=== PATIENT | female | born 1980 | race Caucasian/White ===

== ENCOUNTER 2021-04-05 00:50 | Outpatient (CLI) | payer BC, SELFPAY ==
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
== END 2021-04-05 01:10 ==
PROVIDERS: PCP Nurse Practitioner; Visit Provider Nurse Practitioner Family
DX: M54.2 Cervicalgia (principal); G89.29 Other chronic pain
CPT/HCPCS: 72052

== ENCOUNTER 2022-05-15 01:04 | Outpatient (CLI) | payer BC, SELFPAY ==
--- NOTE | 2022-05-15 | DI.MRI_ITS ---
Exam(s) MR CERVICAL SPINE WO EXAM: MR CERVICAL SPINE WO CLINICAL HISTORY: CERVICAL RADICULOPATHY,RT,M54.12,NECK PAIN,M54.2 TECHNIQUE: Multiplanar multisequence MRI of the cervical spine was performed without intravenous con trast. COMPARISON: CR XR CERVICAL SP COMP W FLEX/EXT from 04/05/2021 FINDINGS: BONES: Vertebral body heights are maintained. Alignment is normal. Bone marrow signal intensity is wi thin normal limits. CERVICAL CORD: Craniovertebral junction is unremarkable. The cervical cord is normal size and signal intensity. There is focal mild dilatation of 1.5 Millimeters in diameter of the central canal seen at the C6 C7 levels. The brainstem and cerebellum appear normal. There is no evidence Chiari 1 malf ormation. SOFT TISSUES: Unremarkable. C2-3: No disc herniation or bulge is identified. No evidence of neural foraminal narrowing. No signi ficant central canal stenosis C3-4: No disc herniation or bulge is identified. No evidence of neural foraminal narrowing. No signif icant central canal stenosis C4-5: No disc herniation or bulge is identified. No evidence of neural foraminal narrowing. No signif icant central canal stenosis C5-6: No disc herniation or bulge is identified. No evidence of neural foraminal narrowing. No signif icant central canal stenosis C6-7: No disc herniation or bulge is identified. No evidence of neural foraminal narrowing. No signif icant central canal stenosis C7-T1: No disc herniation or bulge is identified. No evidence of neural foraminal narrowing. No signi ficant central canal stenosis IMPRESSION: Minimal focal dilatation of the central canal 1.5 Millimeters at the C6-C7 level. No additional abn ormalities. Further evaluation of the thoracic cord could be considered. DATA REPOSITORY:
== END 2022-05-15 01:24 ==
LOC: DI 01:05
PROVIDERS: PCP Nurse Practitioner; Visit Provider Nurse Practitioner Family
DX: M54.12 Radiculopathy, cervical region (principal)
CPT/HCPCS: 72141

== ENCOUNTER 2022-07-17 00:33 | Outpatient (CLI) | payer BC, SELFPAY ==
--- NOTE | 2022-07-17 | DI.MRI_ITS ---
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 CONTRAST MATERIAL: IV Contrast: 17 ML of Dotarem contrast administered. COMPARISON: MR MR CERVICAL SPINE WO from 05/15/2022 FINDINGS: BONES: Vertebral body heights are maintained. Intervertebral disc spaces are normal. Alignment is nor mal. Bone marrow signal intensity is within normal limits. CERVICAL CORD: Craniovertebral junction is unremarkable. The cerebellar tonsils have a normal locati on. The cervical cord is normal in size. The syrinx seen posterior to the C6 and C7 vertebral zeus s is present. It appears unchanged compared to the prior examination. SOFT TISSUES: Unremarkable. ENHANCEMENT: No suspicious enhancement identified. IMPRESSION: 1. Stable appearance of the syrinx. The syrinx is best appreciated on the examination from 05/15/2022 on the T2 weighted images. 2. No abnormal enhancement is seen in the spinal cord. 3. The brainstem and cerebellum have an unremarkable appearance and location. DATA REPOSITORY:
[2022-07-17] MEDS: Gadoterate meglumine 20 ML VIAL 17 ML IVP (09:52)
[2022-07-17] MEDS: Normal Saline Flush 10 ML SYR IVP (09:52)
== END 2022-07-17 00:53 ==
LOC: DI 00:34
PROVIDERS: PCP Nurse Practitioner Family; Visit Provider Nurse Practitioner Family
DX: Q06.9 Congenital malformation of spinal cord, unspecified (principal); M79.602 Pain in left arm; M54.2 Cervicalgia
CPT/HCPCS: 72142

== ENCOUNTER 2023-01-10 11:56 | Outpatient (CLI) | payer BC, SELFPAY ==
[2023-01-10 12:11] VITALS: BP 137/79; PULSE 70; RESP 20; TEMP 36.6; O2SAT 98
[2023-01-10 13:00] VITALS: PULSE 77; O2SAT 100
--- NOTE | 2023-01-10 13:05 | PDOC.PAIN ---
Date of service: 01/10/23 Time of Service: 13:05 US Guided Injections Type of Ultrasound Guided Injection: Neck Bilateral Levator scapulae and Trapezius muscle Trigger Point Injection Pre-Procedural Evaluation Tender to palpation at the tapezius muscles bilaterally and the lateral neck Referral Patient has been referred to the [facility] for Bilateral Levator scapulae and Trapezius muscle Neck Trigger Point Injection for a chief complaint of Pre-Procedural Pain Score Pre-procedural pain score: 6/10 Patient Interview Patient was interviewed and medical record reviewed: Yes There were no contraindications to performing an US guided procedure. Risks,expected side effects, potential benefits were reviewed. The patient consent form was signed and witnessed. Standard time out procedure was performed. Patient Safety No skin issues at the site of injections Procedure Description No sedation given for procedure Patient was placed in the prone position and the following Pulse Ox applied. Pre-Procedure ultrasound scanning performed using a Linear 18 MHz probe Site Preparation Chloroprep Local Anesthesia of Lidocaine 2%. guidance using an in-plane approach to the target area. After visualization of the needle tip at the target area Lidocaine 2% were used. Total of Injectate/Medication Note: No steroids given as patient just had her COVID vaccine Negative aspiration for blood. [place] were removed without difficulty. Ultrasound images were captured and stored. Patient Mental Status Patient was alert and awake during procedure Vital Signs Vital signs were stable throughout the procedure and recorded by nursing. Follow Up/Discharge Follow up plans and appointments were discussed with patient. Post procedure instruction was given as documented in nursing documentation. Discharge criteria met and patient discharged from Pain Management Center: Yes Post Procedure Pain Post Procedure Pain: 3/10 Patient tolerated procedure well Procedure Outcome: Successful Trigger Point Injection 3+muscles Non US Guided Injections Procedure Description Patient was placed in the prone position Post Procedure Pain Post Procedure Pain: 3/10
[2023-01-10] MEDS: Lidocaine 2% Pres-Free 5 ML VIAL IJ (13:09)
== END 2023-01-10 11:57 | disposition home or self-care (01) ==
LOC: PC 11:56
PROVIDERS: PCP Nurse Practitioner Family; Visit Provider Preventive Medicine Occupational Medicine
DX: M79.18 Myalgia, other site (principal)
CPT/HCPCS: 00123; 20553; 76942

== ENCOUNTER 2023-04-18 09:02 | Outpatient (CLI) | payer BC, SELFPAY ==
[2023-04-18 09:11] VITALS: BP 127/82; PULSE 65; RESP 20; TEMP 36.6; O2SAT 95
[2023-04-18 10:12] VITALS: PULSE 69; O2SAT 99
[2023-04-18] MEDS: Lidocaine 2% Pres-Free 5 ML VIAL IJ (10:16)
[2023-04-18] MEDS: Nerve Block Tray 1 EACH MC (10:16)
[2023-04-18] MEDS: methylPREDNISolone ACETATE 40 MG/ML VIAL IJ (10:17)
--- NOTE | 2023-04-18 10:51 | PDOC.PAIN ---
Date of service: 04/18/23 Time of Service: 10:51 US Guided Injections Type of Ultrasound Guided Injection: Neck Bilateral Levator scapulae and Trapezius muscle Trigger Point Injection Pre-Procedural Evaluation Tenderness to the bilateral trapezius and levator scapulae muscles - no skin abnormalities to these areas. Referral Patient has been referred to the [facility] for Bilateral Levator scapulae and Trapezius muscle Neck Trigger Point Injection for a chief complaint of Upper back and neck /shoulder pain Reason for Exam Upper back and neck /shoulder pain Patient Interview Patient was interviewed and medical record reviewed: Yes There were no contraindications to performing an US guided procedure. Risks,expected side effects, potential benefits were reviewed. The patient consent form was signed and witnessed. Patient Safety No skin abnormalities over the injection area Procedure Description No sedation given for procedure Patient was placed in the prone position and the following Pulse Ox applied. Pre-Procedure ultrasound scanning performed using a Linear 9 MHz probe Site Preparation Chloroprep Local Anesthesia of Lidocaine 2% (5 cc). A 21 G 3.5 Pajunk ultrasound needle was placed under live US guidance using an in-plane approach to the target area. After visualization of the needle tip at the target area Depo-Medrol 40mg per cc (40 mg) were used. Negative aspiration for blood. [place] were removed without difficulty. Ultrasound images were captured and stored. Patient Mental Status Patient was alert during procedure Vital Signs Vital signs were stable throughout the procedure and recorded by nursing. Follow Up/Discharge Follow up plans and appointments were discussed with patient. Post procedure instruction was given as documented in nursing documentation. Discharge criteria met and patient discharged from Pain Management Center: Yes Post Procedure Pain Post Procedure Pain: 5/10 Patient tolerated procedure well Procedure Outcome: Successful Trigger Point Injection 3+muscles Non US Guided Injections Procedure Description Patient was placed in the prone position Post Procedure Pain Post Procedure Pain: 5/10
== END 2023-04-18 09:03 | disposition home or self-care (01) ==
LOC: PC 09:02
PROVIDERS: PCP Nurse Practitioner Family; Visit Provider Preventive Medicine Occupational Medicine
DX: M54.6 Pain in thoracic spine (principal); M54.2 Cervicalgia
CPT/HCPCS: 00123; 20553; 76942; J1030

== ENCOUNTER → 2023-07-16 02:16 | Outpatient (CLI) | payer BC, SELFPAY ==
--- NOTE | 2023-07-16 | DI.DEXA_ITS ---
Exam(s) XR DEXA BONE DENSITY W/WO NANCY EXAM: XR DEXA BONE DENSITY W/WO NANCY CLINICAL HISTORY: H/O BARIATRIC SURGERY,Z98.84 TECHNIQUE: COMPARISON: No exams were available for comparison FINDINGS: Lateral Spine Image: Unremarkable. No compression deformities identified. Left hip: Total T-Score: -1.0 Total Z-Score: -0.8 T- and Z-scores: Within normal limits. Lumbar Spine: Total T-Score: -1.0 Total Z-Score: -0.8 T- and Z-scores: Within normal limits. IMPRESSION: No evidence of osteoporosis.
== END ==
PROVIDERS: PCP Nurse Practitioner Family; Visit Provider Nurse Practitioner Family
DX: Z13.820 Encounter for screening for osteoporosis (principal); Z98.84 Bariatric surgery status
CPT/HCPCS: 77080

== ENCOUNTER 2024-01-08 17:53 | Outpatient (REF) | payer BC, SELFPAY ==
--- OUTSIDE RECORDS SUMMARY | 2024-01-08 17:54 | XMS_ITS | Continuity of Care Document ---
Author Organization [facility] Ambulatory Clin[facility] Address [address] [place] [address] Care Team Providers Care Instrument Man Name Role Phone Desmond JOY, Arlene Primary Care Physician [phone] Encounter [facility] FIN NBR [id number] Date(s): 05/22/22 - 05/22/22 [facility] Ambulatory Clinics [address] [place] [address] Patient Care team information Care Team Personnel Name: Arlene Logan MD Position: Physician Member Role: Primary Care Physician Address: Address: [address] [place] [phone] Care Team Related Persons Name: NANCY RAM Address: Home [address] [place] [address] [place]
--- OUTSIDE RECORDS SUMMARY | 2024-01-08 17:54 | XMS_ITS | Continuity of Care Document ---
Author Organization [facility] Ambulatory Clinics Address [address] [place] [address] Care Team Providers Care Wet Silk Hanger Name Role Phone Arlene Logan MD Primary Care Physician Encounter [facility] FIN NBR [id number] Date(s): 07/25/22 - 07/25/22 [facility] Ambulatory Clinics [address], [place] [address] Discharge Disposition: Home Allergies, Adverse Reactions, Alerts Substance Reaction Severity Status gabapentin Altered sensation Moderate Active Amino Acid 1 Unknown Active Phenylalanine Lethargic Mild Active 1Phenylalanine found in both plant and animal foods Assessment and Plan Future Scheduled Tests Laboratory* Basic Metabolic Panel 06/01/22 Radiology* MRI Spine Cervical w/ Contrast 06/01/22 Medications methocarbamol 750 mg oral tablet 1,500 mg = 2 tab, Oral, BID, PRN as needed for pain, 0 Refill(s) Start Date: 05/31/22 Status: Ordered Nexplanon 68 mg =, Subcutaneous, Once, 0 Refill(s) Start Date: 05/31/22 Status: Ordered Tylenol Extra Strength 500 mg oral tablet 1,000 mg = 2 tab, Oral, TID, PRN as needed for pain, 0 Refill(s) Start Date: 05/31/22 Status: Ordered Problem List Condition Confirmation Course Effective Dates Status H ealth Status Informant BMI 30.0-30.9,adult Confirmed Active Cervical radiculopathy Confirmed Active Cervicalgia Confirmed Active Pain of left upper extremity Confirmed Active Spinal cord anomaly Confirmed Active Syringomyelia Confirmed Active Social History Social History Type Response Tobacco Former tobacco user Tobacco Use:. 1 Sex 1quit in 2005 Patient Care team information Care Team Personnel Name: Arlene Logan MD Position: Physician Member Role: Primary Care Physician Address: Address: [address] [place] [address] Care Team Related Persons Name: NANCY RAM Address: [address] Name: YEMI JIMENEZ
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
--- OUTSIDE RECORDS SUMMARY | 2024-01-08 17:55 | XMS_ITS | Encounter Summary ---
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 (preoperative BMI 50); Vitamin D deficiency Social History Tobacco Use Types Packs/Day Years Used Date Smoking Tobacco: Former Cigarettes Q uit: 01/04/2007 Smokeless Tobacco: Never Alcohol Use Standard Drinks/Week Comments No 0 (1 standard drink = 0.6 oz pur e alcohol) Sex and Gender Information Value Date Recorded Sex Assigned at Not on file Gender Identity Not on file Sexual Orientation Not on file documented as of this encounter Plan of Treatment Not on file documented as of this encounter Procedures Procedure Name Priority Date/Time Associated Diagnosis Comments PTH Routine 04/16/2023 11:28 AM EST Status post bariatric surgery 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 on 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/17 (preoperative BMI 50) Vitamin D deficiency HEMOGRAM Routine 04/16/2023 11:28 AM EST Status post bariatric surgery 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 on 03/28/17 (preoperative BMI 50) Vitamin D deficiency VITAMIN B1, WHOLE BLOOD Routine 04/16/2023 11:28 AM EST Status post bariatric surgery 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 on 03/28/17 (preoperative BMI 50) Vitamin D deficiency IRON AND TIBC Routine 04/16/2023 11:28 AM EST Status post bariatric surgery 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 on 03/28/17 (preoperative BMI 50) Vitamin D deficiency VITAMIN D, 25-HYDROXY Routine 04/16/2023 11:28 AM EST Status post bariatric surgery 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 on 03/28/17 (preoperative BMI 50) Vitamin D deficiency FOLATE, SERUM Routine 04/16/2023 11:28 AM EST Status post bariatric surgery 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 on 03/28/17 (preoperative BMI 50) Vitamin D deficiency FERRITIN Routine 04/16/2023 11:28 AM EST Status post bariatric surgery 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 on 03/28/17 (preoperative BMI 50) Vitamin D deficiency VITAMIN B12 Routine 04/16/2023 11:28 AM EST Status post bariatric surgery 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 on 03/28/17 (preoperative BMI 50) Vitamin D deficiency COMPREHENSIVE METABOLIC PANEL Routine 04/16/2023 11:28 AM EST Status post bariatric surgery 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 on 03/28/17 (preoperative BMI 50) Vitamin D deficiency documented in this encounter Results * (ABNORMAL) Comprehensive metabolic panel (non-fasting) (04/16/2023 11:28 AM EST) Glucose 79 65 - 199 mg/dL [facility] Comment:Diabetes: >=200 mg/d L plus symptoms Blood Urea Nitrogen 10 8 - 18 mg/dL [facility] Creatinine 0.72 0.70 - 1.20 mg/dL [facility] Sodium 141 135 - 145 mmol/L [facility] Potassium 3.3(L) 3.5 - 5.0 mmol/L [facility] Comment: Please note: ??Patients with WBC >100,000 may have falsely elevated Potassium levels. ??For accurate Potassium quantification in these patients send serum separator tube (gold top) for subsequent determinations. ??Contact the Clinical Chemistry Laboratory if there are any questions. Chloride 106 98 - 107 mmol/L [facility] Carbon Dioxide 23 22 - 31 mmol/L [facility] Anion Gap 12 5 - 15 mmol/L [facility] Calcium 9.3 8.5 - 10.5 mg/dL [facility] Protein, Total 6.9 6.1 - 8.0 g/dL [facility] Albumin 4.1 3.2 - 5.2 g/dL [facility] Aspartate Aminotransferase 11 0 - 30 unit/L [facility] Alanine Aminotransferase 6 0 - 30 unit/L [facility] Alkaline Phosphatase 62 35 - 105 unit/L [facility] Bilirubin, Total <0.2(L) 0.2 - 1.3 mg/dL [facility] Est Glomerular Filtration Rate 108 >=60 mL/min/1. 73 m?? [facility] Comment: This patient's estimated GFR was calculated using the 2020 CKD-EPI equation. The estimated GFR can vary from the measured GFR by up to 30% in the absence of rapidly changing kidney function. Assessment of the estimated GFR is not appropriate when creatinine concentrations are rapidly changing. For clinical situations in which a more precise estimate of GFR is necessary, consider alternative methods of GFR estimation such as a 24-hour urine creatinine clearance. Assignment of CKD stage 1-5 for patients with an eGFR near the transition point between stages may be based on clinical assessment of muscle mass and symptoms in addition to eGFR. Blood 04/16/2023 11:2 8 AM EST 04/16/2023 11:50 AM EST Narrative Resulting Agency Comment Spec In Lab Belle Barone GLASS CALIBRATOR CHEMISTRY ORDERA BLES [facility] [place] [address] * Ferritin (04/16/2023 11:28 AM EST) Ferritin 18 6 - 175 ng/mL [facility] Comment: Please note that as of 02/28/2023, the reference intervals for Ferritin have been updated. Blood 04/16/2023 11:2 8 AM EST 04/16/2023 11:50 AM EST Narrative Resulting Agency Comment Spec In Lab Belle Barone APRN CHEMISTRY ORDERA BLES Performing Organization Address [facility] Co de Phone Number [facility] [place] [address] * Folate, serum (04/16/2023 11:28 AM EST) Pathologist [facility] Folate 5.9 4.8 - 24.2 ng/mL [facility] Blood 04/16/2023 11:2 8 AM EST 04/16/2023 11:50 AM EST Narrative Resulting Agency Comment Spec In Lab Belle Barone APRN CHEMISTRY ORDERA BLES Performing Organization Address [facility] de Phone Number [facility] [place] [address] * (ABNORMAL) Hemogram (04/16/2023 11:28 AM EST) Pathologist [facility] White Blood Cell 9.9(H) 4.0 - 9.5 x10(3)/mc L [facility] Red Blood Cell 4.56 4.00 - 5.21 x10(6)/mc L [facility] Hemoglobin 12.5 11.7 - 15.5 g/dL [facility] Hematocrit 38.2 35.7 - 45.8 % [facility] Mean Cell Volume 83.8 82.6 - 94.4 fL [facility] Mean Cell Hemoglobin 27.4 27.1 - 32.0 pg [facility] Mean Cell Hemoglobin Concentration 32.7 31.7 - 35.0 g/dL [facility] Platelet 329 145 - 357 x10(3)/mc L [facility] RDW Standard Deviation 39.9 37.0 - 46.0 fL [facility] RDW coefficient of variation 13.1 11.5 - 14.1 % [facility] Mean Platelet Volume 11.0 7.6 - 12.9 fL [facility] NRBC% auto 0.0 % [facility] NRBC Absolute 0.000 0.000 - 0.000 x10(3)/mc L [facility] Blood 04/16/2023 11:2 8 AM EST 04/16/2023 11:50 AM EST Narrative Resulting Agency Comment Spec In Lab Belle Barone APRN HEMATOLOGY ORDER BARTOLO Performing Organization Address City/[facility]/ZIP Co de Phone Number [facility] [address] * (ABNORMAL) Iron and TIBC (04/16/2023 11:28 AM EST) Iron 60 30 - 150 mcg/dL [facility] TIBC 373 250 - 450 mcg/dL [facility] Iron Saturation 16(L) 20 - 50 % [facility] Blood 04/16/2023 11:2 8 AM EST 04/16/2023 11:50 AM EST Narrative Resulting Agency Comment Spec In Lab Belle Barone APRN CHEMISTRY ORDERA BLES Performing Organization Address [facility] Co de Phone Number [facility] [place] [address] * PTH (04/16/2023 11:28 AM EST) Parathyroid Hormone 44 15 - 65 pg/mL [facility] Blood 04/16/2023 11:2 8 AM EST 04/16/2023 11:50 AM EST Narrative Resulting Agency Comment Spec In Lab Belle Barone APRN CHEMISTRY ORDERA BLES Performing Organization Address [facility] Co de Phone Number [facility] [place] [address] * Vitamin B1, whole blood (04/16/2023 11:28 AM EST) Vit B1 Lvl Wb (JULY) 112 70 - 180 nmol/L [facility] Comment: ADDITIONAL INFORMATION This test was developed and its performance characteristics determined by [facility] in a manner consistent with CLIA requirements. This test has not been cleared or approved by the U.S. Food and Drug Administration. Test Performed by: [facility] - [address] [address] Bed Laborer: Farzad Monroe M.D. Ph.D.; CLIA# [id number] Blood 04/16/2023 11:2 8 AM EST 04/16/2023 12:24 PM EST Narrative Resulting Agency Comment Spec In Lab Belle Barone APRN LAB SEND OUT ORD ERABLES Performing Organization Address City/[facility]/ZIP Co de Phone Number [facility] [place] [address] * Vitamin B12 (04/16/2023 11:28 AM EST) Vitamin B12 414 232 - 1,245 pg/mL [facility] Blood 04/16/2023 11:2 8 AM EST 04/16/2023 11:50 AM EST Narrative Resulting Agency Comment Spec In Lab Belle Barone APRN CHEMISTRY ORDERA BLES Performing Organization Address [facility] Co de Phone Number [facility] [place] [address] * Vitamin D, 25-Hydroxy (04/16/2023 11:28 AM EST) Vitamin D Total 25 OH 24 21 - 100 ng/mL [facility] Vit D Interp Insufficient [facility] Blood 04/16/2023 11:2 8 AM EST 04/16/2023 11:50 AM EST Narrative Resulting Agency Comment Spec In Lab Belle Barone APRN CHEMISTRY ORDERA BLES Performing Organization Address City/[facility]/ZIP Co de Phone Number [facility] [place] [address] documented in this encounter Visit Diagnoses Diagnosis Status post bariatric surgery Bariatric surgery status Disorder of iron metabolism Other disorders of iron metabolism S/P laparoscopic sleeve gastrectomy on 03/28/17 (preoperative BMI 50) Vitamin D deficiency Unspecified vitamin D deficiency documented in this encounter Care Teams Power Hammer Operator Relationship Specialty Start Date End Date Samreen Warner APRN [address] [place] [address] PCP - General Family Medicine 09/14/16 07/22/23 documented as of this encounter
--- OUTSIDE RECORDS SUMMARY | 2024-01-08 17:55 | XMS_ITS | Encounter Summary ---
[place] [address] Care Team Providers Care Factory Clerk Name Role Phone Samreen Warner TRAVELING PHLEBOTOMIST Primary Care Provider Encounter Details Date Type Department Care Team (Latest Contact Info) Description 08/30/2020 1:35 PM EDT Laboratory Appointment Lab [address] [place] [address] Status post bariatric surgery; Vitamin D deficiency Social History Tobacco Use [...] Procedure Name Priority Date/Time Associated Diagnosis Comments HC VITAMIN D TOTAL-25 HYDROXY Routine 08/30/2020 1:38 PM EDT Status post bariatric surgery Vitamin D deficiency documented in this encounter Results * Vitamin D, 25-Hydroxy (08/30/2020 1:38 PM EDT) Vitamin D Total 25 OH 57 21 - 100 ng/mL [facility] Vit D Interp Sufficient [facility] Blood 08/30/2020 1:38 PM EDT 08/30/2020 1:59 PM EDT Narrative Resulting Agency Comment Spec In Lab Belle Barone TRAVELING PHLEBOTOMIST CHEMISTRY ORDERA BLES Performing Organization Address City/State/[facility] Co de Phone Number [facility] [place] [address] documented in this encounter Visit Diagnoses Diagnosis Status post bariatric surgery Bariatric surgery status Vitamin D deficiency Unspecified vitamin D deficiency documented in this encounter Care Teams Factory Clerk Relationship Specialty Start Date End Date Samreen Warner APRN [address] [place] [address] PCP - General Family Medicine 09/14/16 07/22/23 documented as of this encounter
--- OUTSIDE RECORDS SUMMARY | 2024-01-08 17:55 | XMS_ITS | Encounter Summary ---
[facility] [place] [address] Care Team Providers Care Coffee Blender Name Role Phone RadhapoliSamreen brandon LUCIANO Primary Care Provider Encounter Details Date Type Department Care Team (Late st Contact Info) Description 03/03/2022 Orders Only [place] [address] Belle Barone APRN [facility] [place] [address] Status post bariatric surgery; Disorder of iron metabolism Social History Tobacco Use Types Packs/Day Years [...] on file documented as of this encounter Results * Vitamin B12 (04/03/2022 8:03 AM EST) Vitamin B12 492 232 - 1,245 pg/mL [facility] Blood 04/03/2022 8:03 AM EST 04/03/2022 8:15 AM EST Narrative Resulting Agency Comment Spec In Lab Belle M Neosho COFFEE SHOP MANAGER CHEMISTRY ORDERA BLES Performing Organization Address City/[facility]/ZIP Co de Phone Number [facility] [place] [address] * Vitamin D, 25-Hydroxy (04/03/2022 8:03 AM EST) Vitamin D Total 25 OH 62 21 - 100 ng/mL [facility] Vit D Interp Sufficient [facility] Blood 04/03/2022 8:03 AM EST 04/03/2022 8:15 AM EST Narrative Resulting Agency Comment Spec In Lab Belle Barone COFFEE SHOP MANAGER CHEMISTRY ORDERA BLES Performing Organization Address [facility] Co de Phone Number [facility] [place] [address] * Vitamin B1, whole blood (04/03/2022 8:03 AM EST) Vit B1 Lvl Wb (JULY) 120 70 - 180 nmol/L [facility] Comment: ADDITIONAL INFORMATION This test was developed and its performance characteristics determined by [facility] in a manner consistent with CLIA requirements. This test has not been cleared or approved by the U.S. Food and Drug Administration. Test Performed by: [facility] - [address] [address] [employer] Production: Farzad Monroe M.D. Ph.D.; CLIA# [id number] Blood 04/03/2022 8:03 AM EST 04/03/2022 9:29 AM EST Narrative Resulting Agency Comment Spec In Lab Belle Barone COFFEE SHOP MANAGER LAB SEND OUT ORD ERABLES Performing Organization Address City/[facility]/ZIP Co de Phone Number [facility] [place] [address] * PTH (04/03/2022 8:03 AM EST) Parathyroid Hormone 45 15 - 65 pg/mL [facility] Blood 04/03/2022 8:03 AM EST 04/03/2022 8:15 AM EST Narrative Resulting Agency Comment Spec In Lab Belle Barone COFFEE SHOP MANAGER CHEMISTRY ORDERA BLES [facility] [place] [address] * (ABNORMAL) Hemogram (04/03/2022 8:03 AM EST) White Blood Cell 11.2(H) 4.0 - 9.5 x10(3)/mc L [facility] Red Blood Cell 4.55 4.00 - 5.21 x10(6)/mc L [facility] Hemoglobin 12.9 11.7 - 15.5 g/dL [facility] Hematocrit 38.6 35.7 - 45.8 % [facility] Mean Cell Volume 84.8 82.6 - 94.4 fL [facility] Mean Cell Hemoglobin 28.4 27.1 - 32.0 pg [facility] Mean Cell Hemoglobin Concentration 33.4 31.7 - 35.0 g/dL [facility] Platelet 341 145 - 357 x10(3)/mc L [facility] RDW Standard Deviation 38.9 37.0 - 46.0 fL [facility] RDW coefficient of variation 12.6 11.5 - 14.1 % [facility] Mean Platelet Volume 10.3 7.6 - 12.9 fL [facility] NRBC% auto 0.0 % [facility] NRBC Absolute 0.000 0.000 - 0.000 x10(3)/mc L [facility] Blood 04/03/2022 8:03 AM EST 04/03/2022 8:15 AM EST Narrative Resulting Agency Comment Spec In Lab Belle Barone APRN HEMATOLOGY ORDER BARTOLO [facility] [place] [address] * Folate, serum (04/03/2022 8:03 AM EST) Folate >20.0 4.8 - 24.2 ng/mL [facility] Blood 04/03/2022 8:03 AM EST 04/03/2022 8:15 AM EST Narrative Resulting Agency Comment Spec In Lab Belle Barone APRN CHEMISTRY ORDERA BLES Performing Organization Address City/[facility]/ZIP Co de Phone Number [facility] [place] [address] * Iron and TIBC (04/03/2022 8:03 AM EST) Iron 104 30 - 150 mcg/dL [facility] TIBC 329 250 - 450 mcg/dL [facility] Iron Saturation 32 20 - 50 % [facility] Blood 04/03/2022 8:03 AM EST 04/03/2022 8:15 AM EST Narrative Resulting Agency Comment Spec In Lab Belle Barone APRN CHEMISTRY ORDERA BLES Performing Organization Address [facility] Co de Phone Number [facility] [place] [address] * Ferritin (04/03/2022 8:03 AM EST) Ferritin 21 15 - 150 ng/mL [facility] Comment: Pediatric reference ranges not verified at [facility], interpret with caution. Reference ranges for females greater than 50 years of age approach values for men, i.e., 30-400 ng/mL. Blood 04/03/2022 8:03 AM EST 04/03/2022 8:15 AM EST Narrative Resulting Agency Comment Spec In Lab Belle Barone APRN CHEMISTRY ORDERA BLES Performing Organization Address [facility] Co de Phone Number [facility] [place] [address] * (ABNORMAL) Comprehensive metabolic panel (non-fasting) (04/03/2022 8:03 AM EST) Glucose 90 65 - 199 mg/dL [facility] Comment:Diabetes: >=200 mg/d L plus symptoms Blood Urea Nitrogen 10 8 - 18 mg/dL [facility] Creatinine 0.65(L) 0.70 - 1.20 mg/dL [facility] Sodium 140 135 - 145 mmol/L [facility] Potassium 3.7 3.5 - 5.0 mmol/L [facility] Comment: Please note: ??Patients with WBC >100,000 may have falsely elevated Potassium levels. ??For accurate Potassium quantification in these patients send serum separator tube (gold top) for subsequent determinations. ??Contact the Clinical Chemistry Laboratory if there are any questions. Chloride 107 98 - 107 mmol/L [facility] Carbon Dioxide 24 22 - 31 mmol/L [facility] Anion Gap 9 5 - 15 mmol/L [facility] Calcium 9.1 8.5 - 10.5 mg/dL [facility] Protein, Total 6.7 6.1 - 8.0 g/dL [facility] Albumin 4.2 3.2 - 5.2 g/dL [facility] Aspartate Aminotransferase 9 0 - 30 unit/L [facility] Alanine Aminotransferase 6 0 - 30 unit/L [facility] Alkaline Phosphatase 49 35 - 105 unit/L [facility] Bilirubin, Total 0.4 0.2 - 1.3 mg/dL [facility] Est Glomerular Filtration Rate 115 >=60 mL/min/1. 73 m?? [facility] Comment: This patient's estimated GFR was [...] and symptoms in addition to eGFR. Blood 04/03/2022 8:03 AM EST 04/03/2022 8:15 AM EST Narrative Resulting Agency Comment Spec In Lab Belle Barone COFFEE SHOP MANAGER CHEMISTRY ORDERA BLES [facility] [place] [address] documented in this encounter Visit Diagnoses Diagnosis Status post bariatric surgery Bariatric surgery status Disorder of iron metabolism Other disorders of iron metabolism documented in this encounter Care Teams Coffee Blender Relationship Specialty Start Date End Date Samreen Warner APRN [address] [place] [address] PCP - General Family Medicine 09/14/16 07/22/23 documented as of this encounter
--- OUTSIDE RECORDS SUMMARY | 2024-01-08 17:55 | XMS_ITS | Encounter Summary ---
[facility] Organization [facility] [place] [address] Care Team Providers Care Levelman Name Role Phone NikkiSamreen brandon LUCIANO Primary Care Provider Encounter Details Date Type Department Care Team (Late st Contact Info) Description 12/31/2020 Orders [place] [address] Belel Barone APRN [facility] DR [place] [address] Status post bariatric surgery; Vitamin D deficiency; Disorder of iron metabolism Social History Tobacco [...] as of this encounter Results * Vitamin D, 25-Hydroxy (04/04/2021 1:12 PM EST) Vitamin D Total 25 OH 41 21 - 100 ng/mL [facility] Vit D Interp Sufficient [facility] Blood 04/04/2021 1:12 PM EST 04/04/2021 1:25 PM EST Narrative Resulting Agency Comment Spec In Lab Belle Barone APRN CHEMISTRY ORDERA BLES Performing Organization Address City/[facility]/ZIP Co de Phone Number [facility] [place] [address] * Vitamin B12 (04/04/2021 1:12 PM EST) Vitamin B12 948 232 - 1,245 pg/mL [facility] Blood 04/04/2021 1:12 PM EST 04/04/2021 1:25 PM EST Narrative Resulting Agency Comment Spec In Lab Belle Barone APRN CHEMISTRY ORDERA BLES Performing Organization Address [facility] de Phone Number [facility] [place] [address] * Vitamin B1, whole blood (04/04/2021 1:12 PM EST) Vit B1 Lvl Wb (JULY) 116 70 - 180 nmol/L [facility] Comment: ADDITIONAL INFORMATION This test was developed and its performance characteristics determined by [facility] in a manner consistent with CLIA requirements. This test has not been cleared or approved by the U.S. Food and Drug Administration. Test Performed by: [facility] - [address] [address] Aircraft Captain: Farzad Monroe M.D. Ph.D.; CLIA# [id number] Blood 04/04/2021 1:12 PM EST 04/04/2021 3:30 PM EST Narrative Resulting Agency Comment Spec In Lab Belle Barone APRN LAB SEND OUT ORD ERABLES Performing Organization Address City/[facility]/ZIP Co de Phone Number [facility] [place] [address] * PTH (04/04/2021 1:12 PM EST) Parathyroid Hormone 47 15 - 65 pg/mL [facility] Blood 04/04/2021 1:12 PM EST 04/04/2021 1:25 PM EST Narrative Resulting Agency Comment Spec In Lab Belle Barone APRN CHEMISTRY ORDERA BLES Performing Organization Address City/[facility]/ZIP Co de Phone Number [facility] [place] [address] * Iron and TIBC (04/04/2021 1:12 PM EST) Iron 97 30 - 150 mcg/dL [facility] TIBC 316 250 - 450 mcg/dL [facility] Iron Saturation 31 20 - 50 % [facility] Blood 04/04/2021 1:12 PM EST 04/04/2021 1:25 PM EST Narrative Resulting Agency Comment Spec In Lab Belle Barone APRN CHEMISTRY ORDERA BLES Performing Organization Address City/[facility]/ZIP Co de Phone Number [facility] [place] [address] * Hemogram (04/04/2021 1:12 PM EST) White Blood Cell 8.1 4.0 - 9.5 x10(3)/[facility] Red Blood Cell 4.49 4.00 - 5.21 x10(6)/[facility] Hemoglobin 13.0 11.7 - 15.5 g/dL [facility] Hematocrit 38.7 35.7 - 45.8 % [facility] Mean Cell Volume 86.2 82.6 - 94.4 fL [facility] Mean Cell Hemoglobin 29.0 27.1 - 32.0 pg [facility] Mean Cell Hemoglobin Concentration 33.6 31.7 - 35.0 g/dL [facility] Platelet 334 145 - 357 x10(3)/[facility] RDW Standard Deviation 39.2 37.0 - 46.0 fL [facility] RDW coefficient of variation 12.6 11.5 - 14.1 % [facility] Mean Platelet Volume 10.4 7.6 - 12.9 fL [facility] NRBC% auto 0.0 % [facility] NRBC Absolute 0.000 0.000 - 0.000 x10(3)/[facility] Blood 04/04/2021 1:12 PM EST 04/04/2021 1:25 PM EST Narrative Resulting Agency Comment Spec In Lab Belle Barone APRN HEMATOLOGY ORDER BARTOLO Performing Organization Address City/[facility]/ZIP Co de Phone Number [facility] [place] [address] * Folate, serum (04/04/2021 1:12 PM EST) Pathologist [facility] Folate >20.0 4.8 - 24.2 ng/mL [facility] Blood 04/04/2021 1:12 PM EST 04/04/2021 1:25 PM EST Narrative Resulting Agency Comment Spec In Lab Belle Barone APRN CHEMISTRY ORDERA BLES Performing Organization Address City/[facility]/ZIP Co de Phone Number [facility] [place] [address] * Ferritin (04/04/2021 1:12 PM EST) Pathologist [facility] Ferritin 33 15 - 150 ng/mL [facility] Comment: Pediatric reference ranges not verified at [facility], interpret with caution. Reference ranges for females greater than 50 years of age approach values for men, i.e., 30-400 ng/mL. Blood 04/04/2021 1:12 PM EST 04/04/2021 1:25 PM EST Narrative Resulting Agency Comment Spec In Lab Belle Barone TEMPERING MACHINE OPERATOR CHEMISTRY ORDERA BLES [facility] [place] [address] * (ABNORMAL) Comprehensive metabolic panel (non-fasting) (04/04/2021 1:12 PM EST) Glucose 76 65 - 199 mg/dL [facility] Comment:Diabetes: >=200 mg/d L plus symptoms Blood Urea Nitrogen 14 8 - 18 mg/dL [facility] Creatinine 0.74 0.70 - 1.20 mg/dL [facility] Sodium 138 135 - 145 mmol/L [facility] Potassium 3.3(L) 3.5 - 5.0 mmol/L [facility] Comment: Please note: ??Patients with WBC >100,000 may have falsely elevated Potassium levels. ??For accurate Potassium quantification in these patients send serum separator tube (gold top) for subsequent determinations. ??Contact the Clinical Chemistry Laboratory if there are any questions. Chloride 104 98 - 107 mmol/L [facility] Carbon Dioxide 25 22 - 31 mmol/L [facility] Anion Gap 9 5 - 15 mmol/L [facility] Calcium 9.3 8.5 - 10.5 mg/dL [facility] Protein, Total 7.0 6.1 - 8.0 g/dL [facility] Albumin 4.5 3.2 - 5.2 g/dL [facility] Aspartate Aminotransferase 12 0 - 30 unit/L [facility] Alanine Aminotransferase 11 0 - 30 unit/L [facility] Alkaline Phosphatase 60 35 - 105 unit/L [facility] Bilirubin, Total 0.2 0.2 - 1.3 mg/dL [facility] Est Glomerular Filtration Rate 103 >=60 mL/min/1. 73 m?? [facility] Comment: This patient? s estimated glomerular filtration rate (eGFR) is between 103 mL/min/1.73 m2 (patients with less muscle mass) and 119 mL/min/1.73 m2 (patients with more muscle mass) as determined by the CKD-EPI equation. Assessment of eGFR is not appropriate when creatinine concentrations are rapidly changing. For clinical decisions where creatinine clearance will affect therapy, a 24-hour urine creatinine clearance may be advised. Assignment of CKD stage 1 - 5 for patients with an eGFR near the transition point between stages may be based on clinical assessment of muscle mass and symptoms in addition to eGFR. Blood 04/04/2021 1:12 PM EST 04/04/2021 1:25 PM EST Narrative Resulting Agency Comment Spec In Lab Belle Barone APRN CHEMISTRY ORDERA [facility] Performing Organization Address City/State/[facility] [place] [address] documented in this encounter Visit Diagnoses Diagnosis Status post bariatric surgery Bariatric surgery status Vitamin D deficiency Unspecified vitamin D deficiency Disorder of iron metabolism Other disorders of iron metabolism documented in this encounter Care Teams Levelman Relationship Specialty Start Date End Date Samreen Warner APRN [address] [place] [address] PCP - General Family Medicine 09/14/16 07/22/23 documented as of this encounter
--- OUTSIDE RECORDS SUMMARY | 2024-01-08 17:55 | XMS_ITS | Encounter Summary ---
[place] [address] Care Team Providers Care [id number] Armor Crewman Name Role Phone Samreen Warner APRN Primary Care Provider Encounter Details Date Type Department Care Team (Late st Contact Info) Description 11/05/2019 Telephone [place] [phone] Rowena Cisneros Social History Tobacco Use Types Packs/Day Years Used Date Smoking Tobacco: Former Cigarettes Q uit: 01/04/2007 Smokeless Tobacco: Never Alcohol Use Standard Drinks/Week Comments No 0 (1 standard drink = 0.6 oz pur e alcohol) Sex and Gender Information Value Date Recorded Sex Assigned at Not on file Gender Identity Not on file Sexual Orientation Not on file documented as of this encounter Miscellaneous Notes * Telephone Encounter - Rowena Noriega - 11/05/2019 12:06 PM EDT LM to inform patient of new appt time on 12/07 at 1:45 instead of 11:00. documented in this encounter Plan of Treatment Not on file documented as of this encounter Visit Diagnoses Not on filedocumented in this encounter Care Teams [id number] Armor Crewman Relationship Specialty Start Date End Date Samreen Warner APRN [address] [place] [address] PCP - General Family Medicine 6/22/17 4/28/24 documented as of this encounter
--- OUTSIDE RECORDS SUMMARY | 2024-01-08 17:55 | XMS_ITS | Encounter Summary ---
Author Organization [facility] [place] [address] Care Team Providers Care Out Of School Hours Care Worker Name Role Phone NikkijonomarichuySamreen LUCIANO Primary Care Provider Encounter Details Date Type Department Care Team ([facility] st Contact Info) Description 05/15/2022 Ancillary Procedure Radiology Library at [facility] [place] [address] Arlene Logan APRN [address] [place] [address] Social History Tobacco Use Types Packs/Day Years [...] Procedure Name Priority Date/Time Associated Diagnosis Comments FILM LIBRARY STORAGE ONLY MR SPINE Routine 05/15/2022 12:00 AM EST documented in this encounter Results * Film Library- Storage Only MR Spine (05/15/2022 12:00 AM EST) Narrative [facility] - 09/26/2023 11:02 AM EDT This exam is auto-finalizing. It's purpose is for storage only. Arlene Logan APRN G FILM LIBRARY ORD ERABLES RAD [place], [place] documented in this encounter Visit Diagnoses Not on filedocumented in this encounter Care Teams Out Of School Hours Care Worker Relationship Specialty Start Date End Date Samreen Warner APRN [address] [place] [address] PCP - General Family Medicine 09/14/16 07/22/23 documented as of this encounter
--- OUTSIDE RECORDS SUMMARY | 2024-01-08 17:55 | XMS_ITS | Encounter Summary ---
Author Organization [facility] [place] [address] Care Team Providers Care Insulation Sprayer Name Role Phone Samreen Warner LUCIANO Primary Care Provider [phone] Encounter Details Date Type Department Care Team (Late st Contact Info) Description 04/03/2022 8:30 AM EST Office [place] [address] Belle Barone, ROADS SUPERVISOR [facility] [place] [address] Alyssia Reinoso, RD [facility] [place] [place] [address] Status post bariatric surgery; Disorder of iron [...] on file documented as of this encounter Last Filed Vital Signs Vital Sign Reading Time Taken Comments Blood Pressure 111/67 04/03/2022 8:17 AM EST Pulse 78 04/03/2022 8:17 AM EST Temperature - - Respiratory Rate 16 04/03/2022 8:17 AM EST Oxygen Saturation 97% 04/03/2022 8:17 AM EST Inhaled Oxygen Concentration - - Weight 84.6 kg (186 lb 9.6 oz) 04/03/2022 8:17 A M EST Height 158 cm (5' 2.2) 04/03/2022 8:17 AM EST Body Mass Index 33.91 04/03/2022 8:17 AM EST documented in this encounter Patient Instructions * Patient Instructions* Belle Barone, ROADS SUPERVISOR - 04/03/2022 8:30 AM EST [facility] functional support analyst Madelyn [phone] and Ana [phone] Dietitians: [phone] Surgeons/ nurse practitioners: [phone] Nurse line: [phone] Dear Lennie, Please see your electronic medical record note from today for details we discussed at your visit. Below is some additional general information that you may find helpful. Testing: It would be helpful if you can have your lab work drawn a couple days before your visit yenni [facility] facility so the results are available at the time of your follow up visit. If you have labwork done by your primary care director before that date, please have a copy sent to the Bariatric Surgery Program. Please call/send my message if you have not heard from us within 2 weeks of having labs work done. Here's the link to [facility] Lab hours and locations: [email or web address] Next visit: Follow up visits are done at 4 months and 12 months after surgery and yearly thereafter. Some patients are evaluated on a more frequent basis. Please call [phone] if you do not receive an appointment by 3-4 weeks prior to the expected visit. Vitamins/Nutrition/Activity Recommendations: Please see your visit note for personalized recommendations General Vitamin recommendations: Multivitamins with minerals twice daily- needs to be an under 50 multivitamin that contains iron. Vitamin B12 500 mcg by mouth once daily Calcium citrate 500-600 mg with Vitamin D 400 units twice daily (600 mg in AM and 600 mg in PM- 2 pills twice a day) (or 1 chewable twice a day) Iron supplement: as specified in today's visit Vitamin D: as specified in today's visit General Nutrition recommendations: 1,000-1,200 calories per day (300 calories per meal, 100 calories per snack, 1-2 snacks per day) 60 grams of protein per day (20 grams per meal) 48-64 oz of non-caloric and hydrating fluids per day (6-8, 8 oz cups) Do not drink with meals- pushes food through more quickly, can cause upset stomach Activity: Aim for 30 minutes of exercise daily, 5 days a week of both cardio and strength training exercises. Skinfold care: Cleanse area with soap and water. Blow dry area on low setting with director hair. Avoid excessive heat and/or sweating as friction and moisture can exacerbate disease. Try OTC Dove clinical strength anti perspirant to affected areas nightly or an absorbent powder such as Gold Lawler and Desinex Apply cotton strips (such as strips from old sheets) or larger size cotton underwear folded beneathskin folds to act as a wick. Do not apply flip cloth toweling which can cause further irritation Try combination of over the counter hydrocortisone cream with over the counter antifungal cream such as lotrimin twice a day for 2 weeks. If your symptoms do not improve you may require prescription of anti-fungal cream/powder. Follow up with PCP if symptoms worsen/fail to improve with above strategies. Constipation: Increase fiber, fluids and fitness. Yerba Prima is a fiber supplement that comes in capsule form. Additionally, consider trying 1 capful daily of miralax daily (preferably at night) with a goal of at least 1 BM per day. You can increase the dose as needed every 2-3 days (by adding on 1 capful either morning or night) without safety concerns, noting that individual tolerance becomes limited by loose stools and bloating with doses higher than 2 capfuls twice daily. Please call if you do not have a BM after 3 days. On days with loose stools, we recommend reducing miralax to 1/2 capful daily but continue to take miralax every day Nausea: Common causes for nausea post bariatric surgery are: Eating too fast, eating too much, drinking with meals, or not chewing well enough. Be sure to eat slowly and chew food well. Take at least30 minutes or more to eat a meal. Call if symptoms worsen, fail to improve, or if you have difficulty keeping food or fluid down. Alcohol: is not recommended for at least 6-12 months after surgery. Alcohol is absorbed much fasterand stays in your system much longer post bariatric surgery and as a result there is an increase risk of alcohol misuse/abuse after bariatric surgery. It should be used sparingly, no more than one drink per occasion, no more than 2 drinks a week. Alcohol is toxic to the liver, a source of empty calories, it can cause ulcers, vitamin and mineral deficiencies, as well as impair digestion and absorption of nutrients. Call or follow up with your therapist or primary care provider if you are struggling or think your alcohol intake is a problem. control for women of child bearing age: is recommended for at least 18-24 months after surgery. f non-prescribed drugs and treet drugs is unsafe Anti-inflammatory medications such as Ibuprofen (Advil), Aleve (Naproxen), Excedrin, Brandi-Boston should be used sparingly after gastric bypass, since they increase the risk of ulcer and bleeding. A bone mineral density scan (DEXA) is recommended every 2 years after bariatric surgery. Please schedule this study through your primary care providers office. Hair Loss: is associated with rapid weight loss and is seen approximately 3 to 6 months after surgery and can last 3 to 6 months. It is almost always temporary. Eating a healthy diet with 60 grams ofprotein per day and taking your multivitamin with minerals will help. Sleep Apnea: If you have a history of sleep apnea and have a CPAP/BiPAP, please be sure to follow up with the sleep center to confirm your pressures and determine if continued use of CPAP/BiPAP is recommended. Potential lifetime risks of gastric bypass include risk of ulcer, which is increased with alcohol and antiinflammatory medications and internal hernia (less than 5%), which may be increased with higher than predicted weight loss Potential lifetime risks of sleeve gastrectomy include developed heartburn or severe reflux Call us: If you have concerns. If you have unexplained abdominal pain. if you see blood in your stool or vomit blood If you have prolonged vomiting Post Surgery Support Group: Our post surgery support group meets at [facility] on the first Sunday of every month from 1:00 PM-2:00 PM. You can attend online or in person. Use the following link to attend online: [email or web address] Nutrition and Activity apps- Baritastic, My Fitness Pal, Lose It, My Plate Internet resources: www.Intelligent [employer] www.LOYAL3 www.bariatriceating.[place] www.LightCybernessO2Gen Solutions.[place]/blog [facility] facebook page: https://www.facebook.[email or web address]/[email or web address] Books & Magazines: - Recipes for Life After Weight Loss Surgery by Leesa Mirza - Shrink Yourself by Dr Cristino Johnson - Eating Well - www.[employer].[place] - Cooking Light- www.cookinglight.[place] Anxiety: The Happiness Trap by Edwardo Hunter The Mindfulness and acceptance workbook for anxiety By Lee Luz. Mindful eating: What are you Hungry For? By Jose Francisco Zheng The Mindful Diet by Kalyani Brice and the [facility] group. Emotional eating: End Emotional Eating by Alyssia Summers Calming the Emotional Storm Fide Dietz documented in this encounter Progress Notes * Alyssia Reinoso RD - 04/03/2022 8:30 AM EST Bariatric Surgery Program Nutrition Progress Note Encounter Type: follow up SUBJECTIVE: Topics Discussed/Patient Concerns: ?? No dietary concerns. 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 3 cats. ?? Date of Surgery:??03/28/2017??gastric sleeve ? Weight:??lilo 163#(per pt), did not feel this was sustainable. Date Weight (lbs) HT BMI Comments ~2013 283# ? Highest Weight 07/06/16 278# 62.2 ?? Initial program weight 01/04/17 276# 62.2 50.2 1st pre-op visit ??03/28/17 258.1#?? EWL % ?? Surgery ??04/19/17 245# 22% 46.3 1 month post-op ??07/27/17 ??214# 45% 40.4 4 months post-op 11/30/17 185.1# 66% 33.6 8 months post-op 03/29/18 171# 76% 31.1 1 year post-op 09/27/18 165# 80% 30 18 months post-op ??04/18/19 ??166.8# 79%?? 30.3 2 years post-op?? 04/05/20 173.7# 74% 31.6 3 years post-op 04/04/21 179.4# 70% 32.6 4 years post-op 04/03/22 186.6# 65% 33.9 5 years post-op [place] Body Weight (based on BMI of 25): 138# 30-70% Excess Weight Loss: 180-235#; 50% Excess Weight Loss: 208# ?? Vitamin/Mineral Supplements (reported by patient): Supplement Type Brand/Form Dosage/Amount Frequency Comments Multivitamin Bariatric Fusion 1 tablet ??4x daily Contains calcium, B12, and iron?? Calcium ? Vitamin B12 ?? 500 mcg?? none ?? Folic Acid ?? 1 mg daily ?? Iron ? Vitamin D3 ?? 2000 IU?? daily ?? Biotin ?? 1 pill (10,000 mcg) daily Rec stop 3 days before labs? Food Allergies/Intolerances:?Peanuts, Chilean fries, M&M - lost taste for it. Can't eat pizza. Anything chocolate or peanut butter based. ? Tracking Intake:??No. Feels she's in a good rhythm. ?? 24-Hour??Intake: working 12 hour days- 3rd shift. Continues to try new recipes. 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 Breakfast 4-4:30: deli meat roll-ups OR yogurt (~100 calories) AM Snack Lunch 4:30P- apple PM Snack 9-10P: Icelandic yogurt Dinner 12P: dinner- chicken, vegetable, starch (sometimes corn for starch) HS Snack Protein/ grams per day: 55-60 g Hydrating fluids- oz/ day: 60+ oz water, occ SF flavoring Soda: occ. ETOH: None. Intolerant Caffeine: Coffee w cream and sugar (1 cup) Sweets: Meals per day: ?? In the past month, pt has vomited/regurgitated: None. ?? Constipation/Diarrhea: none. Exercise: under the desk bike; bike at home - 10 miles per day combined. ASSESSMENT: Summary of Weight Loss: Lennie Urena returns for routine follow-up at 5 years s/p surgery. Her excess weight loss is at65%. She is tolerating the diet and is meeting protein and fluid goals. Pt feels things are in a good place. Reviewed supplements. She continues to exercise daily. NUTRITION INTERVENTION & MONITORING: ?? Provided support/encouragement and reinforced importance of meeting nutritional goals. Continue current meal plan. ?? Reviewed vitamin and mineral supplement recommendations. Changes to supplement recommendations may be made based on lab work. ? Bariatric Fusion Chewable Complete 2 pills twice daily ? Vitamin D 2000 IU daily ?? Evaluation by nurse practitioner today. ?? F/u in 1 year, sooner if requested. * Belle Barone APRN - 04/03/2022 8:30 AM EST Bariatric Surgery Program [place] [phone] Reason for visit: follow up visit Subjective: Lennie Urena is s/p laparoscopic sleeve gastrectomy with intraoperative EGD 03/28/2017. She present for annual BSP follow up. Tolerating food/fluid. Seems to be meeting protein/fluid goals. She feels like she is in a good place. She continues to be happy with her surgical outcome. Reports no difficulty swallowing or epigastric pain. Bloating with menses only. No GERD sx. No N/V. BM are daily without problems. Current supplements: Taking Fusion-bariatric multivitamin two pills twice daily (which includes Vit B12 560 mcg, Vit D3 3,000 IU, Calcium 1200 mg, Iron 45mg daily). folic acid 1 mg, Vit D- 2000 IU/day Biotin 10,000 daily Interim Health: Health has been good. No bariatric related medical issues, surgeries or hospitalizations/ED visits since the last visit. No kidney stones or atraumatic fractures. Pt follows with PCP/specialist for disease management and age specific screening. Obesity related medical issues- ? Diabetes []? Yes [x]? Not a baseline issue ? HTN: []? Yes [x]? Not a baseline issue ? GERD: []? Yes [x]? Not a baseline issue ? Hyperlipidemia: []? Yes [x]? Not a baseline issue ? VICKIE: []? Yes [x]? Not a baseline issue ? Musculoskeletal issues: [x]? Yes Improvement in mobility with wt loss/surgery, but continues to have neck/shoulder issues Patient Active Problem List Diagnosis Code ??? Vitamin D deficiency E55.9 ??? S/P laparoscopic sleeve gastrectomy on 03/28/17 (preoperative BMI 50) Z98.84 Review of Systems Constitutional: energy level is fine , no c/o restless leg, no pica, no hair thinning/loss Neuro: no c/o paresthesias. No changes in memory CV: no chest pain or palpitations. Pulm: denies SOB or cough. GI: as above INSPECTOR CIRCUITRY NEGATIVE: Nexplanon Skin: S/p panniculectomy. No c/o redundant skin or skin fold rashes. Health Habits: Tobacco/Nicotine use: None ETOH use: None NSAID use: 2x week. ?? Social History: Lives with her . 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 ?? Dietary history/ exericse/ activity level:??See dietitian note from today's visit for complete dietary evaluation. ?? Meds and Allergies reviewed. ?? Pre-op 01/04/17 Wt (lbs) 276 BMI 50.2 ?? HT: 62.2 ??preop folate 7.9 ?? Post-op Visit date Wt (lbs) BMI %EBW lost 04/19/17 245 46.3 22 07/27/17 214 40.4 45 11/30/17 185 33.6 66 03/29/18 171 31 ?? 09/27/18 165 30 ?? 80 04/18/19 166 30.5 79 04/05/20 173 31. 74% 08/30/20 178 32.3 04/04/21 179.6 32.6 70% 04/03/22 186 33.9 65% ?? Objective: BP 111/67 (BP Location (NBP): Right arm) Pulse 78 Resp 16 Ht 158 cm (5' 2.2) Wt 84.6 kg (186 lb 9.6 oz) SpO2 97% BMI 33.91 kg/m?? Physical Exam General: Alert, pleasant, NAD, appears well. Abdomen: Soft, non-distended, non-tender. Resp: No increased work of breathing. Speaking in full sentences. No cough/wheeze witnessed. Skin:s/p panniculectomy. Skin is warm and dry. No rash noted on exam today. Psychiatric: Normal mood and affect. Appropriate eye contact. Recent Results (from the past 72 hour(s)) Hemogram Result Value Ref Range WBC 11.2 (H) 4.0 - 9.5 x10(3)/mcL RBC 4.55 4.00 - 5.21 x10(6)/mcL Hemoglobin 12.9 11.7 - 15.5 g/dL Hematocrit 38.6 35.7 - 45.8 % MCV 84.8 82.6 - 94.4 fL MCH 28.4 27.1 - 32.0 pg MCHC 33.4 31.7 - 35.0 g/dL Platelets 341 145 - 357 x10(3)/mcL RDWSD 38.9 37.0 - 46.0 fL RDWCV 12.6 11.5 - 14.1 % MPV 10.3 7.6 - 12.9 fL nRBC % Auto 0.0 % nRBC Abs Auto 0.000 0.000 - 0.000 x10(3)/mcL Iron and TIBC Result Value Ref Range Iron 104 30 - 150 mcg/dL TIBC 329 250 - 450 mcg/dL Iron Saturation 32 20 - 50 % Ferritin Result Value Ref Range Ferritin 21 15 - 150 ng/mL Comprehensive metabolic panel (non-fasting) Result Value Ref Range Glucose Lvl 90 65 - 199 mg/dL BUN 10 8 - 18 mg/dL Creatinine 0.65 (L) 0.70 - 1.20 mg/dL Sodium 140 135 - 145 mmol/L Potassium 3.7 3.5 - 5.0 mmol/L Chloride 107 98 - 107 mmol/L CO2 24 22 - 31 mmol/L Anion Gap 9 5 - 15 mmol/L Calcium 9.1 8.5 - 10.5 mg/dL Total Protein 6.7 6.1 - 8.0 g/dL Albumin 4.2 3.2 - 5.2 g/dL AST 9 0 - 30 unit/L ALT 6 0 - 30 unit/L Alk Phos 49 35 - 105 unit/L Total Bilirubin 0.4 0.2 - 1.3 mg/dL Estimated GFR 115 >=60 mL/min/1.73 m?? Assessment 41 y.o. female who is 5 yrs s/p sleeve gastrectomy with 65 % of excess body weight lost Plan: ??? S/p bariatric surgery: o Doing well from a bariatric surgery perspective. Discussed dietary considerations and strategies for weight maintenance . Reviewed importance of meeting nutritional/protein/fluid requirements, tracking food and food choices, pairing carbs with protein, being careful to avoid eating too fast, eating too much, drinking with meals, or not chewing well enough. o Patient has met with mechanic senior today, please see note for additional details/dietary evaluation. ??? Obesity related co-morbidities: o Improved/stable overall, patient to continue to follow with PCP/specialist. ??? NSAID use: discussion re: risk of ulcer with NSAIDs. Recommended limited use of NSAIDs and if NSAIDs are needed to take OTC prilosec 20 mg for ulcer/GI upset prevention. ??? Risk for vitamin deficiencies: o Reviewed above lab results. o Ferritin is normal, but on the low side (currently menstruating) discussion re: starting Vitron CM/W/F vs increasing dietary sources of iron/cooking with cast iron and cont. Observation. Pt desires later. She will monitor for and f/u with any s/sx of iron deficiency which were reviewed with her today. o Pending are folate, Vit D, Vit B 1, Vit B 12. Will make additional recommendations once lab results are available. o Reviewed recommended vitamin/mineral supplements- See RD note for additional details. o Pt reminded that a bone mineral density scan (DEXA) is recommended every 2 years after bariatric surgery. Recommended f/u with primary care provider to check if up to schedule baseline screen. RTC in 1 yr for next BSP follow up visit, with labs. Call/rtc sooner prn with questions/concerns orunexplained abdominal pain, prolonged nausea, vomiting or inability to hydrate. Bariatric Program Summary report is availabe for patient's review via [employer] I spent a total of 20 minutes associated with this encounter, including chart review, the patient encounter, and documentation. Belle Barone APRN RECOMMENDED BARIATRIC SURGERY PROGRAM POSTOPERATIVE FOLLOW-UP: Follow up: done at 4, 12 and yearly thereafter. High risk patients are evaluated on a more frequentbasis. *Typical Supplement recommendations: Multivitamin with minerals twice a day, B12 500 mcg once a day, calcium citrate 600 mg/400 units vitamin D twice a day, iron (ferrous fumarate, carbonyl iron taken with vitamin C 250 mg once every other day) for menstruating females or those with Iron Deficiency. Labwork: Hemogram, ferritin, iron (transferrin) saturation, iron, folate, B1, B12, D (25 hydroxy only), Intact PTH and comprehensive metabolic profile at 4, 12 months and yearly. If labwork is done by the primary care director: please send a copy to the Bariatric Surgery Program, General Surgery Clinic, [facility], or fax [phone] documented in this encounter Plan of Treatment Not on file documented as of this encounter Visit Diagnoses Diagnosis Status post bariatric surgery Bariatric surgery status Disorder of iron metabolism Other disorders of iron metabolism documented in this encounter Care Teams Insulation Sprayer Relationship Specialty Start Date End Date Samreen Warner APRN [address] [place] [address] PCP - General Family Medicine 09/14/16 07/22/23 documented as of this encounter
--- OUTSIDE RECORDS SUMMARY | 2024-01-08 17:55 | XMS_ITS | Encounter Summary ---
Author Organization [facility] [place] [address] Care Team Providers Care Systems Analyst Developer Name Role Phone Samreen Warner APRN Primary Care Provider [phone] Reason for Visit * Reason Comments Follow Up Surgery s/p panniculectomy Encounter Details Date Type Department Care Team ([facility] st Contact Info) Description 08/30/2020 2:00 PM EDT Office [place] [address] Dilip Doran MD [facility] [place] [address] S/P panniculectomy Social History Tobacco Use Types Packs/Day Years Used Date Smoking Tobacco: Former Cigarettes Q uit: 01/04/2007 Smokeless Tobacco: Never Alcohol Use Standard Drinks/Week Comments No 0 (1 standard drink = 0.6 oz pur e alcohol) Sex and Gender Information Value Date Recorded Sex Assigned at Not on file Gender Identity Not on file Sexual Orientation Not on file documented as of this encounter Progress Notes * Dilip Doran MD - 08/30/2020 2:00 PM EDT Plastic Surgery Post Op Note Reason for visit: F/U status post procedure Date of surgery: 08/19/2019 Procedure(s): Panniculectomy (Janeth) Complications: None reported HPI: Patient reports that she is doing well. Is happy with her results thus far, no concerns and ishappy with her results. Has returned to regular activities without an issue, return to work was manageable. Sensation is returning to normal and great symptomatic relief. Exam: Via Video Patient is alert, conversant, comfortable, ambulating Incision: CDI, maturing scar Scars are hyperemic Umbilicus well profused No collection, no erythema, no evidence of cellulitis. Impression: Lennie Urena is a 39 y.o. female who was seen today for follow- up after the above procedure. Please see the operative note for details. She has excellent results, scars are continuingto mature and settle. We will plan to see Sophie as needed, expressing that in the instance she haveany questions or concerns she may follow up with me in clinic. Photos were obtained with signed informed consent. Plan: Follow up: PATRICIA Baca, Ashanti lCay, have preformed the documentation for this encounter in the presence of and acting as a scribe for Dilip Doran MD I performed the services which were documented by the scribe, and I agree with the accuracy of the documentation in this encounter. DILIP DORAN MD documented in this encounter Plan of Treatment Not on file documented as of this encounter Visit Diagnoses Diagnosis S/P panniculectomy documented in this encounter Care Teams Systems Analyst Developer Relationship Specialty Start Date End Date Samreen Warner APRN [address] [place] [address] PCP - General Family Medicine 09/14/16 07/22/23 documented as of this encounter
--- OUTSIDE RECORDS SUMMARY | 2024-01-08 17:55 | XMS_ITS | Encounter Summary ---
[place] [address] Care Team Providers Care Ignition Expert Name Role Phone Arlene Logan APRN Primary Care Provider [phone] Encounter Details Date Type Department Care Team (Latest Contact Info) Description 07/23/2023 10:25 AM EDT Laboratory Appointment Lab [address] [address] S/P laparoscopic sleeve gastrectomy; Disorder of iron metabolism; Vitamin D deficiency; Status post bariatric surgery; S/P laparoscopic sleeve gastrectomy on 03/28/17 (preoperative BMI 50) Social History Tobacco Use Types Packs/Day Years Used Date Smoking Tobacco: Former Cigarettes 0.5 7 1 - 01/04/2007 Smokeless Tobacco: Never Alcohol Use Standard [...] Procedure Name Priority Date/Time Associated Diagnosis Comments VITAMIN D, 25-HYDROXY Routine 07/23/2023 10:25 AM EDT Status post bariatric surgery S/P laparoscopic sleeve gastrectomy on 03/28/17 (preoperative BMI 50) Vitamin D deficiency FOLATE, SERUM Routine 07/23/2023 10:25 AM EDT Status post bariatric surgery S/P laparoscopic sleeve gastrectomy on 03/28/17 (preoperative BMI 50) VITAMIN B12 Routine 07/23/2023 10:25 AM EDT Status post bariatric surgery S/P laparoscopic sleeve gastrectomy on 03/28/17 (preoperative BMI 50) documented in this encounter Results * Folate, serum (07/23/2023 10:25 AM EDT) Folate 18.1 4.8 - 24.2 ng/mL [facility] Blood 07/23/2023 10:2 5 AM EDT 07/23/2023 10:34 AM EDT Narrative Resulting Agency Comment Spec In Lab Damaris E [place] HEALTH EDUCATOR CHEMISTRY ORDERABL ES Performing Organization Address [facility] Co de Phone Number [facility] [place] [address] * Vitamin B12 (07/23/2023 10:25 AM EDT) Vitamin B12 957 232 - 1,245 pg/mL [facility] Blood 07/23/2023 10:2 5 AM EDT 07/23/2023 10:34 AM EDT Narrative Resulting Agency Comment Spec In Lab Damaris E [place] HEALTH EDUCATOR CHEMISTRY ORDERABL ES Performing Organization Address [facility] Co de Phone Number [facility] [place] [address] * Vitamin D, 25-Hydroxy (07/23/2023 10:25 AM EDT) Vitamin D Total 25 OH 40 21 - 100 ng/mL [facility] Vit D Interp Sufficient [facility] Blood 07/23/2023 10:2 5 AM EDT 07/23/2023 10:34 AM EDT Narrative Resulting Agency Comment Spec In Lab Damaris E [place] HEALTH EDUCATOR CHEMISTRY ORDERABL ES Performing Organization Address [facility]/ZIP [place] [address] documented in this encounter Visit Diagnoses Diagnosis S/P laparoscopic sleeve gastrectomy on 03/28/17 (preoperative BMI 50) Disorder of iron metabolism Other disorders of iron metabolism Vitamin D deficiency Unspecified vitamin D deficiency Status post bariatric surgery Bariatric surgery status documented in this encounter Care Teams Ignition Expert Relationship Specialty Start Date End Date Arlene Logan, HEALTH [place]UC[place] [address] [place] [address] PCP - General Family Medicine 07/23/23 documented as of this encounter
--- OUTSIDE RECORDS SUMMARY | 2024-01-08 17:55 | XMS_ITS | Encounter Summary ---
[place] [address] Care Team Providers Care Junior Bookkeeper Name Role Phone Arlene Logan APRN Primary Care Provider [phone] Reason for Referral * Consultation (Routine) - Authorized Specialty Diagnoses / Procedures Referred By Priscila stahl Referred To Contact Neurology Diagnoses CS (cervical spondylosis) Cervicogenic headache Juancarlos De La Cruz PA [address] [place] [address] [facility] [address] [place] [phone] Referral ID Status Reason Start Date Expiration Date Visits Requested Visits Authorized [id number] Authorized Consult, Test & Treat PCP Updated and/or Approved 10/31/2023 10/30/2024 1 1 Encounter Details Date Type Department Care Team (Latest Contact Info) Description 10/31/2023 Transcribe Orders eDH Incoming Referrals [phone] Juancarlos De La Cruz PA [address] [place], [place] [id number] CS (cervical spondylosis) Social History Tobacco Use Types Packs/Day Years [...] as of this encounter Plan of Treatment Scheduled Referrals Name Type Priority Associated Diagnoses Orde r Schedule Referral to Neurology Outpatient Referral Routine CS (cervical spondylosis) Ordered: 10/31/2023 documented as of this encounter Visit Diagnoses Diagnosis CS (cervical spondylosis) Cervical spondylosis without myelopathy documented in this encounter Care Teams Junior Bookkeeper Relationship Specialty Start Date End Date Arlene Logan, FACILITIES COORDINATOR [address] [place] [address] PCP - General Family Medicine 07/23/23 documented as of this encounter
--- OUTSIDE RECORDS SUMMARY | 2024-01-08 17:55 | XMS_ITS | Encounter Summary ---
[facility] [place] [address] Care Team Providers Care Sandblasting Supervisor Name Role Phone RadhaSamreen cortes LUCIANO Primary Care Provider Reason for Visit * Reason Comments Follow-up Encounter Details Date Type Department Care Team ([facility] st Contact Info) Description 04/04/2021 1:30 PM EST Office [place] [address] Belle Barone, COMMUNITY SERVICE TECHNICIAN [facility] [place] [address] Alyssia Reinoso, RD [facility] [place] [address] Status post bariatric surgery; Vitamin D deficiency; Disorder of iron metabolism; S/P laparoscopic sleeve [...] Sign Reading Time Taken Comments Blood Pressure 132/79 04/04/2021 1:21 PM EST Pulse 79 04/04/2021 1:21 PM EST Temperature 36.6 ??C (97.9 ??F) 04/04/2021 1:21 PM ES T Respiratory Rate 17 04/04/2021 1:21 PM EST Oxygen Saturation 97% 04/04/2021 1:21 PM EST Inhaled Oxygen Concentration - - Weight 81.4 kg (179 lb 6.4 oz) 04/04/2021 1:21 P M EST Height 158 cm (5' 2.21) 04/04/2021 1:21 PM EST Body Mass Index 32.6 04/04/2021 1:21 PM EST documented in this encounter Patient Instructions * Patient Instructions* Belle Barone, COMMUNITY SERVICE TECHNICIAN - 04/04/2021 1:30 PM EST [facility] database support Madelyn [phone] and Ana [phone] Dietitians: [phone] Surgeons/ nurse practitioners: [phone] Nurse line: [phone] Dear Lennie, Please see your electronic medical record note from today for details we discussed at your visit. Below is some additional general information that you may find helpful. Testing: It would be helpful if you can have your lab work drawn a couple days before your visit yenni [facility] facility so the results are available at the time of your follow up visit. If you have labwork done by your primary care aid before that date, please have a copy sent to the Bariatric Surgery Program. Please call/send my message if you have not heard from us within 2 weeks of having labs work done. Here's the link to [facility] Lab hours and locations: [email or web address] Next visit: Follow up visits are done at 4 months and 12 months after surgery and yearly thereafter. Some patients are evaluated on a more frequent basis. Please call [phone] if you do not receive an appointment by 3-4 weeks prior to the expected visit. Vitamins/Nutrition/Activity Recommendations: Please see your visit note for personalized recommendations General Vitamin recommendations: ??? Multivitamins with minerals twice daily- needs to be an under 50 multivitamin that contains iron. ??? Vitamin B12 500 mcg by mouth once daily ??? Calcium citrate 500-600 mg with Vitamin D 400 units twice daily (600 mg in AM and 600 mg in PM-2 pills twice a day) (or 1 chewable twice a day) ??? Iron supplement: as specified in today's visit ??? Vitamin D: as specified in today's visit General Nutrition recommendations: ?? 1,000-1,200 calories per day (300 calories per meal, 100 calories per snack, 1-2 snacks per day) ?? 60 grams of protein per day (20 grams per meal) ?? 48-64 oz of non-caloric and hydrating fluids per day (6-8, 8 oz cups) ?? Do not drink with meals- pushes food through more quickly, can cause upset stomach Activity: ??? Aim for 30 minutes of exercise daily, 5 days a week of both cardio and strength training exercises. Skinfold care: 1. Cleanse area with soap and water. 2. Blow dry area on low setting with chair caner. 3. Avoid excessive heat and/or sweating as friction and moisture can exacerbate disease. 4. Try OTC Dove clinical strength anti perspirant to affected areas nightly or an absorbent powder such as Gold Lawler and Desinex 5. Apply cotton strips (such as strips from old sheets) or larger size cotton underwear folded beneath skin folds to act as a wick. Do not apply flip cloth toweling which can cause further irritation 6. Try combination of over the counter hydrocortisone cream with over the counter antifungal cream such as lotrimin twice a day for 2 weeks. 7. If your symptoms do not improve you may require prescription of anti-fungal cream/powder. 8. Follow up with PCP if symptoms worsen/fail [...] such as Ibuprofen (Advil), Aleve (Naproxen), Excedrin, Brandi-[place] should be used sparingly after gastric bypass, [...] developed heartburn or severe reflux Call us: ??? If you have concerns. ??? If you have unexplained abdominal pain. ??? if you see blood in your stool or vomit blood ??? If you have prolonged vomiting Post Surgery Support Group: Our post surgery support group meets at [facility] on the first Sunday of every month from 1:00 PM-2:00 PM. You can attend online or in person. Use the following link to attend online: [email or web address] Nutrition and Activity apps- Baritastic, My Fitness Pal, Lose It, My Plate Internet resources: www.PrognosDx Health www.Celladon www.Organic ShopeaiFood www.TouchLocal.Pocket Tales/blog [facility] facebook page: [email or web address] Books & Magazines: - Recipes for Life After Weight Loss Surgery by Leesa Mirza - Shrink Yourself by Dr Cristino Johnson - Eating Well - www.[employer] - Cooking Light- www.cookinglight.Pocket Tales Anxiety: The Happiness Trap by Edwardo Hunter The Mindfulness and acceptance workbook for anxiety By Lee Luz. Mindful eating: What are you Hungry For? By Jose Francisco Zheng The Mindful Diet by Kalyani Brice and the [facility] group. Emotional eating: End Emotional Eating by Alyssia Summers Calming the Emotional Storm Fide Dietz documented in this encounter Progress Notes * Alyssia Reinoso, RD - 04/04/2021 1:30 PM EST Bariatric Surgery Program Nutrition Progress Note Encounter Type: follow up SUBJECTIVE: Topics Discussed/Patient Concerns: ?? No dietary concerns. Not looking to make any specific changes. Feels things are in a good spot. ?? Getting back on to her regular meal plan now that the holidays are over. 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 [...] 04/04/21 179.4# 70% 32.6 4 years post-op [place] Body Weight (based on BMI of 25): 138# 30-70% Excess Weight Loss: 180-235#; 50% Excess Weight Loss: 208# ?? Vitamin/Mineral Supplements (reported by patient): Supplement Type Brand/Form Dosage/Amount Frequency Comments Multivitamin Bariatric Fusion 1 pill ??4x daily Contains calcium, B12, and iron?? Calcium ? none? Vitamin B12 ?? 500 mcg?? daily ?? Folic Acid ?? 1 mg daily ?? Iron ?none ?? Vitamin D3 ?? 2000 IU?? daily Biotin ?? 1 pill daily ?? Keratin ?? 1 pill (250 mg) daily ? Food Allergies/Intolerances:?Peanuts, Northern Irish fries, M&M - lost taste for it. Can't eat pizza. Anything chocolate or peanut butter based. ? Tracking Intake:??No. Feels she's in a good rhythm. ?? 24-Hour Intake: working 12 hour days. Continues to try new recipes. Breakfast 3:30-4P: Yogurt or pc fruit AM Snack Lunch 10:30-11P: Baked chicken vegetable, occ starch. Will eat part of this and then go back an hour or so later and finish what is left. Total portion is ~ 1 cup. PM Snack 2-3A: Nuts, cheese, maybe fruit. Dinner Sometimes glass of milk or juice before going to bed HS Snack Day off: B- yogurt or fruit L- soup- chicken: homemade D- burger w no bun or baked chicken Protein/ grams per day: 45-60 g Hydrating fluids- oz/ day: Water throughout the day Soda: occ seltzer ETOH: No. Cannot tolerate the smell of alcohol Caffeine: Dunkins iced coffee Sweets: Meals per day: ?? Practices portion control: yes. Exercise: under desk bike at work and at home. Exercises daily ASSESSMENT: Summary of Weight Loss: Lennie Urena returns for routine follow-up at 4 years s/p surgery. Her excess weight loss is at70%. She is tolerating the diet and is meeting fluid goals. Protein average is variable depending on her schedule; appears to be OK across multiple days. Reviewed supplements which are appropriate. She exercises daily. NUTRITION INTERVENTION & MONITORING: ?? Provided support/encouragement and reinforced importance of meeting nutritional goals. ?? Reviewed vitamin and mineral supplement recommendations. Continue current supplements. ?? Evaluation by nurse practitioner today. ?? F/u in 1 year. * Belle Barone APRN - 04/04/2021 1:30 PM EST [place]ariat[place] [address] Reason for visit: follow up visit Subjective: Lennie Urena is s/p laparoscopic sleeve gastrectomy with intraoperative EGD 03/28/2017. She present for annual BSP follow up. Tolerating food/fluid. Seems to be meeting protein/fluid goals. Got a little off track with the holidays, but is doing better now. She has no bariatric related concerns/complaints today. Current supplements: Taking Fusion-bariatric multivitamin two pills twice daily (which includes Vit B12 560 mcg, Vit D3 3,000 IU, Calcium 1200 mg, Iron 45mg daily). B12 500 mcg, folic acid 1 mg, Vit D- 2000 IU/day Interim Health: COVID 07/2020- mild symptoms. No bariatric related medical issues, surgeries or [...] palpitations. Pulm: denies SOB or cough. GI: denies bloating, abdominal pain, nausea, vomiting. No diarrhea or constipation. PARLOR MAID: Nexplanon Skin: S/p panniculectomy. No c/o redundant skin or skin fold rashes. Health Habits: Tobacco/Nicotine use: None ETOH use: None Rare NSAID use. ?? Social History: Lives with her . 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 ?? Dietary history/ exericse/ activity level:??See dietitian note from today's visit for complete dietary evaluation. ?? Meds and Allergies reviewed. Complications summary: Early none Late none ? Pre-op 01/04/17 Wt (lbs) 276 BMI 50.2 ?? HT: 62.2 ??preop folate 7.9 ?? Post-op Visit date Wt (lbs) BMI %EBW lost 04/19/17 245 46.3 22 07/27/17 214 40.4 45 11/30/17 185 33.6 66 03/29/18 171 31 ?? 09/27/18 165 30 ?? 80 04/18/19 166 30.5 79 04/05/20 173 31. 74% 08/30/20 178 32.3 04/04/21 179.6 32.6 70% ?? Objective: BP 132/79 (BP Location (NBP): Right arm, Patient Position: Sitting, BP Cuff Sizes: Adult (25-34 cm)) Pulse 79 Temp 36.6 ??C (97.9 ??F) (Temporal) Resp 17 Ht 158 cm (5' 2.21) Wt 81.4 kg (179 lb 6.4 oz) SpO2 97% BMI 32.60 kg/m?? Physical Exam General: Alert, pleasant, NAD, appears well. Abdomen: Soft, non-distended, non-tender. Resp: No increased work of breathing. Speaking in full sentences. No cough/wheeze witnessed. Skin:s/p panniculectomy. Skin is warm and dry. No rash noted on exam today. Psychiatric: Normal mood and affect. Appropriate eye contact. Recent Results (from the past 72 hour(s)) PTH Result Value Ref Range PTH 47 15 - 65 pg/mL Iron and TIBC Result Value Ref Range Iron 97 30 - 150 mcg/dL TIBC 316 250 - 450 mcg/dL Iron Saturation 31 20 - 50 % Hemogram Result Value Ref Range WBC 8.1 4.0 - 9.5 x10(3)/mcL RBC 4.49 4.00 - 5.21 x10(6)/mcL Hemoglobin 13.0 11.7 - 15.5 g/dL Hematocrit 38.7 35.7 - 45.8 % MCV 86.2 82.6 - 94.4 fL MCH 29.0 27.1 - 32.0 pg MCHC 33.6 31.7 - 35.0 g/dL Platelets 334 145 - 357 x10(3)/mcL RDWSD 39.2 37.0 - 46.0 fL RDWCV 12.6 11.5 - 14.1 % MPV 10.4 7.6 - 12.9 fL nRBC % Auto 0.0 % nRBC Abs Auto 0.000 0.000 - 0.000 x10(3)/mcL Comprehensive metabolic panel (non-fasting) Result Value Ref Range Glucose Lvl 76 65 - 199 mg/dL BUN 14 8 - 18 mg/dL Creatinine 0.74 0.70 - 1.20 mg/dL Sodium 138 135 - 145 mmol/L Potassium 3.3 (L) 3.5 - 5.0 mmol/L Chloride 104 98 - 107 mmol/L CO2 25 22 - 31 mmol/L Anion Gap 9 5 - 15 mmol/L Calcium 9.3 8.5 - 10.5 mg/dL Total Protein 7.0 6.1 - 8.0 g/dL Albumin 4.5 3.2 - 5.2 g/dL AST 12 0 - 30 unit/L ALT 11 0 - 30 unit/L Alk Phos 60 35 - 105 unit/L Total Bilirubin 0.2 0.2 - 1.3 mg/dL Estimated GFR 103 >=60 mL/min/1.73 m?? Assessment 40 y.o. female who is 4 yrs s/p sleeve gastrectomy with 70 % of excess body weight lost Plan: ??? S/p bariatric surgery: o Doing well from a bariatric surgery perspective, overall pleased with surgical outcome . Discussed dietary considerations and strategies for weight maintenance . Reviewed importance of meeting nutritional/protein/fluid requirements, tracking food and food choices, pairing carbs with protein, being careful to avoid eating too fast, eating too much, drinking with meals, or not chewing well enough. o Patient has met with high school chemistry teacher today, please see note for additional details/dietary evaluation. ??? Obesity related co-morbidities: o Improved/stable overall, patient to continue to follow with PCP/specialist. ??? Risk for vitamin deficiencies: o Reviewed above lab results. o Recommended increasing dietary potassium and f/u with PCP to determine if he/she would recommend repeat labs. o Pending are folate, Vit D, Vit B 1, Vit B 12 and ferritin. Will make additional recommendations once lab results [...] report is availabe for patient's review via e-DH I spent a total of 30 minutes associated with this encounter, including chart [...] labwork is done by the primary care aid: please send a copy to the Bariatric Surgery Program, General Surgery Clinic, [facility], or fax [phone] documented in this encounter Plan of Treatment Not on file documented as of this encounter Visit Diagnoses Diagnosis Status post bariatric surgery Bariatric surgery status Vitamin D deficiency Unspecified vitamin D deficiency Disorder of iron metabolism Other disorders of iron metabolism S/P laparoscopic sleeve gastrectomy on 03/28/17 (preoperative BMI 50) documented in this encounter Care Teams Sandblasting Supervisor Relationship Specialty Start Date End Date Samreen Warner APRN [address] [place] [address] PCP - General Family Medicine 09/14/16 07/22/23 documented as of this encounter
--- OUTSIDE RECORDS SUMMARY | 2024-01-08 17:55 | XMS_ITS | Encounter Summary ---
Author Organization [facility] [place] [address] Care Team Providers Care Clinical Science Liaison Name Role Phone Desmond Arlene Suggs APRN Primary Care Provider [phone] Encounter Details Date Type Department Care Team (Late st Contact Info) Description 08/13/2023 2:00 PM EDT TH Visit (TeleHealth) [place] [address] Damaris Sparks SAMPLE DYE MIXER [facility] GENERAL [place] [address] Alyssia Reinoso, RD [facility] GENERAL [place] [address] S/P laparoscopic sleeve gastrectomy; Disorder of iron metabolism; Vitamin D deficiency Social History Tobacco Use [...] Sign Reading Time Taken Comments Blood Pressure - - Pulse - - Temperature - - Respiratory Rate - - Oxygen Saturation - - Inhaled Oxygen Concentration - - Weight 81.6 kg (180 lb) 08/13/2023 2:11 PM EDT r eported Height 158 cm (5' 2.2) 08/13/2023 2:11 PM EDT Body Mass Index 32.71 08/13/2023 2:11 PM EDT documented in this encounter Progress Notes * Damaris Sparks, LUCIANO - 08/13/2023 2:00 PM EDT Images from the original note were not included. [place] [address] BARIATRIC SURGERY VIRTUAL NOTE Reason/purpose for phone call: BSP follow up visit The patient voiced an understanding of the reason and intent of the televisit and provided verbal consent to discuss clinical issues by telehealth. Additionally, the patient acknowledged that the telehealth consultation is a billable encounter, and that the patient or their medical insurance carrier could be billed. Summary of conversation, decision making, and plan: see below encounter note for details. Time Attestation: I spent a total of 20 minutes associated with this encounter, including chart review, the patient encounter, and documentation. Reason for visit: follow up visit Subjective: Lennie Urena is s/p laparoscopic sleeve gastrectomy with intraoperative EGD 03/28/2017. She presents for deficiency follow up. Tolerating food/fluid, meeting protein/fluid goals. Since her last visit Sophie has started Contravefor help with head hunger. This has been very helpful so far. Reports no difficulty swallowing or epigastric pain. Bloating with menses only. No GERD sx. No N/V.BM are daily without problems. Current supplements: excellent compliance. Bariatric choice with 45 mg iron Calcium citrate one chew once daily (increase to twice) Interim Health: Her health has been good overall, seeing PCP for neck pain. No bariatric related medical issues, surgeries or hospitalizations/ED visits since the last visit. No kidney stones or atraumatic fractures. Pt follows with PCP/specialist for disease management and age specific screening. Pre-Bariatric Surgery Obesity related medical issues: Problem Baseline issue if checked Comments Diabetes/prediabetes/insulin resistance [] Metabolic syndrome or PCOS [] HTN [] GERD [] Hyperlipidemia [] VICKIE [] Musculoskeletal issues [x] Improvement in mobility with wt loss/surgery, but continues to have neck/shoulder issues Liver Disease [] Other [] Patient Active Problem List Diagnosis Code Vitamin D deficiency E55.9 S/P laparoscopic sleeve gastrectomy on 03/28/17 (preoperative BMI 50) Z98.84 Review of Systems Constitutional: energy level is okay, no c/o restless leg, no pica, no hair thinning/loss. Neuro: no c/o paresthesias. No changes in memory. CV: no chest pain or palpitations. Pulm: denies SOB or cough. GI: as above. Skin: S/p panniculectomy. No c/o redundant skin or skin fold rashes. Health Habits: Tobacco/Nicotine use: None. ETOH use: None. NSAID use: 2x week. 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 Dietary history/ exericse/ activity level: See dietitian note from today's visit for complete dietary evaluation. Meds and Allergies reviewed. Pre-op 01/04/17 Wt (lbs) 276 BMI 50.2 HT: 62.2 preop folate 7.9 Post-op Visit date Wt (lbs) BMI %EBW lost 04/19/17 245 46.3 22 07/27/17 214 40.4 45 11/30/17 185 33.6 66 03/29/18 171 31 09/27/18 165 30 80 04/18/19 166 30.5 79 04/05/20 173 31. 74% 08/30/20 178 32.3 04/04/21 179.6 32.6 70% 04/03/22 186 33.9 65% 04/16/23 189 34.4 63% 08/13/23 180 (reported) 32.6 70% Objective: There were no vitals taken for this visit. Physical Exam- limited d/t telehealth Gen: Alert, pleasant, NAD, appears well Resp: Speaking in full sentences, no gasping. No cough witnessed. Skin: No pallor or diaphoresis visible. No rash noted. Psychiatric: normal mood and affect. Assessment 42 y.o. female who is 7 yrs s/p Sleeve gastrectomy with 70% of excess body weight lost. Plan: S/p bariatric surgery: Doing well from a bariatric surgery perspective, overall pleased with surgical outcome. Discussed dietary considerations and strategies for continued success . Reviewed importance of meeting nutritional/protein/fluid requirements , tracking food/preplanning, meal prep, pairing carbs with protein and following post bariatric eating behaviors. Recommended regular exercise. Discussed risks associated with alcohol intake after bariatric surgery (increased risk of alcohol misuse/abuse, increased risk of ulcers, empty calorie). Patient has met with legal file clerk today, please see note for additional details/dietary evaluation. Continue following with PCP for AOM management. Pre-Bariatric surgery obesity related co-morbidities: Improved/stable overall, patient to continue to follow with PCP/specialist. Risk for vitamin deficiencies: Reviewed lab results as above. Reviewed recommended vitamin/mineral supplements- as above. See RD note for additional details. Pt reminded that a bone mineral density scan (DEXA) is recommended every 2 years after bariatric surgery (UTD). RTC in March for next BSP follow up visit, with labs. Call/rtc sooner prn with questions/concernsor unexplained abdominal pain, prolonged nausea, vomiting or inability to hydrate. Bariatric Program Summary report is availabe for patient's review via e-DH I spent a total of 20 minutes associated with this encounter, including chart review, the patient encounter, and documentation. Damaris Sparks APRN RECOMMENDED BARIATRIC SURGERY PROGRAM POSTOPERATIVE FOLLOW-UP: [...] If labwork is done by the primary health and social care teacher: please send a copy to the Bariatric Surgery Program, [facility], [facility], or fax [phone] * Alyssia Reinoso, MAURICE - 08/13/2023 2:00 PM EDT Images from the original note were not included. Bariatric Nutrition Call made with Damaris Sparks APRN BARIATRIC SURGERY VIRTUAL NOTE At time of the call patient was [place] SUBJECTIVE: Topics Discussed/Patient Concerns: Started Contrave to help manage head hunger. This has been working well. Feels things are in a goodplace. 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 3 cats. Date of Surgery: 03/28/[address] Mahoney Weight: lilo 163#(per pt), did not feel this was sustainable. Date Weight (lbs) HT BMI Comments ~2013 283# Highest Weight 07/06/16 278# 62.2 Initial program weight 01/04/17 276# 62.2 50.2 1st pre-op visit 03/28/17 258.1# EWL % Surgery 04/19/17 245# 22% 46.3 1 month post-op 07/27/17 214# 45% 40.4 4 months post-op 11/30/17 185.1# 66% 33.6 8 months post-op 03/29/18 171# 76% 31.1 1 year post-op 09/27/18 165# 80% 30 18 months post-op 04/18/19 166.8# 79% 30.3 2 years post-op 04/05/20 173.7# 74% 31.6 3 years post-op 04/04/21 179.4# 70% 32.6 4 years post-op 04/03/22 186.6# 65% 33.9 5 years post-op 04/16/23 189# 63% 34.3 6 years post-op 08/13/23 180# 69% 32.7 6+ years post-op (pt reported [place] Body Weight (based on BMI of 25): 138# 30-70% Excess Weight Loss: 180-235#; 50% Excess Weight Loss: 208# MEDICATIONS: AOM: Contrave prescribed by PCP. Vitamin/Mineral Supplements (reported by patient): Supplement Type Brand/ Form Dosage/ Amount Frequency Comments Multivitamin Bariatric Choice with 45 mg iron 1 tablet daily Calcium Jonathan burst 500 mg daily Increase to 1 chew twice daily Vitamin B12 500 mcg none Folic Acid 1 mg none Iron Vitamin D3 2000 IU none Biotin 1 pill (10,000 mcg) daily Rec stop 3 days before labs Food Allergies/Intolerances: Peanuts, Brazilian fries, M&M - lost taste for it. Anything chocolateor peanut butter based. Tracking Intake: No. 24- Hour Intake: Breakfast 4PM: pc fruit OR Balance breaks AM Snack Lunch Baked chicken, vegetable (11PM) PM Snack Fruit or vegetable (baby carrots) Dinner 4-4:30 AM: Bulgarian yogurt HS Snack Protein- grams/day: 50-60 g Hydrating fluids - oz/day: 48+ oz Water, sometimes with SF flavor packets, occ juice Soda: None. ETOH: None. Caffeine: <8 oz Iced coffee - creamer (slowing decreasing) Other: Vomiting/ regurgitation: None Nausea: None Constipation/diarrhea: None. 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 Biking at home. Bikes most days. ASSESSMENT: Lennie Urena returns for routine follow-up at 6+ years s/p surgery. Her weight loss is at 69%. She is tolerating the diet and is meeting protein and fluid goals. Reviewed supplements, which are appropriate. PLAN: Provided support/encouragement and reinforced importance of meeting nutritional goals. Continue current meal plan. Reviewed vitamin and mineral supplement recommendations. Multivitamin with minerals- continue Bariatric Multivitamin 1 pill per day Calcium citrate 500 mg with vitamin D twice daily. (1 chew twice daily) F/u in March 2024, sooner if requested. 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
--- OUTSIDE RECORDS SUMMARY | 2024-01-08 17:55 | XMS_ITS | Encounter Summary ---
Author Organization [facility] [place] [address] Care Team Providers Care Harp Repairer Name Role Phone Samreen Warner LUCIANO Primary Care Provider Encounter Details Date Type Department Care Team (Late st Contact Info) Description 04/05/2021 Ancillary Procedure Radiology Library at [facility] [place] [address] Izabela Garcia BUSINESS ACCOUNT SPECIALIST [facility] [place] [address] Social History Tobacco Use Types Packs/Day Years [...] Associated Diagnosis Comments FILM LIBRARY STORAGE ONLY DX SPINE Routine 04/05/2021 12:00 AM EST documented in this encounter Results * Film Library- Storage Only DX Spine (04/05/2021 12:00 AM EST) Narrative [facility] - 05/17/2021 9:01 PM EST This exam is auto-finalizing. It's purpose is for storage only. Izabela Garcia BUSINESS ACCOUNT SPECIALIST IMG FILM LIBRARY OR DERABLES [place], [place] documented in this encounter Visit Diagnoses Not on filedocumented in this encounter Care Teams Harp Repairer Relationship Specialty Start Date End Date Samreen Warner APRN [address] [place] [address] PCP - General Family Medicine 09/14/16 07/22/23 documented as of this encounter
--- OUTSIDE RECORDS SUMMARY | 2024-01-08 17:55 | XMS_ITS | Encounter Summary ---
[place] [address] Care Team Providers Care Weekend Receptionist Name Role Phone JeanSamreen benedict LUCIANO Primary Care Provider Encounter Details Date Type Department Care Team (Latest Contact Info) Description 04/03/2022 7:50 AM EST Laboratory Appointment Lab [address] [place] [address] Status post bariatric surgery; Disorder of iron [...] Name Priority Date/Time Associated Diagnosis Comments HC PARATHYROID HORMONE(PTH INTACT Routine 04/03/2022 8:03 AM EST Status post bariatric surgery Disorder of iron metabolism HC HEMOGRAM Routine 04/03/2022 8:03 AM EST Status post bariatric surgery Disorder of iron metabolism HC PCH THIAMIN LVL(VITAMIN B1) WB-FUENTES Routine 04/03/2022 8:03 AM EST Status post bariatric surgery Disorder of iron metabolism HC IRON BINDING CAPACITY Routine 04/03/2022 8:03 AM EST Status post bariatric surgery Disorder of iron metabolism HC VITAMIN D TOTAL-25 HYDROXY Routine 04/03/2022 8:03 AM EST Status post bariatric surgery Disorder of iron metabolism HC FOLATE, SERUM Routine 04/03/2022 8:03 AM EST Status post bariatric surgery Disorder of iron metabolism HC FERRITIN, SERUM Routine 04/03/2022 8: 03 AM EST Status post bariatric surgery Disorder of iron metabolism HC VENIPUNCTURE Routine 04/03/2022 8:03 AM EST Status post bariatric surgery Disorder of iron metabolism COMPREHENSIVE METABOLIC PANEL Routine 04/03/2022 8:03 AM EST Status post bariatric surgery Disorder of iron metabolism documented in this encounter Results * (ABNORMAL) Comprehensive metabolic panel (non-fasting) (04/03/2022 8:03 AM EST) [facility] Glucose 90 65 - 199 mg/dL [facility] Comment:Diabetes: >=200 mg/d L plus symptoms Blood Urea Nitrogen 10 8 - 18 mg/dL [facility] Creatinine 0.65(L) 0.70 - 1.20 mg/dL [facility] Sodium 140 135 - 145 mmol/L [facility] Potassium 3.7 3.5 - 5.0 mmol/L [facility] Comment: Please note: ??Patients with WBC >100,000 may have falsely elevated Potassium levels. ??For accurate Potassium quantification in these patients send serum separator tube (gold top) for subsequent determinations. ??Contact the Clinical Chemistry Laboratory if there are any questions. Chloride 107 98 - 107 mmol/L [facility] Carbon Dioxide 24 22 - 31 mmol/L [facility] Anion Gap 9 5 - 15 mmol/L [facility] Calcium 9.1 8.5 - 10.5 mg/dL [facility] Protein, Total 6.7 6.1 - 8.0 g/dL [facility] Albumin 4.2 3.2 - 5.2 g/dL [facility] Aspartate Aminotransferase 9 0 - 30 unit/L [facility] Alanine Aminotransferase 6 0 - 30 unit/L [facility] Alkaline Phosphatase 49 35 - 105 unit/L [facility] Bilirubin, Total 0.4 0.2 - 1.3 mg/dL [facility] Est Glomerular Filtration Rate 115 >=60 mL/min/1. 73 m?? [facility] Comment: This patient's estimated GFR was [...] APRN CHEMISTRY ORDERA BLES Performing Organization Address [facility] Co de Phone Number [facility] [place] [address] * Ferritin (04/03/2022 8:03 AM EST) Ferritin 21 15 - 150 ng/mL [facility] Comment: Pediatric reference ranges not verified at [facility], interpret with caution. Reference ranges for females greater than 50 years of age approach values for men, i.e., 30-400 ng/mL. Blood 04/03/2022 8:03 AM EST 04/03/2022 8:15 AM EST Narrative Resulting Agency Comment Spec In Lab Belle Barone APRN CHEMISTRY ORDERA BLES Performing Organization Address City/[facility]/ZIP Co de Phone Number [facility] [place] [address] * Iron and TIBC (04/03/2022 8:03 AM EST) Iron 104 30 - 150 mcg/dL [facility] TIBC 329 250 - 450 mcg/dL [facility] Iron Saturation 32 20 - 50 % [facility] Blood 04/03/2022 8:03 AM EST 04/03/2022 8:15 AM EST Narrative Resulting Agency Comment Spec In Lab Belle Barone CONCRETE FORM SETTER AND FINISHER CHEMISTRY ORDERA BLES Performing Organization Address City/[facility]/ZIP Co de Phone Number [facility] [place] [address] * Folate, serum (04/03/2022 8:03 AM EST) Folate >20.0 4.8 - 24.2 ng/mL [facility] Blood 04/03/2022 8:03 AM EST 04/03/2022 8:15 AM EST Narrative Resulting Agency Comment Spec In Lab Belle Barone APRN CHEMISTRY ORDERA BLES Performing Organization Address City/[facility] Co de Phone Number [facility] [place] [address] * (ABNORMAL) Hemogram (04/03/2022 8:03 AM EST) White Blood Cell 11.2(H) 4.0 - 9.5 x10(3)/mc L [facility] Red Blood Cell 4.55 4.00 - 5.21 x10(6)/mc L [facility] Hemoglobin 12.9 11.7 - 15.5 g/dL [facility] Hematocrit 38.6 35.7 - 45.8 % [facility] Mean Cell Volume 84.8 82.6 - 94.4 fL [facility] Mean Cell Hemoglobin 28.4 27.1 - 32.0 pg [facility] Mean Cell Hemoglobin Concentration 33.4 31.7 - 35.0 g/dL [facility] Platelet 341 145 - 357 x10(3)/mc L [facility] RDW Standard Deviation 38.9 37.0 - 46.0 fL [facility] RDW coefficient of variation 12.6 11.5 - 14.1 % [facility] Mean Platelet Volume 10.3 7.6 - 12.9 fL [facility] NRBC% auto 0.0 % [facility] NRBC Absolute 0.000 0.000 - 0.000 x10(3)/mc L [facility] Blood 04/03/2022 8:03 AM EST 04/03/2022 8:15 AM EST Narrative Resulting Agency Comment Spec In Lab Belle Barone APRN HEMATOLOGY ORDER BARTOLO Performing Organization Address [facility] Co de Phone Number [facility] [place] [address] * PTH (04/03/2022 8:03 AM EST) Parathyroid Hormone 45 15 - 65 pg/mL [facility] Blood 04/03/2022 8:03 AM EST 04/03/2022 8:15 AM EST Narrative Resulting Agency Comment Spec In Lab Belle Barone APRN CHEMISTRY ORDERA BLES Performing Organization Address [facility] de Phone Number [facility] [place] [address] * Vitamin B1, whole blood (04/03/2022 8:03 AM EST) Vit B1 Lvl Wb (JULY) 120 70 - 180 nmol/L [facility] Comment: ADDITIONAL INFORMATION This test was developed and its performance characteristics determined by [facility] in a manner consistent with CLIA requirements. This test has not been cleared or approved by the U.S. Food and Drug Administration. Test Performed by: [facility] - [address] [address] Decision Unit Rn: Farzad Monroe M.D. Ph.D.; CLIA# [id number] Blood 04/03/2022 8:03 AM EST 04/03/2022 9:29 AM EST Narrative Resulting Agency Comment Spec In Lab Belle Barone APRN LAB SEND OUT ORD ERABLES Performing Organization Address City/[facility] Co de Phone Number [facility] [place] [address] * Vitamin D, 25-Hydroxy (04/03/2022 8:03 AM EST) Vitamin D Total 25 OH 62 21 - 100 ng/mL [facility] Vit D Interp Sufficient [facility] Blood 04/03/2022 8:03 AM EST 04/03/2022 8:15 AM EST Narrative Resulting Agency Comment Spec In Lab Belle Barone APRN CHEMISTRY ORDERA BLES Performing Organization Address [facility] Co de Phone Number [facility] [place] [address] * Vitamin B12 (04/03/2022 8:03 AM EST) Vitamin B12 492 232 - 1,245 pg/mL [facility] Blood 04/03/2022 8:03 AM EST 04/03/2022 8:15 AM EST Narrative Resulting Agency Comment Spec In Lab Belle Barone APRN CHEMISTRY ORDERA BLES Performing Organization Address [facility] Co de Phone Number [facility] [place] [address] documented in this encounter Visit Diagnoses Diagnosis Status post bariatric surgery Bariatric surgery status Disorder of iron metabolism Other disorders of iron metabolism documented in this encounter Care Teams Weekend Receptionist Relationship Specialty Start Date End Date Samreen Warner APRN [address] [place] [address] PCP - General Family Medicine 09/14/16 07/22/23 documented as of this encounter
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
--- OUTSIDE RECORDS SUMMARY | 2024-01-08 17:55 | XMS_ITS | Encounter Summary ---
[place] [address] Care Team Providers Care Learning Technologist Name Role Phone JeanSamreen benedict LUCIANO Primary Care Provider Encounter Details Date Type Department Care Team (Latest Contact Info) Description 04/04/2021 1:00 PM EST Laboratory Appointment Lab [address] [address] Status post bariatric surgery; Vitamin D deficiency; [...] Diagnosis Comments HC PARATHYROID HORMONE(PTH INTACT Routine 04/04/2021 1:12 PM EST Status post bariatric surgery Vitamin D deficiency Disorder of iron metabolism HC HEMOGRAM Routine 04/04/2021 1:12 PM EST Status post bariatric surgery Vitamin D deficiency Disorder of iron metabolism HC PCH THIAMIN LVL(VITAMIN B1) WB-FUENTES Routine 04/04/2021 1:12 PM EST Status post bariatric surgery Vitamin D deficiency Disorder of iron metabolism HC IRON BINDING CAPACITY Routine 04/04/2021 1:12 PM EST Status post bariatric surgery Vitamin D deficiency Disorder of iron metabolism HC VITAMIN D TOTAL-25 HYDROXY Routine 04/04/2021 1:12 PM EST Status post bariatric surgery Vitamin D deficiency Disorder of iron metabolism HC FOLATE, SERUM Routine 04/04/2021 1:12 PM EST Status post bariatric surgery Vitamin D deficiency Disorder of iron metabolism HC FERRITIN, SERUM Routine 04/04/2021 1: 12 PM EST Status post bariatric surgery Vitamin D deficiency Disorder of iron metabolism HC VITAMIN B12 SERUM Routine 04/04/2021 1:12 PM EST Status post bariatric surgery Vitamin D deficiency Disorder of iron metabolism COMPREHENSIVE METABOLIC PANEL Routine 04/04/2021 1:12 PM EST Status post bariatric surgery Vitamin D deficiency Disorder of iron metabolism documented in this encounter Results * (ABNORMAL) Comprehensive metabolic panel (non-fasting) (04/04/2021 1:12 PM EST) [facility] Glucose 76 65 - 199 mg/dL [facility] Comment:Diabetes: >=200 mg/d L plus symptoms Blood Urea Nitrogen 14 8 - 18 mg/dL [facility] Creatinine 0.74 0.70 - 1.20 mg/dL [facility] Sodium 138 135 - 145 mmol/L [facility] Potassium 3.3(L) 3.5 - 5.0 mmol/L [facility] Comment: Please note: ??Patients with WBC >100,000 may have falsely elevated Potassium levels. ??For accurate Potassium quantification in these patients send serum separator tube (gold top) for subsequent determinations. ??Contact the Clinical Chemistry Laboratory if there are any questions. Chloride 104 98 - 107 mmol/L [facility] Carbon Dioxide 25 22 - 31 mmol/L [facility] Anion Gap 9 5 - 15 mmol/L [facility] Calcium 9.3 8.5 - 10.5 mg/dL [facility] Protein, Total 7.0 6.1 - 8.0 g/dL [facility] Albumin 4.5 3.2 - 5.2 g/dL [facility] Aspartate Aminotransferase 12 0 - 30 unit/L [facility] Alanine Aminotransferase 11 0 - 30 unit/L [facility] Alkaline Phosphatase 60 35 - 105 unit/L [facility] Bilirubin, Total 0.2 0.2 - 1.3 mg/dL [facility] Est Glomerular Filtration Rate 103 >=60 mL/min/1. 73 m?? [facility] Comment: This patient? s estimated [...] Lab Belle Barone APRN CHEMISTRY ORDERA BLES [facility] [place] [address] * Ferritin (04/04/2021 1:12 PM EST) [facility] Ferritin 33 15 - 150 ng/mL [facility] Comment: Pediatric reference ranges not verified at [facility], interpret with caution. Reference ranges for females greater than 50 years of age approach values for men, i.e., 30-400 ng/mL. Blood 04/04/2021 1:12 PM EST 04/04/2021 1:25 PM EST Narrative Resulting Agency Comment Spec In Lab Belle Eli Abisai WOLF CHEMISTRY ORDERA BLES Performing Organization Address City/[facility]/ZIP Co de Phone Number [facility] [place] [address] * Folate, serum (04/04/2021 1:12 PM EST) [facility] Folate >20.0 4.8 - 24.2 ng/mL [facility] Blood 04/04/2021 1:12 PM EST 04/04/2021 1:25 PM EST Narrative Resulting Agency Comment Spec In Lab Belle M Abisai WOLF CHEMISTRY ORDERA BLES Performing Organization Address City/[facility] Co de Phone Number [facility] [place] [address] * Hemogram (04/04/2021 1:12 PM EST) [facility] White Blood Cell 8.1 4.0 - 9.5 x10(3)/[facility] Red Blood Cell 4.49 4.00 - 5.21 x10(6)/[facility] Hemoglobin 13.0 11.7 - 15.5 g/dL [facility] Hematocrit 38.7 35.7 - 45.8 % [facility] Mean Cell Volume 86.2 82.6 - 94.4 fL [facility] Mean Cell Hemoglobin 29.0 27.1 - 32.0 pg [facility] Mean Cell Hemoglobin Concentration 33.6 31.7 - 35.0 g/dL [facility] Platelet 334 145 - 357 x10(3)/[facility] LABORATORY RDW Standard Deviation 39.2 37.0 - 46.0 [facility] LABORATORY RDW coefficient of variation 12.6 11.5 - 14.1 % [facility] Mean Platelet Volume 10.4 7.6 - 12.9 fL [facility] NRBC% auto 0.0 % [facility] NRBC Absolute 0.000 0.000 - 0.000 x10(3)/mcL [facility] Blood 04/04/2021 1:12 PM EST 04/04/2021 1:25 PM EST Narrative Resulting Agency Comment Spec In Lab Belle Barone APRN HEMATOLOGY ORDER BARTOLO Performing Organization Address City/[facility]/ZIP Co de Phone Number [facility] [place] [address] * Iron and TIBC (04/04/2021 1:12 PM EST) Iron 97 30 - 150 mcg/dL [facility] TIBC 316 250 - 450 mcg/dL [facility] Iron Saturation 31 20 - 50 % [facility] Blood 04/04/2021 1:12 PM EST 04/04/2021 1:25 PM EST Narrative Resulting Agency Comment Spec In Lab Belle Barone APRN CHEMISTRY ORDERA BLES Performing Organization Address [facility] Co de Phone Number [facility] [place] [address] * PTH (04/04/2021 1:12 PM EST) Parathyroid Hormone 47 15 - 65 pg/mL [facility] Blood 04/04/2021 1:12 PM EST 04/04/2021 1:25 PM EST Narrative Resulting Agency Comment Spec In Lab Belle Barone APRN CHEMISTRY ORDERA BLES Performing Organization Address [facility] Co de Phone Number [facility] [place] [address] * Vitamin B1, whole blood (04/04/2021 1:12 PM EST) Vit B1 Lvl Wb (JULY) 116 70 - 180 nmol/L [facility] Comment: ADDITIONAL INFORMATION This test was developed and its performance characteristics determined by [facility] in a manner consistent with CLIA requirements. This test has not been cleared or approved by the U.S. Food and Drug Administration. Test Performed by: [facility] [address] [place] [address] [employer]iance Internship: Farzad Monroe M.D. Ph.D.; CLIA# [id number] Blood 04/04/2021 1:12 PM EST 04/04/2021 3:30 PM EST Narrative Resulting Agency Comment Spec In Lab Belle Barone APRN LAB SEND OUT ORD ERABLES Performing Organization Address City/[facility]/ZIP Co de Phone Number [facility] [place] [address] * Vitamin B12 (04/04/2021 1:12 PM EST) Vitamin B12 948 232 - 1,245 pg/mL [facility] Blood 04/04/2021 1:12 PM EST 04/04/2021 1:25 PM EST Narrative Resulting Agency Comment Spec In Lab Belle Barone APRN CHEMISTRY ORDERA BLES Performing Organization Address City/[facility]/ZIP Co de Phone Number [facility] [place] [address] * Vitamin D, 25-Hydroxy (04/04/2021 1:12 PM EST) Vitamin D Total 25 OH 41 21 - 100 ng/mL [facility] Vit D Interp Sufficient [facility] Blood 04/04/2021 1:12 PM EST 04/04/2021 1:25 PM EST Narrative Resulting Agency Comment Spec In Lab Belle Barone APRN CHEMISTRY ORDERA BLES [facility] [place] [address] documented in this encounter Visit Diagnoses Diagnosis Status post bariatric surgery Bariatric surgery status Vitamin D deficiency Unspecified vitamin D deficiency Disorder of iron metabolism Other disorders of iron metabolism documented in this encounter Care Teams Learning Technologist Relationship Specialty Start Date End Date Samreen Warner APRN [address] [place] [address] PCP - General Family Medicine 09/14/16 07/22/23 documented as of this encounter
--- OUTSIDE RECORDS SUMMARY | 2024-01-08 17:55 | XMS_ITS | Encounter Summary ---
[facility] Organization [facility] [place] [address] Care Team Providers Care Veneer Measurer Name Role Phone Samreen Warner LUCIANO Primary Care Provider [phone] Reason for Visit * Reason Comments Follow-up Encounter Details Date Type Department Care Team ([facility] st Contact Info) Description 08/30/2020 3:00 PM EDT Office [place] [address] Belle Barone APRN [facility] [place] [address] Vitamin D deficiency; S/P laparoscopic sleeve gastrectomy on 03/28/17 (preoperative [...] Sign Reading Time Taken Comments Blood Pressure 126/72 08/30/2020 3:03 PM EDT Pulse 53 08/30/2020 3:03 PM EDT Temperature 36.4 ??C (97.5 ??F) 08/30/2020 3:03 PM ED T Respiratory Rate 16 08/30/2020 3:03 PM EDT Oxygen Saturation 100% 08/30/2020 3:03 PM EDT Inhaled Oxygen Concentration - - Weight 80.7 kg (178 lb) 08/30/2020 3:03 PM EDT Height 158 cm (5' 2.21) 08/30/2020 3:03 PM EDT Body Mass Index 32.34 08/30/2020 3:03 PM EDT documented in this encounter Progress Notes * Belle Barone, DIETETIC TECHNICIAN REGISTERED - 08/30/2020 3:00 PM EDT [place]ariat[place] [address] Reason for visit: Vitamin D deficiency follow up visit Subjective: Lennie Urena is s/p laparoscopic sleeve gastrectomy with intraoperative EGD 03/28/2017, she was seen on 03/2020 for BSP follow up and lab results at that time indicated Vitamin D deficiency. she presents today for follow up of Vit D to determine if continued RX supplementation is indicated. Tolerating food/fluid and making sure to meet protein/fluid goals. Current supplements: Taking Fusion-bariatric multivitamin two pills twice daily (which includes Vit B12 560 mcg, Vit D3 3,000 IU, Calcium 1200 mg, Iron 45mg daily). B12 500 mcg, folic acid 1 mg, Vit D 50,000 Iu/weekly Interim Health: Reports feeling well, her health has been stable overall, no new medical issues, surgeries or hospitalizations/ED visits since the last visit. No kidney stones or atraumatic fractures. Patient has no bariatric related concerns/complaints today. Obesity related medical issues are notsignificantly changed since last visit. Patient Active Problem List Diagnosis Code ??? Vitamin D deficiency E55.9 ??? 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 No changes in memory CV: no chest pain or palpitations. Pulm: denies SOB or cough. GI: denies bloating, abdominal pain, nausea, vomiting. No diarrhea or constipation. Meds and Allergies reviewed. Complications summary: Early [...] 04/05/20 173 31. 74% 08/30/20 178 32.3 ?? Objective: BP 126/72 (BP Location (NBP): Right arm, Patient Position: Sitting, BP Cuff Sizes: Adult (25-34 cm)) Pulse 53 Temp 36.4 ??C (97.5 ??F) Resp 16 Ht 158 cm (5' 2.21) Wt 80.7 kg (178 lb) SpO2 100% BMI 32.34 kg/m?? Physical Exam Gen: Alert, pleasant, NAD, appears well Psychiatric: normal mood and affect. Recent Results (from the past 72 hour(s)) Vitamin D, 25-Hydroxy Result Value Ref Range 25-OH Vit D Total 57 21 - 100 ng/mL 25-OH Vit D Interp Sufficient Assessment and Plan: ??? s/p laparoscopic sleeve gastrectomy, with vit D deficiency o Reviewed recent labs which shows improvement/resolution, made the following recommendations: - Vit D: discontinue Rx of 50,000 IU/weekly and transition to maintenance dose of OTC Vit D3 2,000 IU/daily - Continue with multivitamin with minerals/iron twice a day - Continue with Vit B12 500 mcg once a day - Continue with calcium citrate 600 mg/400 units vitamin D twice a day, RTC in 6 months for next BSP follow up visit, with labs. Call/rtc sooner prn with questions/concerns. Belle Barone APRN RECOMMENDED BARIATRIC SURGERY PROGRAM [...] If labwork is done by the primary medicare insurance specialist: please send a copy to the Bariatric Surgery Program, General Surgery Clinic, [facility], or fax [phone] documented in this encounter Plan of Treatment Not on file documented as of this encounter Visit Diagnoses Diagnosis Vitamin D deficiency Unspecified vitamin D deficiency S/P laparoscopic sleeve gastrectomy on 03/28/17 (preoperative BMI 50) documented in this encounter Care Teams Veneer Measurer Relationship Specialty Start Date End Date Samreen Warner APRN [address] [place] [address] PCP - General Family Medicine 09/14/16 07/22/23 documented as of this encounter
--- OUTSIDE RECORDS SUMMARY | 2024-01-08 17:55 | XMS_ITS | Encounter Summary ---
[facility] [place] [address] Care Team Providers Care Stand In Name Role Phone RadhaSamreen cortes LUCIANO Primary Care Provider Reason for Visit * Reason Comments Follow-up Encounter Details Date Type Department Care Team ([facility] st Contact Info) Description 04/05/2020 8:30 AM EST Office Visit [place] [address] Belle Barone, ANESTHESIA TECHNICIAN [facility] [place] [address] Alyssia Reinoso, RD [facility] [place] [address] Status post bariatric surgery; Vitamin D deficiency; S/P laparoscopic sleeve gastrectomy [...] Sign Reading Time Taken Comments Blood Pressure 123/60 04/05/2020 8:21 AM EST Pulse 69 04/05/2020 8:21 AM EST Temperature 36.6 ??C (97.8 ??F) 04/05/2020 8:21 AM ES T Respiratory Rate 16 04/05/2020 8:21 AM EST Oxygen Saturation 100% 04/05/2020 8:21 AM EST Inhaled Oxygen Concentration - - Weight 78.8 kg (173 lb 11.2 oz) 04/05/2020 8:21 AM EST Height 158 cm (5' 2.21) 04/05/2020 8:21 AM EST Body Mass Index 31.56 04/05/2020 8:21 AM EST documented in this encounter Patient Instructions * Patient Instructions* Alyssia Reinoso, RD - 04/05/2020 8:30 AM EST [facility] direct support professional home health Madelyn [phone] and Ana [phone] Dietitians: [phone] Surgeons/ nurse practitioners: [phone] Nurse line: [phone] Dear Lennie, Below please find a summary of our discussion/recommendations from your visit as well as some otherbariatric surgery related information. Testing: If you are due to have lab work today please have it done when you are able. We will plan to follow up with you once your results are available and make additional recommendations re: your vitamins and supplements. Please call/send my [employer] message if you have not heard from us within 2 weeksof having labs work done. In the future, it would be helpful if you can have your lab work drawn a couple days before your visit so the results are available at the time of your follow up visit Next visit: Follow up visits are done at 4 months and 12 months after surgery and yearly thereafter. High risk patients are evaluated on a more frequent basis. Please call [phone] if you do not receive an appointment by 3-4 weeks prior to the expected visit. Vitamins: The following vitamins are recommended: ??? Multivitamins with minerals daily- Continue Bariatric Fusion 1 tablet 4 times per day ??? Vitamin B12 500 mcg daily ??? Folic Acid 1 mg daily - if recommended based on lab work ??? Vitamin D: if recommended based on lab results Nutrition recommendations: - Your Daily Goals: ?? 1,000-1,200 calories per day (300 calories per meal, 100 calories per snack, 1-2 snacks per day) ?? 60 grams of protein per day (20 grams per meal) ?? 48-64 oz of non-caloric and hydrating fluids per day (6-8, 8 oz cups) ?? Do not drink with meals- pushes food through more quickly, can cause upset stomach Activity: Keep up the good work with regular exercise. ??? Aim for 30 minutes of exercise daily, 5 days a week of both cardio and strength training exercises. Skinfold care: 1. Cleanse area with soap and water. 2. Blow dry area on low setting with counseling department chair. 3. Apply absorbent powder such as Gold Lawler and Desinex 4. Apply cotton strips (such as strips from old sheets) or larger size cotton underwear folded beneath skin folds to act as a wick. Do not apply flip cloth toweling which can cause further irritation 5. Try combination of over the counter hydrocortisone cream with over the counter antifungal cream such as lotrimin twice a day for 2 weeks. 6. If your symptoms do not improve you may require prescription of anti-fungal cream/powder. 7. Follow up with PCP if symptoms worsen/fail [...] with doses higher than 2 capfuls twice daily On days with loosestools, we recommend reducing miralax to 1/2 capful [...] difficulty keeping food or fluid down. Alcohol: should be used sparingly, no more than one drink per occasion. Alcohol is a source of empty calories and can cause ulcers and vitamin and mineral deficiencies. Alcohol is toxic to the liver and is absorbed more quickly after surgery, it stays in the system longer. Studies have noted that there is an increased risk of alcohol dependence after bariatric surgery. Alcohol is not recommended until at least1 year post surgery, and after goal weight has been achieved f non-prescribed drugs and treet drugs is unsafe Anti-inflammatory medications such as Ibuprofen (Advil), Aleve (Naproxen), Excedrin, should be usedsparingly after gastric bypass, since they increase the risk of ulcer and bleeding. A bone mineral density scan (DEXA) is recommended every 2 years after bariatric surgery. Please schedule this study through your primary care providers office. Potential lifetime risks of sleeve gastrectomy include developed heartburn or severe reflux Sleep Apnea: If you have a history of sleep apnea and have a CPAP/BiPAP, please be sure to follow up with the sleep center to confirm your pressures and determine if continued use of CPAP/BiPAP is recommended. Call us: ??? If you have concerns. ??? If you have unexplained abdominal pain. ??? if you see blood in your stool or vomit blood ??? If you have prolonged vomiting Post Surgery Support Group: Our post surgery support group meets at [facility] on the first Sunday of every month from 1:00 PM-2:00 PM. Nutrition and Activity apps- Baritastic, My Fitness Pal, Lose It, My Plate Internet resources: www.BlueBox Group wwwLast.fm www.CreationFlow www.[email or web address] [email or web address].[email or web address]/blog [facility] facebook page: https://www.facebook.[email or web address] Books & Magazines: - Recipes for Life After Weight Loss Surgery by Leesa Mirza - Shrink Yourself by Dr Cristino Johnson - Eating Well - www.[email or web address].Giveter - Cooking Light- www.cookinglight.Giveter Anxiety: The Happiness Trap by Edwardo Hunter The Mindfulness and acceptance workbook for anxiety By Lee Luz. Mindful eating: What are you Hungry For? By Jos eFrancisco Zheng The Mindful Diet by Kalyani Brice and the [facility] group. Emotional eating: End Emotional Eating by Alyssia Summers Calming the Emotional Storm Fide Dietz documented in this encounter Progress Notes * Belle Barone Eli, LUCIANO - 04/05/2020 8:30 AM EST [place] [address] Reason for visit: Bariatric Surgery follow up visit Subjective: Lennie Urena is s/p laparoscopic sleeve gastrectomy with intraoperative EGD 03/28/2017 , she presents today for annual BSP follow up. Overall tolerating foods/fluids and trying to make sure she is meeting nutritional/fluid requirements. No bariatric related concerns/complaints today. Taking Fusion-bariatric multivitamin two pills twice daily (which includes Vit B12 560 mcg, Vit D3 3,000 IU, Calcium 1200 mg, Iron 45mg daily). B12 500 mcg, folic acid 1 mg, completed Vit D 50,000 Iu/weekly Interim Health: reports health has been stable overall. S/p panniculectomy 07/2019 which went well. Otherwise no surgeries, hospitalizations, or bariatric related ED visits since the last visit. No kidney stones or atraumatic fractures. Pt follows with PCP/specialist for disease management and age specific screening. Obesity related medical issues- o Diabetes [] Yes [x] Not a baseline issue o HTN: [] Yes [x] Not a baseline issue o GERD: [] Yes [x] Not a baseline issue o Hyperlipidemia: [] Yes [x] Not a baseline issue o VICKIE: [] Yes [x] Not a baseline issue o Musculoskeletal issues: [x] Yes Improvement in mobility with wt loss/surgery [] Not a baseline issue Patient Active Problem List Diagnosis Code ??? Vitamin D deficiency E55.9 ??? S/P laparoscopic sleeve gastrectomy on 03/28/17 (preoperative BMI 50) Z98.84 Review of Systems Constitutional: energy level is good, no c/o restless leg, no pica, no hair thinning/loss Neuro: no c/o paresthesias. No changes in memory CV: no chest pain or palpitations. Pulm: denies SOB or cough. GI: denies bloating, abdominal pain, nausea, vomiting. No diarrhea or constipation. 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 S/p panniculectomy Health Habits: Tobacco/Nicotine use: None ETOH use: None Rare NSAID use. Social History: Lives with her . 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 Dietary history/ exericse/ activity level: See dietitian note from today's visit for complete dietary evaluation. ?? Meds and Allergies reviewed. Complications summary: Early none Late none ?? Pre-op 01/04/17 Wt (lbs) 276 BMI 50.2 ?? HT: 62.2 ??preop folate 7.9 ?? Post-op Visit date Wt (lbs) BMI %EBW lost 04/19/17 245 46.3 22 07/27/17 214 40.4 45 11/30/17 185 33.6 66 03/29/18 171 31 09/27/18 165 30 80 04/18/19 166 30.5 79 04/05/20 173 31. 74% Objective: BP 123/60 Pulse 69 Temp 36.6 ??C (97.8 ??F) Resp 16 Ht 158 cm (5' 2.21) Wt 78.8 kg (173 lb 11.2 oz) SpO2 100% BMI 31.56 kg/m?? Physical Exam Gen: Alert, pleasant, NAD, appears well Abd: soft, non-distended, non-tender. Lower extremities: no edema or tenderness (B) Skin: s/p panniculectomy. Skin is warm and dry. No rash noted on exam today. Psychiatric: normal mood and affect. Recent Results (from the past 72 hour(s)) Vitamin B12 Result Value Ref Range Vitamin B-12 782 232 - 1,245 pg/mL Hemogram Result Value Ref Range WBC 8.1 4.0 - 9.5 x10(3)/mcL RBC 4.50 4.00 - 5.21 x10(6)/mcL Hemoglobin 12.9 11.7 - 15.5 gm/dL Hematocrit 39.5 35.7 - 45.8 % MCV 87.8 82.6 - 94.4 fL MCH 28.7 27.1 - 32.0 pg MCHC 32.7 31.7 - 35.0 gm/dL Platelets 278 145 - 357 x10(3)/mcL RDWSD 40.4 37.0 - 46.0 fL RDWCV 12.6 11.5 - 14.1 % MPV 10.3 7.6 - 12.9 fL nRBC % Auto 0.0 % nRBC Abs Auto 0.000 0.000 - 0.000 x10(3)/mcL Comprehensive metabolic panel (non-fasting) Result Value Ref Range Glucose Lvl 88 65 - 199 mg/dL BUN 12 8 - 18 mg/dL Creatinine 0.71 0.70 - 1.20 mg/dL Sodium 141 135 - 145 mmol/L Potassium 3.8 3.5 - 5.0 mmol/L Chloride 107 98 - 107 mmol/L CO2 26 22 - 31 mmol/L Anion Gap 8 5 - 15 mmol/L Calcium 9.2 8.5 - 10.5 mg/dL Total Protein 6.7 6.1 - 8.0 gm/dL Albumin 4.4 3.2 - 5.2 gm/dL AST 12 0 - 30 unit/L ALT 7 0 - 30 unit/L Alk Phos 51 35 - 105 unit/L Total Bilirubin 0.4 0.2 - 1.3 mg/dL Estimated GFR 109 >=60 mL/min/1.73 m?? Iron and TIBC Result Value Ref Range Iron 100 30 - 150 mcg/dL TIBC 307 250 - 450 mcg/dL Iron Saturation 33 20 - 50 % Ferritin Result Value Ref Range Ferritin 48 15 - 150 ng/mL PTH Result Value Ref Range PTH 47 15 - 65 pg/mL Vitamin D, 25-Hydroxy Result Value Ref Range 25-OH Vit D Total 26 21 - 100 ng/mL 25-OH Vit D Interp Insufficient Assessment and Plan: ??? ~3 years s/p laparoscopic sleeve gastrectomy, with 74 % of excess body weight lost, o doing well from a bariatric surgery perspective, overall pleased with wt loss o discussed dietary considerations and strategies for continued success. o Reviewed importance of meeting nutritional/protein/fluid requirements, tracking food and food choices, pairing proteins with carbs, being careful to avoid eating too fast, eating too much, drinkingwith meals, or not chewing well enough. o Patient has met with insecticide maker today, please see note for additional details/dietary evaluation. ??? Obesity related co-morbidities are improved/stable overall. ??? Risk for vitamin deficiencies: o Reviewed lab results: Vit D deficiency: rx for Vit D 50K IU/weekly. o Reviewed recommended vitamin/mineral supplements- see RD note for details ??? Pt reminded that a bone mineral density scan (DEXA) is recommended every 2 years after bariatric surgery. Recommended f/u with primary care provider to check if up to date. Follow in 6 months for repeat Vit D and determination if continued prescription is indicated. RTC in 1 year for next BSP follow up visit, with labs. Call/rtc sooner prn with questions/concerns or unexplained abdominal pain, prolonged nausea, vomiting or inability to hydrate. Bariatric Program Summary report is availabe for patient's review via e-DH Belle Barone APRN RECOMMENDED BARIATRIC SURGERY PROGRAM [...] If labwork is done by the primary palliative care coordinator: please send a copy to the Bariatric Surgery Program, General Surgery Clinic, [facility], or fax [phone] * Alyssia Reinoso, RD - 04/05/2020 8:30 AM EST Bariatric Surgery Program Nutrition Progress Note Encounter Type: follow up SUBJECTIVE: Topics Discussed/Patient Concerns: ?? Still at same job but working 12 hour shifts now. 3 days on 3 off then 4 on 4 off. ?? No dietary concerns. ?? Low wt 163# but it didn't feel sustainable. maintaining 170-174#. 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 ?? Date of Surgery:??03/28/2017??gastric sleeve ? Topics Discussed/Patient Concerns:?? Date Weight (lbs) HT BMI Comments ~2013 [...] 04/05/20 173.7# 74% 31.6 3 years post-op [place] Body Weight (based on BMI of 25): 138# 30-70% Excess Weight Loss: 180-235#; 50% Excess Weight Loss: 208# ?? Vitamin/Mineral Supplements (reported by patient): Supplement Type Brand/Form Dosage/Amount Frequency Comments Multivitamin Bariatric Fusion 1 pill ??4x daily Contains calcium, B12, and iron?? Calcium ? none? Vitamin B12 ?? 500 mcg?? daily ?? Folic Acid 1 mg daily Iron ?none ?? Vitamin D2 ?none Finished rx?? Biotin ?? 1 pill daily ?? Keratin ?? 1 pill (250 mg) daily ? Food Allergies/Intolerances:?Peanuts, German fries, M&M - lost taste for it. Can't eat pizza. Anything chocolate or peanut butter based. ? Tracking Intake:??No. Feels she's in a good rhythm. 24-Hour Intake: Breakfast 7p:pc fruit or vegetable - not a big breakfast person AM Snack Lunch ~11P: Chicken w vegetables- 1 c total more chicken than vegetables PM Snack 2A: Cottage cheese Dinner Sometimes snacks on leftover protein from dinner HS Snack occ fruit/vegetable Protein/ grams per day: ~60 g Hydrating fluids- oz/ day: 48+ oz. water Soda: none ETOH: none Caffeine: 1 c coffee Sweets: Not really. Has lost her taste for it. occ ice cream. 1pc cheese cake over the holidays lasted 4 days. Meals per day: ?? Feels full/satisfied after eating: yes ?? In the past month, pt has vomited/regurgitated: none. ?? Constipation/Diarrhea: none. Exercise: bought 2 under the desk bikes- bikes about 10 miles per day and does about 100 sit ups per day. Would like to go back to the gym if they transition back to 8 hour shifts. ASSESSMENT: Summary of Weight Loss: Patient's percent excess weight loss is 74%. Sophie continue to do well. She is meeting protein and fluid needs. With her new work schedule she is trying new recipes. Reviewed vitamin and mineral supplements. She is no longer going to the gym so she purchased 2 under the desk pedal machines and pedals about 10 miles per day. She also so sit ups daily. NUTRITION INTERVENTION & MONITORING: ?? Provided support/encouragement and reinforced importance of meeting nutritional goals. Continue current meal plan. ?? Reviewed nutrition and vitamin and mineral supplement recommendations. ??? Multivitamins with minerals daily- Continue Bariatric Fusion 1 tablet 4 times per day ??? Vitamin B12 500 mcg daily ??? Folic Acid 1 mg daily - if recommended based on lab work ??? Vitamin D: if recommended based on lab results ?? Written recommendations provided. Patient agreed with these and verbalized adequate understanding. ?? Evaluation by nurse practitioner today. documented in this encounter Plan of Treatment Not on file documented as of this encounter Results * Vitamin D, 25-Hydroxy (08/30/2020 1:38 PM EDT) Vitamin D Total 25 OH 57 21 - 100 ng/mL [facility] Vit D Interp Sufficient [facility] Blood 08/30/2020 1:38 PM EDT 08/30/2020 1:59 PM EDT Narrative Resulting Agency Comment Spec In Lab Belle Barone ANESTHESIA TECHNICIAN [place] [address] documented in this encounter Visit Diagnoses Diagnosis Status post bariatric surgery Bariatric surgery status Vitamin D deficiency Unspecified vitamin D deficiency S/P laparoscopic sleeve gastrectomy on 03/28/17 (preoperative BMI 50) documented in this encounter Care Teams Stand In Relationship Specialty Start Date End Date Samreen Warner, LUCIANO [address] [place] [address] PCP - General Family Medicine 09/14/16 07/22/23 documented as of this encounter
--- OUTSIDE RECORDS SUMMARY | 2024-01-08 17:55 | XMS_ITS | Encounter Summary ---
[place] [address] Care Team Providers Care Ocular Care Technologist Name Role Phone Arlene Logan APRN Primary Care Provider [phone] Encounter Details Date Type Department Care Team (Latest Contact Info) Description 07/23/2023 Travel Social History Tobacco Use Types Packs/Day Years [...] on filedocumented in this encounter Care Teams Ocular Care Technologist Relationship Specialty Start Date End Date Arlene [place] [address] [place] [address] PCP - General Family Medicine 07/23/23 documented as of this encounter
--- OUTSIDE RECORDS SUMMARY | 2024-01-08 17:55 | XMS_ITS | Encounter Summary ---
Author Organization [facility] [place] [address] Care Team Providers Care Timber Management Assistant Name Role Phone Samreen Warner LUCIANO Primary Care Provider [phone] Encounter Details Date Type Department Care Team (Late st Contact Info) Description 04/16/2023 12:30 PM EST Office [place] [address] Damaris Sparks APRN [facility] [place] [address] Alyssia Reinoso, RD [facility] [place] [address] Status post bariatric surgery; Disorder of iron [...] Sign Reading Time Taken Comments Blood Pressure 132/72 04/16/2023 12:26 PM EST Pulse 62 04/16/2023 12:26 PM EST Temperature - - Respiratory Rate - - Oxygen Saturation - - Inhaled Oxygen Concentration - - Weight 85.7 kg (189 lb) 04/16/2023 12:26 PM EST Height 158 cm (5' 2.2) 04/16/2023 12:26 PM EST Body Mass Index 34.35 04/16/2023 12:26 PM EST documented in this encounter Patient Instructions * Patient Instructions* Damaris Sparks, PAINTER HELPER SIGN - 04/16/2023 12:30 PM EST [facility] retail support associate Madelyn [phone] and Ana [phone] Dietitians: [phone] Surgeons/ nurse practitioners: [phone] Nurse line: [phone] Dear Lennie, Please see your electronic medical record note from today for details we discussed at your visit. Below is some additional general information that you may find helpful. Testing: It would be helpful if you can have your lab work drawn a couple days before your visit yenni [facility] facility so the results are available at the time of your follow up visit. If you have labwork done by your primary respiratory care instructor before that date, please have a copy sent to the Bariatric Surgery Program. Please call/send my message if you have not heard from us within 2 weeks of having labs work done. Here's the link to [facility] Lab hours and locations: [email or web address] Next visit: Follow up visits are done at 4 months and 12 months after surgery and yearly thereafter. Some patients are evaluated on a more frequent basis. Please call [phone] if you do not receive an appointment [...] Blow dry area on low setting with hair tinter. Avoid excessive heat and/or sweating as friction [...] such as Ibuprofen (Advil), Aleve (Naproxen), Excedrin, Brandi-Rickreall should be used sparingly after gastric bypass, [...] Our post surgery support group meets at [facility] on the first Sunday of every month from 1:00 PM-2:00 PM. You can attend online or in person. Use the following link to attend online: [email or web address] Nutrition and Activity apps- Baritastic, My Fitness Pal, Lose It, My Plate Internet resources: www.Icinetic www.Eyepic www.bariatriceating.dVisit www.BrightLine.dVisit/blog [facility] facebook page: [email or web address] Books & Magazines: - Recipes for Life After Weight Loss Surgery by Leesa Mirza - Shrink Yourself by Dr Cristino Johnson - Eating Well - www.Delta Systems - Cooking Light- www.cookingBeCouply.dVisit Anxiety: The Happiness Trap by Edwardo Hunter The Mindfulness and acceptance workbook for anxiety By Lee Luz. Mindful eating: What are you Hungry For? By Jose Francisco Zheng The Mindful Diet by Kalyani Brice and the [facility] group. Emotional eating: End Emotional Eating by Alyssia Summers Calming the Emotional Storm Fide Dietz documented in this encounter Progress Notes * Damaris Sparks APRN - 04/16/2023 12:30 PM EST [place] [address] Reason for visit: follow up visit Subjective: Lennie Urena is s/p laparoscopic sleeve gastrectomy with intraoperative EGD 03/28/2017. She presents for annual BSP follow up. Tolerating food/fluid, meeting protein/fluid goals. Interested in further weight loss but hoping to do so with sustained long-term healthy habits. She continues to be happy with her surgical outcome. Reports no difficulty swallowing or epigastric pain. Bloating with mens es only. No GERD sx. No N/V. BM are daily without problems Current supplements: excellent compliance. Taking Fusion-bariatric multivitamin two wafers twice daily (which includes Vit B12 560 mcg, Vit D33,000 IU, Calcium 1200 mg, Iron 45mg daily). No longer on folic acid 1 mg No longer on Vit D- 2000 IU/day Biotin 10,000 daily (will hold for labs next time) Recommend switching to Procare with 45 mg iron daily (to boost B12 and switch to folic acid vs. folate) and calcium citrate chews twice a day (this will also increase overall vitamin D intake) Interim Health: -Trigger point injections - chronic neck pain Health has been good. 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 Dietary history/ exericse/ activity level: See dietitian note from today's visit for complete dietary evaluation. Meds and Allergies reviewed. Pre-op 01/04/17 Wt (lbs) 276 BMI 50.2 HT: 62.2 preop folate 7.9 Post-op Visit date Wt (lbs) BMI %EBW lost 04/19/17 245 46.3 22 07/27/17 214 40.4 45 11/30/17 185 33.6 66 1/4/19 171 31 09/27/18 165 30 80 04/18/19 166 30.5 79 04/05/20 173 31. 74% 08/30/20 178 32.3 04/04/21 179.6 32.6 70% 04/03/22 186 33.9 65% 04/16/23 189 34.4 63% Objective: BP 132/72 Pulse 62 Ht 158 cm (5' 2.2) Wt 85.7 kg (189 lb) BMI 34.35 kg/m?? Physical Exam General: Alert, pleasant, NAD, [...] Value Ref Range 25-OH Vit D Total 24 21 - 100 ng/mL 25-OH Vit D Interp Insufficient Vitamin B12 Result Value Ref Range Vitamin B-12 414 232 - 1,245 pg/mL PTH Result Value Ref Range PTH 44 15 - 65 pg/mL Hemogram Result Value Ref Range WBC 9.9 (H) 4.0 - 9.5 x10(3)/mcL RBC 4.56 4.00 - 5.21 x10(6)/mcL Hemoglobin 12.5 11.7 - 15.5 g/dL Hematocrit 38.2 35.7 - 45.8 % MCV 83.8 82.6 - 94.4 fL MCH 27.4 27.1 - 32.0 pg MCHC 32.7 31.7 - 35.0 g/dL Platelets 329 145 - 357 x10(3)/mcL RDWSD 39.9 37.0 - 46.0 fL RDWCV 13.1 11.5 - 14.1 % MPV 11.0 7.6 - 12.9 fL nRBC % Auto 0.0 % nRBC Abs Auto 0.000 0.000 - 0.000 x10(3)/mcL Folate, serum Result Value Ref Range Folate Lvl 5.9 4.8 - 24.2 ng/mL Ferritin Result Value Ref Range Ferritin 18 6 - 175 ng/mL Comprehensive metabolic panel (non-fasting) Result Value Ref Range Glucose Lvl 79 65 - 199 mg/dL BUN 10 8 - 18 mg/dL Creatinine 0.72 0.70 - 1.20 mg/dL Sodium 141 135 - 145 mmol/L Potassium 3.3 (L) 3.5 - 5.0 mmol/L Chloride 106 98 - 107 mmol/L CO2 23 22 - 31 mmol/L Anion Gap 12 5 - 15 mmol/L Calcium 9.3 8.5 - 10.5 mg/dL Total Protein 6.9 6.1 - 8.0 g/dL Albumin 4.1 3.2 - 5.2 g/dL AST 11 0 - 30 unit/L ALT 6 0 - 30 unit/L Alk Phos 62 35 - 105 unit/L Total Bilirubin <0.2 (L) 0.2 - 1.3 mg/dL Estimated GFR 108 >=60 mL/min/1.73 m?? Assessment : 42 y.o. female who is 6 yrs s/p sleeve gastrectomy with 63% of excess body weight lost. Plan: S/p [...] ulcers, empty calorie). Patient has met with layboy tender today, please see note for additional details/dietary evaluation. Pre-Bariatric surgery obesity related co-morbidities: Improved/stable overall, patient to continue to follow with PCP/specialist. Risk for vitamin deficiencies: Reviewed lab results as above. Recommend switching to Procare with 45 mg iron daily (to boost B12 and to switch to folic acid vs. folate) and calcium citrate chews twice a day (this will also increase overall vitamin D intake). Hold biotin for FU labs. Recommend follow up with repeat B12, folate and Vitamin D in 4 months. Pt reminded that a bone mineral density scan (DEXA) is recommended every 2 years after bariatric surgery. RTC in 4 months for next BSP follow up visit, with labs. Call/rtc sooner prn with questions/concerns or unexplained abdominal pain, prolonged nausea, vomiting or inability to hydrate. Bariatric Program Summary report is availabe for patient's review via e- I spent a total of 30 minutes [...] If labwork is done by the primary respiratory care instructor: please send a copy to the Bariatric Surgery Program, General Surgery Clinic, [facility], or fax [phone] * Alyssia Reinoso, RD - 04/16/2023 12:30 PM EST Bariatric Surgery Program Nutrition Progress Note Encounter Type: follow up SUBJECTIVE: Topics Discussed/Patient Concerns: Making some dietary changes- starting the the summer, more in the past 8 weeks.. Refocusing on cooking meals for work. Was doing Dun[employer] frozen coffee now switched to iced coffee with 2 flavored syrups, 2 cream and no sugar. Wants to lose about 15#. 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 [...] 04/16/23 189# 63% 34.3 6 years post-op [place] Body Weight (based on BMI of 25): 138# 30-70% Excess Weight Loss: 180-235#; 50% Excess Weight Loss: 208# Vitamin/Mineral Supplements (reported by patient): Supplement Type Brand/ Form Dosage/ Amount Frequency Comments Multivitamin Bariatric Fusion 1 tablet 4x daily Contains calcium, B12, and iron Calcium Vitamin B12 500 mcg none Folic Acid 1 mg none Iron Vitamin D3 2000 IU none Biotin 1 pill (10,000 mcg) daily Rec stop 3 days before labs Food Allergies/Intolerances: Peanuts, [place] fries, M&M - lost taste for it. Anything chocolateor peanut butter based. Tracking Intake: No. 24-Hour Intake: working 12 hour days- 3rd shift. Breakfast Chobani yogurt fruit AM Snack Lunch Leftover- chicken and asparagus PM Snack Dinner 1 pc pizza. Usually protein and vegetable HS Snack Work day: B- Homemade P3 Sn- Occ Fruit D- Chicken with vegetable Sn- Granola bar, crx and cheese Sn- Sometimes dehydrated apples Protein/ grams per day: ~60 g Hydrating fluids- oz/ day: 48+ oz water, sometimes with SF flavoring Soda: Occ soda ETOH: None. Caffeine: 1 iced coffee daily Sweets: Meals per day: Feels full/satisfied after eating: yes. Feels hungry []never [x]sometimes []most of the time [] always In the past month, pt has vomited/regurgitated: None. Constipation/Diarrhea: None. Exercise: bikes 10 miles per day- at home bike, days off. Pedals under the desk at work. ASSESSMENT: Summary of Weight Loss: Lennie Urena returns for routine follow-up at 6 years s/p surgery. Her excess weight loss is at63%. She is tolerating the diet and is meeting protein and fluid goals. Currently making dietary changes. Would like to lose additional weight but is also OK with where things are at. Reviewed vitamin and mineral supplements; labs pending. NUTRITION INTERVENTION & MONITORING: Provided support/encouragement and reinforced importance of meeting nutritional goals. Continue current meal plans. Reviewed vitamin and mineral supplement recommendations. Changes to supplement recommendations may be made based on lab work. Bariatric Fusion Chewable Complete 2 pills twice daily (which includes Vit B12 560 mcg, Vit D3 3,000 IU, Calcium 1200 mg, Iron 45mg/day) Evaluation by nurse practitioner today. F/u in 1 year, sooner if requested. documented in this encounter Plan of Treatment Not on file documented as of this encounter Results * Vitamin D, 25-Hydroxy (07/23/2023 10:25 AM EDT) Vitamin D Total 25 OH 40 21 - 100 ng/mL [facility] Vit D Interp Sufficient [facility] Blood 07/23/2023 10:2 5 AM EDT 07/23/2023 10:34 AM EDT Narrative Resulting Agency Comment Spec In Lab Damaris E Hodgeman PAINTER HELPER SIGN CHEMISTRY ORDERABL ES Performing Organization Address City/State/[facility] Co de Phone Number [facility] [place] [address] * Vitamin B12 (07/23/2023 10:25 AM EDT) Vitamin B12 957 232 - 1,245 pg/mL [facility] Blood 07/23/2023 10:2 5 AM EDT 07/23/2023 10:34 AM EDT Narrative Resulting Agency Comment Spec In Lab Damaris E Clare PAINTER HELPER SIGN CHEMISTRY ORDERABL ES Performing Organization Address City/[facility]/ZIP Co de Phone Number [facility] [place] [address] * Folate, serum (07/23/2023 10:25 AM EDT) Folate 18.1 4.8 - 24.2 ng/mL [facility] Blood 07/23/2023 10:2 5 AM EDT 07/23/2023 10:34 AM EDT Narrative Resulting Agency Comment Spec In Lab Damaris Sparks PAINTER HELPER SIGN CHEMISTRY ORDERABL ES Performing Organization Address City/[facility]/ZIP Co de Phone Number [facility] [place] [address] * Vitamin D, 25-Hydroxy (04/16/2023 11:28 AM EST) Vitamin D Total 25 OH 24 21 - 100 ng/mL [facility] Vit D Interp Insufficient [facility] Blood 04/16/2023 11:2 8 AM EST 04/16/2023 11:50 AM EST Narrative Resulting Agency Comment Spec In Lab Belle Barone PAINTER HELPER SIGN CHEMISTRY ORDERA BLES Performing Organization Address City/[facility]/ZIP Co de Phone Number [facility] [place] [address] * Vitamin B12 (04/16/2023 11:28 AM EST) Vitamin B12 414 232 - 1,245 pg/mL [facility] Blood 04/16/2023 11:2 8 AM EST 04/16/2023 11:50 AM EST Narrative Resulting Agency Comment Spec In Lab Belle Barone PAINTER HELPER SIGN CHEMISTRY ORDERA BLES Performing Organization Address City/[facility]/ZIP Co de Phone Number [facility] [place] [address] * Vitamin B1, whole blood (04/16/2023 11:28 AM EST) Vit B1 Lvl Wb (JULY) 112 70 - 180 nmol/L [facility] Comment: ADDITIONAL INFORMATION This test was developed and its performance characteristics determined by [facility] in a manner consistent with CLIA requirements. This test has not been cleared or approved by the U.S. Food and Drug Administration. Test Performed by: [facility] [address] [place] [id number] Woodworker: Farzad Monroe M.D. Ph.D.; CLIA# [id number] Blood 04/16/2023 11:2 8 AM EST 04/16/2023 12:24 PM EST Narrative Resulting Agency Comment Spec In Lab Belle Barone APRN LAB SEND OUT ORD ERABLES Performing Organization Address City/[facility]/ZIP Co de Phone Number [facility] [place] [address] * PTH (04/16/2023 11:28 AM EST) Parathyroid Hormone 44 15 - 65 pg/mL [facility] Blood 04/16/2023 11:2 8 AM EST 04/16/2023 11:50 AM EST Narrative Resulting Agency Comment Spec In Lab Belle Barone APRN CHEMISTRY ORDERA BLES Performing Organization Address [facility] Co de Phone Number [facility] [place] [address] * (ABNORMAL) Iron and TIBC (04/16/2023 11:28 AM EST) Iron 60 30 - 150 mcg/dL [facility] TIBC 373 250 - 450 mcg/dL [facility] Iron Saturation 16(L) 20 - 50 % [facility] Blood 04/16/2023 11:2 8 AM EST 04/16/2023 11:50 AM EST Narrative Resulting Agency Comment Spec In Lab Belle M [place] PAINTER HELPER SIGN CHEMISTRY ORDERA BLES [facility] [place] [address] * (ABNORMAL) Hemogram (04/16/2023 11:28 AM EST) White Blood Cell 9.9(H) 4.0 - 9.5 x10(3)/mc L [facility] Red Blood Cell 4.56 4.00 - 5.21 x10(6)/mc L [facility] Hemoglobin 12.5 11.7 - 15.5 g/dL [facility] Hematocrit 38.2 35.7 - 45.8 % [facility] Mean Cell Volume 83.8 82.6 - 94.4 fL [facility] Mean Cell Hemoglobin 27.4 27.1 - 32.0 pg [facility] Mean Cell Hemoglobin Concentration 32.7 31.7 - 35.0 g/dL [facility] Platelet 329 145 - 357 x10(3)/mc L [facility] RDW Standard Deviation 39.9 37.0 - 46.0 fL [facility] RDW coefficient of variation 13.1 11.5 - 14.1 % [facility] Mean Platelet Volume 11.0 7.6 - 12.9 fL [facility] NRBC% auto 0.0 % [facility] NRBC Absolute 0.000 0.000 - 0.000 x10(3)/mc L [facility] Blood 04/16/2023 11:2 8 AM EST 04/16/2023 11:50 AM EST Narrative Resulting Agency Comment Spec In Lab Belle Barone PAINTER HELPER SIGN HEMATOLOGY ORDER BARTOLO [facility] [place] [address] * Folate, serum (04/16/2023 11:28 AM EST) Folate 5.9 4.8 - 24.2 ng/mL [facility] Blood 04/16/2023 11:2 8 AM EST 04/16/2023 11:50 AM EST Narrative Resulting Agency Comment Spec In Lab Belle Eli Abisai PAINTER HELPER SIGN CHEMISTRY ORDERA BLES Performing Organization Address City/[facility]/ZIP Co de Phone Number [facility] [place] [address] * Ferritin (04/16/2023 11:28 AM EST) Ferritin 18 6 - 175 ng/mL [facility] Comment: Please note that as of 02/28/2023, the reference intervals for Ferritin have been updated. Blood 04/16/2023 11:2 8 AM EST 04/16/2023 11:50 AM EST Narrative Resulting Agency Comment Spec In Lab Belle Eli [place] PAINTER HELPER SIGN CHEMISTRY ORDERA BLES Performing Organization Address [facility] Co de Phone Number [facility] [place] [address] * (ABNORMAL) Comprehensive metabolic panel (non-fasting) (04/16/2023 11:28 AM EST) Glucose 79 65 - 199 mg/dL [facility] Comment:Diabetes: >=200 mg/d L plus symptoms Blood Urea Nitrogen 10 8 - 18 mg/dL [facility] Creatinine 0.72 0.70 - 1.20 mg/dL [facility] Sodium 141 135 - 145 mmol/L [facility] Potassium 3.3(L) 3.5 - 5.0 mmol/L [facility] Comment: Please note: ??Patients with WBC >100,000 may have falsely elevated Potassium levels. ??For accurate Potassium quantification in these patients send serum separator tube (gold top) for subsequent determinations. ??Contact the Clinical Chemistry Laboratory if there are any questions. Chloride 106 98 - 107 mmol/L [facility] Carbon Dioxide 23 22 - 31 mmol/L [facility] Anion Gap 12 5 - 15 mmol/L [facility] Calcium 9.3 8.5 - 10.5 mg/dL [facility] Protein, Total 6.9 6.1 - 8.0 g/dL [facility] Albumin 4.1 3.2 - 5.2 g/dL [facility] Aspartate Aminotransferase 11 0 - 30 unit/L [facility] Alanine Aminotransferase 6 0 - 30 unit/L [facility] Alkaline Phosphatase 62 35 - 105 unit/L [facility] Bilirubin, Total <0.2(L) 0.2 - 1.3 mg/dL [facility] Est Glomerular Filtration Rate 108 >=60 mL/min/1. 73 m?? [facility] Comment: This patient's estimated GFR was [...] Lab Belle Barone APRN CHEMISTRY ORDERA BLES [facility] [place] [phone] documented in this encounter Visit Diagnoses Diagnosis Status post bariatric surgery Bariatric surgery status Disorder of iron metabolism Other disorders of iron metabolism S/P laparoscopic sleeve gastrectomy on 03/28/17 (preoperative BMI 50) Vitamin D deficiency Unspecified vitamin D deficiency documented in this encounter Care Teams Timber Management Assistant Relationship Specialty Start Date End Date Samreen Warner APRN [address] [place] [address] PCP - General Family Medicine 09/14/16 07/22/23 documented as of this encounter
--- OUTSIDE RECORDS SUMMARY | 2024-01-08 17:55 | XMS_ITS | Clinical Summary ---
Author Organization [facility] [place] [address] Care Team Providers Care Materials Analyst Name Role Phone Arlene Logan APRN Primary Care Provider Allergies Active Allergy Reactions Criticality Noted Date Comments Gabapentin Medium 08/13/2023 Other Reaction(s): Altered sensation Phenylalanine Other (See Comments) Low 08/13/2023 Medications Medication Sig Dispensed Refills Start Date End Date Status etonogestreL (Nexplanon) 68 mg Implant by Subdermal route. Replaced mid july 2020 - right arm Active CYANOCOBALAMIN, VITAMIN B-12, (VITAMIN B-12 ORAL) Take 500 mcg by mouth daily. Active multivit-min/iron/foli c acid/K (BARIATRIC MULTIVITAMINS ORAL) Take 1 tablet by mouth 4 times daily. Bariatric Fusion contains 200% required daily vitamins in 4 tablets, including 45 mg iron, 3000 units vitamin D, calcium citrate Active acetaminophen (Tylenol) 500 mg Tablet Take 1,000 mg by mouth every 6 hours as needed for Pain. Active ibuprofen (Advil;Motrin) 200 mg Tablet Take 200 mg by mouth every 6 hours as needed for Pain. Active methocarbamoL (Robaxin) 750 mg tablet Take 1-2 tablets by mouth 2 times daily as needed. Active naltrexone-bupropion (Contrave) 8-90 mg ER tablet Take 2 tablets by mouth 2 times daily. Active Active Problems Problem Noted Date Diagnosed Date S/P laparoscopic sleeve rosa rectomy on 03/28/17 (preoperative BMI 50) 04/24/2019 Vitamin D deficiency 01/08/2017 Resolved Problems Problem Noted Date Diagnosed Date Resolved Date Obesity 03/28/2017 04/24/2019 Preoperative Class IV obesit y BMI 50, sleeve gastrectomy planned 03/28/17 01/08/2017 04/18/2019 Overview (01/12/2017): Bariatric Surgery Program - Attended Introduction to the [facility] Bariatric Surgery Program seminar, a comprehensive two hour meeting that provides a program overview, education on bariatric surgeries offered at [facility], risks and benefits, as well as patient expectations and follow up: 08/25/16 [facility] BSP Educational seminars viewed: 12/05/16 Grades on post-testin x 1; 100 x 2 The BSP Educational Handbook is provided at preoperative visit #1. - Pre-operative programmatic evaluations required: PCP evaluation and letter of support to proceed with surgery, labwork and psychological evaluation - Bariatric Surgery Program evaluations: HELGA and on 01/04/17 - Weight history: 277.8# on 07/06/16; 273.6# on 09/14/16; 271.5# on 11/10/16 - Gallbladder status: - Insurer specific requirements: 3 consecutive months dietary counseling - BSP Team meeting discussion: n/a Patient insight into causes of obesity: Onset of obesity at age 22. Attributes weight gain to inactivity, over consumption and emotional eating. Low vitamin B12 level 01/08/20172019 Overview (01/08/2017): - 256 in November 2016 Iron deficiency 01/08/2017 04/18/2019 Encounters Date Type Department Care Team Description 10/31/2023 Transcribe Orders [facility] Incoming Referrals [phone] Juancarlos De La Cruz PA CS (cervical spondylosis) from Last 3 Months Immunizations Name Administration Dates Next Due Covid-19 Monovalent (Moderna Spikevax) 12yrs+ (2950-7230) 01/31/2021,04/20/2020,03/23/2020 Social History Tobacco Use Types Packs/Day Years Used Date Smoking Tobacco: Former Cigarettes 0.5 7 1 - 01/04/2007 Smokeless Tobacco: Never Tobacco Cessation:Counseling Given: Not Answered Alcohol Use Standard Drinks/Week Comments No 0 (1 standard drink = 0.6 oz pur e alcohol) Sex and Gender Information Value Date Recorded Sex Assigned at Not on file Gender Identity Not on file Sexual Orientation Not on file Last Filed Vital Signs Vital Sign Reading Time Taken Comments Blood Pressure 114/72 07/23/2023 9:06 AM EDT Pulse 76 07/23/2023 9:06 AM EDT Temperature 36.7 ??C (98.1 ??F) 07/23/2023 9:06 AM ED T Respiratory Rate 17 07/23/2023 9:06 AM EDT Oxygen Saturation 97% 07/23/2023 9:06 AM EDT Inhaled Oxygen Concentration - - Weight 81.6 kg (180 lb) 08/13/2023 2:11 PM EDT r eported Height 158 cm (5' 2.2) 08/13/2023 2:11 PM EDT Body Mass Index 32.71 08/13/2023 2:11 PM EDT Plan of Treatment Health Maintenance Due Date Last Done Comments HIV screen 2000 Hepatitis C Screening 2000 Lipid Screening 2000 Hepatitis B vaccine (0-59 yr s) (1) 2001 Tetanus/Diphtheria/Pertussis Vaccines (1 - Tdap) 2001 HPV test 2012 PAP Smear 2012 Breast Cancer Share Decision Needed 2022 Breast Cancer screening 2022 Covid-19 Vaccine (4 - 2022-2 4 season) 2023 01/31/2021, 04/20/2020, 03/23/2020 Influenza (Flu) vaccine (1 o f 1 - Influenza standard series) 11/25/2023 Diabetes Screening (HgbA1C o r Glucose) 04/16/2026 04/16/2023, 04/03/2022, 04/04/2021, Additional history exists Medical Devices Implanted Type Area Douper Device Identifier Shelf Expiration Date Model / Serial / Lot [address],Biosorb,St [address] ([id number]) - [id number] Implanted:Qty : 6 on 03/28/2017 by Domenica Mahoney MD at [facility] IMPLANTS N/A: Stomach DO NOT USE [employer] - [id number] 11/24/2019 [id number] / / [id number] Procedures Procedure Name Priority Date/Time Associated Diagnosis Comments COMPREHENSIVE METABOLIC PANEL Routine 04/16/2023 11:28 AM EST Status post bariatric surgery 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 on 03/28/17 (preoperative BMI 50) Vitamin D deficiency from Last 3 Months or Most Recently Relevant to Health Maintenance Results * (ABNORMAL) Comprehensive metabolic panel (non-fasting) (04/16/2023 11:28 AM EST) Glucose 79 65 - 199 mg/dL [facility] Comment:Diabetes: >=200 mg/d L plus symptoms Blood Urea Nitrogen 10 8 - 18 mg/dL [facility] Creatinine 0.72 0.70 - 1.20 mg/dL [facility] Sodium 141 135 - 145 mmol/L [facility] Potassium 3.3(L) 3.5 - 5.0 mmol/L [facility] Comment: Please note: ??Patients with WBC >100,000 may have falsely elevated Potassium levels. ??For accurate Potassium quantification in these patients send serum separator tube (gold top) for subsequent determinations. ??Contact the Clinical Chemistry Laboratory if there are any questions. Chloride 106 98 - 107 mmol/L [facility] Carbon Dioxide 23 22 - 31 mmol/L [facility] Anion Gap 12 5 - 15 mmol/L [facility] Calcium 9.3 8.5 - 10.5 mg/dL [facility] Protein, Total 6.9 6.1 - 8.0 g/dL [facility] Albumin 4.1 3.2 - 5.2 g/dL [facility] Aspartate Aminotransferase 11 0 - 30 unit/L [facility] Alanine Aminotransferase 6 0 - 30 unit/L [facility] Alkaline Phosphatase 62 35 - 105 unit/L [facility] Bilirubin, Total <0.2(L) 0.2 - 1.3 mg/dL [facility] Est Glomerular Filtration Rate 108 >=60 mL/min/1. 73 m?? [facility] Comment: This patient's estimated GFR was [...] In Lab Belle Barone APRN CHEMISTRY ORDERA STEPHEN [facility] [place] [address] from Last 3 Months or Most Recently Relevant to Health Maintenance Advance Directives * Full Code (Latest Code Status on File) Date Activated Date Inactivated Comments 03/28/2017 4:56 PM 03/30/2017 5:00 PM Question Answer Comments Does patient have capacity to make decision: Yes * Full Code Date Activated Date Inactivated Comments 03/28/2017 1:06 PM 03/28/2017 4:56 PM Question Answer Comments Does patient have capacity to make decision: Yes Care Teams Materials Analyst Relationship Specialty Start Date End Date Arlene Logan APRN Eddie [place] [address] PCP - General Family Medicine 07/23/23
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
--- OUTSIDE RECORDS SUMMARY | 2024-01-08 17:55 | XMS_ITS | Encounter Summary ---
[place] [address] Care Team Providers Care Outside Food Server Name Role Phone Samreen Warner APRN Primary Care Provider [phone] Encounter Details Date Type Department Care Team ([facility] st Contact Info) Description 01/08/2020 Telephone [place] [phone] Ana Mo Social History Tobacco Use Types Packs/Day Years [...] encounter Miscellaneous Notes * Telephone Encounter - Ana Mo - 01/08/2020 11:21 AM EDTSummary: Bariatric Surgery FUV Left message for Sophie to call us to schedule her FUV that is due. documented in this encounter Plan of Treatment Not on file documented as of this encounter Visit Diagnoses Not on filedocumented in this encounter Care Teams Outside Food Server Relationship Specialty Start Date End Date Samreen Warner APRN [address] [place], [place] [phone] PCP - General Family Medicine 09/14/16 07/22/23 documented as of this encounter
--- OUTSIDE RECORDS SUMMARY | 2024-01-08 17:55 | XMS_ITS | Encounter Summary ---
[place] [address] Care Team Providers Care Grain Elevator Motor Starter Name Role Phone Samreen Warner APRN Primary Care Provider Encounter Details Date Type Department Care Team (Latest Contact Info) Description 04/02/2022 Travel Social History Tobacco Use Types Packs/Day [...] on filedocumented in this encounter Care Teams Grain Elevator Motor Starter Relationship Specialty Start Date End Date Samreen Warner APRN [address] [place], [place] [phone] PCP - General Family Medicine 09/14/16 07/22/23 documented as of this encounter
--- OUTSIDE RECORDS SUMMARY | 2024-01-08 17:55 | XMS_ITS | Encounter Summary ---
Author Organization [facility] Address [facility] [place] [address] Care Team Providers Care Wire Wheeler Name Role Phone Samreen Warner APRN Primary Care Provider Encounter Details Date Type Department Care Team ([facility] st Contact Info) Description 12/08/2019 1:45 PM EDT TH Visit (TeleHealth) [place] [address] Dilip Doran MD [facility] [place] [address] Abdominal pannus Social History Tobacco Use Types Packs/Day Years [...] Progress Notes * Dilip Doran MD - 12/08/2019 1:45 PM EDT Plastic Surgery Telehealth Post Op Note Reason for visit: F/U status post procedure Date of surgery: 08/19/2019 Procedure(s): Panniculectomy (Janeth) Complications: None reported HPI: Patient seen today via a Telehealth home visit. Reports she is doing well. Has been returning to regular activities. Notes at times areas around the incision can become numb or can feel different. Overall she is happy with her results thus far. Exam: Via Video Patient is alert, conversant, comfortable, ambulating Incision: CDI, healing well. Scars are hyperemic Umbilicus well profused No collection, no erythema, no evidence of cellulitis. Impression: Lennie Urena is a 39 y.o. female who was seen today via Telehealth for follow-up after the above procedure. Please see the operative note for details. Assured she has healed well. On exam the scars appear hyperemic, explained these should continue to improve with time. We talked about the new sensations she is experiencing and is normal as the nerve endings regenerate. She should continue with her regular activities. Expressed that in the instance that she have any further questions or concerns I would be happy to have her follow up with me at a sooner date. Plan: Follow up: PRN Keven, Ashanti Clay, have preformed the documentation for this encounter in the presence of and acting as a scribe for Dilip Doran MD I performed the services which were documented by the scribe, and I agree with the accuracy of the documentation in this encounter. DILIP DORAN MD documented in this encounter Plan of Treatment Not on file documented as of this encounter Visit Diagnoses Diagnosis Abdominal pannus Localized adiposity documented in this encounter Care Teams Wire Wheeler Relationship Specialty Start Date End Date Samreen Warner APRN [address] [place] [address] PCP - General Family Medicine 09/14/16 07/22/23 documented as of this encounter
--- OUTSIDE RECORDS SUMMARY | 2024-01-08 17:55 | XMS_ITS | Encounter Summary ---
[place] [address] Care Team Providers Care Optical Lens Manufacturing Tech Name Role Phone NikkiSamreen brandon LUCIANO Primary Care Provider Encounter Details Date Type Department Care Team (Latest Contact Info) Description 04/05/2020 7:50 AM EST Laboratory Appointment Lab [address] [place] [address] Disorder of iron metabolism; Status post bariatric surgery; Vitamin D deficiency; Iron deficiency Social History Tobacco Use Types Packs/Day [...] Diagnosis Comments HC PARATHYROID HORMONE(PTH INTACT Routine 04/05/2020 8:17 AM EST Disorder of iron metabolism Status post bariatric surgery Vitamin D deficiency Iron deficiency HC HEMOGRAM Routine 04/05/2020 8:17 AM EST Disorder of iron metabolism Status post bariatric surgery Vitamin D deficiency Iron deficiency HC PCH THIAMIN LVL(VITAMIN B1) WB-FUENTES Routine 04/05/2020 8:17 AM EST Disorder of iron metabolism Status post bariatric surgery Vitamin D deficiency Iron deficiency HC IRON BINDING CAPACITY Routine 04/05/2020 8:17 AM EST Disorder of iron metabolism Status post bariatric surgery Vitamin D deficiency Iron deficiency HC VITAMIN D TOTAL-25 HYDROXY Routine 04/05/2020 8:17 AM EST Disorder of iron metabolism Status post bariatric surgery Vitamin D deficiency Iron deficiency HC FOLATE, SERUM Routine 04/05/2020 8:17 AM EST Disorder of iron metabolism Status post bariatric surgery Vitamin D deficiency Iron deficiency HC FERRITIN, SERUM Routine 04/05/2020 8: 17 AM EST Disorder of iron metabolism Status post bariatric surgery Vitamin D deficiency Iron deficiency HC VENIPUNCTURE Routine 04/05/2020 8:17 AM EST Disorder of iron metabolism Status post bariatric surgery Vitamin D deficiency Iron deficiency COMPREHENSIVE METABOLIC PANEL Routine 04/05/2020 8:17 AM EST Disorder of iron metabolism Status post bariatric surgery Vitamin D deficiency Iron deficiency documented in this encounter Results * Vitamin B1, whole blood (04/05/2020 8:17 AM EST) [facility] Signature Vit B1 Lvl Wb (JULY) 126 70 - 180 nmol/L [facility] Comment: ADDITIONAL INFORMATION This test was developed and its performance characteristics determined by [facility] in a manner consistent with CLIA requirements. This test has not been cleared or approved by the U.S. Food and Drug Administration. Test Performed by: [facility] - [id number] [place] [address] It Application Administrator: Farzad Monroe M.D. Ph.D.; CLIA# [id number] Blood specimen (specimen) 04/05/2020 8:17 AM EST 04/05/2020 12:32 PM EST Narrative Resulting Agency Comment Spec In Lab Belle Barone APRN LAB SEND OUT ORD ERABLES Performing Organization Address City/[facility]/ZIP Co de Phone Number [facility] [place] [address] * Vitamin D, 25-Hydroxy (04/05/2020 8:17 AM EST) Vitamin D Total 25 OH 26 21 - 100 ng/mL [facility] Vit D Interp Insufficient [facility] Blood specimen (specimen) 04/05/2020 8:17 AM EST 04/05/2020 8:24 AM EST Narrative Resulting Agency Comment Spec In Lab Belle Barone APRN CHEMISTRY ORDERA BLES Performing Organization Address [facility] Co de Phone Number [facility] [place] [address] * PTH (04/05/2020 8:17 AM EST) Parathyroid Hormone 47 15 - 65 pg/mL [facility] Blood specimen (specimen) 04/05/2020 8:17 AM EST 04/05/2020 8:24 AM EST Narrative Resulting Agency Comment Spec In Lab Belle Barone APRN CHEMISTRY ORDERA BLES Performing Organization Address [facility] Co de Phone Number [facility] [place] [address] * Folate, serum (04/05/2020 8:17 AM EST) Folate >20.0 4.8 - 24.2 ng/mL [facility] Blood specimen (specimen) 04/05/2020 8:17 AM EST 04/05/2020 8:24 AM EST Narrative Resulting Agency Comment Spec In Lab Belle Barone APRN CHEMISTRY ORDERA BLES Performing Organization Address City/[facility]/ZIP Co de Phone Number [facility] [place] [address] * Ferritin (04/05/2020 8:17 AM EST) Ferritin 48 15 - 150 ng/mL [facility] Comment: Pediatric reference ranges not verified at [facility], interpret with caution. Reference ranges for females greater than 50 years of age approach values for men, i.e., 30-400 ng/mL. Blood specimen (specimen) 04/05/2020 8:17 AM EST 04/05/2020 8:24 AM EST Narrative Resulting Agency Comment Spec In Lab Belle Barone APRN CHEMISTRY ORDERA BLES Performing Organization Address [facility]/ZIP Co de Phone Number [facility] [place] [address] * Iron and TIBC (04/05/2020 8:17 AM EST) [facility] Iron 100 30 - 150 mcg/dL [facility] TIBC 307 250 - 450 mcg/dL [facility] Iron Saturation 33 20 - 50 % [facility] Blood specimen (specimen) 04/05/2020 8:17 AM EST 04/05/2020 8:24 AM EST Narrative Resulting Agency Comment Spec In Lab Belle Barone APRN CHEMISTRY ORDERA BLES Performing Organization Address City/[facility]/ZIP Co de Phone Number [facility] [place] [address] * Comprehensive metabolic panel (non-fasting) (04/05/2020 8:17 AM EST) [facility] Glucose 88 65 - 199 mg/dL [facility] Comment:Diabetes: >=200 mg/d L plus symptoms Blood Urea Nitrogen 12 8 - 18 mg/dL [facility] Creatinine 0.71 0.70 - 1.20 mg/dL [facility] Sodium 141 135 - 145 mmol/L [facility] Potassium 3.8 3.5 - 5.0 mmol/L [facility] Comment: Please note: ??Patients with WBC >100,000 may have falsely elevated Potassium levels. ??For accurate Potassium quantification in these patients send serum separator tube (gold top) for subsequent determinations. ??Contact the Clinical Chemistry Laboratory if there are any questions. Chloride 107 98 - 107 mmol/L [facility] Carbon Dioxide 26 22 - 31 mmol/L [facility] Anion Gap 8 5 - 15 mmol/L [facility] Calcium 9.2 8.5 - 10.5 mg/dL [facility] Protein, Total 6.7 6.1 - 8.0 gm/dL [facility] Albumin 4.4 3.2 - 5.2 gm/dL [facility] Aspartate Aminotransferase 12 0 - 30 unit/L [facility] Alanine Aminotransferase 7 0 - 30 unit/L [facility] Alkaline Phosphatase 51 35 - 105 unit/L [facility] Bilirubin, Total 0.4 0.2 - 1.3 mg/dL [facility] Est Glomerular Filtration Rate 109 >=60 mL/min/1. 73 m?? [facility] Comment: This patient? s estimated glomerular filtration rate (eGFR) is between 109 mL/min/1.73 m2 (patients with less muscle mass) and 126 mL/min/1.73 m2 (patients with more muscle mass) as determined by the CKD-EPI equation. Assessment of eGFR is not appropriate when creatinine concentrations are rapidly changing. For clinical decisions where creatinine clearance will affect therapy, a 24-hour urine creatinine clearance may be advised. Assignment of CKD stage 1 ? 5 for patients with an eGFR near the transition point between stages may be based on clinical assessment of muscle mass and symptoms in addition to eGFR. Blood specimen (specimen) 04/05/2020 8:17 AM EST 04/05/2020 8:24 AM EST Narrative Resulting Agency Comment Spec In Lab Belle Barone APRN CHEMISTRY ORDERA BLES [facility] [place] [address] * Hemogram (04/05/2020 8:17 AM EST) White Blood Cell 8.1 4.0 - 9.5 x10(3)/[facility] Red Blood Cell 4.50 4.00 - 5.21 x10(6)/[facility] Hemoglobin 12.9 11.7 - 15.5 gm/dL [facility] Hematocrit 39.5 35.7 - 45.8 % [facility] Mean Cell Volume 87.8 82.6 - 94.[address] [facility] Mean Cell Hemoglobin 28.7 27.1 - 32.[address] [facility] Mean Cell Hemoglobin Concentration 32.7 31.7 - 35.0 gm/dL [facility] Platelet 278 145 - 357 x10(3)/[facility] RDW Standard Deviation 40.4 37.0 - 46.0 [facility] RDW coefficient of variation 12.6 11.5 - 14.1 % [facility] Mean Platelet Volume 10.3 7.6 - 12.9 [facility] NRBC% auto 0.0 % [facility] NRBC Absolute 0.000 0.000 - 0.000 x10(3)/[facility] Blood specimen (specimen) 04/05/2020 8:17 AM EST 04/05/2020 8:24 AM EST Narrative Resulting Agency Comment Spec In Lab Belle Barone APRN HEMATOLOGY ORDER BARTOLO [facility] [place] [address] * Vitamin B12 (04/05/2020 8:17 AM EST) Vitamin B12 782 232 - 1,245 pg/mL [facility] Blood specimen (specimen) 04/05/2020 8:17 AM EST 04/05/2020 8:24 AM EST Narrative Resulting Agency Comment Spec In Lab Belle Barone WEL[employer] EDGE ROUNDER CHEMISTRY ORDERA BLES Performing Organization Address City/State/[facility] Co de Phone Number [facility] [place] [address] documented in this encounter Visit Diagnoses Diagnosis Disorder of iron metabolism Other disorders of iron metabolism Status post bariatric surgery Bariatric surgery status Vitamin D deficiency Unspecified vitamin D deficiency Iron deficiency Iron deficiency anemia, unspecified documented in this encounter Care Teams Optical Lens Manufacturing Tech Relationship Specialty Start Date End Date Samreen Warner APRN [address] [place] [address] PCP - General Family Medicine 09/14/16 07/22/23 documented as of this encounter
--- OUTSIDE RECORDS SUMMARY | 2024-01-08 17:55 | XMS_ITS | Encounter Summary ---
[place] [address] Care Team Providers Care Filler Shaker Name Role Phone RadhaSamreen cortes LUCIANO Primary Care Provider [phone] Encounter Details Date Type Department Care Team (Late st Contact Info) Description 01/12/2020 Orders [place] [address] Belle Barone APRN [facility] [place] [address] Disorder of iron metabolism; Status post bariatric [...] of this encounter Results * Vitamin B12 (04/05/2020 8:17 AM EST) Vitamin B12 782 232 - 1,245 pg/mL [facility] Blood specimen (specimen) 04/05/2020 8:17 AM EST 04/05/2020 8:24 AM EST Narrative Resulting Agency Comment Spec In Lab Belle Barone APRN CHEMISTRY ORDERA BLES Performing Organization Address City/[facility]/ZIP Co de Phone Number [facility] [place] [address] * Hemogram (04/05/2020 8:17 AM EST) White Blood Cell 8.1 4.0 - 9.5 x10(3)/[facility] Red Blood Cell 4.50 4.00 - 5.21 x10(6)/[facility] Hemoglobin 12.9 11.7 - 15.5 gm/dL [facility] Hematocrit 39.5 35.7 - 45.8 % [facility] Mean Cell Volume 87.8 82.6 - 94.4 fL [facility] Mean Cell Hemoglobin 28.7 27.1 - 32.0 pg [facility] Mean Cell Hemoglobin Concentration 32.7 31.7 - 35.0 gm/dL [facility] Platelet 278 145 - 357 x10(3)/[facility]AT[facility] RDW Standard Deviation 40.4 37.0 - 46.0 [facility]ORY RDW coefficient of variation 12.6 11.5 - 14.1 % [facility] Mean Platelet Volume 10.3 7.6 - 12.9 fL [facility] NRBC% auto 0.0 % [facility] NRBC Absolute 0.000 0.000 - 0.000 x10(3)/[facility] Blood specimen (specimen) 04/05/2020 8:17 AM EST 04/05/2020 8:24 AM EST Narrative Resulting Agency Comment Spec In Lab Belle Barone APRN HEMATOLOGY ORDER BARTOLO [facility] [place] [address] * Comprehensive metabolic panel (non-fasting) (04/05/2020 8:17 AM EST) Glucose 88 65 - 199 mg/dL [facility] Comment:Diabetes: >=200 mg/d L plus symptoms Blood Urea Nitrogen 12 8 - 18 mg/dL [facility] Creatinine 0.71 0.70 - 1.20 mg/dL [facility] Sodium 141 135 - 145 mmol/L [facility] Potassium 3.8 3.5 - 5.0 mmol/L [facility] Comment: Please note: ??Patients with WBC >100,000 may have falsely elevated Potassium levels. ??For accurate Potassium quantification in these patients send serum separator tube (gold top) for subsequent determinations. ??Contact the Clinical Chemistry Laboratory if there are any questions. Chloride 107 98 - 107 mmol/L [facility] Carbon Dioxide 26 22 - 31 mmol/L [facility] Anion Gap 8 5 - 15 mmol/L [facility] Calcium 9.2 8.5 - 10.5 mg/dL [facility] Protein, Total 6.7 6.1 - 8.0 gm/dL [facility] Albumin 4.4 3.2 - 5.2 gm/dL [facility] Aspartate Aminotransferase 12 0 - 30 unit/L [facility] Alanine Aminotransferase 7 0 - 30 unit/L [facility] Alkaline Phosphatase 51 35 - 105 unit/L [facility] Bilirubin, Total 0.4 0.2 - 1.3 mg/dL [facility] Est Glomerular Filtration Rate 109 >=60 mL/min/1. 73 m?? [facility] Comment: This patient? s estimated [...] WOLF CHEMISTRY ORDERA BLES Performing Organization Address City/[facility]/ZIP Co de Phone Number [facility] [place] [address] * Iron and TIBC (04/05/2020 8:17 AM EST) Iron 100 30 - 150 mcg/dL [facility] TIBC 307 250 - 450 mcg/dL [facility] Iron Saturation 33 20 - 50 % [facility] Blood specimen (specimen) 04/05/2020 8:17 AM EST 04/05/2020 8:24 AM EST Narrative Resulting Agency Comment Spec In Lab Belle Barone APRN CHEMISTRY ORDERA BLES Performing Organization Address [facility]/ZIP Co de Phone Number [facility] [place] [address] * Ferritin (04/05/2020 8:17 AM EST) Ferritin 48 15 - 150 ng/mL [facility] Comment: Pediatric reference ranges not verified at [facility], interpret with caution. Reference ranges for females greater than 50 years of age approach values for men, i.e., 30-400 ng/mL. Blood specimen (specimen) 04/05/2020 8:17 AM EST 04/05/2020 8:24 AM EST Narrative Resulting Agency Comment Spec In Lab Belle Eli Abisai LARSENN CHEMISTRY ORDERA BLES Performing Organization Address City/[facility]/ZIP Co de Phone Number [facility] [place] [address] * Folate, serum (04/05/2020 8:17 AM EST) Folate >20.0 4.8 - 24.2 ng/mL [facility] Blood specimen (specimen) 04/05/2020 8:17 AM EST 04/05/2020 8:24 AM EST Narrative Resulting Agency Comment Spec In Lab Belle Barone APRN CHEMISTRY ORDERA BLES Performing Organization Address [facility] Co de Phone Number [facility] [place] [address] * PTH (04/05/2020 8:17 AM EST) Parathyroid Hormone 47 15 - 65 pg/mL [facility] Blood specimen (specimen) 04/05/2020 8:17 AM EST 04/05/2020 8:24 AM EST Narrative Resulting Agency Comment Spec In Lab Belle Barone APRN CHEMISTRY ORDERA BLES Performing Organization Address [facility] de Phone Number [facility] [place] [address] * Vitamin D, 25-Hydroxy (04/05/2020 8:17 AM EST) Vitamin D Total 25 OH 26 21 - 100 ng/mL [facility] Vit D Interp Insufficient [facility] Blood specimen (specimen) 04/05/2020 8:17 AM EST 04/05/2020 8:24 AM EST Narrative Resulting Agency Comment Spec In Lab Belle Barone APRN CHEMISTRY ORDERA BLES Performing Organization Address [facility] de Phone Number [facility] [place] [address] * Vitamin B1, whole blood (04/05/2020 8:17 AM EST) Vit B1 Lvl Wb (JULY) 126 70 - 180 nmol/L [facility] Comment: ADDITIONAL INFORMATION This test was developed and its performance characteristics determined by [facility] in a manner consistent with CLIA requirements. This test has not been cleared or approved by the U.S. Food and Drug Administration. Test Performed by: [facility] - [facility] [address] [place] [address] Harness Inspector: Farzad Monroe M.D. Ph.D.; CLIA# [id number] Blood specimen (specimen) 04/05/2020 8:17 AM EST 04/05/2020 12:32 PM EST Narrative Resulting Agency Comment Spec In Lab Belle Barone APRN LAB SEND OUT ORD ERABLES [facility] [place] [address] documented in this encounter Visit Diagnoses Diagnosis Disorder of iron metabolism Other disorders of iron metabolism Status post bariatric surgery Bariatric surgery status Vitamin D deficiency Unspecified vitamin D deficiency Iron deficiency Iron deficiency anemia, unspecified documented in this encounter Care Teams Filler Shaker Relationship Specialty Start Date End Date Samreen Warner APRN [address] [place] [address] PCP - General Family Medicine 09/14/16 07/22/23 documented as of this encounter
--- OUTSIDE RECORDS SUMMARY | 2024-01-08 17:55 | XMS_ITS | Encounter Summary ---
[place] [address] Care Team Providers Care Guest Relations Associate Name Role Phone Samreen Warner APRN Primary Care Provider Reason for Visit * Reason Onset Date Comments TeleHealth 12/05/2019 Encounter Details Date Type Department Care Team (Late st Contact Info) Description 12/05/2019 Telephone [place] [address] Nguyen Mclaughlin LNA TeleHealth Social History Tobacco Use Types Packs/Day Years [...] encounter Miscellaneous Notes * Telephone Encounter - Nguyen Mclaughlin LNA - 12/05/2019 4:36 PM EDT Patient called back to review intake questions, med/allergies for upcoming tele health appointment with on 12/08/19. * Telephone Encounter - Nguyen Mclaughlin LNA - 12/05/2019 3:34 PM EDT Unable to reach patient to review intake questions, med/allergies for upcoming tele health appointment with Dr Fowler on 12/08/19. I left a message for patient to call back to update information. documented in this encounter Plan of Treatment Not on file documented as of this encounter Visit Diagnoses Not on filedocumented in this encounter Care Teams Guest Relations Associate Relationship Specialty Start Date End Date Samreen Warner, SMOKE JUMPER SUPERVISOR [address] [place] [address] PCP - General Family Medicine 09/14/16 07/22/23 documented as of this encounter
--- OUTSIDE RECORDS SUMMARY | 2024-01-08 17:55 | XMS_ITS | Encounter Summary ---
Author Organization [facility] Address [facility] [place] [address] Care Team Providers Care Mobile Ui Developer Name Role Phone Timmy Samreen LUCIANO Primary Care Provider [phone] Encounter Details Date Type Department Care Team (Late st Contact Info) Description 07/16/2023 8:25 PM EDT Ancillary Procedure Radiology Library [facility] [place] [address] Arlene Logan APRN [address] [place] [address] Social History Tobacco Use Types Packs/Day Years [...] Name Priority Date/Time Associated Diagnosis Comments FILM LIBRARY- STORAGE ONLY DXA IMAGES Routine 07/16/2023 8:22 PM EDT documented in this encounter Results * Film Library- Storage Only DXA Images (07/16/2023 8:22 PM EDT) Narrative [facility] - 07/16/2023 8:22 PM EDT This exam is auto-finalizing. It's purpose is for storage only. Arlene Logan APRN [facility] FILM LIBRARY ORD ERABLES [place], [place] documented in this encounter Visit Diagnoses Not on filedocumented in this encounter Care Teams Mobile Ui Developer Relationship Specialty Start Date End Date Samreen Warner APRN [address] [place] [address] PCP - General Family Medicine 09/14/16 07/22/23 documented as of this encounter
--- OUTSIDE RECORDS SUMMARY | 2024-01-08 17:55 | XMS_ITS | Encounter Summary ---
Author Organization [facility] [place] [address] Care Team Providers Care Public Records Officer Name Role Phone Samreen Warner APRN Primary Care Provider [phone] Encounter Details Date Type Department Care Team (Late st Contact Info) Description 07/17/2022 Ancillary Procedure Radiology Library at [facility] [place] [place] [address] Brennen Krueger MD [facility] [address] Social History Tobacco Use Types Packs/Day Years [...] FILM LIBRARY STORAGE ONLY MR SPINE Routine 07/17/2022 12:00 AM EDT documented in this encounter Results * Film Library- Storage Only MR Spine (07/17/2022 12:00 AM EDT) Narrative [facility] - 07/23/2023 10:32 AM EDT This exam is auto-finalizing. It's purpose is for storage only. Brennen Krueger MD IM FILM LIBRARY ORD ERABLES [place], [place] documented in this encounter Visit Diagnoses Not on filedocumented in this encounter Care Teams Public Records Officer Relationship Specialty Start Date End Date Samreen Warner, AREA SECRETARY [address] [place] [address] PCP - General Family Medicine 09/14/16 07/22/23 documented as of this encounter
--- OUTSIDE RECORDS SUMMARY | 2024-01-08 17:55 | XMS_ITS | Encounter Summary ---
Author Organization [facility] [place] [address] Care Team Providers Care Inside Solar Sales Consultant Name Role Phone Samreen Warner LUCIANO Primary Care Provider Reason for Visit * Reason Comments Follow Up Surgery s/p panni dos 08/18 Encounter Details Date Type Department Care Team ([facility] st Contact Info) Description 08/26/2019 10:00 AM EDT Office Visit Plastic Surgery at [facility] [place] [address] Viola Carranza APRN [facility] [place] [address] Surgery follow-up Social History Tobacco Use Types Packs/Day Years [...] as of this encounter Progress Notes * Viola Carranza APRN - 08/26/2019 10:00 AM EDT Plastic Surgery Post Op Note Viola Carranza APRN Reason for visit: F/U status post procedure Date of surgery: 08/19/2019 Procedure(s): panniculectomy (Freed) Complications: None reported HPI: Patient is accompanied to the visit today. She reports doing well and offers no complaints today. She has been recording her drain outputs which have been less than 30 mls in the last 2 days. She has no complaints of discomfort at this time. She has been staying active just by walking and has done no lifting and wears her abdominal binder. Examination: There were no vitals taken for this visit. Patient is alert, conversant, comfortable, ambulating Incision: CDI, healing well. Umbilicus pink WWP No collection, no erythema, no evidence of cellulitis. Drains bilateral flank with SSF (removed on exam) Impression: Lennie Urena is a 38 y.o. female who was seen today for follow- up after the above procedure. Please see the operative note for details. She is doing well without complaints. Plan: Follow up: 3-6 months No lifting for 6 weeks, then progress as tolerated Call if any signs or symptoms of infection; reviewed with patient Leave drain dressings on 24 hours then remove, if they get wet you may apply a band aid. documented in this encounter Plan of Treatment Not on file documented as of this encounter Visit Diagnoses Diagnosis Surgery follow-up Follow-up examination, following unspecified surgery documented in this encounter Care Teams Inside Solar Sales Consultant Relationship Specialty Start Date End Date Samreen Warner APRN [address] [facility] [place] [address] PCP - General Family Medicine 09/14/16 07/22/23 documented as of this encounter
--- OUTSIDE RECORDS SUMMARY | 2024-01-08 17:55 | XMS_ITS | Encounter Summary ---
[place] [address] Care Team Providers Care Beader Name Role Phone Samreen Warner APRN Primary Care Provider Reason for Visit * Auth/Cert Specialty Diagnoses / Procedures Referred By Priscila t Referred To Contact Diagnoses panni Procedures PRO EXCISE EXCESS SKIN TISSUE, ABDOMEN PANNICULECTOMY MODIFIER PANNICULECTOMY Referral ID Status Reason Start Date Expiration Date Visits Re quested Visits Authorized [id number] 1 1 Encounter Details Date Type Department Care Team (Late st Contact Info) Description 08/19/2019 9:50 AM EDT - 08/19/2019 12:10 PM EDT Surgery [facility] [place] [address] Dilip Doran MD [facility] [place] [address] PANNICULECTOMY (WRVU 17.11) Social History Tobacco Use Types Packs/Day Years [...] Sign Reading Time Taken Comments Blood Pressure 113/72 08/19/2019 12:00 PM EDT Pulse 82 08/19/2019 12:00 PM EDT Temperature 36.5 ??C (97.7 ??F) 08/19/2019 11:27 AM E DT Respiratory Rate 17 08/19/2019 12:00 PM EDT Oxygen Saturation 100% 08/19/2019 11:30 AM EDT Inhaled Oxygen Concentration - - Weight 74.8 kg (165 lb) 08/19/2019 8:35 AM EDT Height 154.9 cm (5' 1) 08/19/2019 8:35 AM EDT Body Mass Index 31.18 08/19/2019 8:35 AM EDT documented in this encounter Discharge Instructions * Discharge Instructions* Nayely Stafford RN - 08/19/2019 12:35 PM EDT Images from the original note were not included. General Anesthesia Discharge Instructions Go home and rest. You may be sleepy for several hours. Take it easy as sudden position changes may cause nausea and/or dizziness. Use caution on stairs. Do not smoke if you are alone. Follow a light to regular diet as tolerated today. If nausea occurs, start with clear liquids, and progress slowly to a regular diet. Do not drive, operate machinery, drink alcoholic beverages or make any legal decisions after havinggeneral anesthesia. The medications given change your reaction time and alter your judgement. IV site -- slight redness is normal, you can use warm compresses. If tenderness and redness increases or foul drainage occurs, please contact your M.D. Patients who have had endotracheal tubes/LMA (tubes used by the anesthesia staff to ensure a safe airway during your operation) may have a sore throat. This is normal and cold liquids or soothing lozenges will help ease this discomfort. Narcotic pain medications can cause constipation, please ask the surgeons office what they recommend for prevention of this. Some non-pharmaceutical means of constipation prevention include increasing intake of fluids, eating more fruits and vegetables as well as fruit juices. If you are uncomfortable and/or unable to urinate within 8 hours of discharge and it is before 5 pm, call your physician. If it is after 5pm go to the closest emergency room or call the hospital regional owner operator truck driver at [phone] and ask for physician electrical installation supervisor covering for your physician. Questions or problems after 5pm or on a weekend: Call the [facility] regional owner operator truck driver at and ask for the physician electrical installation supervisor covering for your doctor. DRAIN CARE INSTRUCTIONS This device collects fluid, promotes healing and recovery, and reduces the chance of infection. Thedrain will be in place until your doctor feels it can be removed. *Strip and empty drain(s) at least twice a day or when full and record output on your chart* Call clinic when each drain has 30cc or less in 24 hours for two days in a row How to Strip and Empty Your SASCHA Drain: 1. Wash your hands. 2. Unpin the drain from your clothing. 3. Strip the Tube: a. Pinch the tube where it is inserted in to the skin with one hand. b. Use the other hand to gently squeeze the tube and slide fingers down towards bulb. This forces drainage into bulb. Some drainage may remain in tubing. c. Repeat as necessary in order to facilitate the drainage. 4. Emptying Drain: a. Open the top of the drain. Turn the drain upside down and squeeze the contents of the bulb into the measuring cup. Do not disconnect drain from tubing or rinse it out. b. Record drainage on your chart when emptying bulb. Remember to record the drainage from each drain separately if applicable. c. Use one hand to squeeze all of the air from the bulb. With the drain still squeezed, use your other hand to replace the stopper/plug. This creates the suction. . 5. Pin the drain back to your clothing. 6. Wash your hands again Troubleshooting ??? The bulb is not compressed- Undo plug, re-squeeze bulb and replace plug while squeezing bulb. If the bulb remains expanded, then notify your doctor. ??? No drainage or sudden decrease in amount of drainage- This is usually due to clots in the drain. Follow the instructions on how to strip the drain tubing. If tube accidentally falls out- Place a dry gauze dressing over the drain site and notify your doctor. ??? Increased redness, thick or smelly drainage, swelling, or heat around the tube insertion site- This may be a sign of infection. Take your temperature: if it is higher than 101F or 38.8C, call your doctor immediately. Drainage Record NAME: Date of Surgery: Date: Time: If more than one drain, which one: Drainage Amount (per drain) Total Amount (per drain; in 24 hours) * Patient Instructions* Marni Cody MD - 08/19/2019 7:28 AM EDT Discharge Instructions During the first 1 to 3 weeks, expect to feel tired from the anesthesia and in general, due to the healing process. Rest frequently during the day, and limit visitors until you feel more up to it. Altered sensation (such as shooting or burning pain) or numbness is common after surgery. Normal ornear normal sensation should return within a few months but some areas may stay numb permanently. You will be able to return to work in 4-6 weeks. You will not be able to lift more than 5 pounds for 6 weeks and no more than 10- 20 pounds for 3 months. No strenuous exercise (tennis, aerobics, jogging) for 3 months. Feel free to walk as much as you want. Walking improves circulation, respiratory function and healing. You will not be able to drive for 2-3 weeks or while taking you pain medication. You may wear your safety belt if you place a small pillow over your abdominal incision. No sexual activity for 6 weeks. No smoking for at least 2 weeks following your surgery. POSTOPERATIVE DRAIN AND INCISION CARE Your hospital nurse will review your drain care. You will learn how to strip, measure, and record the total amount of fluid from each drain. Call the clinic at [phone] and schedule an appointment with the nurses to have your drains removed when the drainage is 30cc or less in a 24 hour period for 2 days in a row. Note: Generalized abdominal swelling above the incision may last for several weeks to months due totissue fluid build-up. Ok to use ice. Do not use heat on your surgical site. You may remove your dressings and shower 48 hours after surgery. Do not take a bath or use a hot tub until your skin is completely healed. To reduce the strain on your incision, you should remain in a flexed/recliner chair position for about 5 days- this may take longer in some instances so let your body be your guide. You may remove your dressings after 48 hours. If you feel more comfortable with dressings under thebinder, then you may replace them to suit your comfort needs. If present, nonabsorbable stitches are removed in 2 weeks. Spitting sutures: Occasionally an area of redness and tenderness develops where a dissolving stitchbecomes irritated and pushes to the surface. If this occurs, it is not an emergency. You may clip the stitch with a clean scissor or call for an appointment with a nurse. No tanning on incision lines for at least 6 months to minimize scarring. No over the counter lotions, solutions, or herbal preparations on your incisions unless directed byyour doctor. You will be provided with an abdominal binder or girdle. Wear it 24 hours a day for 4 to 6 weeks, removing it briefly to shower. If any of these occur, contact your doctor right away - 1) Signs of infection: A temperature over 100.4'F or 38'C. Redness or warmth spreading away from the incision lines after the first 48 hours. Yellow pus-like or foul smelling drainage larger than dime size from the incisions or drainage sites. 2) Seromas/Hematoma: Before or after your drains are removed, if you notice localized swelling thiscould be a collection of fluid under the skin at or near the incision site. 3) Increased pain or discomfort that is not relieved by your pain medicine. During office hours: Sunday through Sunday 8 am to 5 pm Call [phone] On weekends or after hours: Call [phone] and ask the regional owner operator truck driver to page the Plastic Surgery Resident electrical installation supervisor. Prescription Line: Call the line at [phone] from 8am-4pm Sunday through Sunday. . Make your request a few days before you run out as it make take up to 24 hours for physician approval. FOLLOW UP: Future Appointments Date Time Provider Department Center 08/26/2019 10:00 AM Viola Carranza APRN [facility] [address] [place] [address] documented in this encounter Medications at Time of Discharge Medication Sig Dispensed Refills Start Date End Date multivit-min/iron/folic acid/K (BARIATRIC MULTIVITAMINS ORAL) Take 1 tablet by mouth 4 times daily. Bariatric Fusion contains 200% required daily vitamins in 4 tablets, including 45 mg iron, 3000 units vitamin D, calcium citrate CYANOCOBALAMIN, VITAMIN B-12, (VITAMIN B-12 ORAL) Take 500 mcg by mouth daily. etonogestreL (Nexplanon) 68 mg Implant by Subdermal route. Replaced mid july 2020 - right arm ergocalciferol (Vitamin D2) 50,000 unit CapsuleIndications:Pauline min D deficiency Take 1 capsule by mouth once a week for 24 doses. 12 capsule 1 04/24/2019 10/03/2019 documented as of this encounter Progress Notes * Lisa Otoole RN - 08/19/2019 12:23 PM EDT Patient ambulated to car for discharge home with Mother. [facility] staff accompanied pt to car. Dischargeinstructions reviewed with patient including drain care. Pt states that she had teaching done priorto this day at the surgeons office. Copy of instructions sent home with pt. * Abbie Kramer RN - 08/15/2019 2:56 PM EDT During this call the patient was questioned regarding travel, fever, cough, SOB or other illness inthe last 14 days. Patient also questioned regarding any exposure to a COVID positive person, a person awaiting results from testing or a person in quarantine. Patient denies any positive responses to the above questions for themselves or their escort for theday of procedure. * Katheryn Velazquez RN - 08/11/2019 4:11 PM EDT During this call the patient was questioned regarding travel, fever, cough, SOB or other illness inthe last 14 days. Patient also questioned regarding any exposure to a COVID positive person, a person awaiting results from testing or a person in quarantine. Patient denies any positive responses to the above questions for themselves or their escort for theday of procedure. Patient informed of procedure to be followed upon arrival to the [facility]. That being, COVID questions will be asked again, temperature will be taken, patient and caregiver/scoop driver will be given a mask to wear the entire time they are in the [facility] building. documented in this encounter H&P Notes * Dilip Doran MD - 08/19/2019 8:59 AM EDT PLASTIC SURGERY HPI: Lennie Urena is a 38 y.o. female with history of a large weight loss after bariatric surgery. She is stable she follows the bariatric team here regularly she has had stable laboratory results and recently passed several months had her vitamin D supplementation increased but otherwise has done quite well. She is got no new health issues she is taking no new medicines has had no episodes of chest pain shortness of breath no difficulty with activity no recent illnesses and feels as thoughshe is in good health and feels well. No past medical history on file. Past Surgical History: Procedure Laterality Date ??? PRO LAPAROSCOPY, SURG/GASTRIC RESTRICTIVE PROC, LONGITUDINAL GASTRECTOMY N/A 03/28/2017 @LAPAROSCOPY, SURG/GASTRIC RESTRICTIVE PROC, LONGITUDINAL GASTRECTOMY (WRVU 20.38) performed by Domenica Mahoney MD at [facility] Social History Socioeconomic History ??? Marital status: Spouse name: Not on file ??? Number of children: Not on file ??? Years of education: Not on file ??? Highest education level: Not on file Occupational History ??? 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 Financial resource strain: Not on file ??? Food insecurity Worry: Not on file Inability: Not on file ??? Transportation needs Medical: Not on file Non-medical: Not on file Tobacco Use ??? Smoking status: Former Smoker Last attempt to quit: 01/04/2007 Years since quittin.6 ??? Smokeless tobacco: Never Used Substance and Sexual Activity ??? Alcohol use: No ??? Drug use: No ??? Sexual activity: Not on file Lifestyle ??? Physical activity Days per week: Not on file Minutes per session: Not on file ??? Stress: Not on file Relationships ??? Social connections Talks on phone: Not on file Gets together: Not on file Attends episcopal service: Not on file Active member of club or organization: Not on file Attends meetings of clubs or organizations: Not on file Relationship status: Not on file ??? Intimate partner violence Fear of current or ex partner: Not on file Emotionally abused: Not on file Physically abused: Not on file Forced sexual activity: Not on file Other Topics Concern ??? Not on file Social History Narrative ??? Not on file No Known Allergies No current facility-administered medications on file prior to encounter. Current Outpatient Medications on File Prior to Encounter Medication Sig Dispense Refill ??? CYANOCOBALAMIN, VITAMIN B-12, (VITAMIN B-12 ORAL) Take 500 mcg by mouth daily. ??? etonogestrel (NEXPLANON) 68 mg Implant by Subdermal route. REVIEW OF SYSTEMS: Heme, Card, Pulm: Negative EXAMINATION: Constitutional: NAD HEENT: MMM, normocephalic, EOMI Pulm: symmetric excursion, unlabored, no audible wheeze Cor: pulse regular Musculoskel: gross full ROM x 4 extrem Skin: no rashes or skin breakdown noted Neuro: motor and sensory exam grossly normal Assessment: Lennie Urena 38 y.o. female patient with an abdominal pannus after weight loss secondary to bariatric surgery. She has had significant symptoms associated with the skin excess rashes and discomfort underneath. She presents today for a panniculectomy with umbilical transposition given that she is had symptoms in her umbilicus as well. Risk and benefits were reviewed at length with the patient including bleeding infection scarring numbness umbilicus loss we discussed the scar we discussed the need for drains postoperatively we discussed her activity restrictions for 6 weeks postoperatively. She understood the risks asked appropriate questions informed consent was signed and placed on the chart. Recommendations: ??? Panniculectomy with umbilical transposition ? documented in this encounter Miscellaneous Notes * Op Note - Dilip Doran MD - 08/19/2019 11:21 AM EDT [facility] [place] [place] Patient Name: Lennie Urena : [id number] MR#: [id number] Case Date: 08/19/2019 Surgeon: Surgeon(s) and Role: * Dilip Doran MD - Primary * Marni Cody MD - Resident Preoperative diagnosis: panni Postoperative diagnosis: panni Procedure(s) (LRB): PANNICULECTOMY (N/A) MODIFIER PANNICULECTOMY (N/A) SEE PROTOCOL (N/A) Findings: 1090 g pannus removed Anesthesia: General Estimated Blood Loss: 50 mL Specimens removed during surgery: * No orders in the log * Drains: 1 on each side of abdomen Surgical Closure: Primary Closure - skin incision is closed but with open spaces for wires, kenzie, drains or other devices Disposition: awakened from anesthesia, extubated and taken to the recovery room in a stable condition, having suffered no apparent untoward event. Condition: doing well without problems (Please see the Surgical Encounter Summary for any Implant and Specimen details pertinent to this patient.) HPI/Surgical Indications: Lennie Urena is a 38 y.o. F with symptomatic abdominal pannus following bariatric surgery who presented for panniculectomy with umbilical transposition. The risks, benefits, and indications were reviewed and informed consent was obtained. Procedure Description: The patient was marked in the preoperative area in the standing and sitting position and all risks and post-operative care reviewed. A preoperative dose of antibiotics was given. The patient was then brought to the operating room where they were placed in the supine position and was prepped and draped in the standard sterile fashion. A time out procedure was performed, SCD boots placed and general anesthesia induced. ? Tumescent solution consisting of 50 mL lidocaine and 1 mL epinephrine in 1 L saline was infiltratedthrough two stab incisions. The umbilicus was marked and the perumbilical incision was then made with a 15-blade and the umbilical stalk developed with Metzenbaum scissor dissection. A 0-Vicryl suture was placed at 12 o'clock. Then the inferior skin incision was made with a #10 blade and the electrocautery was used to carry it down to the deep fascia and then superiorly leaving a thin layer of tissue along the surface of the rectus fascia. The abdominal flap was undermined up to region of expected skin excision which was just above the umbilicus. Centrally, dissection continued to the xiphoid. We protected the integrity of the umbilical stalk. The bed was then flexed and the flap was then split in the midline and pulled inferiorly and the extent of resection planned without any tension onthe closure. The superior excisional line was then marked, cut and the excess skin removed. Hemostasis was ensured. The pannus weighed 1090 g. ?? The wound was then irrigated copiously with warm sterile saline, hemostasis reverified and the superior skin flap was approximated to the lower incision in the midline using carlos. To take tension off the closure, a small vertical incision was made in the midline. The new site for the umbilicus was determined, an inverted V-incision made and deepened through the abdominal flap and the previously placed suture brought out. Two Ernst drains were placed in the wound and brought out through stab incisions lateral to the end of the wound incision. The drains were each secured with 2-0 Prolene sutures. Kacey's fascia was closed with 0-Vicryl and the remainder of the incision was closed with Insorb carlos and a running subcuticular of 3-0 Monocryl. Completion of the umbilical inset was done with deep dermal 4-0 PDS sutures and 4-0 Plain half-buried mattress sutures. ?? All sponge and needle counts were correct. The wound was dressed with a sterile dressing and the patient placed in an abdominal binder. There were no complications and the procedure was well tolerated. Dr. Doran was present throughout the entirety of the procedure. Infection Bundle used? N/A I performed the services which were documented by the scribe, and I agree with the accuracy of the documentation in this encounter. DILIP DORAN MD * Brief Op Note - Marni Cody MD - 08/19/2019 11:20 AM EDT Brief Operative Note Patient Name: Lennie Urena : [id number] MR#: [id number] Case Date: 08/19/2019 Surgeon: Surgeon(s) and Role: * Dilip Doran MD - Primary * Marni Cody MD - Resident Preoperative diagnosis: panni Postoperative diagnosis: panni Procedure(s) (LRB): PANNICULECTOMY (N/A) MODIFIER PANNICULECTOMY (N/A) SEE PROTOCOL (N/A) Anesthesia: General Findings: 1090 g pannus removed Complications: none Estimated Blood Loss: 50 mL Specimens removed during surgery: * No orders in the log * Fluids: Intraprocedure Crystalloid Total Anesthesia Output Blood Loss 50 mL lactated ringers infusion Volume (mL) 900 mL PRBCs: none (See Anesthesia Record/Report for Other Blood Products) Urine Output: (no urine output recorded) Drains: 1 drain on each side of abdomen Disposition: awakened from anesthesia, extubated and taken to the recovery room in a stable condition, having suffered no apparent untoward event. Condition: doing well without problems (Please see the Surgical Encounter Summary for any Implant and Specimen details pertinent to this patient.) Infection Bundle used? N/A Post-Op Plan: - Follow up in: 7-10 days with attending/Amy/nurse/telehealth - Wound Check - Suture removal: None - Drain removal when output is less than 30 ml per day x 2 days - Other coordinating appointments needed: 3-6 months with attending Future Appointments Date Time Provider Department Center 08/26/2019 10:00 AM Viola Carranza [facility] [address] [place] [address] documented in this encounter Plan of Treatment Not on file documented as of this encounter Procedures Procedure Name Priority Date/Time Associated Diagnosis Comments SEE PROTOCOL 08/19/2019 9:24 AM EDT justin Case Notes Total panniculectomy tissue weight: 1.090kg Total Tumescent Solution: 250cc MODIFIER PANNICULECTOMY 08/19/2019 9:24 AM EDT justin Case Notes Total panniculectomy tissue weight: 1.090kg Total Tumescent Solution: 250cc Excise Excess Skin Tissue, Abdomen ([id number]) 08/19/2019 9:24 AM EDT jereni Case Notes Total panniculectomy tissue weight: 1.090kg Total Tumescent Solution: 250cc POCT HGB Routine 08/19/2019 documented in this encounter Results * POCT HGB (08/19/2019) POC Hemoglobin 14.0 g/dL 08/19/2019 Dilip Doran MD POINT OF CARE TEST O RDERABLES documented in this encounter Visit Diagnoses Not on filedocumented in this encounter Administered Medications Inactive Administered Medications - up to 3 most recent administrations Medication Order MAR Action Action Date Dose Rate Site acetaminophen (Tylenol) tablet 1,000 mg 1,000 mg, Oral, ONCE, 1 dose, On Sun08/19/19 at 0845, Maximum dose of acetaminophen is 4000 mg from all sources in 24 hours., Day of Surgery (Day of Procedure), Routine Given 08/19/2019 8:45 AM EDT 1,000 mg acetaminophen (Tylenol) tablet 1,000 mg 1,000 mg, Oral, EVERY 6 HOURS SCHEDULED, First dose on Sun08/19/19 at 0745, Until Discontinued, Maximum dose of acetaminophen is 4000 mg from all sources in 24 hours., Routine EPINEPHrine injection solution ONCE PRN, Starting on Sun08/19/19 at 0950, Until Sun08/19/19 at 1432, Intra-Operative (Intra-Procedure), Routine Given 08/19/2019 9:50 AM EDT 1 mg 19- Surgical Site fentaNYL 50 mcg/mL multi-dose injection 12.5-25 mcg, Intravenous, EVERY 5 MIN PRN, Starting on Sun08/19/19 at 1001, Until Sun08/19/19 at 1432, Pain, Give 12.5 mcg every 5 minutes PRN for mild to moderate pain (1-5) Give 25 mcg every 5 minutes PRN for moderate to severe pain (6-10). Hold for respiratory rate less than 10 per minute. Maximum dose 250 mcg over one hour. If ordered with hydromorphone or morphine, give hydromorphone or morphine first and use fentanyl for breakthrough pain., Routine Given 08/19/2019 11:54 AM EDT 25 mcg lidocaine (PF) (XYLOCAINE) 10 mg/mL (1 %) injection ONCE PRN, Starting on Sun08/19/19 at 0951, Until Sun08/19/19 at 1432, Intra-Operative (Intra-Procedure), Routine Given 08/19/2019 9:51 AM EDT 50 mLs 19- Surgical Site documented in this encounter Active and Recently Administered Medications Times are shown in EDT. Scheduled Medication Order 08/17/2019 08/18/2019 08/19/2019 acetaminophen (Tylenol) tablet 1,000 mg (COMPLETED) 1,000 mg, Oral, ONCE, 1 dose, On Sun08/19/19 at 0845, Maximum dose of acetaminophen is 4000 mg from all sources in 24 hours., Day of Surgery (Day of Procedure), Routine 0845 (Given - Provid er: Dharmesh Nolasco RN) acetaminophen (Tylenol) tablet 1,000 mg 1,000 mg, Oral, EVERY 6 HOURS SCHEDULED, First dose on Sun08/19/19 at 0745, Until Discontinued, Maximum dose of acetaminophen is 4000 mg from all sources in 24 hours., Routine 0745 (Due)1200 (Due) ceFAZolin (Ancef) 2g in dextrose 5% 100 mL (COMPLETED) 2 g, Intravenous, ONCE, 1 dose, On Sun08/19/19 at 0845, Administer over 30 Minutes, Day of Surgery (Day of Procedure), Indication for (Active or Suspected): Prophylaxis 0940 (Given - Provid er: Melanie Sparrow CRNA) Continuous Medication Order 08/17/2019 08/18/2019 08/19/2019 lactated ringers infusion (CANCELED) 1,000 mL, at 100 mL/hr, Intravenous, CONTINUOUS, Starting on Sun08/19/19 at 0845, Until Sun08/19/19 at 1223, Day of Surgery (Day of Procedure) 0906 (New Bag - Prov ider: Melanie Sparrow CRNA)1024 (Anesthesia Volume Adjustment - Provider: Melanie Sparrow CRNA)1105 (Anesthesia Volume Adjustment - Provider: Melanie Sparrow CRNA) PRN Medication Order 08/17/2019 08/18/2019 08/19/2019 EPINEPHrine injection solution (CANCELED) ONCE PRN, Starting on Sun08/19/19 at 0950, Until Sun08/19/19 at 1432, Intra-Operative (Intra-Procedure), Routine 0950 (Given - Provid er: Dilip Doran MD - Comment: Tumescent solution. 1000ml NS IV bag with 1ml Epi 1:1000 mixed with 50ml 1% lidocaine plain.) fentaNYL 50 mcg/mL multi-dose injection 12.5-25 mcg, Intravenous, EVERY 5 MIN PRN, Starting on Sun08/19/19 at 1001, Until Sun08/19/19 at 1432, Pain, Give 12.5 mcg every 5 minutes PRN for mild to moderate pain (1-5) Give 25 mcg every 5 minutes PRN for moderate to severe pain (6-10). Hold for respiratory rate less than 10 per minute. Maximum dose 250 mcg over one hour. If ordered with hydromorphone or morphine, give hydromorphone or morphine first and use fentanyl for breakthrough pain., Routine 1154 (Given - Provid er: Lisa Otoole RN) lidocaine (PF) (XYLOCAINE) 10 mg/mL (1 %) injection (CANCELED) ONCE PRN, Starting on Sun08/19/19 at 0951, Until Sun08/19/19 at 1432, Intra-Operative (Intra-Procedure), Routine 0951 (Given - Provid er: Dilip Doran MD - Comment: Tumescent solution. 1000ml NS IV bag with 1ml Epi 1:1000 mixed with 50ml 1% lidocaine plain.) ondansetron (ZOFRAN) injection 4 mg (CANCELED) 4 mg, Intravenous, EVERY 8 HOURS PRN, Starting on Sun08/19/19 at 0829, Until Sun08/19/19 at 1223, Nausea, PACU Recovery 0937 (Given - Provid er: Melanie Sparrow CRNA)1114 (Given - Provider: Melanie Sparrow CRNA) documented in this encounter Care Teams Beader Relationship Specialty Start Date End Date Samreen Warner, ASSEMBLER [employer] [address] [place] [address] PCP - General Family Medicine 09/14/16 07/22/23 documented as of this encounter
--- OUTSIDE RECORDS SUMMARY | 2024-01-08 17:55 | XMS_ITS | Encounter Summary ---
[place] [address] Care Team Providers Care Granite Setter Name Role Phone Samreen Warner APRN Primary Care Provider [phone] Encounter Details Date Type Department Care Team (Latest Contact Info) Description 04/16/2023 Travel Social History Tobacco Use Types Packs/Day [...] on filedocumented in this encounter Care Teams Granite Setter Relationship Specialty Start Date End Date Samreen Warner APRN [address] [place], [place] [id number] PCP - General Family Medicine 09/14/16 07/22/23 documented as of this encounter
--- OUTSIDE RECORDS SUMMARY | 2024-01-08 17:55 | XMS_ITS | Encounter Summary ---
[place] [address] Care Team Providers Care Dietetic Assistant Name Role Phone Samreen Warner LUCIANO Primary Care Provider Reason for Referral * Consultation (Routine) - Authorized Specialty Diagnoses / Procedures Referred By Priscila stahl Referred To Contact Neurosurgery Diagnoses Syringomyelia and syringobulbia SYMPTOMATIC CERVICAL SYRINX. SHE HAS TRIED MOST CONSERVATIVE OPTIONS. WANTS TO GET A SURGICAL OPINION Corbin Robledo DO [phone] [address] [facility] [address] [place] [phone] Referral ID Status Reason Start Date Expiration Date Visits Requested Visits Authorized [id number] Authorized Consult, Test & Treat PCP Updated and/or Approved 06/26/2023 06/25/2024 6 6 Encounter Details Date Type Department Care Team (Latest Contact Info) Description 06/26/2023 Transcribe Orders eDH Incoming Referrals [phone] Corbin Robledo DO [phone] [address] Syringomyelia and syringobulbia Social History Tobacco Use Types Packs/Day Years [...] Associated Diagnoses Orde r Schedule Referral to Neurosurgery Outpatient Referral Routine Syringomyelia and syringobulbia Ordered: 06/26/2023 documented as of this encounter Visit Diagnoses Diagnosis Syringomyelia and syringobulbia documented in this encounter Care Teams Dietetic Assistant Relationship Specialty Start Date End Date Samreen Warner, SWIMMING TEACHER [address] [place] [address] PCP - General Family Medicine 09/14/16 07/22/23 documented as of this encounter
--- OUTSIDE RECORDS SUMMARY | 2024-01-08 17:56 | XMS_ITS | Encounter Summary ---
[place] [address] Care Team Providers Care Data Consultant Name Role Phone Samreen Warner APRN Primary Care Provider Encounter Details Date Type Department Care Team ([facility] st Contact Info) Description 05/29/2019 Tele[place] [phone] Ashanti Clay Social History Tobacco Use Types Packs/Day Years [...] encounter Miscellaneous Notes * Telephone Encounter - Ashanti Clay - 05/29/2019 3:45 PM EST L/m for p/t to call our office back. Looking to see if p/t has scheduled a required pre-op appointment with their PCP, if already complete where our office may request records to be sent to us documented in this encounter Plan of Treatment Not on file documented as of this encounter Visit Diagnoses Not on filedocumented in this encounter Care Teams Data Consultant Relationship Specialty Start Date End Date Samreen Warner APRN [facility] [address] [place], [place] [id number] PCP - General Family Medicine 09/14/16 07/22/23 documented as of this encounter
--- OUTSIDE RECORDS SUMMARY | 2024-01-08 17:56 | XMS_ITS | Encounter Summary ---
Author [facility] [place] [address] Care Team Providers Care Air Sampling And Monitoring Name Role Phone Samreen Warner APRN Primary Care Provider Encounter Details Date Type Department Care Team (Late st Contact Info) Description 07/30/2017 Orders [place] [address] Shikha Ledesma APRN [facility] DR [facility] [place] [address] Hypokalemia Social History Tobacco Use Types Packs/Day Years [...] as of this encounter Visit Diagnoses Diagnosis Hypokalemia Hypopotassemia documented in this encounter Care Teams Air Sampling And Monitoring Relationship Specialty Start Date End Date Samreen Warner APRN [address] [facility], [place] [id number] PCP - General Family Medicine 09/14/16 07/22/23 documented as of this encounter
--- OUTSIDE RECORDS SUMMARY | 2024-01-08 17:56 | XMS_ITS | Encounter Summary ---
Author Organization [facility] [place] [address] Care Team Providers Care Chief Medical Director Name Role Phone Samreen Warner APRN Primary Care Provider Encounter Details Date Type Department Care Team (Late st Contact Info) Description 09/27/2018 Notes Only [place] [phone] [facility] [place] [address] Social History Tobacco Use Types Packs/Day Years [...] as of this encounter Progress Notes * Jeimy Uribe RD - 09/27/2018 7:54 AM EDT Bariatric Surgery Program Nutrition Follow-up Note 09/27/2018 Provider: Jeimy Uribe, , RD, LD Reason for encounter: Lennie Barrios is a 38 y.o. female who is seen today for an 18 month follow-up visit. Pt is also seeing Shikha Ledesma APRN for an evaluation today Date of Surgery: 03/28/2017 gastric sleeve Comments/Concerns: Things continue to go very well; achieved goal weight and feels confident about maintaining Topics Discussed/Patient Concerns: Date Weight (lbs) HT BMI Comments ~2013 [...] 09/27/18 165# 80% 30 18 months post-op [place] Body Weight (based on BMI of 25): 138# Excess Weight: 140# 30-70% Excess Weight Loss: 180-235#; 50% Excess Weight Loss: 208# ? Vitamin/Mineral Supplements (reported by patient): Supplement Type Brand/Form Dosage/Amount Frequency Comments Multivitamin Bariatric Fusion 1 pill ??4x daily Contains calcium, B12, and iron?? Calcium ? Vitamin B12 ? Iron ? Vitamin D2 ? Just finished rx? Food Allergies/Intolerances:?Peanuts, Samoan fries, M&M - lost taste for it. Can't eat pizza Reported Oral Intake: Breakfast 4 PM: Yogurt and fruit Lunch 8:30 PM: seafood and veggies Dinner 12:30 AM Chicken and veggies Snacks Occasional banana but usually nothing Fluid 48+ oz water ETOH None tried a few sips and felt awful... 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 ASSESSMENT: 80% EWL is excellent; meeting protein and fluid goals; compliant with vitamins; level of exercise/activity is good; no further concerns at this time; pt confident she will remain on track NUTRITION INTERVENTION & MONITORING: ?? Provided support/encouragement and reinforced importance of meeting nutritional goals. ?? Reviewed vitamin and mineral supplement recommendations. ?? Written recommendations provided on the AVS ?? Evaluation by nurse practitioner today. ?? Has the [employer] Booklet for reference ?? Follow-up in 6 months documented in this encounter Plan of Treatment Not on file documented as of this encounter Visit Diagnoses Not on filedocumented in this encounter Care Teams Chief Medical Director Relationship Specialty Start Date End Date Samreen Warner, LUCIANO [address] [place] [address] PCP - General Family Medicine 09/14/16 07/22/23 documented as of this encounter
--- OUTSIDE RECORDS SUMMARY | 2024-01-08 17:56 | XMS_ITS | Encounter Summary ---
Author Organization [facility] Address [facility] [place] [id number] Care Team Providers Care Private Eye Name Role Phone Timmy Samreen LUCIANO Primary Care Provider [phone] Reason for Visit * Reason Comments Advice Only panni consult, brach ioplasty * Consultation (Routine) - Closed Specialty Diagnoses / Procedures Referred By Priscila stahl Referred To Contact Plastic Surgery Diagnoses Symptomatic abdominal panniculus Shikha Ledesma APRN [facility] DR [facility] [address] Dilip Doran MD [facility] [place] [address] Referral ID Status Reason Start Date Expiration Date V isits Requested Visits Authorized [id number] Closed Consult, Test & Treat 09/27/2018 09/27/2019 1 1 Encounter Details Date Type Department Care Team (Late st Contact Info) Description 11/28/2018 11:15 AM EDT Office [place] [address] Dilip Doran MD [facility] [place] [address] Abdominal pannus Social History Tobacco Use Types [...] - Inhaled Oxygen Concentration - - Weight 76.1 kg (167 lb 12.8 oz) 019 11:07 AM EDT Height 157.5 cm (5' 2) 11/28/2018 11:0 7 AM EDT Body Mass Index 30.69 11/28/2018 11:07 AM EDT documented in this encounter Patient Instructions * Patient Instructions* Celena Brown RN - 11/28/2018 11:15 AM EDT You were given written and verbal preoperative instructions today. Patient was advised to: 1 month prior to surgery: Schedule a pre-op physical with your primary care doctor 2 weeks prior to surgery: Stop taking aspirin & ibuprofen type products and Stop vitamin E, Garlic supplements, Ginseng, Fish oil tablets, Ginkgo and Mobeetie's Wort. May resume 48 hours after surgery 3 days before surgery: Do not shave near your surgical site 1 day before surgery: Shower the night before and the morning of your surgery using an antibacterial soap (Dial or Lever 2000) or Hibiclens that was provided Photos Taken: Yes with iPad To prepare for your upcoming surgery, please review the Pre-Operative Instruction brochure that youwere given at today's appointment. Feel free to call our office [phone] if you have any nursingquestions or concerns. We monitor the phones from 8-5 Sunday through Sunday. Expect a call from the Same Day Dept the business day before surgery to go over your list of medications and instruct you on arrival time, and when to stop eating and drinking. For questions pertaining to your surgery date or time please call Felicitas at [phone]. documented in this encounter Progress Notes * Dilip Doran MD - 11/28/2018 11:15 AM EDT Plastic Surgery Consultation Note Dilip Doran MD PCP: Samreen Warner APRN CC: Abdominal pannus HPI: Lennie Urena is a 38 y.o. female seen in my office today for consideration for abdominal panniculectomy. Shikha Ledesma APRN has requested the consultation. Her maximum weight was 283lbs in 2018. She now weighs 167 lbs. Her current weight has been stable for 4-5 months. Goal weight is lbs. She has lost weight after bariatric surgery which was performed in 03/28/[address] Mahoney. She presents today because of increasing difficulty with keeping the foldunder her pannus free of rashes and infection, and clean, and odor free at times. Skin irritation waxes and wanes. Concerns of upper arm excess skin. Reports that she eats well balanced nutrition. 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 Does not include heavy lifting. Reports no use of alcohol, cigarettes or other drugs. Patient Active Problem List Diagnosis Code ??? Preoperative Class IV obesity BMI 50, sleeve gastrectomy planned 03/28/17 E66.01, Z68.43 ??? Vitamin D deficiency E55.9 ??? Low vitamin B12 level E53.8 ??? Iron deficiency E61.1 ??? Obesity E66.9 No past medical history on file. Past Surgical History: Procedure Laterality Date ??? PRO LAPAROSCOPY, SURG/GASTRIC RESTRICTIVE PROC, LONGITUDINAL GASTRECTOMY N/A 03/28/2017 @LAPAROSCOPY, SURG/GASTRIC RESTRICTIVE PROC, LONGITUDINAL GASTRECTOMY (WRVU 20.38) performed by Domenica Mahoney MD at [facility] Social History Socioeconomic History ??? Marital status: Spouse name: Not on file ??? Number of children: Not on file ??? Years of education: Not on file ??? Highest education level: Not on file Occupational History ??? Not on file Social Needs ??? Financial resource strain: Not on file ??? Food insecurity: Worry: Not on file Inability: Not on file ??? Transportation needs: Medical: Not on file Non-medical: Not on file Tobacco Use ??? Smoking status: Former Smoker Last attempt to quit: 01/04/2007 Years since quittin.9 ??? Smokeless tobacco: Never Used Substance and Sexual Activity ??? Alcohol use: No ??? Drug use: No ??? Sexual activity: Not on file Lifestyle ??? Physical activity: Days per week: Not on file Minutes per session: Not on file ??? Stress: Not on file Relationships ??? Social connections: Talks on phone: Not on file Gets together: Not on file Attends druze service: Not on file Active member of club or organization: Not on file Attends meetings of clubs or organizations: Not on file Relationship status: Not on file ??? Intimate partner violence: Fear of current or ex partner: Not on file Emotionally abused: Not on file Physically abused: Not on file Forced sexual activity: Not on file Other Topics Concern ??? Not on file Social History Narrative ??? Not on file ROS: HEENT, GI, /Renal, Psych, Card, Pulm, Endo, Heme, Immun, Neuro: negative Examination: Ht 157.5 cm (5' 2) Wt 76.1 kg (167 lb 12.8 oz) BMI 30.69 kg/m?? female in no acute distress, comfortable. Abdomen: Grade 1: Panniculus barely covers the hairline of the mons pubis but not the genitalia Chronic skin changes in transvers skin crase just below umbilicus Chronic skin changes of fold of abdominal pannus Arms: Skin access with excess adibosity of arms bilatr No extension in axilla, more extnadion in axilla on the right She has a well healed, port scars from prior surgery Hernia palpable no no hernia at umbilicus Active rash or intertrigo no Impression: Lennie Urena is a suitable candidate for panniculectomy which would likely correct her physical symptomatology. We talked about the scars and risks from panniculectomy. She is aware that infection, delayed wound healing, seroma and numbness are possibilities. She has been provided with the [facility] patient information brochure, as well as their standard informed consent documents on both abdominoplasty, and panniculectomy. She has expressed a desire to proceed with surgical correction. I feel strongly that she will gain significant symptom relief and avoid further intertrigo following surgery. Drains will be placed and will need 2-3 weeks off from work with 6 weeks of physical activity restrictions. In regards to her concerns of access skin of her arm, I explained the nature of a brachioplasty in detail. Due to tension of the arms, I would use liposuction and following this a removal tissue. Thenatures of the scar were described, and will be present when wearing short sleeved shirts. Scarringhas been shown to increase in size, widening of the incision. We discussed potential risks and complications which include but are not limited to: Pain, bleeding, infection, scarring, asymmetry, hematoma, seroma, poor cosmetic outcome, failure ofprocedure, possible need for revision, damage to adjacent structures. If the patient would like to proceed with both procedures at once she will need to stay one night in the hospital. Pricing will be given for brachioplasty. We have obtained photographs today. Insurance Guidelines [ ] Pannus grade 2 or higher [ ] Rashes; prescribed and documented treatment for any rashes that don???t respond to 3 - 6 monthsof treatment. [X ] If the weight has been lost due to gastric bypass, it must be 18 months s/p bariatric surgery [X] Patient must be at goal weight and stable 6 months Based on this, we will request insurance pre-determination for panniculectomy but not brachioplasty. I will communicate my recommendations to Samreen Warner APRN. Plan: Schedule Surgery for panniculectomy May follow up if she would like to proceed with a brachioplasty Surgical Grid: Surgeon: Janeth Duration: 2 hours Timeframe: Elective Coordinated with: None Procedure: Panniculectomy CPT: 76535 Surgical site: Abdomen Side: N/a Anesthesia: General Follow up: 7-10 days with NSO or AEE H&P: With PCP I, Ashanti Clay, have preformed the documentation for [...] Associated Diagnoses Orde r Schedule Referral to Plastic Surgery Outpatient Referral Routine Symptomatic abdominal panniculus Ordered: 09/27/2018 documented as of this encounter Visit Diagnoses Diagnosis Abdominal pannus Localized adiposity documented in this encounter Care Teams Private Eye Relationship Specialty Start Date End Date Samreen Warner, LUCIANO [address] [place] [address] PCP - General Family Medicine 09/14/16 07/22/23 documented as of this encounter
--- OUTSIDE RECORDS SUMMARY | 2024-01-08 17:56 | XMS_ITS | Encounter Summary ---
[facility] [place] [address] Care Team Providers Care Slot Floorperson Name Role Phone Samreen Warner APRN Primary Care Provider Encounter Details Date Type Department Care Team (Late st Contact Info) Description 08/15/2017 Telephone [place] [phone] Shikha Ledesma APRN [facility] [address] Social History Tobacco Use Types Packs/Day Years [...] encounter Miscellaneous Notes * Telephone Encounter - Shikha Ledesma APRN - 08/15/2017 4:07 PM EDT Message left that labs done at [facility] were normal, low potassium resolved. Instructed to call back if any questions. documented in this encounter Plan of Treatment Not on file documented as of this encounter Visit Diagnoses Not on filedocumented in this encounter Care Teams Slot Floorperson Relationship Specialty Start Date End Date Samreen Warner, QUILLER OPERATOR [address] [place] [address] PCP - General Family Medicine 09/14/16 07/22/23 documented as of this encounter
--- OUTSIDE RECORDS SUMMARY | 2024-01-08 17:56 | XMS_ITS | Encounter Summary ---
Author Organization [facility] [place] [address] Care Team Providers Care Jack Machine Operator Name Role Phone NikkiSamreen brandon LUCIANO Primary Care Provider [phone] Reason for Visit * Reason Comments Follow-up Encounter Details Date Type Department Care Team ([facility] st Contact Info) Description 04/18/2019 10:00 AM EST Office [place] [address] Kim Garza, CERAMIC MAKER DEMONSTRATOR [facility] [place] [address] Alyssia Reinoso, RD [facility] [place] [address] Disorder of iron metabolism; Symptomatic abdominal panniculus; Status post bariatric surgery; Vitamin D deficiency; Low folate Social History Tobacco Use Types Packs/Day Years [...] Sign Reading Time Taken Comments Blood Pressure 115/61 04/18/2019 9:29 AM EST Pulse 71 04/18/2019 9:29 AM EST Temperature - - Respiratory Rate 16 04/18/2019 9:29 AM EST Oxygen Saturation 100% 04/18/2019 9:29 AM EST Inhaled Oxygen Concentration - - Weight 75.7 kg (166 lb 12.8 oz) 04/18/2019 9:29 AM EST Height 158 cm (5' 2.2) 04/18/2019 9:29 AM EST Body Mass Index 30.31 04/18/2019 9:29 AM EST documented in this encounter Patient Instructions * Patient Instructions* Alyssia Reinoso, RD - 04/18/2019 10:00 AM EST [facility] support assistant Madelyn [phone] and Ana [phone] Dietitians: [phone] Surgeons/ nurse practitioners: [phone] Nurse line: [phone] Keep up the great work! Testing: Labwork: Today. Go to [facility], which is 1 flight below the General Surgery Clinic (or anyDH lab including [facility] (open on Sundays) Please note that you will always receive a letter with lab results and recommendations. Read the letter carefully and follow recommendations. The letter also contains information regarding your next lab draw. A copy of your lab tests and office visit today is sent to your primary child care counselor Next visit: 1 year, sooner if needed Routine visits are done at 4.8,12, 18 and 24 months after surgery, and yearly thereafter. Please call [phone] if you do not receive an appointment by 3-4 weeks prior to the expected visit. Medications: recommendations pending testing results Vitamins: The following vitamins are recommended: ??? Multivitamins with minerals - Continue Bariatric Fusion 1 pill 4 times per day. ??? Vitamin B12 500 mcg by mouth once daily Nutrition recommendations: - Keep up the great work meeting protein and fluid goals! - Your Daily Goals: ?? 1,000-1,200 calories per day (300 calories per meal, 100 calories per snack, 1-2 snacks per day) ?? 60 grams of protein per day (20 grams per meal) ?? 48-64 oz of non-caloric and hydrating fluids per day (6-8, 8 oz cups) ?? Do not drink with meals- pushes food through more quickly, can cause upset stomach Activity: Continue regular exercise at [facility] ??? Aim for 30 minutes of exercise daily, 5 days a week of both cardio and strength training exercises. Alcohol: should be used sparingly, no more [...] f non-prescribed drugs and treet drugs is unsaf Potential lifetime risks of sleeve gastrectomy include developed heartburn or severe reflux Call us: ??? If you have concerns. ??? If you have unexplained abdominal pain. ??? if you see blood in your stool or vomit blood ??? If you have prolonged vomiting Post Surgery Support Group: Our post surgery support group meets at [facility]- no registration required 1. on the sunday of every month from 1:00 PM-2:00 PM 2. On the sunday of the month from 4:30 PM to 5:30 PM Nutrition and Activity apps- Baritastic, My Fitness Pal, Lose It, My Plate Internet resources: www.Omn[employer] Services www.VeraLight www.bariatriceating.[employer] www.Optima Neuroscience.[employer]/blog [facility] facebook page: https://www.facebook.com/[facility]ELBariatricSurgery Books & Magazines: - Recipes for Life After Weight Loss Surgery by Leesa Mirza - Shrink Yourself by Dr Cristino Johnson - Eating Well - www.[employer] - Cooking Light- www.cookinglight.[employer] Anxiety: The Happiness Trap by Edwardo Hunter The Mindfulness and acceptance workbook for anxiety By Lee Luz. Mindful eating: What are you Hungry For? By Jose Francisco Zheng The Mindful Diet by Kalyani Brice and the [facility] group. Emotional eating: End Emotional Eating by Alyssia Summers Calming the Emotional Storm Fide Dietz documented in this encounter Progress Notes * Kim Garza - 04/18/2019 10:00 AM EST Reason for visit: follow up S/P laparoscopic sleeve gastrectomy with intraoperative EGD 03/28/2017 ?? Complications summary: Early none Late none ?? Visits summary: Compliance with scheduled BSP follow-up: good Bariatric surgery graduates support group attendance: none Pre-op 01/04/17 Wt (lbs) 276 BMI 50.2 ?? HT: 62.2 ??preop folate 7.9 ?? Post-op Visit date Wt (lbs) BMI %EBW lost Supplement compliance Labwork 04/19/17 245 46.3 22 ? 07/27/17 214 40.4 45 Good 11/30/17 185 33.6 66 Bariatric fusion 03/29/18 171 31 Bariatric fusion 03/29: Hg 12.3 Hct 37,6 ferritin 175 iron 75 sat 31% B12 324 Folate 6.D 25 prealbumin 20 09/27/18 165 30 80 Bariatric fusion D B12 09/27: B12 831 D 46 04/18/19 166 30.5 79 Bar fusion QID B12 ?500 QD Biotin QD Keratin 250 mg QD 04/18: Hg 12.7 Hct 39.4 ferritin 90 iron 98 sat 31 B12 981 B1 133 folate 6.6. Nl CMP PTH 47 D 25 ?? Date Evaluation Results 2019 Primary care - EGD Fundic gland polyps noted on intraop biopsy - Colonoscopy - DEXA PAP - Mammogram 11/28/18 Plastic surgery Evaluated by Dr Fowler for panniculectomy denied by insurer but overturned, now approved Diagnosis ??? Preoperative Class IV obesity BMI 50, S/P sleeve gastrectomy on 03/28/17 ??? Vitamin D deficiency preoperatively: persists, today's D is 25 with normal PTH and calcium ??? History of low vitamin B12 level preoperatively: resolved with oral supplementation ??? History of iron deficiency: resolved ??? History of inactive PPD, tretment with INH at age 19 Past Surgical History: Procedure Laterality Date ??? PRO LAPAROSCOPY, SURG/GASTRIC RESTRICTIVE PROC, LONGITUDINAL GASTRECTOMY N/A 03/28/2017 @LAPAROSCOPY, SURG/GASTRIC RESTRICTIVE PROC, LONGITUDINAL GASTRECTOMY (WRVU 20.38) performed by Domenica Mahoney MD at [facility] OR No Known Allergies Medications 04/18/19 0932 Medication Sig Taking? Bariatric Fusion multivitamin 1 tablet 4 times daily. Yes CYANOCOBALAMIN, VITAMIN B-12, (VITAMIN B-12 ORAL) Take 500 mcg by mouth daily. Yes etonogestrel (NEXPLANON) 68 mg Implant by Subdermal route. Yes Potential Bariatric Surgery Complications/ occurrences since last visit Yes No Bariatric surgery related visits to emergency department or other unplanned visit to a health care facility x Nephrolithiasis or atraumatic fracture since x Changes to health/ evaluations/ social history since last visit: as per updated problem list and e-DH. She was approved for panniculectomy. Subjective. Patient concerns at today's visit: Sophie returns for routine follow up at 2 years S/P LSG. Her weight is stable.. she eats sensibly. She can tolerate a small bowl of ice cream without difficulty, overall avoids sweets. She is scheduled for panniculectomy on 06/10 Dietary and physical activity history: As per RD note. Benefits since surgery: feels good physically and emotionally. She feels less clouded, process informaiton better, size 24->size 10. Goals: continue current plan Bowel regimen: regular NSAID use: Review of Systems (negative if left blank): Constitutional: [] fatigue [] pica [] restless leg [] hair loss Neurologic: [] paresthesias [] memory loss CV: [] treatment for hypertension or taking antihypertensive medication [] treatment for hyperlipidemia Pulmonary: [] sleep apnea symptoms [] treatment for VICKIE GI: [] heartburn [] reflux [] dysphagia [] dumping [] abdominal pain [] hernia [] nausea/vomiting [] blood in stool [] chronic diarrhea [] constipation PRODUCT MARKETING CONSULTANT: [x] LMP:regular, occasionally worse cramps,4,6 days, light [x] control nexplanon [] menorrhagia [] post-menopause Skin: [x] redundant skin abdomen [x] skinfold red, irritated moist, skin tears, using antifungal Heme/Lymph: [] excessive bruising or bleeding [] blood donor in past year Psychiatric [] mental health concerns Other: 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 year-old female in NAD, looks well. Heart: Normal S1S2. RRR Lungs: CTA bilaterally without wheezing Abdomen: soft, non-tender. Abdominal trocar sites well-healed, without evidence of hernia. Extremities: no lower extremity edema Vital signs: BP 115/61 (BP Location (NBP): Right arm) Pulse 71 Resp 16 Ht 158 cm (5' 2.2) Wt 75.7 kg (166 lb 12.8 oz) SpO2 100% BMI 30.31 kg/m?? Today's lab data: Resulted Orders Folate, serum Result Value Ref Range Folate Lvl 6.6 4.8 - 24.2 ng/mL Vitamin B12 Result Value Ref Range Vitamin B-12 951 232 - 1,245 pg/mL Vitamin B1, whole blood Result Value Ref Range Vit B1 Lvl WB 133 70 - 180 nmol/L PTH Result Value Ref Range PTH 47 15 - 65 pg/mL Vitamin D, 25-Hydroxy Result Value Ref Range 25-OH Vit D Total 25 (L) 30 - 100 ng/mL Ferritin Result Value Ref Range Ferritin 90 15 - 150 ng/mL Iron and TIBC Result Value Ref Range Iron 98 30 - 150 mcg/dL TIBC 320 250 - 450 mcg/dL Iron Saturation 31 20 - 50 % Comprehensive metabolic panel (non-fasting) Result Value Ref Range Glucose Lvl 87 65 - 199 mg/dL BUN 8 8 - 18 mg/dL Creatinine 0.75 0.70 - 1.20 mg/dL Sodium 142 135 - 145 mmol/L Potassium 3.7 3.5 - 5.0 mmol/L Chloride 106 98 - 107 mmol/L CO2 26 22 - 31 mmol/L Anion Gap 10 5 - 15 mmol/L Calcium 9.1 8.5 - 10.5 mg/dL Total Protein 7.0 6.1 - 8.0 gm/dL Albumin 4.4 3.2 - 5.2 gm/dL AST 13 0 - 30 unit/L ALT 10 0 - 30 unit/L Alk Phos 43 35 - 105 unit/L Total Bilirubin 0.4 0.2 - 1.3 mg/dL eGFR 103 >=60 mL/min/1.73 m?? eGFR 119 >=60 mL/min/1.73 m?? Hemogram Result Value Ref Range WBC 9.6 (H) 4.0 - 9.5 x10(3)/mcL RBC 4.47 4.00 - 5.21 x10(6)/mcL Hemoglobin 12.7 11.7 - 15.5 gm/dL Hematocrit 39.4 35.7 - 45.8 % MCV 88.1 82.6 - 94.4 fL MCH 28.4 27.1 - 32.0 pg MCHC 32.2 31.7 - 35.0 gm/dL Platelets 272 145 - 357 x10(3)/mcL RDWSD 41.5 37.0 - 46.0 fL RDWCV 12.7 11.5 - 14.1 % MPV 10.8 7.6 - 12.9 fL nRBC % Auto 0.0 % nRBC Abs Auto 0.000 0.000 - 0.000 x10(3)/mcL Assessment: Stable 2 years S/P LSG, with loss of 79% of excess body weight. Borderline folate leveland vitamin D deficiency Plan: ?? Lennie's healthy lifestyle efforts were acknowledged. Dietary/ exercise recommendations: as per Shaq GAMINO ?? E-DH medical record since last BSP visit reviewed ?? Panniculectomy as planned ?? Next BSP visit: 1 year ?? Next labwork: folate in ~5-6 months (when she returns for one of her post panniculectomy visits. ?? Vitamin and mineral supplement recommendations: continue Fusion bariatric multivitamins QID, additional B12 daily. Start vitamin D 50,000 units once a week for 6 months. Start OTC folic acid 1 mg daily for 6 months ?? Advised to call if develops unexplained abdominal pain, concerns or questions. Risks specific tobariatric procedure discussed ?? Lennie was advised of lab results via e-DH and mail. She was provided with a Bariatric Program Summary report which included the above recommendations, as well as information on vitamin and mineral supplementation, fluids, exercise and support group meetings. She has had an opportunity to have all her questions answered and is in agreement with the plan of care. RECOMMENDED BARIATRIC SURGERY PROGRAM POSTOPERATIVE FOLLOW-UP: Follow up: done at 4, 8,12 and 18 and 24 months, and yearly thereafter. High risk patients are evaluated on a more frequent basis. *Supplement recommendations: Multivitamin with minerals twice a day, B12 500 mcg once a day, calcium citrate 600 mg/400 units vitamin D twice a day, iron (ferrous fumarate, polysaccharide iron taken with vitamin C 250 mg once a day) for menstruating females or those with BRI. Labwork: Hemogram, ferritin, iron (transferrin) saturation, iron, folate, Vitamins B1, B12, D (25 hydroxy only), Intact PTH and comprehensive metabolic profile at 4, 12 and 24 months, and yearly. Prealbumin is done at 4 and 12 months and PRN. If labwork is done by the primary child care counselor: pleasefax a copy to the Bariatric Surgery Program, General Surgery Clinic, [facility], ), Questions regarding [facility] Bariatric Surgery Program patients: please call the Bariatric Surgery Program at [phone] * Alyssia Reinoso RD - 04/18/2019 10:00 AM EST Bariatric Surgery Program Nutrition Progress Note Encounter Type: follow up SUBJECTIVE: Topics Discussed/Patient Concerns: ?? Approved for panniculectomy. 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 ?? Date of Surgery: 03/28/2017 gastric sleeve ? Topics Discussed/Patient Concerns: Date Weight (lbs) HT [...] ??04/18/19 ??166.8# 79%?? 30.3 2 years post-op?? Charlton Body Weight (based on BMI of 25): 138# 30-70% Excess Weight Loss: 180-235#; 50% Excess Weight Loss: 208# ?? Vitamin/Mineral Supplements (reported by patient): Supplement Type Brand/Form Dosage/Amount Frequency Comments Multivitamin Bariatric Fusion 1 pill ??4x daily Contains calcium, B12, and iron?? Calcium ? none? Vitamin B12 ?? 500 mcg?? daily ?? Iron ?none ?? Vitamin D2 ?none ?? Biotin 1 pill daily Keratin 1 pill (250 mg) daily ?? Food Allergies/Intolerances:?Peanuts, Arabic fries, M&M - lost taste for it. Can't eat pizza. Anything chocolate or peanut butter based. Tracking Intake: No. Feels she's in a good rhythm. 24-Hour Intake: yesterday started her day off. Uses 1 cup Pyrex containers. 1/2 c vegetables and the rest protein. Finishes the protein over the course of the evening. Breakfast 12:30AM- chicken and vegetables AM Snack 2A- finishes of protein. 3-4AM fruit or Bermudian yogurt Lunch 12P- chicken and vegetable soup PM Snack Dinner Steak and vegetables and a little potatoes HS Snack Protein/ grams per day: 60+ Hydrating fluids- oz/ day: Water all day. Occ orange juice Soda: None. ETOH: None. Doesn't even like the smell of it anymore. Caffeine: None. Sweets: Meals per day: 3 ?? Feels full/satisfied after eating: Yes ?? Feels hungry []never [x]sometimes []most of the time [] always ?? Drinks with meals: No. Sips if it's dry. ?? Practices portion control: Yes. ?? Spends at least 20 minutes eating each meal: Yes ?? Has had dumping syndrome: No. Doesn't really eat sweets. Will occ have a small bowl of ice creamwhich she tolerate. ?? In the past month, pt has vomited/regurgitated: None. ?? Constipation/Diarrhea: None. Exercise: [employer] - 4 days per week.45 minutes per day mix of cardio and 15-20 minutes of strength. ASSESSMENT: Summary of Weight Loss: Patient's percent excess weight loss is 79%. Sophie is doing well and is meeting nutrition goals s/pbariatric surgery. Weight loss is stable. She exercises regularly. She is happy with how things aregoing. NUTRITION INTERVENTION & MONITORING: ?? Provided support/encouragement and reinforced importance of meeting nutritional goals. ??? Continue current meal plan. ?? Reviewed nutrition and vitamin and mineral supplement recommendations. ??? Multivitamins with minerals - Continue Bariatric Fusion 1 pill 4 times per day. ??? Vitamin B12 500 mcg by mouth once daily ?? Written recommendations provided. Patient agreed with these and verbalized adequate understanding. ?? Evaluation by nurse practitioner today. documented in this encounter Plan of Treatment Not on file documented as of this encounter Procedures Procedure Name Priority Date/Time Associated Diagnosis Comments HC PARATHYROID HORMONE(PTH INTACT Routine 04/18/2019 10:46 AM EST Status post bariatric surgery HC HEMOGRAM Routine 04/18/2019 10:46 AM EST Disorder of iron metabolism Status post bariatric surgery HC PCH THIAMIN LVL(VITAMIN B1) WB-FUENTES Routine 04/18/2019 10:46 AM EST Status post bariatric surgery HC IRON BINDING CAPACITY Routine 04/18/2019 10:46 AM EST Disorder of iron metabolism Status post bariatric surgery HC VITAMIN D TOTAL-25 HYDROXY Routine 04/18/2019 10:46 AM EST Status post bariatric surgery HC VENIPUNCTURE Routine 04/18/2019 10:46 AM EST Disorder of iron metabolism Status post bariatric surgery HC FERRITIN, SERUM Routine 04/18/2019 10 :46 AM EST Disorder of iron metabolism Status post bariatric surgery HC VITAMIN B12 SERUM Routine 04/18/2019 10:46 AM EST Disorder of iron metabolism Status post bariatric surgery COMPREHENSIVE METABOLIC PANEL Routine 04/18/2019 10:46 AM EST Status post bariatric surgery documented in this encounter Results * Folate, serum (04/18/2019 10:46 AM EST) [facility] Signature Folate 6.6 4.8 - 24.2 ng/mL [facility] Blood specimen (specimen) 04/18/2019 10:46 AM EST 04/18/2019 11:14 AM EST Narrative Resulting Agency Comment Spec In Lab Kim Inga Greg LARSENN CHEMISTRY ORDERAB LES Performing Organization Address [facility] Co de Phone Number [facility] [place] [address] * Vitamin B12 (04/18/2019 10:46 AM EST) Vitamin B12 951 232 - 1,245 pg/mL [facility] Blood specimen (specimen) 04/18/2019 10:46 AM EST 04/18/2019 11:14 AM EST Narrative Resulting Agency Comment Spec In Lab Kim Garza CERAMIC MAKER DEMONSTRATOR CHEMISTRY ORDERAB LES Performing Organization Address [facility] de Phone Number [facility] [place] [address] * Vitamin B1, whole blood (04/18/2019 10:46 AM EST) Vit B1 Lvl Wb (JULY) 133 70 - 180 nmol/L [facility] Comment: ADDITIONAL INFORMATION This test was developed and its performance characteristics determined by [facility] in a manner consistent with CLIA requirements. This test has not been cleared or approved by the U.S. Food and Drug Administration. Test Performed by: [facility] - [address] [address] Locomotive Crane Operator: Farzad Monroe M.D. Ph.D.; CLIA# [id number] Blood specimen (specimen) 04/18/2019 10:46 AM EST 04/18/2019 3:42 PM EST Narrative Resulting Agency Comment Spec In Lab Kim Garza APRN LAB SEND OUT ERIN LYNN Performing Organization Address [facility]/ZIP Co de Phone Number [facility] [place] [address] * PTH (04/18/2019 10:46 AM EST) Parathyroid Hormone 47 15 - 65 pg/mL [facility] Blood specimen (specimen) 04/18/2019 10:46 AM EST 04/18/2019 10:57 AM EST Narrative Resulting Agency Comment Spec In Lab Kim Garza CERAMIC MAKER DEMONSTRATOR CHEMISTRY ORDERAB LES Performing Organization Address [facility] Co de Phone Number [facility] [place] [address] * (ABNORMAL) Vitamin D, 25-Hydroxy (04/18/2019 10:46 AM EST) [facility] Signature Vitamin D Total 25 OH 25(L) 30 - 100 ng/mL [facility] Comment: As of 2018, 25-hydroxyvitamin D testing has moved from the [employer] to the [facility]. No substantial change in measured values is expected. Blood specimen (specimen) 04/18/2019 10:46 AM EST 04/18/2019 11:14 AM EST Narrative Resulting Agency Comment Spec In Lab Kim Garza CERAMIC MAKER DEMONSTRATOR CHEMISTRY ORDERAB LES Performing Organization Address [facility] Co de Phone Number [facility] [place] [address] * Ferritin (04/18/2019 10:46 AM EST) Ferritin 90 15 - 150 ng/mL [facility] Comment: Pediatric reference ranges not verified at [facility], interpret with caution. Reference ranges for females greater than 50 years of age approach values for men, i.e., 30-400 ng/mL. Blood specimen (specimen) 04/18/2019 10:46 AM EST 04/18/2019 11:14 AM EST Narrative Resulting Agency Comment Spec In Lab Kim Garza CERAMIC MAKER DEMONSTRATOR CHEMISTRY ORDERAB LES Performing Organization Address [facility] Co de Phone Number [facility] [place] [address] * Iron and TIBC (04/18/2019 10:46 AM EST) Iron 98 30 - 150 mcg/dL [facility] TIBC 320 250 - 450 mcg/dL [facility] Iron Saturation 31 20 - 50 % [facility] Blood specimen (specimen) 04/18/2019 10:46 AM EST 04/18/2019 10:57 AM EST Narrative Resulting Agency Comment Spec In Lab Kim Garza CERAMIC MAKER DEMONSTRATOR CHEMISTRY ORDERAB LES Performing Organization Address [facility] Co de Phone Number [facility] [place] [address] * Comprehensive metabolic panel (non-fasting) (04/18/2019 10:46 AM EST) Glucose 87 65 - 199 mg/dL [facility] Comment:Diabetes: >=200 mg/d L plus symptoms Blood Urea Nitrogen 8 8 - 18 mg/dL [facility] Creatinine 0.75 0.70 - 1.20 mg/dL [facility] Sodium 142 135 - 145 mmol/L [facility] Potassium 3.7 3.5 - 5.0 mmol/L [facility] Comment: Please note: ??Patients with WBC >100,000 may have falsely elevated Potassium levels. ??For accurate Potassium quantification in these patients send serum separator tube (gold top) for subsequent determinations. ??Contact the Clinical Chemistry Laboratory if there are any questions. Chloride 106 98 - 107 mmol/L [facility] Carbon Dioxide 26 22 - 31 mmol/L [facility] Anion Gap 10 5 - 15 mmol/L [facility] Calcium 9.1 8.5 - 10.5 mg/dL [facility] Protein, Total 7.0 6.1 - 8.0 gm/dL [facility] Albumin 4.4 3.2 - 5.2 gm/dL [facility] Aspartate Aminotransferase 13 0 - 30 unit/L [facility] Alanine Aminotransferase 10 0 - 30 unit/L [facility] Alkaline Phosphatase 43 35 - 105 unit/L [facility] Bilirubin, Total 0.4 0.2 - 1.3 mg/dL [facility] Est Glomerular Filtration Rate 103 >=60 mL/min/1. 73 m?? [facility] Comment: The eGFR was calculated using the CKD-EPI equation. As with all creatinine based estimates of kidney function, eGFR values calculated with the CKD-EPI equation are not accurate in patients with acute kidney failure, extremes of body mass or the acutely ill. http://[employer]/[facility] IDABELnkf eGFR 119 >=60 mL/min/1. 73 m?? [facility] Comment: The eGFR was calculated using the CKD-EPI equation. As with all creatinine based estimates of kidney function, eGFR values calculated with the CKD-EPI equation are not accurate in patients with acute kidney failure, extremes of body mass or the acutely ill. http://[employer]/[facility] IDABELnkf Blood specimen (specimen) 04/18/2019 10:46 AM EST 04/18/2019 10:57 AM EST Narrative Resulting Agency Comment Spec In Lab Kim Garza APRN CHEMISTRY ORDERAB LES Performing Organization Address City/State/[facility] Co de Phone Number [facility] [place] [address] * (ABNORMAL) Hemogram (04/18/2019 10:46 AM EST) White Blood Cell 9.6(H) 4.0 - 9.5 x10(3)/mc L [facility] Red Blood Cell 4.47 4.00 - 5.21 x10(6)/mc L [facility] Hemoglobin 12.7 11.7 - 15.5 gm/dL [facility] Hematocrit 39.4 35.7 - 45.8 % [facility] Mean Cell Volume 88.1 82.6 - 94.4 fL [facility] Mean Cell Hemoglobin 28.4 27.1 - 32.0 pg [facility] Mean Cell Hemoglobin Concentration 32.2 31.7 - 35.0 gm/dL [facility] Platelet 272 145 - 357 x10(3)/mc L [facility] RDW Standard Deviation 41.5 37.0 - 46.0 fL [facility] RDW coefficient of variation 12.7 11.5 - 14.1 % [facility] Mean Platelet Volume 10.8 7.6 - 12.9 fL [facility] NRBC% auto 0.0 % [facility] NRBC Absolute 0.000 0.000 - 0.000 x10(3)/mc L [facility] Blood specimen (specimen) 04/18/2019 10:46 AM EST 04/18/2019 10:57 AM EST Narrative Resulting Agency Comment Spec In Lab Kim Garza APRN HEMATOLOGY ORDERA BLES Performing Organization Address City/State/[facility] Co de Phone Number [facility] [place] [address] documented in this encounter Visit Diagnoses Diagnosis Disorder of iron metabolism Other disorders of iron metabolism Symptomatic abdominal panniculus Localized adiposity Status post bariatric surgery Bariatric surgery status Vitamin D deficiency Unspecified vitamin D deficiency Low folate documented in this encounter Care Teams Jack Machine Operator Relationship Specialty Start Date End Date Samreen Warner APRN [address] [place] [address] PCP - General Family Medicine 09/14/16 07/22/23 documented as of this encounter
--- OUTSIDE RECORDS SUMMARY | 2024-01-08 17:56 | XMS_ITS | Encounter Summary ---
[place] [address] Care Team Providers Care Collections Associate Name Role Phone Samreen Warner LUCIANO Primary Care Provider [phone] Reason for Visit * Reason Comments Follow-up Encounter Details Date Type Department Care Team (Late st Contact Info) Description 07/27/2017 10:30 AM EDT Office [place] [address] Shikha Ledesma, PUBLIC HEALTH DIRECTOR [facility] [address] [facility] [address] Status post bariatric surgery; Vitamin D deficiency; Iron deficiency anemia, unspecified iron deficiency anemia type Social History Tobacco Use Types Packs/Day Years [...] Sign Reading Time Taken Comments Blood Pressure 108/60 07/27/2017 10:28 AM EDT Pulse 64 07/27/2017 10:28 AM EDT Temperature - - Respiratory Rate 16 07/27/2017 10:28 AM EDT Oxygen Saturation 100% 07/27/2017 10:28 AM EDT Inhaled Oxygen Concentration - - Weight 97.1 kg (214 lb) 07/27/2017 10:28 AM EDT Height - - Body Mass Index 40.43 03/28/2017 12:36 PM EST documented in this encounter Patient Instructions * Patient Instructions* Shikha Ledesma Es, LUCIANO - 07/27/2017 10:30 AM EDT [facility] Admin coordinator Kyra: [phone] Dietitian: [phone] Surgeons/ nurse practitioner: [phone] Nurse line: [phone] Testing: Labwork: Today. Go to [facility], which is 1 flight below the General Surgery Clinic. Please note that you will always receive a letter with lab results and recommendations. Please readthis letter carefully and follow recommendations. The letter also contains information regarding your next lab draw. A copy of your labwork and office visit today is sent to your primary patient care manager Next visit: Routine visits are done at 4.8,12, 18 and 24 months after surgery, and yearly thereafter. Please call [phone] if you do not receive an appointment by 3-4 weeks prior to the expected visit. Medications: 1. No changes at this point 2. Further recommendations pending labwork. Referrals: None needed at this time Vitamins: The following vitamins are recommended: ??? Multivitamins with minerals daily- continue with Bariatric Fusion 4 x daily. Nutrition recommendations: - Keep up the great work with meal planning and meeting protein and fluid needs! - Your Daily Goals: ?? 1,000-1,200 calories per day (300 calories per meal, 100 calories per snack, 1-2 snacks per day) ?? 60 grams of protein per day (20 grams per meal) ?? 48-64 oz of non-caloric and hydrating fluids per day (6-8, 8 oz cups) ?? Do not drink with meals- pushes food through more quickly, can cause upset stomach Activity: ??? Continue at the gym 5 x week! Alcohol: should be used sparingly, no more [...] surgery. Alcohol is not recommended until at least 6-12 months post surgery, and after goal weight has been achieved f non-prescribed drugs and treet drugs is unsafe Anti-inflammatory medications such as Advil, Aleve, Excedrin, Ibuprofen should be used sparingly after gastric bypass, since they increase the risk of ulcer. Hair Loss: is associated with rapid weight loss and is seen approximately 3 to 6 months after surgery and can last 3 to 6 months. It is almost always temporary. Eating a healthy diet with 60 grams ofprotein per day and taking your multivitamin with minerals will help. Call us: ??? If you have concerns. ??? If you have unexplained abdominal pain. ??? if you see blood in your stool or vomit blood ??? If you have prolonged vomiting Post Surgery Support Group: Our post surgery support group meets on the first Sunday of every month from 1-[address] [facility]- no registration required Nutrition and Activity apps- Baritastic, My Fitness Pal, Lose It, My Plate Internet resources: www.Sensing Electromagnetic Plus www.Compumatrix www.Lexplique www.CineCoup.JUNIQE/blog [facility] facebook page: https://www.facebook.com/[email or web address]SABariatricSurgery Books & Magazines: - Recipes for Life After Weight Loss Surgery by Leesa Mirza - Shrink Yourself by Dr Cristino Johnson - Eating Well - www.[employer]less Lith[employer] - Cooking Light- www.[employer].JUNIQE documented in this encounter Progress Notes * Shikha Ledesma APRN - 07/27/2017 10:30 AM EDT Reason for visit: follow up S/P laparoscopic sleeve gastrectomy with intraoperative EGD 03/28/2017 Shai Complications summary: Early none Late none Visits summary: Compliance with scheduled BSP follow-up: good Bariatric surgery graduates support group attendance: None Pre-op 01/04/2017 Wt (lbs) 276 BMI 50.2 HT: 62.2 Post-op Visit date Wt (lbs) BMI %EBW lost Supplement compliance Labwork 04/19/2017 245 46.3 22 07/27/2017 214 40.4 45 Good 4 month post op labs done today. Date Evaluation Results 04/12 Primary care No changes, will follow up in 6 months 03/28/2017 EGD Done intraoperatively, some fundic polyps Colonoscopy n/a Patient Active Problem List Diagnosis Code ??? 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 Vitamin D deficiency-resolved, at 46 last visit, will recheck today E55.9 ??? Low vitamin B12 level- will evaluate today E53.8 ??? Iron deficiency-will evaluate today, menstruates once every other month, on nexplanon, light flow E61.1 ??? Obesity-s/p RNY E66.9 Past Surgical History: Procedure Laterality Date ??? PRO LAPAROSCOPY, SURG/GASTRIC RESTRICTIVE PROC, LONGITUDINAL GASTRECTOMY N/A 03/28/2017 @LAPAROSCOPY, SURG/GASTRIC RESTRICTIVE PROC, LONGITUDINAL GASTRECTOMY (WRVU 20.38) performed by Domenica Mahoney MD at [facility] MAIN OR Visits to emergency department or other unplanned visit to a health care facility since last visit?None Changes to health/ social history or evaluations since last visit: As per updated problem list and e-DH Subjective. Patient concerns at today's visit: Sophie returns for her 4 month post surgery follow up. She has nocomplaints today, is doing great. I feel absolutely awesome, everything is better! Medications Frequency/ Duration Comments Ursodiol Twice a day Tolerating fine Treatment for constipation None BM daily, occasionally skips a day NSAIDs None-occasional tylenol for headache, nothing else PPI Still taking omeprazole daily Will start weaning to every other day, instructed to resume dailyif any GERD symptoms, otherwise can wean off Dietary history/ exercise/ activity level: See dietitian note. Benefits of surgery: Energy better, feeling better overall, more positive, more active, can move easier, everything's better! Goals: To continue to get healthier Review of Systems (negative if left blank): Constitutional: [ ] fatigue [] pica [ ] hair loss [ ] restless leg Neurologic: [ ] paresthesias CV: [] treatment for hypertension or taking antihypertensive medication [ ] treatment for hyperlipidemia Pulmonary: [] sleep apnea symptoms [ ] treatment for VICKIE, sleeps well 7-8 hours a day, works FT nights GI: [] GERD, dysphagia [] dumping [] abdominal pain, hernia [] nausea/vomiting [] blood in stool [] chronic diarrhea/ constipation, only had some diarrhea and abdominal pain after trying pizza MOTORCYCLE BUILDER: [] LMP: [] control [] menorrhagia [] post-menopause, has implanon, light periods every other month, will check iron studies today as she is taking a MVI with iron Skin: [] redundant skin [] chronic rashes Heme/Lymph: [] excessive bruising [] blood donation in past year Psychiatric [] mental health concerns Health-related habits/other: Tobacco: no Alcohol: as per RD Tried a sip, not interested Employment/social: 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 year- old female who appears stated age, NAD Heart: S1S2 distinct, no extra sounds or murmurs, RRR Lungs: Clear all lobes A&P, effort minimal, pattern regular Abdomen: soft, round, non-tender, no masses, no guarding. Trocar sites well- healed, pink, closed, no erythema, no induration Extremities: BLE no edema, pulses present Vital signs: BP 108/60 Pulse 64 Resp 16 Wt 97.1 kg (214 lb) SpO2 100% BMI 40.43 kg/m2 Today's lab data: Preliminary results Recent Results (from the past 72 hour(s)) Hemogram Result Value Ref Range WBC 12.7 (H) 4.0 - 9.5 x10(3)/mcL RBC 4.48 4.00 - 5.21 x10(6)/mcL Hemoglobin 12.5 11.7 - 15.5 gm/dL Hematocrit 38.0 35.7 - 45.8 % MCV 84.8 82.6 - 94.4 fL MCH 27.9 27.1 - 32.0 pg MCHC 32.9 31.7 - 35.0 gm/dL Platelets 274 145 - 357 x10(3)/mcL RDWSD 42.2 37.0 - 46.0 fL RDWCV 13.5 11.5 - 14.1 % MPV 11.5 7.6 - 12.9 fL nRBC % Auto 0.0 % nRBC Abs Auto 0.000 0.000 - 0.000 x10(3)/mcL Comprehensive metabolic panel (non-fasting) Result Value Ref Range Glucose Lvl 84 65 - 199 mg/dL BUN 11 8 - 18 mg/dL Creatinine 0.59 (L) 0.70 - 1.20 mg/dL Sodium 138 135 - 145 mmol/L Potassium 3.3 (L) 3.5 - 5.0 mmol/L Chloride 102 98 - 107 mmol/L CO2 23 22 - 31 mmol/L Anion Gap 13 5 - 15 mmol/L Calcium 9.2 8.5 - 10.5 mg/dL Total Protein 7.1 6.1 - 8.0 gm/dL Albumin 4.0 3.2 - 5.2 gm/dL AST 12 0 - 30 unit/L ALT 8 0 - 30 unit/L Alk Phos 60 40 - 104 unit/L Total Bilirubin 0.3 0.2 - 1.3 mg/dL Estimated GFR >60 >=60 Prealbumin Result Value Ref Range Prealbumin 19 (L) 20 - 40 mg/dL Iron and TIBC Result Value Ref Range Iron 43 30 - 150 mcg/dL TIBC 270 250 - 450 mcg/dL Iron Saturation 16 (L) 20 - 50 % Ferritin Result Value Ref Range Ferritin 163 (H) 15 - 150 ng/mL Vitamin B12 Result Value Ref Range Vitamin B-12 386 232 - 1245 pg/mL Folate, serum Result Value Ref Range Folate Lvl >20.0 4.8 - 24.2 ng/mL preliminary results reviewed. Pt notified and reviewed over the phone, instructed to finish her bottle of mvi with iron and then can stop after that, add 500mcg B12, add more protein, shoot for 70-75g and add some potassium rich foods and fluids. [facility] electrolytes in a week. Reviewed red flag sx, s/s to seek urgent care, rtc or pcp. Sophie verbalizes understanding and is in agreement with plan. Assessment: S/P Sleeve gastrectomy, with loss of 45 % of excess body weight. She does have some mild deficiencies that were addressed today. B1, folate and D pending, will follow up with results. Seeplan above, will recheck electrolytes in one week as K is slightly low. Iron deficiency resolving. Plan: ?? Lennie was congratulated on ongoing healthy lifestyle efforts ?? advised that Ursodiol can be discontinued at 6 months post-operatively ?? E- medical record reviewed since last BSP visit ?? Next BSP follow up: 4 months, sooner if needed ?? Next labwork: will repeat electrolytes in one week, other labs in 4 months unless indicated sooner ?? Additional vitamin and mineral supplement recommendations (*in addition to routine bariatric supplements, as noted below): ?? Advised to call with unexplained abdominal pain, prolonged nausea, vomiting or inability to hydrate, questions or concerns ?? dietary/ exercise recommendations per RD She was provided with a Bariatric Program Summary report which included the above recommendations, as well as information on vitamin and mineral supplementation, fluids, exercise and support group meetings. She has had an opportunity to have all her questions answered and is in agreement with the plan of care. Lennie was advised of lab results via phone today. RECOMMENDED BARIATRIC SURGERY PROGRAM POSTOPERATIVE FOLLOW-UP: Follow up: done at 4, 8,12 and 18 and 24 months, and yearly thereafter. High risk patients are evaluated on a more frequent basis. *Supplement recommendations: Complete multivitamin with minerals twice a day, B12 500 mcg once a day, calcium citrate 600 mg/400units vitamin D twice a day, iron (ferrous [...] If labwork is done by the primary patient care manager: pleasesend a copy to the Bariatric Surgery Program, General Surgery Clinic, [facility] Questions regarding [facility] Bariatric Surgery Program patients: please call [phone]. * Alyssia Reinoso, RD - 07/27/2017 10:30 AM EDT Bariatric Surgery Program Nutrition Progress Note Encounter Type: follow up SUBJECTIVE: Topics Discussed/Patient Concerns: ?? No questions. ?? Overall feels things are going well. She is working on upper body strength at the gym in addition to her cardio workouts. ?? Her and parents have been very supportive since surgery. 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 Hobbies: scrapbooking, reading, spending time w spouse and friends Vision at 2 years post-op: To try new things, consider starting a family, traveling OBJECTIVE: Date of Bariatric Surgery: 03/28/17 Type of Bariatric Surgery: Laparoscopic Sleeve Gastrectomy Weight History: ?? Date Weight (lbs) HT BMI Comments ~2013 283# ? Highest Weight 07/06/16 278# 62.2 ?? Initial program weight 01/04/17 276# 62.2 50.2 1st pre-op visit ??03/28/17 258.1#?? EWL % ?? Surgery ??04/19/17 245# 22% 46.3 1 month post-op ??07/27/17 ??214# 45% 40.4 4 months post-op [place] Body Weight (based on BMI of 25): 138# Excess Weight: 140# 30-70% Excess Weight Loss: 180-235#; 50% Excess Weight Loss: 208# MEDICATIONS: Vitamin/Mineral Supplements (reported by patient): Supplement Type Brand/Form Dosage/Amount Frequency Comments Multivitamin Bariatric Fusion 1 pill 4x daily Calcium Vitamin B12 Iron Vitamin D3 Food Allergies/Intolerances: Nothing specific however sometimes the smell of things have turned herstomach (peanuts, Guinean fries) Tracking Intake: not daily but does track at times. 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 Water, sip or two of juice or milk with omeprazole urisidiol Soda: none ETOH: None. Caffeine: None Sweets: occ halo top. Most sweets turns her stomach Meals per day: 3 ?? Feels full/satisfied after eating: yes ?? Feels hungry []never [x]sometimes []most of the time [] always ?? Drinks with meals: None ?? Practices portion control: yes, eyeballs portions. Feels she now has a good sense of how much she can eat. Earlier after surgery she would put too much on her plate and not be able to finish it. ?? Spends at least 20 minutes eating each meal: 20-30 minutes ?? Has had dumping syndrome: None. Foods/Symptoms: ?? In the past month, pt has vomited/regurgitated: vomited once after drinking too close to a meal ?? Constipation/Diarrhea: none. Exercise: gym 5 x week after work; 30 min. Cardio and 15 min of resistance. ASSESSMENT: Summary of Weight Loss: Patient's percent excess weight loss is 45% which is within the expected post-op bariatric surgery range. She is doing well with her meal plan, supplement and exercise routine. Her plan is to continue the path she is on. She weighs herself once per week. NUTRITION INTERVENTION & MONITORING: ?? Provided support/encouragement and reinforced importance of meeting nutritional goals. ?? Reviewed nutrition and vitamin and mineral supplement recommendations (see patient instructions). ?? Written recommendations provided. Patient agreed with these and verbalized adequate understanding. ?? Evaluation by nurse practitioner today. documented in this encounter Plan of Treatment Not on file documented as of this encounter Procedures Procedure Name Priority Date/Time Associated Diagnosis Comments HEMOGRAM Routine 07/27/2017 12:17 PM EDT Status post bariatric surgery Iron deficiency anemia, unspecified iron deficiency anemia type VITAMIN B1, WHOLE BLOOD Routine 07/27/2017 12:17 PM EDT Status post bariatric surgery IRON AND TIBC Routine 07/27/2017 12:17 PM EDT Status post bariatric surgery Iron deficiency anemia, unspecified iron deficiency anemia type VITAMIN D, 25-HYDROXY Routine 07/27/2017 12:17 PM EDT Status post bariatric surgery Vitamin D deficiency PREALBUMIN Routine 07/27/2017 12:17 PM EDT Status post bariatric surgery FOLATE, SERUM Routine 07/27/2017 12:17 PM EDT Status post bariatric surgery FERRITIN Routine 07/27/2017 12:17 PM EDT Status post bariatric surgery Iron deficiency anemia, unspecified iron deficiency anemia type VITAMIN B12 Routine 07/27/2017 12:17 PM EDT Status post bariatric surgery COMPREHENSIVE METABOLIC PANEL Routine 07/27/2017 12:17 PM EDT Status post bariatric surgery documented in this encounter Results * Folate, serum (07/27/2017 12:17 PM EDT) Folate >20.0 4.8 - 24.2 ng/mL [facility] Blood specimen (specimen) 07/27/2017 12:17 PM EDT 07/27/2017 12:32 PM EDT Narrative Resulting Agency Comment Spec In Lab Shikha Ledesma APRN CHEMISTRY ORDERABLES [facility] [place] [address] * Vitamin B1, whole blood (07/27/2017 12:17 PM EDT) Vit B1 Lvl Wb (JULY) 119 70 - 180 nmol/L [facility] Comment: ADDITIONAL INFORMATION This test was developed and its performance characteristics determined by [facility] in a manner consistent with CLIA requirements. This test has not been cleared or approved by the U.S. Food and Drug Administration. Test Performed by: [facility] [address] [place] [address] Blood specimen (specimen) 07/27/2017 12:17 PM EDT 07/30/2017 9:25 AM EDT Narrative Resulting Agency Comment Spec In Lab Shikha Ledesma LUCIANO LAB SEND OUT ORDERAB LES Performing Organization Address [facility] Co de Phone Number [facility] [place] [address] * Vitamin B12 (07/27/2017 12:17 PM EDT) Vitamin B12 386 232 - 1,245 pg/mL [facility] Comment: Please note: Effective 02/21/2017, the reference interval and the lower limit of detection for Vitamin B12 have been updated due to a new reagent formulation. Blood specimen (specimen) 07/27/2017 12:17 PM EDT 07/27/2017 12:32 PM EDT Narrative Resulting Agency Comment Spec In Lab Shikha Ledesma PUBLIC HEALTH DIRECTOR CHEMISTRY ORDERABLES Performing Organization Address [facility] Co de Phone Number [facility] [place] [address] * Vitamin D, 25-Hydroxy (07/27/2017 12:17 PM EDT) Vitamin D Total 25 OH 31 30 - 100 ng/mL [facility] Comment: Deficient <10 ng/mL Insufficient 10 to 29 ng/mL Sufficient 30 to 100 ng/mL Potential Intoxication >100 ng/mL According to the [place] National Osteoporosis Foundation, Vitamin D concentrations >30 ng/mL are sufficient to protect bone health. ??The National Kidney Foundation has similarly stated that patients with Vitamin D concentrations <30ng/mL should be considered to be insufficient or deficient. http://[employer].com/nkf-guidelines http://[employer].com/nejm-VitD The IDS iSYS Vitamin D Immunoassay detects both 25-OH Vitamin D2 and 25-OH Vitamin D3, but only a total Vitamin D concentration is reported. Blood specimen (specimen) 07/27/2017 12:17 PM EDT 07/30/2017 7:29 AM EDT Narrative Resulting Agency Comment Spec In Lab Shikha Ledesma PUBLIC HEALTH DIRECTOR CHEMISTRY ORDERABLES Performing Organization Address [facility]/ZIP Co de Phone Number [facility] [place] [address] * (ABNORMAL) Ferritin (07/27/2017 12:17 PM EDT) Ferritin 163(H) 15 - 150 ng/mL [facility] Comment: Pediatric reference ranges not verified at [facility], interpret with caution. Reference ranges for females greater than 50 years of age approach values for men, i.e., 30-400 ng/mL. Blood specimen (specimen) 07/27/2017 12:17 PM EDT 07/27/2017 12:32 PM EDT Narrative Resulting Agency Comment Spec In Lab Shikha Ledesma PUBLIC HEALTH DIRECTOR CHEMISTRY ORDERABLES Performing Organization Address [facility] Co de Phone Number [facility] [place] [address] * (ABNORMAL) Iron and TIBC (07/27/2017 12:17 PM EDT) Iron 43 30 - 150 mcg/dL [facility] TIBC 270 250 - 450 mcg/dL [facility] Iron Saturation 16(L) 20 - 50 % [facility] Blood specimen (specimen) 07/27/2017 12:17 PM EDT 07/27/2017 12:32 PM EDT Narrative Resulting Agency Comment Spec In Lab Shikha Ledesma PUBLIC HEALTH DIRECTOR CHEMISTRY ORDERABLES Performing Organization Address City/[facility]/ZIP Co de Phone Number [facility] [place] [address] * (ABNORMAL) Prealbumin (07/27/2017 12:17 PM EDT) Prealbumin 19(L) 20 - 40 mg/dL [facility] Comment: Prealbumin levels are generally lower in the pediatric population; adult concentrations are usually attained near puberty. Blood specimen (specimen) 07/27/2017 12:17 PM EDT 07/27/2017 12:32 PM EDT Narrative Resulting Agency Comment Spec In Lab Shikha Ledesma LUCIANO CHEMISTRY ORDERABLES [facility] [place] [address] * (ABNORMAL) Comprehensive metabolic panel (non-fasting) (07/27/2017 12:17 PM EDT) Glucose 84 65 - 199 mg/dL [facility] Comment:Diabetes: >=200 mg/d L plus symptoms Blood Urea Nitrogen 11 8 - 18 mg/dL [facility] Creatinine 0.59(L) 0.70 - 1.20 mg/dL [facility] Sodium 138 135 - 145 mmol/L [facility] Potassium 3.3(L) 3.5 - 5.0 mmol/L [facility] Comment: Please note: ??Patients with WBC >100,000 may have falsely elevated Potassium levels. ??For accurate Potassium quantification in these patients send serum separator tube (gold top) for subsequent determinations. ??Contact the Clinical Chemistry Laboratory if there are any questions. Chloride 102 98 - 107 mmol/L [facility] Carbon Dioxide 23 22 - 31 mmol/L [facility] Anion Gap 13 5 - 15 mmol/L [facility] Calcium 9.2 8.5 - 10.5 mg/dL [facility] Protein, Total 7.1 6.1 - 8.0 gm/dL [facility] Albumin 4.0 3.2 - 5.2 gm/dL [facility] Aspartate Aminotransferase 12 0 - 30 unit/L [facility] Alanine Aminotransferase 8 0 - 30 unit/L [facility] Alkaline Phosphatase 60 40 - 104 unit/L [facility] Bilirubin, Total 0.3 0.2 - 1.3 mg/dL [facility] Est Glomerular Filtration Rate >60 >=[address] [facility] Comment: The reported eGFR should be multiplied by 1.2 for patients. The MDRD is not an appropriate measure of renal function for patients with body mass extremes or in patients with acute kidney failure. http://FastFig/DHnkdep http://FastFig/DHMCnkf Blood specimen (specimen) 07/27/2017 12:17 PM EDT 07/27/2017 12:32 PM EDT Narrative Resulting Agency Comment Spec In Lab Shikha Es Maynarde LUCIANO CHEMISTRY ORDERABLES [facility] [place] [address] * (ABNORMAL) Hemogram (07/27/2017 12:17 PM EDT) White Blood Cell 12.7(H) 4.0 - 9.5 x10(3)/mc L [facility] Red Blood Cell 4.48 4.00 - 5.21 x10(6)/mc L [facility] Hemoglobin 12.5 11.7 - 15.5 gm/dL [facility] Hematocrit 38.0 35.7 - 45.8 % [facility] Mean Cell Volume 84.8 82.6 - 94.[address] [facility] Mean Cell Hemoglobin 27.9 27.1 - 32.[address] [facility] Mean Cell Hemoglobin Concentration 32.9 31.7 - 35.0 gm/dL [facility] Platelet 274 145 - 357 x10(3)/mc L [facility] RDW Standard Deviation 42.2 37.0 - 46.[address] [facility] RDW coefficient of variation 13.5 11.5 - 14.1 % [facility] Mean Platelet Volume 11.5 7.6 - 12.[address] [facility] NRBC% auto 0.0 % [facility] NRBC Absolute 0.000 0.000 - 0.000 x10(3)/mc L [facility] Blood specimen (specimen) 07/27/2017 12:17 PM EDT 07/27/2017 12:32 PM EDT Narrative Resulting Agency Comment Spec In Lab Shikha Ledesma PUBLIC HEALTH DIRECTOR HEMATOLOGY ORDERABLE [facility] [place] [address] documented in this encounter Visit Diagnoses Diagnosis Status post bariatric surgery Bariatric surgery status Vitamin D deficiency Unspecified vitamin D deficiency Iron deficiency anemia, unspecified iron deficiency anemia type documented in this encounter Care Teams Collections Associate Relationship Specialty Start Date End Date Samreen Warner APRN [address] [place] [address] PCP - General Family Medicine 09/14/16 07/22/23 documented as of this encounter
--- OUTSIDE RECORDS SUMMARY | 2024-01-08 17:56 | XMS_ITS | Encounter Summary ---
[place] [address] Care Team Providers Care Patent Leather Sorter Name Role Phone Samreen Warner APRN Primary Care Provider [phone] Encounter Details Date Type Department Care Team ([facility] st Contact Info) Description 04/02/2019 Telephone [place] [id number] Ashanti Clay Social History Tobacco Use Types [...] on filedocumented in this encounter Care Teams Patent Leather Sorter Relationship Specialty Start Date End Date Samreen Warner APRN [address] [place] [address] PCP - General Family Medicine 09/14/16 07/22/23 documented as of this encounter
--- OUTSIDE RECORDS SUMMARY | 2024-01-08 17:56 | XMS_ITS | Encounter Summary ---
[place] [address] Care Team Providers Care Traffic Control Signaler Name Role Phone Samreen Warner APRN Primary Care Provider Encounter Details Date Type Department Care Team ([facility] st Contact Info) Description 06/10/2019 Telephone [place] [phone] Felicitas Dorman Social History Tobacco Use Types Packs/Day Years [...] encounter Miscellaneous Notes * Telephone Encounter - Felicitas Dorman - 06/10/2019 11:03 AM EDT Spoke to pt to notify that surgery with Dr. Fowler on 06.11.2019 has been cancelled to due COVID-19 public health concern. We will call when able to reschedule. Pt agrees to plan. documented in this encounter Plan of Treatment Not on file documented as of this encounter Visit Diagnoses Not on filedocumented in this encounter Care Teams Traffic Control Signaler Relationship Specialty Start Date End Date Samreen Warner APRN [address] [place], [place] [id number] PCP - General Family Medicine 09/14/16 07/22/23 documented as of this encounter
--- OUTSIDE RECORDS SUMMARY | 2024-01-08 17:56 | XMS_ITS | Encounter Summary ---
[place] [address] Care Team Providers Care Shipping And Receiving Supervisor Name Role Phone Samreen Warner LUCIANO Primary Care Provider Reason for Visit * Reason Comments Follow-up s/p bariatric surger y, one year follow up Encounter Details Date Type Department Care Team (Late st Contact Info) Description 03/29/2018 10:00 AM EST Office [place] [address] Shikha Ledesma, INSPECTOR OUTSIDE PRODUCTION [facility] [address] [facility] [place] [address] [facility] [place] [address] S/P bariatric surgery; Status post bariatric surgery; Vitamin D deficiency; [...] Sign Reading Time Taken Comments Blood Pressure 112/69 03/29/2018 9:56 AM EST Pulse 68 03/29/2018 9:56 AM EST Temperature - - Respiratory Rate 16 03/29/2018 9:56 AM EST Oxygen Saturation 100% 03/29/2018 9:56 AM EST Inhaled Oxygen Concentration - - Weight 77.6 kg (171 lb) 03/29/2018 9:56 AM EST Height - - Body Mass Index 31.08 11/30/2017 9:55 AM EDT documented in this encounter Patient Instructions * Patient Instructions* Alyssia Reinoso, RD - 03/29/2018 10:00 AM EST [facility] it support analyst Madelyn [phone] and Ana [phone] Dietitians: [phone] Surgeons/ nurse practitioners: [phone] Nurse line: [phone] Testing: Labwork: Today. Go to [facility], which is 1 flight below the General Surgery Clinic. I will notify you via [facility] regarding your results and recommendations A copy of your labwork and office visit today is sent to your primary vehicle care specialist Next visit: Routine visits are done at 4.8,12, 18 and 24 months after surgery, and yearly thereafter. Please call [phone] if you do not receive an appointment by 3-4 weeks prior to the expected visit. Medications: 1. We may need to add some vitamin D, I'll let you know 2.Further recommendations pending labwork. Referrals: I will refer you to plastics for evaluation after your next visit Vitamins: The following vitamins are recommended: ?? Multivitamins with minerals daily - continue Bariatric Fusion 1 pill 4 times per day Nutrition recommendations: - Your Daily Goals: ?? [...] can cause upset stomach Activity: ??? Continue cardio and strength training at the gym 4-5 times per week. Alcohol: should be used sparingly, no more [...] increase the risk of ulcer and bleeding. Hair Loss: is associated with rapid weight [...] of every month from 1-2 PM at [facility]- no registration required Nutrition and Activity apps- Baritastic, My Fitness Pal, Lose It Internet resources: www.C[employer] www.Compass-EOS www.bariatriceaSpazzles.SabrTech www.Toro Development.SabrTech/blog [facility] facebook page: https://www.facebook.com/[email or web address]ric[facility]gery Books & Magazines: - Recipes for Life After Weight Loss Surgery by Leesa Mirza - Shrink Yourself by Dr Cristino Johnson - Eating Well - www.Bright!Tax - Cooking Light- www.AutoRadiolight.SabrTech documented in this encounter Progress Notes * Shikha Ledesma APRN - 03/29/2018 10:00 AM EST Reason for visit: Sophie is here for follow up 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 Complications summary: Early Non, slightly low potassium, resolved with diet Late none ?? Visits summary: Compliance with scheduled BSP follow-up: good Bariatric surgery graduates support group attendance: ??None Pre-op 01/04/2017 Wt (lbs) 276 BMI 50.2 ?? HT: 62.2 ? Post-op Visit date Wt (lbs) BMI %EBW lost Supplement compliance Labwork 04/19/2017 245 46.3 22 ? 07/27/2017 214 40.4 45 Good 4 month post op labs done today. 11/30/2017 185 33.6 66 Good, bariatric fusion Labs today 03/29/2017 171 31 Good bariatric fusion today ? Date Evaluation Results 09/2017 Primary care Follow up, check in, no changes, pap done 03/28/2017 EGD Done intraoperatively, some fundic polyps ?? Colonoscopy n/a ? Patient Active Problem List Diagnosis Code ??? Preoperative Class IV obesity BMI 50, sleeve gastrectomy planned 03/28/17 E66.01, Z68.43 ??? Vitamin D deficiency E55.9 ??? Low vitamin B12 level E53.8 ??? Iron deficiency E61.1 ??? Obesity E66.9 Medications 03/29/18 1051 Medication Sig Taking? UNABLE TO FIND 1 tablet 4 times daily. Med Name: Bariatric vitamin (chewable) Yes CYANOCOBALAMIN, VITAMIN B-12, (VITAMIN B-12 ORAL) Take 500 mcg by mouth daily. Yes CALCIUM CITRATE/VITAMIN D2 (CALCIUM CITRATE WITH D ORAL) Take by mouth daily. Yes etonogestrel (NEXPLANON) 68 mg Implant by Subdermal route. Yes No Known Allergies Visits to emergency department or other unplanned visit to a health care facility since last visit?none Changes to health/ evaluations/ social history since last visit: as per updated problem list and e-DH Subjective. Patient concerns at today's visit: Lennie returns for routine follow up. She is doing great, hasno complaints, feels her weight loss is almost where she wants it to be. Is confident in her ability to get to her goal weight and maintain it. She is managing her diet, exercising daily, Sleeping well. She would like to be considered for skin removal surgery. Benefits since surgery: weight loss, feeling good, went from size 24 to 12 jeans. Feeling confident, Very happy! Future goals: considering body contouring surgery, would like to be 165 as final weight which is only 5 lbs away, continue to feel good Bowel regimen: none, doesn't need to take anything, bm about every day, rare stool softener needed NSAID use: rare for headache Dietary history/ exercise/ activity level: See dietitian note. Review of Systems (negative if left blank): Constitutional: [] fatigue [] pica []restless leg Neurologic: []paresthesias [] memory loss CV: [] treatment for hypertension or taking antihypertensive medication [] treatment for hyperlipidemia Pulmonary: [] sleep apnea symptoms [] treatment for VICKIE- none, sleeps well, works nights but does fine with it GI: []GERD []dysphagia [] dumping [] abdominal pain [] hernia [] nausea/vomiting [] blood in stool [] chronic diarrhea/ constipation COMMUNITY DEVELOPMENT SPECIALIST: [x] LMP: Has very light, short periods, 3 days light flow, minimal cramping [x] control-nexplanon [] menorrhagia []post-menopause : [] ED []hesitancy []incontinence Skin: [x] redundant skin [] skinfold rashes, would like to consider body contouring surgery, manageskin with meticulous hygiene Heme/Lymph: []excessive bruising [] blood donor in past year Psychiatric [] mental health concerns-denies, doing very well, coping well Other: Employment/social: 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 year-old female appears stated age, NAD Heart: S1S2 distinct, no extra sounds or murmurs, RRR Lungs: Clear all lobes A&P, effort minimal, pattern regular Abdomen: soft, non-tender, no masses, no rebound, +BS. Abdominal trocar sites pale lines, no induration, no erythema Grade 1 abominal pannus 2 tiered abdominal effect Stria extending up to the umbilicus Hooding over the umbilical remnant Extremities: No LE edema, pulses present Vital signs: BP 112/69 (BP Location (NBP): Right arm) Pulse 68 Resp 16 Wt 77.6 kg (171 lb) SpO2 100% BMI 31.08 kg/m?? Today's labs: Recent Results (from the past 72 hour(s)) Folate, serum Result Value Ref Range Folate Lvl 6.0 4.8 - 24.2 ng/mL Vitamin B12 Result Value Ref Range Vitamin B-12 324 232 - 1,245 pg/mL Vitamin D, 25-Hydroxy Result Value Ref Range 25-OH Vit D Total 25 (L) 30 - 100 ng/mL Ferritin Result Value Ref Range Ferritin 175 (H) 15 - 150 ng/mL Iron and TIBC Result Value Ref Range Iron 75 30 - 150 mcg/dL TIBC 241 (L) 250 - 450 mcg/dL Iron Saturation 31 20 - 50 % Prealbumin Result Value Ref Range Prealbumin 20 20 - 40 mg/dL Comprehensive metabolic panel (non-fasting) Result Value Ref Range Glucose Lvl 80 65 - 199 mg/dL BUN 10 8 - 18 mg/dL Creatinine 0.64 (L) 0.70 - 1.20 mg/dL Sodium 139 135 - 145 mmol/L Potassium 4.1 3.5 - 5.0 mmol/L Chloride 104 98 - 107 mmol/L CO2 24 22 - 31 mmol/L Anion Gap 11 5 - 15 mmol/L Calcium 9.0 8.5 - 10.5 mg/dL Total Protein 6.7 6.1 - 8.0 gm/dL Albumin 3.9 3.2 - 5.2 gm/dL AST 9 0 - 30 unit/L ALT 8 0 - 30 unit/L Alk Phos 55 40 - 104 unit/L Total Bilirubin 0.4 0.2 - 1.3 mg/dL eGFR 116 >=60 mL/min/1.73 m?? eGFR 134 >=60 mL/min/1.73 m?? Hemogram Result Value Ref Range WBC 9.2 4.0 - 9.5 x10(3)/mcL RBC 4.31 4.00 - 5.21 x10(6)/mcL Hemoglobin 12.3 11.7 - 15.5 gm/dL Hematocrit 37.6 35.7 - 45.8 % MCV 87.2 82.6 - 94.4 fL MCH 28.5 27.1 - 32.0 pg MCHC 32.7 31.7 - 35.0 gm/dL Platelets 250 145 - 357 x10(3)/mcL RDWSD 41.3 37.0 - 46.0 fL RDWCV 12.9 11.5 - 14.1 % MPV 11.1 7.6 - 12.9 fL nRBC % Auto 0.0 % nRBC Abs Auto 0.000 0.000 - 0.000 x10(3)/mcL resume vitamin D 50,000 units once a week for 6 months. Add B12 500 mcg daily, continue other supplements. Assessment: S/P sleeve gastrectomy , with loss of 76% of excess body weight. Encounter Diagnoses Name ??? S/P bariatric surgery Doing well post op, close to goal weight, doing very well following bariatric surgery guidelines ??? Status post bariatric surgery As above, no complaints other than sagging skin, would like to see plastics after her 18 month follow up visit. ??? Vitamin D deficiency Start vitamin D 50,000 units weekly for 6 months, recheck in 6 months ??? Iron deficiency Continue current bariatric multi with iron, add 500 mcg B12 Plan: ?? Sophie was congratulated on her ongoing healthy lifestyle efforts ?? E- medical record since last BSP visit reviewed ?? Next BSP visit: 6 months, sooner if indicated ?? Next labwork: today and 6 months, sooner if indicated. ?? Additional vitamin and mineral supplement recommendations (*in addition to usual post surgery supplements, as noted below): vitamin D 50,000 units weekly, B12 500 mcg daily ?? dietary/ exercise recommendations per RD ?? Advised to call if develops unexplained abdominal pain, concerns or questions ?? Constipation strategies reviewed, she is doing well with managing with diet, fluids and exercise ?? provided with a January 2013 edition of One Year and Beyond bariatric surgery, a resource regarding supplements, diet, recommendations for patients > 1 year post-operatively She was provided with a Bariatric Program Summary report which included the above recommendations, as well as information on vitamin and mineral supplementation, fluids, exercise and support group meetings. She has had an opportunity to have all her questions answered and is in agreement with the plan of care. Lennie was advised of lab results via [facility] per patient request. RECOMMENDED BARIATRIC SURGERY PROGRAM POSTOPERATIVE FOLLOW-UP: Follow [...] If labwork is done by the primary vehicle care specialist: pleasesend a copy to the Bariatric Surgery Program, General Surgery Clinic, [facility], Questions regarding [facility] Bariatric Surgery Program patients: please call the Bariatric Surgery Program at [phone] * Alyssia Reinoso RD - 03/29/2018 10:00 AM EST Bariatric Surgery Program Nutrition Progress Note Encounter Type: follow up SUBJECTIVE: Topics Discussed/Patient Concerns: ?? Down too more pants sizes. 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 ?? Social support: and mother continue to be supportive. ?? Hobbies: scrapbooking, reading, spending time w spouse and friends ?? Vision at 2 years post-op: To try new things, consider starting a family, traveling ?? OBJECTIVE: ?? Date of Bariatric Surgery: 03/28/17 Type of Bariatric Surgery: Laparoscopic Sleeve Gastrectomy ?? Weight History: ?? Date Weight (lbs) HT BMI Comments ~2013 283# ? Highest Weight 07/06/16 278# 62.2 ?? Initial program weight 01/04/17 276# 62.2 50.2 1st pre-op visit ??03/28/17 258.1#?? EWL % ?? Surgery ??04/19/17 245# 22% 46.3 1 month post-op ??07/27/17 ??214# 45% 40.4 4 months post-op 11/30/17 185.1# 66% 33.6 8 months post-op 03/29/18 171# 76% 31.1 1 year post-op Gilbert Body Weight (based on BMI of 25): 138# Excess Weight: 140# 30-70% Excess Weight Loss: 180-235#; 50% Excess Weight Loss: 208# MEDICATIONS: ?? Vitamin/Mineral Supplements (reported by patient): Supplement Type Brand/Form Dosage/Amount Frequency Comments Multivitamin Bariatric Fusion 1 pill 4x daily Contains calcium, B12, and iron?? Calcium ? Vitamin B12 ? Iron ? Vitamin D3 ? Food Allergies/Intolerances: Peanuts, Uzbek fries, M&M - lost taste for it. Can't eat pizza ?? Tracking Intake: None. Typical Dietary Intake: bed at 9:30A. Eats about 1 cup at time. States yesterday was an off day bc she had errands to run after work and Breakfast 3-4A Fruit or yogurt AM Snack Lunch 4-5P Fish or chicken baked with vegetables PM Snack Dinner 12P-1A Chicken with vegetables HS Snack Protein/ grams per day: 60 Hydrating fluids- oz/ day: Water all day Soda: None. ETOH: None. Since surgery makes her feel sick Caffeine: None. Sweets: Occ. Doesn't really want it Meals per day: 3 ?? Feels full/satisfied after eating: yes ?? Drinks with meals: occ sips w dry food ?? Practices portion control: yes, using portion controlled containers ?? Has had dumping syndrome: None Foods/Symptoms: ?? In the past month, pt has vomited/regurgitated: none ?? Constipation/Diarrhea: None Exercise: gym 4-5 times per week - 30 minutes cardio; 15-20 min resistance training ASSESSMENT: Summary of Weight Loss: Patient's percent excess weight loss is 76% which is within the expected post-op bariatric surgery range. She is meeting protein and fluid needs. She also taking the recommended supplement. Encouraged ongoing exercise. NUTRITION INTERVENTION & MONITORING: ?? Provided support/encouragement and reinforced importance of meeting nutritional goals. ?? Reviewed nutrition and vitamin and mineral supplement recommendations (see patient instructions). ?? Written recommendations provided. Patient agreed with these and verbalized adequate understanding. ?? Evaluation by nurse practitioner today. ?? Handouts provided: One Year and Beyond (revised 06/2013) documented in this encounter Plan of Treatment Not on file documented as of this encounter Procedures Procedure Name Priority Date/Time Associated Diagnosis Comments HEMOGRAM Routine 03/29/2018 11:33 AM EST S/P bariatric surgery Status post bariatric surgery Iron deficiency IRON AND TIBC Routine 03/29/2018 11:33 AM EST S/P bariatric surgery Status post bariatric surgery Iron deficiency VITAMIN D, 25-HYDROXY Routine 03/29/2018 11:33 AM EST S/P bariatric surgery Status post bariatric surgery Vitamin D deficiency Iron deficiency PREALBUMIN Routine 03/29/2018 11:33 AM EST S/P bariatric surgery Status post bariatric surgery Iron deficiency FOLATE, SERUM Routine 03/29/2018 11:33 AM EST S/P bariatric surgery Status post bariatric surgery Iron deficiency FERRITIN Routine 03/29/2018 11:33 AM EST S/P bariatric surgery Status post bariatric surgery Iron deficiency VITAMIN B12 Routine 03/29/2018 11:33 AM EST S/P bariatric surgery Status post bariatric surgery Iron deficiency COMPREHENSIVE METABOLIC PANEL Routine 03/29/2018 11:33 AM EST S/P bariatric surgery Status post bariatric surgery Iron deficiency documented in this encounter Results * Folate, serum (03/29/2018 11:33 AM EST) Folate 6.0 4.8 - 24.2 ng/mL [facility] Blood specimen (specimen) 03/29/2018 11:33 AM EST 03/29/2018 11:39 AM EST Narrative Resulting Agency Comment Spec In Lab Shikha Ledesma INSPECTOR OUTSIDE PRODUCTION CHEMISTRY ORDERABLES [facility] [place] [address] * Vitamin B12 (03/29/2018 11:33 AM EST) Vitamin B12 324 232 - 1,245 pg/mL [facility] Blood specimen (specimen) 03/29/2018 11:33 AM EST 03/29/2018 11:39 AM EST Narrative Resulting Agency Comment Spec In Lab Shikha Ledesma INSPECTOR OUTSIDE PRODUCTION CHEMISTRY ORDERABLES [facility] [place] [address] * (ABNORMAL) Vitamin D, 25-Hydroxy (03/29/2018 11:33 AM EST) [facility] Signature Vitamin D Total 25 OH 25(L) 30 - 100 ng/mL [facility] Comment: Deficient <10 ng/mL Insufficient 10 to 29 ng/mL Sufficient 30 to 100 ng/mL Potential Intoxication >100 ng/mL According to the [place] National Osteoporosis Foundation, Vitamin D concentrations >30 ng/mL are sufficient to protect bone health. ??The National Kidney Foundation has similarly stated that patients with Vitamin D concentrations <30ng/mL should be considered to be insufficient or deficient. http://[employer].SabrTech/nkf-guidelines http://Real Food Real Kitchens/nejm-VitD The IDS iSYS Vitamin D Immunoassay detects both 25-OH Vitamin D2 and 25-OH Vitamin D3, but only a total Vitamin D concentration is reported. Blood specimen (specimen) 03/29/2018 11:33 AM EST 03/29/2018 1:15 PM EST Narrative Resulting Agency Comment Spec In Lab Shikha Ledesma INSPECTOR OUTSIDE PRODUCTION CHEMISTRY ORDERABLES Performing Organization Address City/[facility]/ZIP Co de Phone Number [facility] [place] [address] * (ABNORMAL) Ferritin (03/29/2018 11:33 AM EST) Ferritin 175(H) 15 - 150 ng/mL [facility] Comment: Pediatric reference ranges not verified at [facility], interpret with caution. Reference ranges for females greater than 50 years of age approach values for men, i.e., 30-400 ng/mL. Blood specimen (specimen) 03/29/2018 11:33 AM EST 03/29/2018 11:39 AM EST Narrative Resulting Agency Comment Spec In Lab Shikha Ledesma APRN CHEMISTRY ORDERABLES Performing Organization Address [facility]/ZIP Co de Phone Number [facility] [place] [address] * (ABNORMAL) Iron and TIBC (03/29/2018 11:33 AM EST) Iron 75 30 - 150 mcg/dL [facility] TIBC 241(L) 250 - 450 mcg/dL [facility] Iron Saturation 31 20 - 50 % [facility] Blood specimen (specimen) 03/29/2018 11:33 AM EST 03/29/2018 11:39 AM EST Narrative Resulting Agency Comment Spec In Lab Shikha Ledesma INSPECTOR OUTSIDE PRODUCTION CHEMISTRY ORDERABLES Performing Organization Address [facility] Co de Phone Number [facility] [place] [address] * Prealbumin (03/29/2018 11:33 AM EST) Prealbumin 20 20 - 40 mg/dL [facility] Comment: Prealbumin levels are generally lower in the pediatric population; adult concentrations are usually attained near puberty. Blood specimen (specimen) 03/29/2018 11:33 AM EST 03/29/2018 11:39 AM EST Narrative Resulting Agency Comment Spec In Lab Shikha Ledesma INSPECTOR OUTSIDE PRODUCTION CHEMISTRY ORDERABLES Performing Organization Address City/[facility] Co de Phone Number [facility] [place] [address] * (ABNORMAL) Comprehensive metabolic panel (non-fasting) (03/29/2018 11:33 AM EST) Glucose 80 65 - 199 mg/dL [facility] Comment:Diabetes: >=200 mg/d L plus symptoms Blood Urea Nitrogen 10 8 - 18 mg/dL [facility] Creatinine 0.64(L) 0.70 - 1.20 mg/dL [facility] Sodium 139 135 - 145 mmol/L [facility] Potassium 4.1 3.5 - 5.0 mmol/L [facility] Comment: Please note: ??Patients with WBC >100,000 may have falsely elevated Potassium levels. ??For accurate Potassium quantification in these patients send serum separator tube (gold top) for subsequent determinations. ??Contact the Clinical Chemistry Laboratory if there are any questions. Chloride 104 98 - 107 mmol/L [facility] Carbon Dioxide 24 22 - 31 mmol/L [facility] Anion Gap 11 5 - 15 mmol/L [facility] Calcium 9.0 8.5 - 10.5 mg/dL [facility] Protein, Total 6.7 6.1 - 8.0 gm/dL [facility] Albumin 3.9 3.2 - 5.2 gm/dL [facility] Aspartate Aminotransferase 9 0 - 30 unit/L [facility] Alanine Aminotransferase 8 0 - 30 unit/L [facility] Alkaline Phosphatase 55 40 - 104 unit/L [facility] Bilirubin, Total 0.4 0.2 - 1.3 mg/dL [facility] Est Glomerular Filtration Rate 116 >=60 mL/min/1. 73 m?? [facility] Comment: The eGFR was calculated using the CKD-EPI equation. As with all creatinine based estimates of kidney function, eGFR values calculated with the CKD-EPI equation are not accurate in patients with acute kidney failure, extremes of body mass or the acutely ill. http://Real Food Real Kitchens/DHMCnkf eGFR 134 >=60 mL/min/1. 73 m?? [facility] Comment: The eGFR was calculated using the CKD-EPI equation. As with all creatinine based estimates of kidney function, eGFR values calculated with the CKD-EPI equation are not accurate in patients with acute kidney failure, extremes of body mass or the acutely ill. http://Real Food Real Kitchens/DHMCnkf Blood specimen (specimen) 03/29/2018 11:33 AM EST 03/29/2018 11:39 AM EST Narrative Resulting Agency Comment Spec In Lab Shikha Ledesma LUCIANO CHEMISTRY ORDERABLES Performing Organization Address City/[facility] Co de Phone Number [facility] [place] [address] * Hemogram (03/29/2018 11:33 AM EST) White Blood Cell 9.2 4.0 - 9.5 x10(3)/[facility] Red Blood Cell 4.31 4.00 - 5.21 x10(6)/[facility] Hemoglobin 12.3 11.7 - 15.5 gm/dL [facility] Hematocrit 37.6 35.7 - 45.8 % [facility] Mean Cell Volume 87.2 82.6 - 94.4 [facility] Mean Cell Hemoglobin 28.5 27.1 - 32.0 pg [facility] Mean Cell Hemoglobin Concentration 32.7 31.7 - 35.0 gm/dL [facility] Platelet 250 145 - 357 x10(3)/[facility] RDW Standard Deviation 41.3 37.0 - 46.0 [facility] RDW coefficient of variation 12.9 11.5 - 14.1 % [facility] Mean Platelet Volume 11.1 7.6 - 12.9 [facility]ORY NRBC% auto 0.0 % [facility] NRBC Absolute 0.000 0.000 - 0.000 x10(3)/[facility] Blood specimen (specimen) 03/29/2018 11:33 AM EST 03/29/2018 11:39 AM EST Narrative Resulting Agency Comment Spec In Lab Shikha Ledesma LUCIANO HEMATOLOGY ORDERABLE S [facility] [place] [address] documented in this encounter Visit Diagnoses Diagnosis S/P bariatric surgery Bariatric surgery status Status post bariatric surgery Bariatric surgery status Vitamin D deficiency Unspecified vitamin D deficiency Iron deficiency Iron deficiency anemia, unspecified documented in this encounter Care Teams Shipping And Receiving Supervisor Relationship Specialty Start Date End Date Samreen Warner, INSPECTOR OUTSIDE PRODUCTION [address] [facility] [place] [address] PCP - General Family Medicine 09/14/16 07/22/23 documented as of this encounter
--- OUTSIDE RECORDS SUMMARY | 2024-01-08 17:56 | XMS_ITS | Encounter Summary ---
Author [place] [address] Care Team Providers Care Multiple Coil Winder Name Role Phone Samreen Warner APRN Primary Care Provider Encounter Details Date Type Department Care Team ([facility] st Contact Info) Description 04/17/2019 [place]phone [place] [id number] Rowena Cisneros Social History Tobacco Use Types [...] on filedocumented in this encounter Care Teams Multiple Coil Winder Relationship Specialty Start Date End Date Samreen Warner APRN [address] [place] [address] PCP - General Family Medicine 09/14/16 07/22/23 documented as of this encounter
--- OUTSIDE RECORDS SUMMARY | 2024-01-08 17:56 | XMS_ITS | Encounter Summary ---
[place] [address] Care Team Providers Care Associate Professor Of Biology Name Role Phone JeanSamreen benedict LUCIANO Primary Care Provider [phone] Reason for Visit * Reason Comments Follow-up s/p Sleeve Gastrecto my 03/2017, here for nutritional assessment, physical exam, labs, counseling and education Encounter Details Date Type Department Care Team (Late st Contact Info) Description 11/30/2017 10:00 AM EDT Office [place] [address] Shikha Ledesma APRN [facility] [address] [facility] [place] [address] [facility] [place] [address] Status post bariatric surgery; Iron deficiency; Hypokalemia Social History Tobacco Use Types Packs/Day [...] Sign Reading Time Taken Comments Blood Pressure 109/67 11/30/2017 9:55 AM EDT Pulse 66 11/30/2017 9:55 AM EDT Temperature 36.7 ??C (98.1 ??F) 11/30/2017 9:55 AM ED T Respiratory Rate 12 11/30/2017 9:55 AM EDT Oxygen Saturation 100% 11/30/2017 9:55 AM EDT Inhaled Oxygen Concentration - - Weight 84 kg (185 lb 1.6 oz) 11/30/2017 9:55 AM EDT Height 158 cm (5' 2.2) 11/30/2017 9:55 AM EDT Body Mass Index 33.64 11/30/2017 9:55 AM EDT documented in this encounter Patient Instructions * Patient Instructions* Shikha Ledesma, PAPERHANGER PIPE - 11/30/2017 10:00 AM EDT [facility] support architect Madelyn [phone] and Carmen [phone] Dietitians: [phone] Surgeons/ nurse practitioners: [phone] Nurse line: [phone] Testing: Labwork: Today. Go to Business Development Assistant Area [facility], which is 1 flight below the General Surgery Clinic. I'll let you know about your labs via [facility] with recommendations A copy of your labwork and office visit today is sent to your primary nurse wound care Next visit: Routine visits are done at 4.8,12, 18 and 24 months after surgery, and yearly thereafter. Please call [phone] if you do not receive an appointment by 3-4 weeks prior to the expected visit. Medications: 1. Further recommendations pending labwork. Referrals: none needed Vitamins: The following vitamins are recommended: ?? Multivitamins with minerals- Bariatric Fusion: 1 pill 4 times per day. If you get tired of the flavor, let us know and we can brainstorm other brands that might work well for you. Nutrition recommendations: - Excellent job meeting protein and fluid needs! - Your [...] quickly, can cause upset stomach Activity: ??? Keep up the great work going to the gym 4-5 days per week! Alcohol: should be used sparingly, no [...] increase the risk of ulcer and bleeding. Call us: ??? If you have concerns. ??? If you have unexplained abdominal pain. ??? if you see blood in your stool or vomit blood ??? If you have prolonged vomiting Post Surgery Support Group: Our post surgery support group meets on the first Sunday of every month from 1-2 PM at [facility]- no registration required Nutrition and Activity apps- Baritastic, My Fitness Pal, Lose It, My Plate Internet resources: www.College of Nursing and Health Sciences ([employer]) www.awe.sm www.Muzooka www.Book A Boat.Ongo/blog [facility] facebook page: https://www.facebook.com/[facility] CITYBariatricSurgery Books & Magazines: - Recipes for Life After Weight Loss Surgery by Leesa Mirza - Shrink Yourself by Dr Cristino Johnson - Eating Well - www.Arcadian Networks.Ongo - Cooking Light- www.cookinglight.Ongo documented in this encounter Progress Notes * Shikha Ledesma APRN - 11/30/2017 10:00 AM EDT Reason for visit: Sophie is here for follow up 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 Complications summary: Early Non, slightly low [...] 33.6 66 Good, bariatric fusion Labs today ? Date Evaluation Results 09/2017 Primary [...] Iron deficiency E61.1 ??? Obesity E66.9 Medications 11/30/17 1110 Medication Sig Taking? CYANOCOBALAMIN, VITAMIN B-12, (VITAMIN B-12 ORAL) Take 500 mcg by mouth daily. Yes MULTIVITAMIN/IRON/FOLIC ACID (COMPLETE MULTIVITAMIN-MINERAL ORAL) Take 1 tablet by mouth daily. Yes CALCIUM CITRATE/VITAMIN D2 (CALCIUM CITRATE WITH D ORAL) Take by mouth daily. Yes etonogestrel (NEXPLANON) 68 mg Implant by Subdermal route. Yes No Known Allergies Visits to emergency department or other unplanned visit to a health care facility since last visit?None Changes to health/ evaluations/ social history since last visit: as per updated problem list and e-DH Subjective. Patient concerns at today's visit: Sophie returns for routine follow up. She is doing very well, is very excited about all of her changes, feels the weight loss has impacted all aspects of her life. She no longer feels she needs to shop as much, she has a healthy relationship with food, no longer has cravings and feels she no longer has a void that she is constantly trying to fill. Is very happy with her weight loss and how well she feels. She has no complaints today. Benefits since surgery: as above, feeling better about her life overall, pleased about weight loss,energy level and ability to be more involved in life Future goals: would really like to get her weight to 165 but is ok with wherever she lands, is committed to ongoing changes, has been very compliant and knows that changes are life long, therefore knows she will end up at a healthy weight as long as she stays on track. Bowel regimen: NSAID use: none, tylenol for occasional aches and pain Dietary history/ exercise/ activity level: See dietitian note. 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] LMP: 11/08 [x] control-implant, very happy with it [] menorrhagia [] post-menopause Skin: [x] redundant skin skinfold rashes, has noticed she is starting to really have some sagging skin, most bothersome on her breasts, abdomen, uses meticulous hygiene to maintain skin integrity, norash currently Heme/Lymph: [] excessive bruising [] blood donor in past year Psychiatric [] mental health concerns-none, feels she has adapted very well to changes post op, is able to cope with others' responses to her surgery in a healthy way Other: Employment/social: 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 Health-related habits: Tobacco: none Alcohol: as per RD note -none Objective: General: Sophie is a pleasant, engaged, appropriate, healthy appearing 37 y.o. year-old female who appears stated age, NAD Heart: S1S2 distinct, no extra sounds or murmurs, RRR Lungs: Clear all lobes A&P, effort minimal, pattern regular Abdomen: soft, non-tender, no masses, no rebound, +BS. Abdominal trocar sites pink, closed, no erythema or induration Grade 2 abominal pannus 2 tiered abdominal effect Stria extending up to the umbilicus Hooding over the umbilical remnant Extremities: No LE edema, pulses present Vital signs:BP 109/67 Pulse 66 Temp 36.7 ??C (98.1 ??F) (Oral) Resp 12 Ht 158 cm (5' 2.2) Wt 84 kg (185 lb 1.6 oz) LMP (Approximate) SpO2 100% BMI 33.64 kg/m2 Today's labs: Recent Results (from the past 72 hour(s)) Hemogram Result Value Ref Range WBC 9.8 (H) 4.0 - 9.5 x10(3)/mcL RBC 4.63 4.00 - 5.21 x10(6)/mcL Hemoglobin 13.1 11.7 - 15.5 gm/dL Hematocrit 39.7 35.7 - 45.8 % MCV 85.7 82.6 - 94.4 fL MCH 28.3 27.1 - 32.0 pg MCHC 33.0 31.7 - 35.0 gm/dL Platelets 269 145 - 357 x10(3)/mcL RDWSD 40.2 37.0 - 46.0 fL RDWCV 12.8 11.5 - 14.1 % MPV 11.2 7.6 - 12.9 fL nRBC % Auto 0.0 % nRBC Abs Auto 0.000 0.000 - 0.000 x10(3)/mcL Comprehensive metabolic panel (non-fasting) Result Value Ref Range Glucose Lvl 87 65 - 199 mg/dL BUN 10 8 - 18 mg/dL Creatinine 0.67 (L) 0.70 - 1.20 mg/dL Sodium 142 135 - 145 mmol/L Potassium 4.0 3.5 - 5.0 mmol/L Chloride 105 98 - 107 mmol/L CO2 23 22 - 31 mmol/L Anion Gap 14 5 - 15 mmol/L Calcium 9.3 8.5 - 10.5 mg/dL Total Protein 7.1 6.1 - 8.0 gm/dL Albumin 4.0 3.2 - 5.2 gm/dL AST 10 0 - 30 unit/L ALT 6 0 - 30 unit/L Alk Phos 57 40 - 104 unit/L Total Bilirubin 0.5 0.2 - 1.3 mg/dL eGFR 114 >=60 mL/min/1.73 m?? eGFR 132 >=60 mL/min/1.73 m?? Prealbumin Result Value Ref Range Prealbumin 23 20 - 40 mg/dL Iron and TIBC Result Value Ref Range Iron 60 30 - 150 mcg/dL TIBC 275 250 - 450 mcg/dL Iron Saturation 22 20 - 50 % Ferritin Result Value Ref Range Ferritin 192 (H) 15 - 150 ng/mL Vitamin D, 25-Hydroxy Result Value Ref Range 25-OH Vit D Total 31 30 - 100 ng/mL Vitamin B12 Result Value Ref Range Vitamin B-12 495 232 - 1245 pg/mL Folate, serum Result Value Ref Range Folate Lvl >20.0 4.8 - 24.2 ng/mL labs reviewed, instructed to add 2000 units vitamin D daily, continue other supplements for now. Will re evaluate ferritin in 4 months. Assessment: S/P sleeve gastrectomy, with loss of 66% of excess body weight. Encounter Diagnoses Name ??? Status post bariatric surgery Doing very well post op, continue with diet and exercise recommendations. Continue bariatric fusion, add vitamin D 2000 iu daily, we will continue to monitor ferritin, she is menstruating regularly so will continue with some iron in her mvi ??? Iron deficiency As above, will continue to monitor, iron level is stablre ??? Hypokalemia Resolved Plan: ?? Sophie was congratulated on her ongoing healthy lifestyle efforts ?? E- medical record since last BSP visit reviewed ?? Next BSP visit: 4 months, sooner if indicated ?? Next labwork: 4 months, sooner if indicated ?? Additional vitamin and mineral supplement recommendations (*in addition to usual post surgery supplements, as noted below): ?? dietary/ exercise recommendations per RD ?? Advised to call if develops unexplained abdominal pain, concerns or questions ?? Constipation strategies discussed. ?? provided with a January 2013 edition [...] Lennie was advised of lab results via [facility] per patient request. RECOMMENDED BARIATRIC SURGERY PROGRAM [...] If labwork is done by the primary nurse wound care: pleasesend a copy to the Bariatric Surgery Program, General Surgery Clinic, [facility], Questions regarding [facility] Bariatric Surgery Program patients: please call the Bariatric Surgery Program at [phone] * Alyssia Reinoso RD - 11/30/2017 10:00 AM EDT Bariatric Surgery Program Nutrition Progress Note Encounter Type: follow up SUBJECTIVE: Topics Discussed/Patient Concerns: ?? No dietary concerns at this time. ?? Has a goal weight of 165#. However, also states she is enjoying her journey and takes the time to appreciate the nonscale victories. States she continues to lose weight. Notes that usually one week out of a month she will plateau and then start losing again. 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 Social support: and mother continue to be supportive. Hobbies: scrapbooking, reading, spending time w spouse [...] 11/30/17 185.1# 66% 33.6 8 months post-op [place] Body Weight (based on BMI of 25): 138# Excess Weight: 140# 30-70% Excess Weight Loss: 180-235#; 50% Excess Weight Loss: 208# MEDICATIONS: Vitamin/Mineral Supplements (reported by patient): Supplement Type Brand/Form Dosage/Amount Frequency Comments Multivitamin Bariatric Fusion 1 pill 4x daily Calcium Vitamin B12 Iron Vitamin D3 Food Allergies/Intolerances: Peanuts, Croatian fries, M&M - lost taste for it. Can't eat pizza Tracking Intake: None. Daily Oral Intake: shift supervisor - 10:45P-6:45A. Eats about 1 cup at a meal Breakfast - 4P German yogurt/fruit AM Snack Lunch- 9P 2.5-3 oz Chicken or fish w/vegetables PM Snack Dinner- 12P Chicken w/potato HS Snack Protein/ grams per day: 60 Hydrating fluids- oz/ day: 40-60 oz water daily Soda: None ETOH: None Caffeine: None Sweets: None Meals per day: 3 ?? Feels full/satisfied after eating: Yes ?? Feels hungry: sometimes- not really hungry but aware that I need to eat. ?? Drinks with meals: No ?? Practices portion control: Yes. ?? Spends at least 20 minutes eating each meal: Yes about 30 minutes per meal ?? Has had dumping syndrome: None. Tends to avoid sweets bc they do not appeal to her Foods/Symptoms: ?? In the past month, pt has vomited/regurgitated: None ?? Constipation/Diarrhea: None. Exercise: Goes to the gym in the morning after work. 4-5 x week for 45 minutes. Typically cardio machines. ASSESSMENT: Summary of Weight Loss: Patient's percent excess weight loss is 66% which is within the expected post-op bariatric surgery range. She is tolerating the diet and is consistently meeting protein and fluid needs. Pt feels she has plenty of variety in her diet. She is taking the recommended supplements; notes she doesn't really like the flavor of them but can tolerate them. She exercises regularly after work. NUTRITION INTERVENTION & MONITORING: ?? Provided support/encouragement [...] Priority Date/Time Associated Diagnosis Comments HEMOGRAM Routine 11/30/2017 11:26 AM EDT Status post bariatric surgery Iron deficiency IRON AND TIBC Routine 11/30/2017 11:26 AM EDT Status post bariatric surgery Iron deficiency VITAMIN D, 25-HYDROXY Routine 11/30/2017 11:26 AM EDT Status post bariatric surgery Iron deficiency PREALBUMIN Routine 11/30/2017 11:26 AM EDT Status post bariatric surgery FOLATE, SERUM Routine 11/30/2017 11:26 AM EDT Status post bariatric surgery Iron deficiency FERRITIN Routine 11/30/2017 11:26 AM EDT Status post bariatric surgery Iron deficiency VITAMIN B12 Routine 11/30/2017 11:26 AM EDT Status post bariatric surgery Iron deficiency COMPREHENSIVE METABOLIC PANEL Routine 11/30/2017 11:26 AM EDT Status post bariatric surgery documented in this encounter Results * Folate, serum (11/30/2017 11:26 AM EDT) Folate >20.0 4.8 - 24.2 ng/mL [facility] Blood specimen (specimen) 11/30/2017 11:26 AM EDT 11/30/2017 11:38 AM EDT Narrative Resulting Agency Comment Spec In Lab Shikha Ledesma PAPERHANGER PIPE CHEMISTRY ORDERABLES Performing Organization Address [facility]/ZIP Co de Phone Number [facility] [place] [address] * Vitamin B12 (11/30/2017 11:26 AM EDT) Vitamin B12 495 232 - 1,245 pg/mL [facility] Comment: Please note: Effective 02/21/2017, the reference interval and the lower limit of detection for Vitamin B12 have been updated due to a new reagent formulation. Blood specimen (specimen) 11/30/2017 11:26 AM EDT 11/30/2017 11:38 AM EDT Narrative Resulting Agency Comment Spec In Lab Shikha Ledesma PAPERHANGER PIPE CHEMISTRY ORDERABLES Performing Organization Address [facility] Co de Phone Number [facility] [place] [address] * Vitamin D, 25-Hydroxy (11/30/2017 11:26 AM EDT) Vitamin D Total 25 OH 31 30 - 100 ng/mL [facility] Comment: Deficient <10 ng/mL Insufficient 10 to 29 ng/mL Sufficient 30 to 100 ng/mL Potential Intoxication >100 ng/mL According to the [place] National Osteoporosis Foundation, Vitamin D concentrations >30 ng/mL are sufficient to protect bone health. ??The National Kidney Foundation has similarly stated that patients with Vitamin D concentrations <30ng/mL should be considered to be insufficient or deficient. http://BLUEPHOENIX.Ongo/nkf-guidelines http://BLUEPHOENIX.com/nejm-VitD The IDS iSYS Vitamin D Immunoassay detects both 25-OH Vitamin D2 and 25-OH Vitamin D3, but only a total Vitamin D concentration is reported. Blood specimen (specimen) 11/30/2017 11:26 AM EDT 11/30/2017 1:30 PM EDT Narrative Resulting Agency Comment Spec In Lab Shikha Ledesma PAPERHANGER PIPE CHEMISTRY ORDERABLES Performing Organization Address City/State/[facility] Co de Phone Number [facility] [place] [address] * (ABNORMAL) Ferritin (11/30/2017 11:26 AM EDT) Ferritin 192(H) 15 - 150 ng/mL [facility] Comment: Pediatric reference ranges not verified at [facility], interpret with caution. Reference ranges for females greater than 50 years of age approach values for men, i.e., 30-400 ng/mL. Blood specimen (specimen) 11/30/2017 11:26 AM EDT 11/30/2017 11:38 AM EDT Narrative Resulting Agency Comment Spec In Lab Shikha Harrismaria ines WOLF CHEMISTRY ORDERABLES Performing Organization Address [facility] Co de Phone Number [facility] [place] [address] * Iron and TIBC (11/30/2017 11:26 AM EDT) Iron 60 30 - 150 mcg/dL [facility] TIBC 275 250 - 450 mcg/dL [facility] Iron Saturation 22 20 - 50 % [facility] Blood specimen (specimen) 11/30/2017 11:26 AM EDT 11/30/2017 11:38 AM EDT Narrative Resulting Agency Comment Spec In Lab Shikha Harrisoie PAPERHANGER PIPE CHEMISTRY ORDERABLES Performing Organization Address [facility]/ZIP Co de Phone Number [facility] [place] [address] * Prealbumin (11/30/2017 11:26 AM EDT) Prealbumin 23 20 - 40 mg/dL [facility] Comment: Prealbumin levels are generally lower in the pediatric population; adult concentrations are usually attained near puberty. Blood specimen (specimen) 11/30/2017 11:26 AM EDT 11/30/2017 11:38 AM EDT Narrative Resulting Agency Comment Spec In Lab Shikha Ledesma PAPERHANGER PIPE CHEMISTRY ORDERABLES [facility] [place] [address] * (ABNORMAL) Comprehensive metabolic panel (non-fasting) (11/30/2017 11:26 AM EDT) Glucose 87 65 - 199 mg/dL [facility] Comment:Diabetes: >=200 mg/d L plus symptoms Blood Urea Nitrogen 10 8 - 18 mg/dL [facility] Creatinine 0.67(L) 0.70 - 1.20 mg/dL [facility] Sodium 142 135 - 145 mmol/L [facility] Potassium 4.0 3.5 - 5.0 mmol/L [facility] Comment: Please note: ??Patients with WBC >100,000 may have falsely elevated Potassium levels. ??For accurate Potassium quantification in these patients send serum separator tube (gold top) for subsequent determinations. ??Contact the Clinical Chemistry Laboratory if there are any questions. Chloride 105 98 - 107 mmol/L [facility] Carbon Dioxide 23 22 - 31 mmol/L [facility] Anion Gap 14 5 - 15 mmol/L [facility] Calcium 9.3 8.5 - 10.5 mg/dL [facility] Protein, Total 7.1 6.1 - 8.0 gm/dL [facility] Albumin 4.0 3.2 - 5.2 gm/dL [facility] Aspartate Aminotransferase 10 0 - 30 unit/L [facility] Alanine Aminotransferase 6 0 - 30 unit/L [facility] Alkaline Phosphatase 57 40 - 104 unit/L [facility] Bilirubin, Total 0.5 0.2 - 1.3 mg/dL [facility] Est Glomerular Filtration Rate 114 >=60 mL/min/1. 73 m?? [facility] Comment: The eGFR was calculated using the CKD-EPI equation. As with all creatinine based estimates of kidney function, eGFR values calculated with the CKD-EPI equation are not accurate in patients with acute kidney failure, extremes of body mass or the acutely ill. http://Mediaocean/DHnkf eGFR 132 >=60 mL/min/1. 73 m?? [facility] Comment: The eGFR was calculated using the CKD-EPI equation. As with all creatinine based estimates of kidney function, eGFR values calculated with the CKD-EPI equation are not accurate in patients with acute kidney failure, extremes of body mass or the acutely ill. http://Mediaocean/DHMCnkf Blood specimen (specimen) 11/30/2017 11:26 AM EDT 11/30/2017 11:38 AM EDT Narrative Resulting Agency Comment Spec In Lab Shikha Ledesma APRN CHEMISTRY ORDERABLES Performing Organization Address City/State/[facility] Co de Phone Number [facility] [place] [address] * (ABNORMAL) Hemogram (11/30/2017 11:26 AM EDT) White Blood Cell 9.8(H) 4.0 - 9.5 x10(3)/mc L [facility] Red Blood Cell 4.63 4.00 - 5.21 x10(6)/mc L [facility] Hemoglobin 13.1 11.7 - 15.5 gm/dL [facility] Hematocrit 39.7 35.7 - 45.8 % [facility] Mean Cell Volume 85.7 82.6 - 94.4 fL [facility] Mean Cell Hemoglobin 28.3 27.1 - 32.0 pg [facility] Mean Cell Hemoglobin Concentration 33.0 31.7 - 35.0 gm/dL [facility] Platelet 269 145 - 357 x10(3)/mc L [facility] RDW Standard Deviation 40.2 37.0 - 46.0 fL [facility] RDW coefficient of variation 12.8 11.5 - 14.1 % [facility] Mean Platelet Volume 11.2 7.6 - 12.9 fL [facility] NRBC% auto 0.0 % [facility] NRBC Absolute 0.000 0.000 - 0.000 x10(3)/mc L [facility] Blood specimen (specimen) 11/30/2017 11:26 AM EDT 11/30/2017 11:38 AM EDT Narrative Resulting Agency Comment Spec In Lab Shikha Ledesma PAPERHANGER PIPE HEMATOLOGY ORDERABLE S Performing Organization Address City/State/[facility] Co de Phone Number [facility] [place] [address] documented in this encounter Visit Diagnoses Diagnosis Status post bariatric surgery Bariatric surgery status Iron deficiency Iron deficiency anemia, unspecified Hypokalemia Hypopotassemia documented in this encounter Care Teams Associate Professor Of Biology Relationship Specialty Start Date End Date Samreen Warner APRN [address] [place] [address] PCP - General Family Medicine 09/14/16 07/22/23 documented as of this encounter
--- OUTSIDE RECORDS SUMMARY | 2024-01-08 17:56 | XMS_ITS | Encounter Summary ---
[place] [address] Care Team Providers Care Mechanical Laboratory Technician Name Role Phone Samreen Warner APRN Primary Care Provider [phone] Encounter Details Date Type Department Care Team (Late st Contact Info) Description 05/15/2019 Telephone [place] [id number] Ashanti Clay Social History Tobacco Use Types [...] * Telephone Encounter - Ashanti Clay - 05/15/2019 8:20 AM EST You've been assigned an Rosario educational program. The Rosario program is: ANESTHESIA (ADULT). The program is available at '[email or web address]'. The access code to view the Rosario program is: [id number]. The shtq-im-dbed is 06-11-2019. You've been assigned an Rosario educational program. The Rosario program is: PATIENT SAFETY AND FALL PREVENTION. The program is available at '[email or web address]'. The access code to view the Rosario program is: [id number]. The gzhu-kd-nxqu is 05-18-2019. documented in this encounter Plan of Treatment Not on file documented as of this encounter Visit Diagnoses Not on filedocumented in this encounter Care Teams Mechanical Laboratory Technician Relationship Specialty Start Date End Date Samreen Warner, LUCIANO [address] [place] [address] PCP - General Family Medicine 09/14/16 07/22/23 documented as of this encounter
--- OUTSIDE RECORDS SUMMARY | 2024-01-08 17:56 | XMS_ITS | Encounter Summary ---
Author Organization [facility] [place] [address] Care Team Providers Care Clinical Fellow Name Role Phone Timmy Samreen LUCIANO Primary Care Provider Reason for Referral * Consultation (Routine) - Closed Specialty Diagnoses / Procedures Referred By Priscila stahl Referred To Contact Plastic Surgery Diagnoses Symptomatic abdominal panniculus Shikha Ledesma APRN [facility] [place] [address] Dilip Fowler MD [facility] [place] [address] Referral ID Status Reason Start Date Expiration Date V isits Requested Visits Authorized [id number] Closed Consult, Test & Treat 09/27/2018 09/27/2019 1 1 Reason for Visit * Reason Comments Follow-up s/p RNY 18 months fo llow up Encounter Details Date Type Department Care Team (Late st Contact Info) Description 09/27/2018 11:00 AM EDT Office Visit [place] [address] Shikha Ledesma APRN [facility] [place] [address] [facility] [place] [address] Status post bariatric surgery; Vitamin D deficiency; B12 deficiency; Symptomatic abdominal panniculus Social History Tobacco Use Types Packs/Day Years [...] Sign Reading Time Taken Comments Blood Pressure 112/63 09/27/2018 11:03 AM EDT Pulse 60 09/27/2018 11:03 AM EDT Temperature - - Respiratory Rate 16 09/27/2018 11:03 AM EDT Oxygen Saturation 100% 09/27/2018 11:03 AM EDT Inhaled Oxygen Concentration - - Weight 74.9 kg (165 lb 3.2 oz) 09/27/2018 11:03 AM EDT Height - - Body Mass Index 30.02 11/30/2017 9:55 AM EDT documented in this encounter Patient Instructions * Patient Instructions* Shikha Ledesma, LUCIANO - 09/27/2018 11:00 AM EDT [facility] sales support technician Madelyn [phone] and Ana [phone] Dietitians: [phone] Surgeons/ nurse practitioners: [phone] Nurse line: [phone] Testing: Labwork: Today. Go to [facility], which is 1 flight below the General Surgery Clinic. I will notify you via [facility] regarding your results and recommendations A copy of your labwork and office visit today is sent to your primary resident care provider Next visit: 6 months Routine visits are done at 4.8,12, 18 and 24 months after surgery, and yearly thereafter. Please call [phone] if you do not receive an appointment by 3-4 weeks prior to the expected visit. Medications: 1. No changes 2.Further recommendations pending labwork. Referrals: Plastics for evaluation for panniculectomy Vitamins: The following vitamins are recommended: ??? Multivitamins with minerals twice daily- needs to be an under 50 multivitamin that contains iron. No senior multivitamins. (Or read the serving size if taking a Bariatric specific multivitamin such as procare). ??? Vitamin B12 500 mcg by mouth once daily ??? Calcium citrate 600 mg with Vitamin D 400 units twice daily (600 mg in AM and 600 mg in PM- 2 pills twice a day) (or 1 chewable twice a day) ??? Iron with Vitamin C, 50-66 mg once daily (take iron with vitamin C 250 mg to help with absorption) only if you have regular periods, iron deficiency or anemia. Nutrition recommendations: - Your Daily Goals: ?? [...] of every month from 1-2 PM at [facility]- no registration required Nutrition and Activity apps- Baritastic, My Fitness Pal, Lose It Internet resources: www.LegCyte wwwCoachUp www.Upper Krust Pizza.Biogenic Reagents www.Trinean.Biogenic Reagents/blog [facility] facebook page: [email or web address].facebook.[email or web address]MANBariatricSurgery Books & Magazines: - Recipes for Life After Weight Loss Surgery by Leesa Mirza - Shrink Yourself by Dr Cristino Johnson - Eating Well - www.Loomia.Biogenic Reagents - Cooking Light- www.JumpHawk.Biogenic Reagents documented in this encounter Progress Notes * Shikha Ledesma APRN - 09/27/2018 11:00 AM EDT Reason for visit:??Sophie is here for??follow up 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 Complications summary: Early Non, slightly low potassium, resolved with diet?? Late none ?? Visits summary: Compliance with scheduled BSP follow-up: good Bariatric surgery graduates support group attendance: ??None Pre-op 01/04/2017 Wt (lbs) 276 BMI 50.2 ?? HT: 62.2 ? Post-op Visit date Wt (lbs) BMI %EBW lost Supplement compliance Labwork 04/19/2017 245 46.3 22 ? 07/27/2017 214 40.4 45 Good 4 month post op labs done today.?? 11/30/2017 185 33.6 66 Good, bariatric fusion Labs today 03/29/2017 171 31 ?? Good bariatric fusion today 09/27/2018 165 30.02 80 Good, fusion, vit D added B12 B12 and D today ? Date Evaluation Results 09/2017 Primary care?? Follow up, check in, no changes, pap done 03/28/2017 EGD Done intraoperatively, some fundic polyps ?? Colonoscopy n/a ? Visits to emergency department or other unplanned visit to a health care facility since last visit?None Changes to health/ evaluations/ social history since last visit: as per updated problem list and e-DH Subjective. Patient concerns at today's visit: Lennie returns for routine follow up. She has been doing great. She is only having some issues with excess skin. She finds it makes her quite self conscious and it makes it harder to exercise. She denies rashes. Benefits since surgery: very pleased with weight loss, more energy, more fit, overall improved wellbeing Future goals: maintain weight, continue to work on fitness Bowel regimen: stool softener as needed, typically has a normal daily, BM NSAID use: None Dietary history/ exercise/ activity level: See dietitian note. 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 Health-related habits: Tobacco: none Alcohol: none Objective: General: 38 y.o. year-old female appears stated age, NAD [...] No LE edema, pulses present Vital signs:BP 112/63 (BP Location (NBP): Right arm) Pulse 60 Resp 16 Wt 74.9 kg (165 lb 3.2 oz) SpO2 100% BMI 30.02 kg/m?? Today's labs: vitamin D and B12 Results for LENNIE URENA ( ) as of 10/02/2018 04:45 Ref. Range 09/27/2018 12:15 Vitamin B-12 Latest Ref Range: 232 - 1,245 pg/mL 831 25-OH Vit D Total Latest Ref Range: 30 - 100 ng/mL 46 Reviewed, continue current supplements Assessment: S/P sleeve, with loss of 80% of excess body weight. Encounter Diagnoses Name ??? Status post bariatric surgery Doing well post op, has some issues with excess skin on abdomen and arms ??? Vitamin D deficiency pt just finished repletion dose, will continue current (bariatric fusion and recheck in 6 months) ??? B12 deficiency Has been a little low, pt has started taking extra even though on fusion, level today improved, instructed to continue ??? Symptomatic abdominal panniculus Will refer to plastics for consult, she finds skin bothersome psychologically and finds it hinders her ability to exercise Plan: ?? As above ?? Next BSP visit: 6 months, sooner if indicated ?? Next labwork: 6 months, sooner if indicated ?? Additional vitamin and mineral supplement recommendations (*in addition to usual post surgery supplements, as noted below): Continue fusion and extra B12 ?? dietary/ exercise recommendations per RD ?? [...] Lennie was advised of lab results via [facility] per patient request. RECOMMENDED BARIATRIC SURGERY [...] If labwork is done by the primary resident care provider: pleasesend a copy to the Bariatric Surgery Program, General Surgery Clinic, [facility], Questions regarding [facility] Bariatric Surgery Program patients: please call the Bariatric Surgery Program at [phone] documented in this encounter Plan of Treatment Scheduled Referrals Name Type Priority Associated Diagnoses Orde r Schedule Referral to Plastic Surgery Outpatient Referral Routine Symptomatic abdominal panniculus Ordered: 09/27/2018 documented as of this encounter Procedures Procedure Name Priority Date/Time Associated Diagnosis Comments VITAMIN D, 25-HYDROXY Routine 09/27/2018 12:15 PM EDT Status post bariatric surgery Vitamin D deficiency B12 deficiency VITAMIN B12 Routine 09/27/2018 12:15 PM EDT Status post bariatric surgery Vitamin D deficiency B12 deficiency documented in this encounter Results * Vitamin B12 (09/27/2018 12:15 PM EDT) Vitamin B12 831 232 - 1,245 pg/mL [facility] Blood specimen (specimen) 09/27/2018 12:15 PM EDT 09/27/2018 12:32 PM EDT Narrative Resulting Agency Comment Spec In Lab Shikha Ledesma APRN CHEMISTRY ORDERABLES [facility] [place] [address] * Vitamin D, 25-Hydroxy (09/27/2018 12:15 PM EDT) Vitamin D Total 25 OH 46 30 - 100 ng/mL [facility] Comment: Deficient <10 ng/mL Insufficient 10 to 29 ng/mL Sufficient 30 to 100 ng/mL Potential Intoxication >100 ng/mL According to the [place] National Osteoporosis Foundation, Vitamin D concentrations >30 ng/mL are sufficient to protect bone health. ??The National Kidney Foundation has similarly stated that patients with Vitamin D concentrations <30ng/mL should be considered to be insufficient or deficient. http://Sensulin/nkf-guidelines http://Sensulin/nejm-VitD The IDS iSYS Vitamin D Immunoassay detects both 25-OH Vitamin D2 and 25-OH Vitamin D3, but only a total Vitamin D concentration is reported. Blood specimen (specimen) 09/27/2018 12:15 PM EDT 09/27/2018 2:01 PM EDT Narrative Resulting Agency Comment Spec In Lab Shikha Ledesma APRN CHEMISTRY ORDERABLES Performing Organization Address City/State/[facility] Co de Phone Number [facility] [place] [phone] documented in this encounter Visit Diagnoses Diagnosis Status post bariatric surgery Bariatric surgery status Vitamin D deficiency Unspecified vitamin D deficiency B12 deficiency Other B-complex deficiencies Symptomatic abdominal panniculus Localized adiposity documented in this encounter Care Teams Clinical Fellow Relationship Specialty Start Date End Date Samreen Warner APRN [address] [place] [address] PCP - General Family Medicine 09/14/16 07/22/23 documented as of this encounter
--- OUTSIDE RECORDS SUMMARY | 2024-01-08 17:56 | XMS_ITS | Encounter Summary ---
[place] [address] Care Team Providers Care Roll Panner Name Role Phone Samreen Warner APRN Primary Care Provider Reason for Visit * Auth/Cert Specialty Diagnoses / Procedures Referred By Priscila t Referred To Contact Diagnoses panni Procedures PRO EXCISE EXCESS SKIN TISSUE, ABDOMEN PANNICULECTOMY MODIFIER PANNICULECTOMY Referral ID Status Reason Start Date Expiration Date Visits Re quested Visits Authorized [id number] 1 1 Encounter Details Date Type Department Care Team (Latest Contact Info) Description 08/19/2019 8:25 AM EDT - 08/19/2019 12:15 PM EDT Hospital Encounter [place] [address] Dilip Doran MD [facility] [place] [address] Discharge Disposition: Home Social History Tobacco Use Types Packs/Day Years [...] closest emergency room or call the hospital crown perforator operator at [phone] and ask for physician crop pest control specialist covering for your physician. Questions or problems after 5pm or on a weekend: Call the [facility] crown perforator operator at and ask for the physician crop pest control specialist covering for your doctor. DRAIN CARE INSTRUCTIONS [...] from each drain. Call the clinic at [phone] and schedule an appointment with the nurses [...] Sunday 8 am to 5 pm Call [phone] On weekends or after hours: Call [phone] and ask the crown perforator operator to page the Plastic Surgery Resident crop pest control specialist. Prescription Line: Call the line at [phone] from 8am-4pm Sunday through Sunday. . Make your request a few days before you run out as it make take up to 24 hours for physician approval. FOLLOW UP: Future Appointments Date Time Provider Department Center 08/26/2019 10:00 AM Viola Carranza APRN [facility] documented in this encounter Medications at Time [...] again, temperature will be taken, patient and caregiver/steam train driver will be given a mask to [...] 20.38) performed by Domenica Mahoney MD at [facility] MAIN OR Social History Socioeconomic History ??? [...] file Gets together: Not on file Attends oriental orthodox service: Not on file Active member of [...] Doran MD - 08/19/2019 11:21 AM EDT [facility] Operative Note Patient Name: Lennie Urena : [id number] MR#: [id number] Case Date: 08/19/2019 Surgeon: Surgeon(s) and Role: [...] Operative Note Patient Name: Lennie Urena : [id number] MR#: [id number] Case Date: 08/19/2019 Surgeon: Surgeon(s) and Role: [...] Department Center 08/26/2019 10:00 AM Viola Carranza [facility] [address] [place] [address] documented in this encounter Plan of Treatment Not on file documented as of this encounter Procedures Procedure Name Priority Date/Time Associated Diagnosis Comments SEE PROTOCOL 08/19/2019 9:24 AM EDT panni Case Notes Total panniculectomy tissue weight: 1.090kg Total Tumescent Solution: 250cc MODIFIER PANNICULECTOMY 08/19/2019 9:24 AM EDT panni Case Notes Total panniculectomy tissue weight: 1.090kg Total Tumescent Solution: 250cc Excise Excess Skin Tissue, Abdomen (88852) 08/19/2019 9:24 AM EDT panni Case Notes Total panniculectomy tissue weight: 1.090kg [...] from all sources in 24 hours., Routine fentaNYL 50 mcg/mL multi-dose injection 12.5-25 mcg, [...] Given 08/19/2019 11:54 AM EDT 25 mcg documented in this encounter Active and Recently [...] CRNA) documented in this encounter Care Teams Roll Panner Relationship Specialty Start Date End Date Samreen Warner, LUCIANO [address] [place] [address] PCP - General Family Medicine 09/14/16 07/22/23 documented as of this encounter
--- OUTSIDE RECORDS SUMMARY | 2024-01-08 17:56 | XMS_ITS | Encounter Summary ---
Author Organization [facility] [place] [address] Care Team Providers Care Tiltrotor Crew Chief Name Role Phone Samreen Warner LUCIANO Primary Care Provider [phone] Reason for Visit * Auth/Cert Specialty Diagnoses / Procedures Referred By Priscila t Referred To Contact Diagnoses panni Procedures PRO EXCISE EXCESS SKIN TISSUE, ABDOMEN PANNICULECTOMY MODIFIER PANNICULECTOMY Referral ID Status Reason Start Date Expiration Date Visits Re quested Visits Authorized [id number] 1 1 Encounter Details Date Type Department Care Team (Late st Contact Info) Description 08/19/2019 9:21 AM EDT Anesthesia Event [facility] [place] [address] Wellington Herrera MD [facility] [place] [address] Severiano Kim MD [facility] [place] [address] Anesthesia Record Procedure Summary Procedure Name Responsible Anesthesiologist Anesthesia Start Time Anesthesia Stop Time PANNICULECTOMY (WRVU 17.11) (Abdomen) Wellington Herrera MD 08/19/19 0921 08/19/19 1132 Events Date Time Event Comment 08/19/2019 0902 0921 AN Verify 0921 Start 0921 An Start Data 0927 An Induction 0928 An Intubation 0932 Anesthesia Ready 1120 Extubation/LMA Out 1125 an stop data 1132 Recovery or ICU Handoff Ana ent care was transferred to the destination unit staff after review of the patient's medical history, current anesthetic/surgical status and plan, according to the Provider Handoff Checklist. 1132 Stop Meds Name Total Midazolam 2 mg fentaNYL 100 mcg IV Lidocaine 60 mg Propofol 200 mg Propofol INF 495.55 mg Dexmedetomidine 4 mcg Dexamethasone 8 mg PHENYLephrine 80 mcg ePHEDrine 25 mg ondansetron (ZOFRAN) injection 4 mg 8 mg ceFAZolin (Ancef) 2g in dextrose 5% 100 mL 2 g HYDROmorphone 1 mg lactated ringers infusion 900 mL * Agents Name O2 Air N2O Sevoflurane (et) * Blood No blood administrations on file. Lines, Drains, and Airways Type Details Placement Removal Drain/Device Site 08/19/19; 1024; Left ; other (see comments) (lateral); abdomen; collapsible closed device (15F Round Hubless silicone Full fluted 4.7mm trocar ); Other (dressing sponge) 08/19/19 1024 by Rimma Urban RN Drain/Device Site 08/19/19; 1027; Righ t; other (see comments) (lateral); abdomen; collapsible closed device (15F round hubless silicone full fluted 4.7mm trocar ); Other (drain sponge) 08/19/19 1027 by Rimma Urban RN Incision 03/28/17; 1456; abdomen; laparoscopic punctures (specify); trocars (x6); 11/21/21 (LDA cleanup utility RA#[id number]); 1715 (LDA cleanup utility RA#[id number]) 03/28/17 1456 by José Miguel Lamas RN 11/21/21 1715 by Kennedi Santiago (RETIRED) Peripheral IV Line - Single Lumen 08/19/19; 0843; median cubital vein (antecubital fossa), right; [id number] catheter system; 20 gauge; 08/19/19; 1207 08/19/19 0843 by Dharmesh Nolasco RN 08/19/19 1207 by Lisa Otoole RN Supraglottic Mask Ventilation: No t Attempted (0); LMA Type: iGel; LMA Size: 4; Inserted by: Gilchrest TRACTOR DRILL OPERATOR; Removal Date: 08/19/19; Removal Time: 1120 08/19/19 0928 by Melanie Sparrow CRNA 08/19/19 1120 by Melanie Sparrow CRNA Incision 08/19/19; 0943; abdomen; 11/21/21 (LDA cleanup utility RA#[id number]); 1715 (LDA cleanup utility RA#[id number]) 08/19/19 0943 by Rimma Urban RN 11/21/21 1715 by Kennedi Santiago documented in this encounter Social History Tobacco Use Types Packs/Day Years Used Date Smoking Tobacco: Former Cigarettes Q uit: 01/04/2007 Smokeless Tobacco: Never Alcohol Use Standard Drinks/Week Comments No 0 (1 standard drink = 0.6 oz pur e alcohol) Sex and Gender Information Value Date Recorded Sex Assigned at Not on file Gender Identity Not on file Sexual Orientation Not on file documented as of this encounter OR Notes * Anesthesia Postprocedure Evaluation - Wellington Herrera MD - 08/19/2019 11:39 AM EDT Department of Anesthesiology Post-procedure Note Patient: Lennie Urena Procedure Summary Date: 08/19/19 [place] / [place] [facility] [place] [address] [place] [address] Anesthesia Start: 920 Anesthesia Stop: 1131 Procedures: PANNICULECTOMY (N/A Abdomen) MODIFIER PANNICULECTOMY (N/A ) SEE PROTOCOL (N/A ) Diagnosis: (panni) Surgeon: Dilip Fowler MD Responsible Provider: Wellington Herrera MD Anesthesia Type: general ASA Status: 2 All Anesthesia Providers: Anesthesiologist: Wellington Herrera MD TRACTOR DRILL OPERATOR: Melanie Sparrow CRNA Vitals Value Taken Time BP 124/80 08/19/2019 11:30 AM Temp 36.5 ??C (97.7 ??F) 08/19/2019 11:27 AM Pulse 111 08/19/2019 11:36 AM Resp SpO2 99 % 08/19/2019 11:34 AM Pain Level 4 08/19/2019 11:27 AM Vitals shown include unvalidated device data. Patient Location: PACU/[facility] Level of Consciousness: Conscious but Sleepy Pain Management: Satisfactory Analgesia PONV: None Cardiovascular Status: At Baseline and Hemodynamically Stable Respiratory Status: At Baseline, Room Air and Stable Respiratory Status Postoperative Fluid Status: Possible Anesthetic Complications: NONE apparent at time of evaluation Final Primary Anesthesia Type: General (The anesthetic type performed was the same as planned.) Comments: I have evaluated the patient in the postoperative period. ??The time of my evaluation maynot match the note time. The patient has no major complaints and there are no serious complicationsevident. ?? Wellington Herrera MD * Anesthesia Preprocedure Evaluation - Wellington Herrera MD - 08/15/2019 4:00 PM EDT Pre-Anesthesia Evaluation for: Lennie Urena a 38 y.o. female. Procedure(s): PANNICULECTOMY MODIFIER PANNICULECTOMY SEE PROTOCOL Patient Active Problem List Diagnosis ??? 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 Vitamin D deficiency No past medical history on file. Past Surgical History: Procedure Laterality Date ??? PRO LAPAROSCOPY, SURG/GASTRIC RESTRICTIVE PROC, LONGITUDINAL GASTRECTOMY N/A 03/28/2017 @LAPAROSCOPY, SURG/GASTRIC RESTRICTIVE PROC, LONGITUDINAL GASTRECTOMY (WRVU 20.38) performed by Domenica Mahoney MD at [facility] MAIN OR Social History Tobacco Use ??? Smoking status: Former Smoker Last attempt to quit: 01/04/2007 Years since quittin.6 ??? Smokeless tobacco: Never Used Substance Use Topics ??? Alcohol use: No Social History Substance and Sexual Activity Drug Use No No Known Allergies Medications: MAR and/or home medications have been reviewed. Physical Exam: There were no vitals filed for this visit. There is no height or weight on file to calculate BMI. Airway Assessment: Mallampati: II TM distance: >3 FB Neck ROM: full Proven airway: G1V w/ Mac 3 Cardiovascular Assessment: Rate: normal Pulmonary Assessment: breath sounds clear to auscultation Dental Assessment: - normal exam Misc Assessment: IV access: Peripheral line Anesthesia Plan: ASA 2 general, with a(n) intravenous induction Lennie Urena is a 38yo, 75.7kg female, here for panniculectomy. PMH significant for BMI 31 s/p sleeve gastrectomy. NPO status: appropriate All pertinent labs and imaging reviewed. Allergies reviewed. Plan GA, LMA. Patient seen and evaluated. Risks and benefits discussed. Appropriately NPO. No recent URI. Wellington Herrera MD Region - Other Informed Consent: Anesthetic plan and risks discussed with patient. Plan discussed with TRACTOR DRILL OPERATOR and attending. PAT Clinic Note documented in this encounter Plan of Treatment Not on file documented as of this encounter Visit Diagnoses Not on filedocumented in this encounter Administered Medications Inactive Administered Medications - up to 3 most recent administrations Medication Order MAR Action Action Date Dose Rate Site ceFAZolin (Ancef) 2g in dextrose 5% 100 mL 2 g, Intravenous, ONCE, 1 dose, On Sun08/19/19 at 0845, Administer over 30 Minutes, Day of Surgery (Day of Procedure), Indication for (Active or Suspected): Prophylaxis Given 08/19/2019 9:40 AM EDT 2 g dexamethasone (DECADRON) injection PRN, Starting on Sun08/19/19 at 0927, Until Sun08/19/19 at 1134, Anesthesia Intra-op, Routine Given 08/19/2019 9:27 AM EDT 8 mg dexmedetomidine (PRECEDEX) injection PRN, Starting on Sun08/19/19 at 0946, Until Sun08/19/19 at 1134, Anesthesia Intra-op, Routine Given 08/19/2019 9:46 AM EDT 4 mcg ePHEDrine 5 mg/mL multi-dose injection PRN, Starting on Sun08/19/19 at 0940, Until Sun08/19/19 at 1134, Anesthesia Intra-op, Routine Given 08/19/2019 10:31 AM EDT 7.5 mg Given 08/19/2019 9:50 AM EDT 7.5 mg Given 08/19/2019 9:40 AM EDT 10 mg fentaNYL 50 mcg/mL multi-dose injection PRN, Starting on Sun08/19/19 at 0924, Until Sun08/19/19 at 1134, Anesthesia Intra-op, Routine Given 08/19/2019 9:45 AM EDT 50 mcg Given 08/19/2019 9:24 AM EDT 50 mcg HYDROmorphone (DILAUDID) injection PRN, Starting on Sun08/19/19 at 1000, Until Sun08/19/19 at 1134, Anesthesia Intra-op, Routine Given 08/19/2019 10:00 AM EDT 1 mg lactated ringers infusion 1,000 mL, at 100 mL/hr, Intravenous, CONTINUOUS, Starting on Sun08/19/19 at 0845, Until Sun08/19/19 at 1223, Day of Surgery (Day of Procedure) New Bag 08/19/2019 9:06 AM EDT lidocaine (PF) (XYLOCAINE) 100 mg/5 mL (2 %) injection PRN, Starting on Sun08/19/19 at 0926, Until Sun08/19/19 at 1134, Anesthesia Intra-op, Routine Given 08/19/2019 9:26 AM EDT 60 mg midazolam (PF) (VERSED) multi-dose injection PRN, Starting on Sun08/19/19 at 0919, Until Sun08/19/19 at 1134, Anesthesia Intra-op, Routine Given 08/19/2019 9:19 AM EDT 2 mg ondansetron (ZOFRAN) injection 4 mg 4 mg, Intravenous, EVERY 8 HOURS PRN, Starting on Sun08/19/19 at 0829, Until Sun08/19/19 at 1223, Nausea, PACU Recovery Given 08/19/2019 11:14 AM EDT 4 mg Given 08/19/2019 9:37 AM EDT 4 mg PHENYLephrine in NS (PF) (YANCY-SYNEPHRINE) 0.8 mg/10 mL (80 mcg/mL) multi-dose injection Syrg PRN, Starting on Sun08/19/19 at 0933, Until Sun08/19/19 at 1134, Anesthesia Intra-op, Routine Given 08/19/2019 9:33 AM EDT 80 mcg propofol (DIPRIVAN) 10 mg/mL bolus injection (Anesthesia) PRN, Starting on Sun08/19/19 at 0927, Until Sun08/19/19 at 1134, Anesthesia Intra-op Given 08/19/2019 9:27 AM EDT 200 mg propofol (DIPRIVAN) infusion CONTINUOUS PRN, Starting on Sun08/19/19 at 0932, Until Sun08/19/19 at 1134, Anesthesia Intra-op, Routine Rate/Dose Change 08/19/2019 10:31 AM EDT 50 mcg/kg/min 22.4 mL/hr New Bag 08/19/2019 9:32 AM EDT 75 mcg/kg/min 33.7 mL/hr documented in this encounter Care Teams Tiltrotor Crew Chief Relationship Specialty Start Date End Date Samreen Warner, CORPORATE DIRECTOR [address] [place] [address] PCP - General Family Medicine 09/14/16 07/22/23 documented as of this encounter
--- OUTSIDE RECORDS SUMMARY | 2024-01-08 17:56 | XMS_ITS | Encounter Summary ---
[facility] [place] [address] Care Team Providers Care Manager Performance Name Role Phone Samreen Warner APRN Primary Care Provider Reason for Visit * Reason Onset Date Comments Other 01/17/2019 Encounter Details Date Type Department Care Team (Late st Contact Info) Description 01/17/2019 Telephone [place] [address] Kim Garza POLEYARD SUPERVISOR [facility] [place] [address] Other Social History Tobacco Use Types Packs/Day Years [...] encounter Miscellaneous Notes * Telephone Encounter - Kim Garza - 01/17/2019 12:41 PM EDT Bariatric Surgery Program Preventive care documented in this encounter Plan of Treatment Not on file documented as of this encounter Visit Diagnoses Not on filedocumented in this encounter Care Teams Manager Performance Relationship Specialty Start Date End Date Samreen Warner, POLEYARD SUPERVISOR [address] [facility] [place] [address] PCP - General Family Medicine 09/14/16 07/22/23 documented as of this encounter
--- OUTSIDE RECORDS SUMMARY | 2024-01-08 17:57 | XMS_ITS | Encounter Summary ---
[place] [address] Care Team Providers Care Continuous Linter Drier Operator Name Role Phone Samreen Warner APRN Primary Care Provider [phone] Encounter Details Date Type Department Care Team ([facility] st Contact Info) Description 01/08/2017 Telephone [place] [address] Domenica Mahoney MD [facility] [place] [address] Social History Tobacco Use Types Packs/Day Years Used Date Smoking Tobacco: Former Cigarettes Q uit: 01/04/2007 Sex and Gender Information Value Date Recorded Sex Assigned at Not on file Gender Identity Not on file Sexual Orientation Not on file documented as of this encounter Miscellaneous Notes * Telephone Encounter - Domenica Mahoney MD - 01/08/2017 9:57 AM EDT Left message regarding elevated WBC on labs. Will plan for repeat when she returns for her next visit. documented in this encounter Plan of Treatment Not on file documented as of this encounter Visit Diagnoses Diagnosis Leukocytosis, unspecified type documented in this encounter Care Teams Continuous Linter Drier Operator Relationship Specialty Start Date End Date aSmreen Warner APRN [address] [place], [place] [id number] PCP - General Family Medicine 09/14/16 07/22/23 documented as of this encounter
--- OUTSIDE RECORDS SUMMARY | 2024-01-08 17:57 | XMS_ITS | Encounter Summary ---
Author Organization [facility] [place] [address] Care Team Providers Care Gas Turbine Assembler Name Role Phone NikkiSamreen brandon LUCIANO Primary Care Provider Reason for Visit * Reason Comments Patient Education Encounter Details Date Type Department Care Team ([facility] Contact Info) Description 03/22/2017 12:30 PM EST Office Visit [place] [address] Kim Garza SMART ENERGY SPECIALIST [facility] [place] [address] B12 deficiency; Morbid obesity with BMI of 50.0-59.9, adult; Encounter for pre-bariatric surgery counseling and education; Vitamin D deficiency; Preventive medication therapy needed Social History Tobacco Use Types Packs/Day Years Used Date Smoking Tobacco: Former Cigarettes Q uit: 01/04/2007 Smokeless Tobacco: Never Sex and Gender Information Value Date Recorded Sex Assigned at Not on file Gender Identity Not on file Sexual Orientation Not on file documented as of this encounter Last Filed Vital Signs Vital Sign Reading Time Taken Comments Blood Pressure - - Pulse - - Temperature - - Respiratory Rate - - Oxygen Saturation - - Inhaled Oxygen Concentration - - Weight 120 kg (264 lb 9.6 oz) 03/22/2017 1:16 PM EST Height 158 cm (5' 2.21) 03/22/2017 1:16 PM EST Body Mass Index 48.08 03/22/2017 1:16 PM EST documented in this encounter Patient Instructions * Patient Instructions* BaltazarShikha APRN - 03/22/2017 12:30 PM EST BARIATRIC SURGERY DISCHARGE INFORMATION BARIATRIC SUPPORT TEAM CONTACT NUMBERS (Mon-Fri 8am - 5pm): General Surgery and Bariatric Surgery [phone] Bariatric Surgeons: Judith Mcclain and Declan [phone] Roving Marker: [phone] Dietitians: [phone] Outside of regular business hours, including weekends and holidays: Ask for General Surgery resident systems integration analyst [phone] FOR EMERGENCIES: CALL 911 (trouble breathing, chest pain, rapid heart rate >120 beats per minuteor severe abdominal pain) CALL THE BARIATRIC TEAM FOR ANY OF THE FOLLOWING: ?? Signs and symptoms of infection such as: - Redness or swelling or new significant drainage from wounds - Drainage or bleeding from wounds - Fever over 101 degrees Fahrenheit, or shaking chills ?? Persistent diarrhea or vomiting or inability to keep down food or fluids down in a 24 hour period. ?? Signs / symptoms of a blood clot: leg swelling, redness, or pain, shortness of breath ?? Problems with urination or constipation, worsening abdominal pain not controlled with pain medication ?? 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 Future Appointments Date Time Provider Department Center 03/22/2017 12:30 PM Kim Garza APRN [facility] 04/19/2017 11:00 AM Domenica Mahoney MD [facility] 07/18/2017 9:00 AM Kim Garza APRN [facility] BATHING AND WOUND CARE: ?? You may shower 2 days after surgery ?? Wash incisions with unscented mild soap ?? Rinse, pat dry and leave open to air. ?? Remove Steri-strips if they don't fall off by 7-10 days after discharge. Pat dry if they become wet. ?? Do not soak wound (no baths, no swimmings) for 3 weeks after surgery ACTIVITY, LIFTING AND DRIVING: ?? For laparoscopic surgery: there are no lifting restrictions. Lift when you feel comfortable. ?? Do not drive for 2 weeks. After [address] when comfortable and not taking narcotic pain medicine. DIET: ?? Follow Stage II diet for two weeks. ?? Keep a log of your intake: Daily goals are: 48-64 ounces of fluids and 60 grams of protein. MEDICATIONS: ?? For 2 WEEKS: LARGE pills (bigger than the size of a calcium pill) must be crushed, Capsules mustbe opened onto applesauce or pudding. ?? Pills smaller than the size of a calcium DO NOT need to be crushed. ?? Not all medications can be crushed. Check with your pharmacist if unsure. BLOOD CLOT PREVENTION: ?? You do not meet scoring criteria to be discharged on medication to prevent blood clots. Be active, walk at least 4 times a day and do blood clot prevention exercises in your handbook on page 82. ULCER PREVENTION: ?? IMPORTANT - you must take acid suppressing medication for 3 MONTHS after surgery. This is taken to prevent ulcers at your surgical sites internally, even if you do not have heartburn. Prescriptionwill [facility] sent to [facility] ?? omeprazole 20 mg daily (or another medication you may currently take for heartburn/reflux that has been discussed with Bariatric Team) ?? Omeprazole capsules contain enteric-coated, delayed-release granules. Because these granules should not be chewed or crushed, you must OPEN the capsules, sprinkle the enteric-coated granules on applesauce or yogurt. Alternatively, you may take the granules with apple juice, or swallow them quickly with water. Follow any of these methods with additional water to ensure that you have swallowed the granules completely. ?? If your insurer does not cover omeprazole, or similar medications such as pantoprazole, you mustpurchase these medications over the counter. ?? You will continue this after the initial 3 month course if you have heartburn or reflux GALLSTONE PREVENTION: ?? If you have your gallbladder after Bariatric Surgery - you must take start taking Ursodiol (Actigall) 300 mg twice a day to prevent gallstones. You may START this medication 2 weeks after surgery for a duration of 6 months. After that, you may stop this medication unless otherwise directed. Prescription will be sent to [facility] PAIN MEDICATION: ?? Your pain should lessen with each day out from surgery. Over the next couple of days you should be requiring less narcotic medication to control your pain, and eventually you will not need any at all. ?? Take the medication exactly as it is prescribed and make sure to read all instructions that comewith the medication. Take only as needed. ?? You may adjunct your pain control using scheduled Tylenol (acetaminophen), use as directed. Do NOT use NSAIDS (ibuprofen, Motrin, Aleve, Toradol, aspirin, etc.) to adjunct your pain control. ?? Opioids can slow reaction time, cause drowsiness or cloud judgement. You MUST NOT DRIVE while taking narcotic pain medication. ?? Taking more than the prescribed amount of narcotic or combining with alcohol or drugs can cause you to stop breathing, leading to coma, brain damage or . ?? Using this drug may cause addiction. While addiction is more common in people with a personal orfamily history of addiction, it can occur in anyone. ?? Opioids are at risk of being diverted by anyone with access to your home. Opioids should be stored in a safe and secure place, such as a locked cabinet or safe. ?? Unused opioids should be disposed of appropriately. They may be returned to a take-back location, or mixed with a small amount of water and poured over an undesirable waste such as used coffee grounds or cat litter. ?? Opioid pain medications can cause significant constipation. You should use a stool softener suchas Miralax to address this. OTHER MEANS FOR PAIN RELIEF: Other than medications. ?? Learn deep breathing exercises or meditation to help you relax ?? Reduce stress ?? Your body produces natural endorphins from exercise which can help reduce pain. Even walking is considered exercise. Talk with your provider/surgical team about what exercises are appropriate for you to perform. ?? You may use a heating pad or apply ice to the painful area unless specifically discouraged by the surgical team. ?? Find ways to distract yourself from the pain. MEDICATIONS TO AVOID FOR TWO MONTHS AFTER SURGERY: ?? Discontinue anti-inflammatory non-steroidal medications, such as Advil, Aleve, etc. Refer to Medications that may increase the risk of bleeding in handbook. ?? If you do take aspirin for your heart or to prevent strokes, continue as prescribed. WOMEN OF CHILDBEARING AGE: ?? Fertility may increase with weight loss. Avoid for 18-24 months after bariatric surgery. ?? Condoms alone are not acceptable as a form of control. Do not take control pills forthe first month after surgery. PATIENTS ON ANTI-DEPRESSANT OR MENTAL HEALTH MEDICATIONS: ?? Do not stop or decrease your medications unless advised. ?? Ongoing counseling is encouraged. VITAMIN AND MINERAL SUPPLEMENTATION: Vitamin B12 500 mcg pill daily Complete multivitamin w/ minerals Chewable, one pill twice daily. After 2 weeks may take regular vitamin pills. Calcium Calcium citrate 600 mg with vitamin D 400 units twice a day between meals. Iron with vitamin C Take iron as instructed per Handbook - (only if you have anemia, iron deficiency or regular menses) FOLLOW-UP CARE: ?? It is IMPORTANT to see your Primary Care Physician or PCP within 10-14 days after surgery for wound check and vital signs check, and to discuss specific medical management as referenced above. ?? You should follow up with your surgeon and dietitian at 3-4 weeks after surgery. ?? You will follow up with the dietitian and Bariatric nurse practitioner at 4, 12, 18, and 24 months, then yearly for life. documented in this encounter Progress Notes * Shikha Ledesma APRN - 03/22/2017 12:30 PM EST Sophie attended a comprehensive two hour group pre-operative class today, which included discussion of pre and post operative instructions included in the [facility] Bariatric Surgery Program Education Handbook. One hour of today's group visit was spent in review of dietary and post op vitamin and mineralsupplementation. The second hour focused on inpatient care, discharge instruction review and medication management. Details of topics discussed appear below. Updates since last visit: Sophie has been doing well, has lost 13 lbs since her last visit. She has no complaints today. OR date: 03/28/2017, LSG (sleeve gastrectomy) Dr Mahoney Individualized plan of care: Sophie is feeling prepared for surgery. Reviewed medications needed post op and prescriptions sent to [facility] in [facility]. Has started pre op diet. Questions answered to her satisfaction. Post discharge enoxaparin not indicated- Sophie stopped OCP 5 years ago. BMI today 48.07, VTE score 0 Prescriptions provided at today's visit: (faxed to pharmacy) - Ursodiol 300 mg BID x 6 months, to start at 2 weeks post-operatively for cholelithiasis prevention sent to [facility] in [facility] - Omeprazole 20 mg once daily x 3 months, to start upon discharge for ulcer prevention. May be refilled if symptomatic. Sent to [facility] Medications reviewed in detail. Pt verbalizes understanding. OTC Vitamin and mineral supplements required post discharge: ?? Multivitamin with minerals twice daily ?? Vitamin B12 500 mcg by mouth once daily ?? Calcium citrate 600 mg with Vitamin D 400 units twice daily ?? Iron with Vitamin C, 50-66 mg once daily (take iron with vitamin C 550 mg to help with absorption) ONLY for patients with iron deficiency, anemia or menstruating females Bariatric Surgery Program Pathway and review of status with the requirements of the Bariatric Surgery Program 1. Education: She previously attended a Introduction to the [facility] Bariatric Surgery Program seminar, a two hour meeting that provides a program overview as well as expectations. The [facility] Bariatric Surgery Program Educational seminar requirement (3 seminars with post-testing) has been met. The BSP Educational Handbook was provided at visit #1. 2. Pre-operative programmatic evaluations have been done, as noted in previous pathway review. 3. Bariatric Surgery Program evaluations with RD and SUPERVISOR ASSEMBLY have taken place, as noted in previous pathway documentation 4. Weight requirements have been achieved and documented. 5. All pre-operative requirements were achieved. 6. Surgical consultation has taken place, and she has been approved to proceed with surgery by surgeon and insurer. Next steps in pathway: ?? During hospitalization for bariatric surgery, a standard bariatric surgery order set is followed. ?? Routine post-operative follow up with labwork is done at months 1,4,12,18 and 24, yearly thereafter, and PRN. High risk patients are followed more frequently. Some of the topics reviewed during group discussion today included: ??? pre-operative and post-operative dietary recommendations ??? post-op vitamin and mineral supplementation ?? day of surgery and post-op routine care/ locations: Admissions/SDP/PACU///2 [place] units ?? medications that increase the risk of bleeding including NSAIDs, ASA and Plavix to be avoided per guidelines pre and post-operatively ?? DVT/VTE prevention and signs of DVT/PE. ?? Inpatient management for VTE prevention: venodynes, ambulation, Enoxaparin 40 units BID during inpatient stay. ?? Indications for extended Enoxaparin 10 days post discharge: A. patients with BMI >60 or prior VTE OR B. 2 or more of the following: age >50, BMI >50, male gender, sleep apnea, varicose veins, venous insufficiency, history of oral contraceptive or hormone or post-menopausal hormone replacement use within 30 days of surgery, and recent smoking ?? guidelines for patients treated with oral anticoagulants per [facility]osis [facility] ?? diabetes and hypertension monitoring post-operatively ?? signs and symptoms of infection as well as emergency signs and symptoms ?? common post-operative complaints ?? management of sleep apnea during hospitalization and post operatively. The importance of post-operative follow-up with Sleep Center after weight loss was stressed. ?? recommendations for psychiatric medications: should continue uninterrupted after surgery ?? activity post surgery/ return to work recommendations ?? pre-operative and post-operative dietary recommendations ?? post-op vitamin and mineral supplementation ?? routine BSP post-operative follow-up: 3 weeks. 4, 12,18, 24 months and yearly for LIFE ?? routine Primary Care post-operative follow up: at 10-14 days after surgery to monitor chronic health problems such as diabetes and hypertension, since the requirement for antihypertensive and diabetic medications may decrease or be discontinued A preliminary copy of the discharge instructions was provided, which is also available in the patient handbook. Sophie appeared to have a good understanding of the information presented, and asked appropriate questions. She satisfactorily completed the post-test administered, and achieved a grade of 100%. All her questions were answered. Time spent in individual counseling and coordination of care: 10 minutes Time spent in group counselin hours * Kim Garza - 03/22/2017 12:30 PM EST See Note by Shikha Ledesma APRN documented in this encounter Plan of Treatment Not on file documented as of this encounter Results * Vitamin D, 25-Hydroxy (03/22/2017 2:34 PM EST) Vitamin D Total 25 OH 44 30 - 100 ng/mL [facility] Comment: Deficient <10 ng/mL Insufficient 10 to 29 ng/mL Sufficient 30 to 100 ng/mL Potential Intoxication >100 ng/mL According to the [place] National Osteoporosis Foundation, Vitamin D concentrations >30 ng/mL are sufficient to protect bone health. ??The National Kidney Foundation has similarly stated that patients with Vitamin D concentrations <30ng/mL should be considered to be insufficient or deficient. http://Cipio/nkf-guidelines http://Cipio/nejm-VitD The [employer] Vitamin D Immunoassay detects both 25-OH Vitamin D2 and 25-OH Vitamin D3, but only a total Vitamin D concentration is reported. Blood specimen (specimen) 03/22/2017 2:34 PM EST 03/23/2017 7:29 AM EST Narrative Resulting Agency Comment Spec In Lab Shikha Ledesma APRN CHEMISTRY ORDERABLES Performing Organization Address City/[facility]/ZIP Co de Phone Number [facility] [place] [address] * Vitamin B12 (03/22/2017 2:34 PM EST) Vitamin B12 403 232 - 1,245 pg/mL [facility] Comment: Please note: Effective 02/21/2017, the reference interval and the lower limit of detection for Vitamin B12 have been updated due to a new reagent formulation. Blood specimen (specimen) 03/22/2017 2:34 PM EST 03/22/2017 2:45 PM EST Narrative Resulting Agency Comment Spec In Lab Shikha Suggs Baltazarmaria ines [facility] CHEMISTRY ORDERABLES Performing Organization Address City/[facility]/ZIP Co de Phone Number [facility] [place] [address] documented in this encounter Visit Diagnoses Diagnosis B12 deficiency Other B-complex deficiencies Morbid obesity with BMI of 50.0-59.9, adult Morbid obesity Encounter for pre-bariatric surgery counseling and education Vitamin D deficiency Unspecified vitamin D deficiency Preventive medication therapy needed documented in this encounter Care Teams Gas Turbine Assembler Relationship Specialty Start Date End Date Samreen Warner, LUCIANO [address] [facility] [place] [address] PCP - General Family Medicine 09/14/16 07/22/23 documented as of this encounter
--- OUTSIDE RECORDS SUMMARY | 2024-01-08 17:57 | XMS_ITS | Encounter Summary ---
Author Organization [facility] Address [facility] [place] [address] Care Team Providers Care Promotional Representative Name Role Phone Samreen Warner APRN Primary Care Provider Reason for Visit * Reason Comments Establish Care Encounter Details Date Type Department Care Team ([facility] st Contact Info) Description 01/04/2017 11:30 AM EDT Clinical [place] [address] Alyssia Reinoso, RD [facility] [place] [address] Pre-bariatric surgery nutrition evaluation Social History Tobacco Use Types Packs/Day Years Used Date Smoking Tobacco: Former Cigarettes Q uit: 01/04/2007 Sex and Gender Information Value Date Recorded Sex Assigned at Not on file Gender Identity Not on file Sexual Orientation Not on file documented as of this encounter Last Filed Vital Signs Vital Sign Reading Time Taken Comments Blood Pressure 149/83 01/04/2017 11:12 AM EDT Pulse 87 01/04/2017 11:12 AM EDT Temperature - - Respiratory Rate - - Oxygen Saturation 100% 01/04/2017 11:12 AM EDT Inhaled Oxygen Concentration - - Weight 125.2 kg (276 lb) 01/04/2017 11:12 AM EDT Height 158 cm (5' 2.21) 01/04/2017 11:12 AM EDT Body Mass Index 50.15 01/04/2017 11:12 AM EDT documented in this encounter Patient Instructions * Patient Instructions* Alyssia Reinoso, RD - 01/04/2017 11:30 AM EDT BARIATRIC SURGERY PROGRAM FIRST VISIT Contact information: [facility] Admin coordinator Kyra: [phone] Dietitian: [phone] Surgeons/ nurse practitioner: [phone] Nurse line: [phone] Bariatric Surgery Program educational information: ?? Read the Bariatric Surgery Program Educational Handbook thoroughly, highlight important areas toremember. Write down any questions that you may have to discuss at next visit. ?? Bring the Handbook to ALL pre-operative visits. Keep the handbook in a safe place for easy retrieval. Your next visits: All visits take place in the General Surgery Clinic, Electrician Chief Area 4 1. 2nd visits with dietitian and nurse practitioner ([facility]- Shared Medical Appointment) 2. Pre-op class: to be determined at a later date 3. Bring the questionnaire to your next visit. Complete within 1 day of the visit. Predicted weight loss with surgery is an estimated 30-70% of excess body weight, which would be a goal weight between 180-235#. Nutrition: 1) Your starting weight is: 278#. Any weight gained will need to be lost prior to being scheduled for surgery. 2) Practice post-op GB diet recommendations prior to surgery to support post-op success and long-term weight loss: ??? Eat 3 meals daily, spaced about 4-6 hours apart. ??? Take your time when eating meals, at least 20-30 minutes per meal. ??? Avoid soda and limit caffeine consumption. Stop caffeine 2 weeks prior to surgery. ??? Sip 48-64 oz hydrating fluid daily between meals and avoid drinking with meals. ??? Use smaller plates/bowls/utensils for meals and eat smaller portions. ??? Plan meals 1 wk in advance and shop with a list. 3) Start to keep a food journal. (See Education section below for frequently used Smartphone apps.) 4) Continue regular exercise. 5) Practice this Meal Format: Protein first at all meals! Only eat until full. Breakfast 1st Protein (15-20 grams) 2nd Fruit (1 piece or ?? cup) 3rd Starch (1 serving) Lunch and Dinner 1st Protein (20 grams) 2nd Non-Starchy Vegetables (no limit, no fat) 3rd Starch (1 serving) 4th Fruit (1 piece or ?? cup) 1 serving of starch = 1 slice toast, ?? [place]orese muffin, ?? cup cooked potato, rice, or pasta, 1 small sheela or wrap Non starchy vegetables include all those except corn, peas, winter squash, beans, and potatoes Snacks: 1-2 per day if physically hungry - choose a protein or a fruit Surgery date: For patients who have insurers who have a long approval process, your surgery date and pre-operative class will be scheduled after you are approved by your insurer. We cannot predict your OR date in advance of approval. Only the OR medical scheduler can provide you with a date. Questions for your doctor, specialist or pharmacist: 4. Ask your doctor about medication suggestions if you currently take medications that are largerthan the size of a tylenol. Large pills need to be crushed (if permitted by the drug log chain worker) or taken in liquid form for TWO WEEKS after surgery. Diabetic oral medication often does not need jordan taken after surgery) ?? If you take antinflammatory medications or steroid medications for arthritis or asthma, please check with your doctor. These medications will likely need to be held 1 week prior to and at least a few weeks after surgery. For women who take control or hormone medications: these medications must be stopped 1 month before and after surgery. Use alternative forms of control. Education: 1. Continue to read information about bariatric surgery- websites listed in your handbook Also check the ASMBS website: http://asmbs.org/patients 2. Nutrition and Activity apps- Baritastic, My Fitness Pal, Lose It, My Plate 3.[facility] facebook page: [email or web address] documented in this encounter Progress Notes * Alyssia Reinoso RD - 01/04/2017 11:30 AM EDT Bariatric Surgery Program Initial Nutrition Assessment Lennie Urena is being seen today for a preoperative evaluation in anticipation of weight loss surgery. SUBJECTIVE Interest in bariatric surgery: Coworker talked to her about it an suggested going to Intro meeting.After working w/PCP without long-term success she decided to move forward with bariatric surgery. Her PCP is supportive. Motivating Factors for Seeking Weight Loss Surgery: ?? [x] Improved Health ?? [x] prison weight loss ?? [x] Improved quality of life ?? [x] Increased activity Research: ?? [x] Reading (Internet, books, etc.) - some research online ?? [x] Talking to people who have had weight loss surgery coworker had surgery ?? [x] Attending introductory seminar - 08/25/16 ?? 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 Type of Diet Wt Lost (lbs.) Wt. Regain (lbs.) Dates Duration Comments Fit for Life 75 95 2013 1 year Right before her wedding WW none 2011 1 year Found point system was hard; didn't like the meetings where they pushed WW products HELGA- Berenice Flores 2016 3 visits 09/14/16, 10/13/16, 11/10/16 Low CHO/portion control maintaining 06/2016 ongoing Transitioned to night manager Special K minimal 2009 1 year Low CHO (Fit for Life) minimal 2007 2 years [place] healthier History of diet pills to lose weight: None. History of disordered eating behaviors such as binge eating/self-induced vomiting/laxative abuse/night eating syndrome: Denies. History of excessive exercise to lose weight: None. Contributing Factors to Obesity: ?? [ ] Hx Binge Eating / Eating disorder ?? [x] Large portion sizes ?? [ ] Fast eater ?? [ ] Nighttime eating ?? [x] Emotional eating - family stress ?? [x] Long work hours- in college worked 2 jobs; also first time away from home, she had more control over food choices and made poor choices. ?? [ ] Mindless eating ?? [ ] Choosing high calorie foods ?? [ ] Preference for concentrated sweets ?? [ ] Snacking ?? [ ] Grazing ?? [ ] Meal skipping ?? [x] Physical Inactivity ?? [ ] Genes Eating Triggers: ?? [ ] Emotions: ?? [x] Boredom ?? [x] Stress ?? [ ] Fatigue ?? [ ] Physical Hunger ?? [ ] Eating on a Schedule ?? [ ] Other: Food Allergies/Intolerances/Preference: ?? [ ] Gluten ?? [ ] Lactose ?? [x] Phenylalanine - very lathargic; stopped a product that had Nutrasweet and it resolved Diarrhea/Constipation: none. Recent Changes in Dietary/Lifestyle Habits: ?? [ ] Smaller portions ?? [x] 3 meals per day - meal planning ?? [ ] Eating slower ?? [ ] More fruits, vegetables, and whole grains ?? [ ] Leaner proteins ?? [ ] Decreasing carbohydrates ?? [ ] Lower calorie cooking methods (baking, broiling, grilling, etc.) ?? [x] Nutrition Counseling with RD ?? [ ] No longer buying tempting foods from grocery store ?? [x] Cutting out soda - was drinking Diet Coke or Coke Zero ?? [ ] Cutting out concentrated sweets/ decreasing added sugar ?? [x] Increased physical activity ?? Date changes implemented: August 2016 Tracking Intake: Has tried a few apps - My Fitness Pal Typical Daily Intake: Pt does meal planning, grocery shopping and cooking. Pt works nights. Eats 4P, 8P, snack 11P and snack 4A 4P Banana and 1 egg (made into a pancake) with fruit OR egg and toast and fruit OR cottage cheese and fruit 8PM Chicken (baked, crockpot, etc) or white fish burger and mixed vegetables (steamer bags) 11:30P 100 calorie popcorn 3:30-4A Protein bar - Special K, Vanna Bar Beverages: 1 cup coffee (black or sometimes w/creamer), water throughout the day ETOH: occ. Maybe 2-3 drinks per month Tobacco: Quit tobacco in 2006 after 6 year history ~1/2 ppd How Often Meals Eaten Away From Home: once per week goes out with Supplements/Vitamins: biotin daily. Physical Activity: 25 min youtube video; considering joining the gym that is about to open across the street from her work. Psychological Indications: No contraindications to surgery. Evaluation performed by Sandy Jefferson, SANDEEP on 09/22/16 and 10/27/16. Previous counseling at age 12 after her parents' divorce. 4 years ago grief counseling for a friend Hx abuse - none; Hx Hospitalizations - none Vision at 2 years post-op: To try new things, consider starting a family, traveling Goal weight: None- just wants to be healthy OBJECTIVE: Weight History: Date Weight (lbs) HT BMI Comments ~2013 283# Highest Weight 07/06/16 278# 62.2 Initial program weight 01/04/17 276# 62.2 50.2 1st pre-op visit [facility] % Surgery 1 month post-op 4 months post-op [place] Body Weight (based on BMI of 25): 138# Excess Weight: 140# 30-70% Excess Weight Loss: 180-235#; 50% Excess Weight Loss: 208# SUMMARY: Lennie Urena has been referred for nutrition evaluation and diet instruction in anticipation ofbariatric surgery. Previous conservative attempts at weight loss through dieting have been unsuccessful over the terminal carman. Predicted weight loss with surgery is an estimated 30-70% of excess body weight. Advised pt that bariatric surgery is a tool, not a solution; and ultimately, weight loss will be achieved through proper eating and exercise habits. She showed good understanding of the concepts discussed. NUTRITION DIAGNOSIS: - Obesity related to history of physical inactivity and over consumption as evidenced by BMI of 50.2. PLAN: 1) Patient to practice post-op GB diet recommendations prior to surgery to support post-op success and long-term weight loss: ??? Eat 3 meals daily, spaced about 4-6 hours apart. ??? Take your time when eating meals, at least 20-30 minutes per meal. ??? Avoid soda and limit caffeine consumption. ??? Sip 48-64 oz hydrating fluid daily between meals and avoid drinking with meals. ??? Use smaller plates/bowls/utensils for meals and eat smaller portions. ??? Plan meals 1 wk in advance and shop with a list. 2) Start to keep a food journal. 3) Exercise with the eventual goal of 30 minutes minimum 5 days per week or exercise as recommendedby MD. 4) We reviewed the No Weight Gain Policy. 5) Patient to attend two pre-op educational classes prior to surgery. Information given to patient: 1. [facility] Bariatric Surgery Education Handbook, a 102 page document (revision June 2011) which contains extensive information regarding pre and post- operative nutrition guidelines including: preop diet, Diet stages I-IV, hydration recommendations, protein guidelines, dumping syndrome, food intoleranc es, vitamin and mineral supplementation as well as a list of books and online bariatric resources. documented in this encounter Plan of Treatment Not on file documented as of this encounter Visit Diagnoses Diagnosis Pre-bariatric surgery nutrition evaluation Dietary surveillance and counseling documented in this encounter Care Teams Promotional Representative Relationship Specialty Start Date End Date Samreen Warner APRN [address] [place] [address] PCP - General Family Medicine 09/14/16 07/22/23 documented as of this encounter
--- OUTSIDE RECORDS SUMMARY | 2024-01-08 17:57 | XMS_ITS | Encounter Summary ---
[place] [address] Care Team Providers Care Hotel General Manager Name Role Phone Samreen Warner APRN Primary Care Provider Encounter Details Date Type Department Care Team (Late st Contact Info) Description 04/02/2017 Telephone [place] [id number] Natividad Pulido RN Social History Tobacco Use Types Packs/Day Years [...] encounter Miscellaneous Notes * Telephone Encounter - Natividad Crabtree RN - 04/02/2017 11:13 AM EST ?? Patient Name: Lennie Urena Patient Age: 36 y.o. Birthdate: 1980 Admit date: 03/28/2017 Discharge date and time: 03/30/2017 Attending Physician: Domenica Mahoney MD?? Primary Diagnosis: Morbid Obesity Operations and Procedures: Laparoscopic Sleeve Gastrectomy Surgeon(s) and Role: * Domenica Mahoney MD - Primary * Ladi Piper MD - Resident-Surgeon Cel[place]ino History of Present Illness: Lennie??is a 36 y.o.??year-old female??referred by Samreen Warner, SALES ENGINEER??for consultation for consideration of surgical treatment of obesity. She??states that she??has struggled with obesity for most of her life. ??The patient has tried multiple weight loss measures without sustainable success. ?Factors that she??identifies??as contributing to??her??obesity include genetics, overconsumption and inactivity. ??She??seeks bariatric surgery for health reasons. Hospital Course: Lennie Urena is a 36 y.o. female who was admitted on 03/28/2017 for laparoscopicsleeve gastrectomy. The operative course was uneventful. On POD#1 she was started on a Gastric bypass stage I diet. She did have mild nausea that limited her fluid intake, but that improved on POD# 2and she was advanced to a Gastric bypass stage II diet. She was changed to oral pain medications and the USER EXPERIENCE TEAM LEAD was discontinued on POD# 1. She was voiding without difficulty. On POD# 1 she did have mild blood drainage from the port site under the left breast, but the remaining dressings were dry and intact and the wounds were benign. On POD# 2 the dressings were all dry and intact. She did not havea bowel movement prior to discharge but was passing flatus and taking PO without difficulty. Prior to discharge on POD# 2 Lennie Urena was afebrile, with stable vital signs. On POD# 2, she was discharged to home in stable condition. Diet: stage:II Fluids 48 ounces Protein 60-65 grams Other: Nausea/ vomiting: no problems Urination: adequate, no difficulties Bowels: Activity level: able to do things around the house Pain level, analgesia requirements: no complaints of pain Any significant changes to comorbidites/ medications (ex DM, HTN): Medications:Currently crushing or taking liquid form of medications, as appropriate: Taking ulcer prevention medication: omeprazole (PRILOSEC) 20 mg Capsule, Delayed Release(E.C.) [[id number]] Order Details ? Dose: 20 mg Route: Oral Frequency: DAILY ?? Dispense Quantity: 90 capsule Refills: 1 Fills Remaining: -- ? Sig: Take 1 capsule by mouth daily for 180 days. Start at discharge to prevent ulcer. Take 30 minutes before breakfast, may refill for heartburn ? Written Date: 03/22/17 Expiration Date: -- ?? Start Date: 03/30/17 End Date: 09/26/17 after 180 doses ? Ordering Provider: Shikha Ledesma APRN LAURA #: [id number] ?? Authorizing Provider: Shikha Ledesma APRN LAURA #: [id number] ?? Ordering User: Shikha Ledesma APRN Taking Ursodiol (if appropriate): ursodiol (ACTIGALL) 300 mg Capsule [[id number]] Order Details ? Dose: 300 mg Route: Oral Frequency: 2 TIMES DAILY ?? Dispense Quantity: 180 tablet Refills: 1 Fills Remaining: -- ? Sig: Take 1 capsule by mouth 2 times daily for 180 days. Start at 2 weeks post op on 04/13 take until 10/10 to prevent gallstones. ? Written Date: 03/22/17 Expiration Date: -- ?? Start Date: 04/13/17 End Date: 10/10/17 after 360 doses ? Ordering Provider: Shikha Ledesma APRN LAURA #: [id number] ?? Authorizing Provider: Shikha Ledesma APRN LAURA #: [id number] ?? Ordering User: Shikha Ledesma APRN ?? VTE prophylaxis: enoxaparin:BLOOD CLOT PREVENTION: You do not meet scoring criteria to be discharged on medication to prevent blood clots. Be active, walk at least 4 times a day and do blood clot prevention exercises in your handbook on page 82. Follow up: PCP appointment: Scheduled Appointments: Future Appointments and Orders Future Appointments Provider Department Dept Phone ?? 04/19/2017 11:00 AM Alyssia Reinoso LD; Domenica Mahoney MD General Surgery at [place] [phone] ?? 07/18/2017 9:00 AM Alyssia Reinoso LD; Kim Garza APRN General Surgery [facility] [place] [phone] Patient questions: She is doing very well and will call for any problems or concens. Recommendations: documented in this encounter Plan of Treatment Not on file documented as of this encounter Visit Diagnoses Not on filedocumented in this encounter Care Teams Hotel General Manager Relationship Specialty Start Date End Date Samreen Warner APRN [address] [place] [address] PCP - General Family Medicine 09/14/16 07/22/23 documented as of this encounter
--- OUTSIDE RECORDS SUMMARY | 2024-01-08 17:57 | XMS_ITS | Encounter Summary ---
Author Organization [facility] [place] [address] Care Team Providers Care Thread Grinder Name Role Phone Samreen Warner APRN Primary Care Provider [phone] Encounter Details Date Type Department Care Team (Late st Contact Info) Description 04/19/2017 11:00 AM EST Office [place] [address] Domenica Mahoney MD [facility] [place] [address] [facility] [place] [address] Status post bariatric surgery Social History Tobacco Use Types Packs/Day Years [...] Sign Reading Time Taken Comments Blood Pressure 138/67 04/19/2017 10:55 AM EST Pulse 86 04/19/2017 10:55 AM EST Temperature 36.6 ??C (97.9 ??F) 04/19/2017 1 0:55 AM EST Respiratory Rate 14 04/19/2017 10:5 5 AM EST Oxygen Saturation 98% 04/19/2017 10: 55 AM EST Inhaled Oxygen Concentration - - Weight 111.2 kg (245 lb 1.6 oz) 018 10:55 AM EST Height - - Body Mass Index 46.31 03/28/2017 12:36 PM EST documented in this encounter Patient Instructions * Patient Instructions* Alyssia Reinoso, RD - 04/19/2017 11:00 AM EST Bariatric Surgery Program First Post-operative Follow up visit Contact information: [facility] Admin coordinator Kyra: [phone] Dietitian: [phone] Surgeons/ nurse practitioner: [phone] Nurse line: [phone] Next follow up visit: at 4 months post-op. Testing: Labwork will be done at your 4 month post op check. If you have labwork done by your doctor before that date, please have it sent to the Bariatric Surgery Program. Post surgery Medications: 1. Medication to prevent ulcer, as prescribed prior to surgery, needs to continue until you are at least 3 months post surgery, or as indicated by your primary care doctor. 2. If you have a gallbladder, continue to take Ursodiol 300 mg twice daily for a total of 6 months after surgery to prevent gallstones from forming, and to shrink any gallstones that may be present. Vitamin and mineral supplementation recommendations: The following vitamins are recommended: ??? Multivitamins with minerals twice dailyVitamin B12 500 mcg by mouth once daily - Continue with Bariatric Fusion until you finish it. Then OK to switch to Flinstones or other complete multivitamin ??? Calcium citrate 600 mg with Vitamin D 400 units twice daily ??? Iron with Vitamin C, 50-66 mg once daily. Nutrition recommendations: - Keep up the great work tracking and meeting protein goals. - Your Daily Goals: ?? 3 meals per day. Snacks if physically hungry or you need to increase your protein and/or calories (choose protein and/or fruit) ?? 60 grams protein per day (20 grams per meal) ?? 48-64 oz of non-caloric and hydrating fluids per day (6-8, 8 oz cups) Activity: ??? Continue walking. Start [employer] once you go back to work. Alcohol: is not recommended for at least 6-12 months after surgery. It should be used sparingly, nomore than one drink per occasion. Alcohol is a source of empty calories and can cause ulcers and vitamin and mineral deficiencies. Studies have noted that there is an increased risk of alcohol dependence after surgery. Hair Loss: is associated with rapid weight loss and is seen approximately 3 to 6 months after surgery and can last 3 to 6 months. It is almost always temporary. Eating a healthy diet with 60 grams ofprotein per day and taking your multivitamin with minerals will help. control for women of child bearing age: is recommended for at least 18-24 months after surgery. Call us: ??? If you have concerns. ??? If you have unexplained abdominal pain. ??? if you see blood in your stool or vomit blood ??? If you have prolonged vomiting Post Surgery Support Group: Our post surgery support group meets on the first Sunday of every month from 1-2 PM at [facility] Nutrition and Activity apps- Baritastic, My Fitness Pal, Lose It, My Plate Internet resources: www.Avaak wwwMetafused www.bariatriceaBoxFox.YesPlz! www.Vyclone.YesPlz!/blog [facility] facebook page: https://www.facebook.[email or web address]/[email or web address]SABariatricSurgery Books & Magazines: - Recipes for Life After Weight Loss Surgery by Leesa Mirza - Shrink Yourself by Dr Cristino Johnson - Eating Well - Cooking Light documented in this encounter Progress Notes * Alyssia Reinoso RD - 04/19/2017 11:00 AM EST BSP Nutrition First Post-operative Follow up SUBJECTIVE: Topics Discussed/Patient Concerns: ?? Has Bariatric Fusion. Does not like them. ?? Going out to dinner for the first time this weekend. 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 4 months post-op [place] Body Weight (based on BMI of 25): 138# Excess Weight: 140# 30-70% Excess Weight Loss: 180-235#; 50% Excess Weight Loss: 208# MEDICATIONS: Vitamin/Mineral Supplements (reported by patient): Supplement Type Brand/Form Dosage/Amount Frequency Comments Multivitamin Bariatric Fusion 1 pill 4x daily Calcium Vitamin B12 Iron Vitamin D3 Food Allergies/Intolerances: None. Tracking Intake: Baritastic Daily Oral Intake: Eating in stages; protein first and then vegetables/fruit - measures portions. Continues to use Premier Protein drinks daily. Breakfast Poached egg AM Snack Marshallese yogurt Lunch Fish OR tuna (plain) with green beans or lf refried beans PM Snack Dinner Fish and opposite veg from lunch HS Snack Protein- grams/day: 65-70 Calories per day: 600 Hydrating fluids - oz/day: 48 oz water Soda: None ETOH: None Caffeine: Has not had caffeine since 2 months preop; hopes to not restart Meals per day: 3 Other: ?? Feels full/satisfied after eating: yes. Does not feel hungry ?? Spends at least 20 minutes eating each meal: takes 30-45 minutes to eat a meal ?? Vomiting/ regurgitation: vomited once on 1st day of Stage III after turkey burger ?? Nausea: None ?? Constipation/diarrhea: none Exercise: Started walking this week - 30 minute walks. Plans to join [employer] when she goes back to work. ASSESSMENT: Patient s/p bariatric surgery with 22 % EWL. Pt is tolerating the diet and is meeting protein and fluid needs. Pt plans to finish out Bariatric Fusion supplements then switch to something different. Discussed options regarding eating out. Pt is exercising regularly. PLAN: ?? Evaluation by Dr. Mahoney today. ?? Provided support/encouragement and reinforced importance of meeting nutritional goals. ?? Reviewed nutrition and vitamin and mineral supplement recommendations (see patient instructions). ?? Written recommendations provided. Patient agreed with these and verbalized adequate understanding. ?? Follow up at 4 months post surgery with labwork. * Domenica Mahoney MD - 04/19/2017 11:00 AM EST Lennie Urena was seen in followup approximately 1 month after her laparoscopic sleeve gastrectomy. Start weight: 275# Day of surgery weight: 258# Wt & BMI By Encounter Date Office Visit from 04/19/2017 in General Surgery at [place] Admission (Discharged) from 03/28/[address] [place] [address] Weight 111.2 kg (245 lb 1.6 oz) 1 04/19/2017 1055 117.1 kg (258 lb 1.6 oz) 1 03/28/2017 1236 BMI 48.76 1 03/28/2017 1236 I am pleased to say that she has lost approximately 13 pounds since her surgery and has noted significant limitations in her p.o. intake, as expected. Her wounds have healed with no signs of any infection or hernia. I have encouraged her to continue with vitamin supplementation and to also take adequate liquids. She will continue to follow up with our nurse practitioner and apron worker. We discussed that she can do activity as tolerated at this point. I will see her on a p.r.n. basis and if any further problems arise at those other visits. documented in this encounter Plan of Treatment Not on file documented as of this encounter Visit Diagnoses Diagnosis Status post bariatric surgery Bariatric surgery status documented in this encounter Care Teams Thread Grinder Relationship Specialty Start Date End Date Samreen Warner APRN [address] [place] [address] PCP - General Family Medicine 09/14/16 07/22/23 documented as of this encounter
--- OUTSIDE RECORDS SUMMARY | 2024-01-08 17:57 | XMS_ITS | Encounter Summary ---
[place] [address] Care Team Providers Care Potato Peeling Machine Operator Name Role Phone Samreen Warner APRN Primary Care Provider Encounter Details Date Type Department Care Team (Latest Contact Info) Description 03/22/2017 2:30 PM EST Laboratory Appointment Lab [address] [place] [address] B12 deficiency; Vitamin D deficiency Social History Tobacco Use [...] Associated Diagnosis Comments VITAMIN D, 25-HYDROXY Routine 03/22/2017 2:34 PM EST Vitamin D deficiency VITAMIN B12 Routine 03/22/2017 2:34 PM EST B12 deficiency documented in this encounter Results * Vitamin D, 25-Hydroxy (03/22/2017 2:34 PM EST) Vitamin D Total 25 OH 44 30 - 100 ng/mL [facility] Comment: Deficient <10 ng/mL Insufficient 10 to 29 ng/mL Sufficient 30 to 100 ng/mL Potential Intoxication >100 ng/mL According to the [place] National Osteoporosis Foundation, Vitamin D concentrations >30 ng/mL are sufficient to protect bone health. ??The National Kidney Foundation has similarly stated that patients with Vitamin D concentrations <30ng/mL should be considered to be insufficient or deficient. http://[employer] ([employer]IR[employer]Gro/nkf-guidelines http://[employer] [employer] ([employer]Gro/nejm-VitD The [employer] iSYS Vitamin D Immunoassay detects both 25-OH Vitamin D2 and 25-OH Vitamin D3, but only a total Vitamin D concentration is reported. Blood specimen (specimen) 03/22/2017 2:34 PM EST 03/23/2017 7:29 AM EST Narrative Resulting Agency Comment Spec In Lab Shikha Ledesma APRN CHEMISTRY ORDERABLES Performing Organization Address City/[facility] Co de Phone Number [facility] [place] [address] * Vitamin B12 (03/22/2017 2:34 PM EST) Vitamin B12 403 232 - 1,245 pg/mL [facility] Comment: Please note: Effective 02/21/2017, the reference interval and the lower limit of detection for Vitamin B12 have been updated due to a new reagent formulation. Blood specimen (specimen) 03/22/2017 2:34 PM EST 03/22/2017 2:45 PM EST Narrative Resulting Agency Comment Spec In Lab Shikha Ledesma APRN CHEMISTRY ORDERABLES Performing Organization Address City/[facility] Co de Phone Number [facility] [place] [address] documented in this encounter Visit Diagnoses Diagnosis B12 deficiency Other B-complex deficiencies Vitamin D deficiency Unspecified vitamin D deficiency documented in this encounter Care Teams Potato Peeling Machine Operator Relationship Specialty Start Date End Date Samreen Warner APRN [address] [place] [address] PCP - General Family Medicine 09/14/16 07/22/23 documented as of this encounter
--- OUTSIDE RECORDS SUMMARY | 2024-01-08 17:57 | XMS_ITS | Encounter Summary ---
Author Organization [facility] Address [facility] [place] [address] Care Team Providers Care Harness Installer Name Role Phone Samreen Warner AIR CONTROL/ANTI AIR WARFARE OFFICER Primary Care Provider Reason for Visit * Auth/Cert Specialty Diagnoses / Procedures Referred By Priscila t Referred To Contact Diagnoses Morbid (severe) obesity due to excess calories Body mass index (BMI) 50.0-59.9, adult MORBID OBESITY Procedures PRO LAPAROSCOPY, SURG/GASTRIC RESTRICTIVE PROC, LONGITUDINAL GASTRECTOMY PRO UPPER GI ENDOSCOPY, DIAGNOSTIC @LAPAROSCOPY, SURG/GASTRIC RESTRICTIVE PROC, LONGITUDINAL GASTRECTOMY (WRVU 20.38) ENDOSCOPY, UPPER GI, DIAGNOSTIC, WITH OR WITHOUT SPECIMENS Referral ID Status Reason Start Date Expiration Date Visits Re quested Visits Authorized [id number] 1 1 Encounter Details Date Type Department Care Team (Late st Contact Info) Description 03/28/2017 1:37 PM EST - 03/28/2017 4:35 PM EST [place] [address] Domenica Mahoney MD [facility] [place] [address] @LAPAROSCOPY, SURG/GASTRIC RESTRICTIVE PROC, LONGITUDINAL GASTRECTOMY (WRVU 20.38) Social History Tobacco Use Types Packs/Day Years [...] Sign Reading Time Taken Comments Blood Pressure 143/78 03/30/2017 11:31 AM EST Pulse 68 03/28/2017 8:00 PM EST Temperature 36.8 ??C (98.2 ??F) 03/30/2017 1 1:31 AM EST Respiratory Rate 15 03/30/2017 3:24 AM EST Oxygen Saturation 98% 03/30/2017 11: 31 AM EST Inhaled Oxygen Concentration - - Weight 117.1 kg (258 lb 1.6 oz) 018 12:36 PM EST Height 154.9 cm (5' 1) 03/28/2017 12:3 6 PM EST Body Mass Index 48.77 03/28/2017 12:36 PM EST documented in this encounter Discharge Summaries * April Garvey PA - 03/29/2017 6:19 AM EST General Surgery Discharge Summary Patient Name: Lennie Urena Patient Age: 36 y.o. Birthdate: 1980 Admit date: 03/28/2017 Discharge date and time: 03/30/2017 Attending Physician: Domenica Mahoney MD Primary Diagnosis: Morbid Obesity Operations and Procedures: Laparoscopic Sleeve Gastrectomy Surgeons: Surgeon(s) and Role: * Domenica Mahoney MD - Primary * Ladi Piper MD - Resident-Surgeon Celestino History of Present Illness: Lennie is a 36 y.o. year-old female referred by Grover Castro consultation for consideration of surgical treatment of obesity. She states that she has struggled with obesity for most of her life. The patient has tried multiple weight loss measures without sustainable success. Factors that she identifies as contributing to her obesity include genetics, overconsumption and inactivity. She seeks bariatric surgery for health reasons. Hospital Course: [...] changed to oral pain medications and the BOARDINGHOUSE KEEPER was discontinued on POD# 1. She was [...] was discharged to home in stable condition. Vital Signs: Last value Range last 24hrs Temperature Temp: 36.8 ??C (98.2 ??F) Temp: [36.8 ??C (98.2 ??F)-36.9 ??C (98.4 ??F)] Heart Rate Heart Rate: 68 Heart Rate: -- Blood Pressure BP: 143/78 BP: (131-143)/(73-84) Respiratory Rate Resp: 15 Resp: [15] SpO2 SpO2: 98 % SpO2: [95 %-99 %] Pertinent Lab Data: Recent Labs 01/05/18 0505 01/04/18 0745 /04/18 0120 WBC 13.4* 10.7* 7.0 HGB 12.2 11.9 9.2* HCT 37.2 35.7 28.8* PLATELET 236 235 187 Recent Labs 01/05/18 0505 01/04/18 0120 NA 140 135 K 4.1 4.4 CL 104 100 CO2 23 15* BUN 11 8 CREATININE 0.70 0.37* GLUCOSE 96 -- CALCIUM 8.8 -- MAGNESIUM 0.88 0.52* PHOS 2.5 1.9* Physical Exam: General: NAD, resting comfortably, pleasant, conversant HEENT: PERRL, anicteric sclerae CVS: RRR Pulm: CTAB Abd: soft, appropriately tender, non-distended. 6 port sites without evidence of edema, erythema orecchymosis. Mild blood drainage from port site under left breast, but no evidence of active bleeding. No s/s of infection noted. : no problems with voiding Skin: warm, dry Ext: no c/c/e Neuro: CN 2-12 grossly intact, nonfocal,moving all four extremities spontaneously Imaging: No results found. Condition at discharge: Stable Mental Status: awake and alert, oriented x 3 Medications: Your Medications New Medications Dose Details acetaminophen 650 mg/20.3 mL Soln Commonly known as: TYLENOL Take 20.3 mLs by mouth every 4 hours. 650 mg Refills: 0 ondansetron 4 mg Tbdl Commonly known as: ZOFRAN-ODT Take 1 tablet by mouth every 8 hours as needed for Nausea. 4 mg Quantity: 20 tablet Refills: 0 oxyCODONE 5 mg/5 mL Soln Commonly known as: ROXICODONE Take 5 mLs by mouth every 4 hours as needed for Pain. 5 mg Quantity: 50 mL Refills: 0 Continued medications, unchanged Dose Details CALCIUM CITRATE WITH D ORAL Take by mouth daily. Refills: 0 COMPLETE MULTIVITAMIN-MINERAL ORAL Take 1 tablet by mouth daily. 1 tablet Refills: 0 ergocalciferol 50,000 unit Cap Commonly known as: ERGOCALCIFEROL Take 1 capsule by mouth twice a week for 48 doses. [address]207 Units Quantity: 24 capsule Refills: 1 IRON (DRIED) ORAL Take 1 tablet by mouth daily. 1 tablet Refills: 0 NEXPLANON 68 mg Impl by Subdermal route. Generic drug: etonogestrel Refills: 0 omeprazole 20 mg Cpdr Commonly known as: PriLOSEC Take 1 capsule by mouth daily for 180 days. Start at discharge to prevent ulcer. Take 30 minutes before breakfast, may refill for heartburn 20 mg Quantity: 90 capsule Refills: 1 tobramycin 0.3 % Drop Commonly known as: TOBREX 2 Drop(s), Ophthalmic, Four times daily Refills: 0 ursodiol 300 mg Cap Commonly known as: ACTIGALL Take 1 capsule by mouth 2 times daily for 180 days. Start at 2 weeks post op on 04/13 take until 10/10 to prevent gallstones. Start taking on: 04/13/2017 300 mg Quantity: 180 tablet Refills: 1 VITAMIN B-12 ORAL Take 500 mcg by mouth daily. 500 mcg Refills: 0 Disposition: Home Allergies: No Known Allergies Outpatient Services/Studies: No discharge procedures on file. Scheduled Appointments: Future Appointments and Orders Future Appointments Provider Department Dept Phone 04/19/2017 11:00 AM Alyssia Reinoso LD; Domenica Mahoney MD [facility] [phone] 07/18/2017 9:00 AM Alyssia Reinoso LD; Kim Garza APRN [facility] [phone] Instructions Given to Patient at Discharge: BARIATRIC SURGERY DISCHARGE INFORMATION BARIATRIC SUPPORT TEAM CONTACT NUMBERS (Mon-Fri 8am - 5pm): General Surgery and Bariatric Surgery [phone] Bariatric Surgeons: Doctors. Judith Mahoney and Declan [phone] [place] Operator: [phone] Dietitians: [phone] Outside of regular business hours, including weekends and holidays: Ask for General Surgery resident business liaison manager [phone] FOR EMERGENCIES: CALL 911 (trouble breathing, chest [...] weeks at the General Surgery Outpatient Clinic (Install And Repair Technician 4L, [facility]). Future Appointments Date Time Provider Department Center 04/19/2017 11:00 AM Domenica Mahoney MD [facility] 07/18/2017 9:00 AM Kim Garza APRN [facility] BATHING AND WOUND CARE: ?? You [...] exercises in your handbook on page 82. IF YOU ARE TREATED FOR OBSTRUCTIVE SLEEP APNEA: ?? IMPORTANT - you MUST use your CPAP/ BIPAP after surgery while sleeping at night and also when napping during the day because discharge medications can decrease your breathing. ?? Follow up with the Sleep Center if pressure seems to be too high. ULCER PREVENTION: ?? IMPORTANT - you must take acid suppressing medication for 3 MONTHS after surgery. This is taken to prevent ulcers at your surgical sites internally, even if you do not have heartburn. ?? omeprazole 20 mg daily (or another [...] reflux GALLSTONE PREVENTION: ?? If you have had your gallbladder REMOVED - you do not need this medication. ?? If you have your gallbladder after Bariatric Surgery - you must take start taking Ursodiol (Actigall) 300 mg twice a day to prevent gallstones. You may START this medication 2 weeks after surgery for a duration of 6 months. After that, you may stop this medication unless otherwise directed. PAIN MEDICATION: ?? Your pain should lessen [...] pills forthe first month after surgery. PATIENTS WITH HIGH BLOOD PRESSURE: ?? Monitor your blood pressure regularly. ?? If you feel dizzy and have been drinking 48-64 ounces of fluid, have your blood pressure checked. ?? If your blood pressure is low, call your primary care provider. Keep a log to bring to your PCP appointments. PATIENTS ON ANTI-DEPRESSANT OR MENTAL HEALTH MEDICATIONS: [...] and 24 months, then yearly for life. Signed: EVITA Dennis 03/30/2017 Primary Care Physician: Samreen Warner, LUCI[phone] / [facility] [id number] documented in this encounter Discharge Instructions * Discharge Instructions* April Garvey PA - 03/30/2017 12:47 PM EST Instructions Given to Patient at Discharge: BARIATRIC SURGERY DISCHARGE INFORMATION BARIATRIC SUPPORT TEAM CONTACT NUMBERS (Mon-Fri 8am - 5pm): General Surgery and Bariatric Surgery [phone] Bariatric Surgeons: Judith Mcclain and Declan [phone] [place] Operator: [phone] Dietitians: [phone] Outside of regular business hours, including weekends and holidays: Ask for General Surgery resident business liaison manager [phone] FOR EMERGENCIES: CALL 911 (trouble breathing, chest [...] weeks at the General Surgery Outpatient Clinic (Install And Repair Technician 4L, [facility]). Future Appointments Date Time Provider Department Center 04/19/2017 11:00 AM Domenica Mahoney MD Leb [...] exercises in your handbook on page 82. IF YOU ARE TREATED FOR OBSTRUCTIVE SLEEP APNEA: ?? IMPORTANT - you MUST use your CPAP/ BIPAP after surgery while sleeping at night and also when napping during the day because discharge medications can decrease your breathing. ?? Follow up with the Sleep Center if pressure seems to be too high. ULCER PREVENTION: ?? IMPORTANT - you must take acid suppressing medication for 3 MONTHS after surgery. This is taken to prevent ulcers at your surgical sites internally, even if you do not have heartburn. ?? omeprazole 20 mg daily (or another [...] reflux GALLSTONE PREVENTION: ?? If you have had your gallbladder REMOVED - you do not need this medication. ?? If you have your gallbladder after Bariatric Surgery - you must take start taking Ursodiol (Actigall) 300 mg twice a day to prevent gallstones. You may START this medication 2 weeks after surgery for a duration of 6 months. After that, you may stop this medication unless otherwise directed. PAIN MEDICATION: ?? Your pain should lessen [...] pills forthe first month after surgery. PATIENTS WITH HIGH BLOOD PRESSURE: ?? Monitor your blood pressure regularly. ?? If you feel dizzy and have been drinking 48-64 ounces of fluid, have your blood pressure checked. ?? If your blood pressure is low, call your primary care provider. Keep a log to bring to your PCP appointments. PATIENTS ON ANTI-DEPRESSANT OR MENTAL HEALTH MEDICATIONS: [...] yearly for life. documented in this encounter Medications at Time of Discharge Medication Sig Dispensed Refills Start Date End Date CYANOCOBALAMIN, VITAMIN B-12, (VITAMIN B-12 ORAL) Take 500 mcg by mouth daily. etonogestreL (Nexplanon) 68 mg Implant by Subdermal route. Replaced mid july 2020 - right arm oxyCODONE (ROXICODONE) 5 mg/5 mL Solution Take 5 mLs by mouth every 4 hours as needed for Pain. 50 mL 03/30/2017 07/27/2017 acetaminophen (TYLENOL) 650 mg/20.3 mL Solution Take 20.3 mLs by mouth every 4 hours. 03/30/2017 07/27/2017 ondansetron (ZOFRAN-ODT) 4 mg Tablet, Rapid Dissolve Take 1 tablet by mouth every 8 hours as needed for Nausea. 20 tablet 03/30/2017 07/27/2017 omeprazole (PRILOSEC) 20 mg Capsule, Delayed Release(E.C.)Indicatio ns:Preventive medication therapy needed Take 1 capsule by mouth daily for 180 days. Start at discharge to prevent ulcer. Take 30 minutes before breakfast, may refill for heartburn 90 capsule 1 03/30/2017 09/26/2017 ursodiol (ACTIGALL) 300 mg CapsuleIndications:Pre ventive medication therapy needed Take 1 capsule by mouth 2 times daily for 180 days. Start at 2 weeks post op on 04/13 take until 10/10 to prevent gallstones. 180 tablet 1 04/13/2017 10/10/2017 FERROUS SULFATE, DRIED (IRON, DRIED, ORAL) Take 1 tablet by mouth daily. 07/27/2017 MULTIVITAMIN/IRON/FOLI C ACID (COMPLETE MULTIVITAMIN-MINERAL ORAL) Take 1 tablet by mouth daily. 03/29/2018 CALCIUM CITRATE/VITAMIN D2 (CALCIUM CITRATE WITH D ORAL) Take by mouth daily. 020 ergocalciferol (ERGOCALCIFEROL) 50,000 unit CapsuleIndications:Vit eisenberg D deficiency Take 1 capsule by mouth twice a week for 48 doses. 24 capsule 1 02/08/2017 07/24/2017 tobramycin (TOBREX) 0.3 % ophthalmic solution 2 Drop(s), Ophthalmic, Four times daily 12/21/2005 07/27/2017 documented as of this encounter Progress Notes * Rowena Ojeda RN - 03/30/2017 2:19 PM EST IVs removed without adverse event. Masimo removed. Discharge paperwork reviewed with patient and boyfriend at bedside. Questions answered. Patient escorted off the unit in wheelchair to be driven home by boyfriend after picking up prescriptions at [facility] pharmacy. * April Garvey PA - 03/30/2017 12:53 PM EST Minimally Invasive Surgery Inpatient Progress Note ID: Lennie Urena is a 36 y.o. female s/p laparoscopic sleeve gastrectomy. Now 2 Days Post-Op. 24hr events: ?? No acute events Subjective: She admits to feeling good this am. She tolerated the stage II diet for breakfast without problems, but she admits she is going very slowly. She has continued voiding without any difficulty. She has ambulated around the floor without problems. She admits she does have intermittent nausea, but it is easily controlled. She did have one episode of vomiting, but it was following the administration of elixir Tylenol. She then attempted the crushed Tylenol tablet, and states that was not any better. She states her pain is controlled for the most-part without any medications. O: Last value Range last 24hrs Temperature Temp: 36.8 ??C (98.2 ??F) Temp: [36.8 ??C (98.2 ??F)-36.9 ??C (98.4 ??F)] Heart Rate Heart Rate: 68 Heart Rate: -- Blood Pressure BP: 143/78 BP: (131-143)/(73-84) Respiratory Rate Resp: 15 Resp: [15] SpO2 SpO2: 98 % SpO2: [95 %-99 %] 03/29 07 - 03/30 0700 In: 2006 [I.V.:2006] Out: 1100 [Urine:1100] Physical Exam: General: NAD, resting comfortably, pleasant, conversant HEENT: PERRL, anicteric sclerae CVS: RRR Pulm: CTAB Abd: soft, appropriately tender, non-distended. 6 port sites without evidence of edema, erythema orecchymosis. Mild blood drainage from port site under left breast, but no evidence of active bleeding. No s/s of infection noted. : no problems with voiding. Skin: warm, dry Ext: no c/c/e Neuro: non-focal, moving all four extremities spontaneously Labs: Recent Labs 03/30/17 0505 03/29/17 0745 03/29/17 0120 WBC 13.4* 10.7* 7.0 HGB 12.2 11.9 9.2* HCT 37.2 35.7 28.8* PLATELET 236 235 187 Recent Labs 03/30/17 0505 03/29/17 0120 NA 140 135 K 4.1 4.4 CL 104 100 CO2 23 15* BUN 11 8 CREATININE 0.70 0.37* GLUCOSE 96 -- CALCIUM 8.8 -- MAGNESIUM 0.88 0.52* PHOS 2.5 1.9* Microbiology: None New Studies: None ASSESSMENT: Lennie Urena is a 36 y.o. female s/p laparoscopic sleeve gastrectomy. Now 2 Days Post-OpProgressing post-operatively without concerns. PLAN: NEURO: Pain control with elixir Oxycodone and Tylenol. CV: No acute events. PULM: Encourage frequent ambulation and IS use GI: Diet Gastric Bypass diet Stage II-Full : no problems with voiding; monitor UOP closely FEK: HLIV; continue monitoring lytes and replace prn. ID: no indication of active infection HEME: No evidence of active bleeding ENDO: No active issues PROPHYLAXIS: Lovenox for DVT (Inpatient only); Protonix for gastric DISPO: Floor status, Full Code Plan for discharge later today. EVITA DENNIS 03/30/2017 * April Garvey PA - 03/29/2017 7:15 AM EST Minimally Invasive Surgery Inpatient Progress Note ID: Lennie Urena is a 36 y.o. female s/p laparoscopic sleeve gastrectomy. Now 1 Day Post-Op. 24hr events: ?? No acute events ?? Hbg of 9.2 this am; recheck of 11.9 ?? Mg and Phos low on am labs; replaced Subjective: She admits to feeling ok this am. She states she was able to get some sleep. She has ambulated a few times without problems. She also voided without difficulty. She currently denies n/v/cp/sob. She states her pain is controlled with the current regimen. She has been taking very small sips of water. O: Last value Range last 24hrs Temperature Temp: 37.2 ??C (99 ??F) Temp: [36.1 ??C (97 ??F)-38 ??C (100.4 ??F)] Heart Rate Heart Rate: 68 Heart Rate: [63-94] Blood Pressure BP: 131/76 BP: (115-134)/(59-76) Respiratory Rate Resp: 16 Resp: [11-26] SpO2 SpO2: 99 % SpO2: [96 %-100 %] 03/28 0701 - 03/29 0700 In: 2342.9 [I.V.:2342.9] Out: 200 [Urine:200] Physical Exam: General: NAD, resting comfortably, pleasant, conversant HEENT: PERRL, anicteric sclerae CVS: RRR Pulm: CTAB Abd: soft, appropriately tender, non-distended. 6 port sites without evidence of edema, erythema orecchymosis. Mild blood drainage from port site under left breast, but no evidence of active bleeding. No s/s of infection noted. : no problems with voiding. Skin: warm, dry Ext: no c/c/e Neuro: non-focal, moving all four extremities spontaneously Labs: Recent Labs 03/29/17 0120 WBC 7.0 HGB 9.2* HCT 28.8* PLATELET 187 Recent Labs 03/29/17 0120 NA 135 K 4.4 CL 100 CO2 15* BUN 8 CREATININE 0.37* MAGNESIUM 0.52* PHOS 1.9* Microbiology: None New Studies: None ASSESSMENT: Lennie Urena is a 36 y.o. female s/p laparoscopic sleeve gastrectomy. Now 1 Day Post-OpProgressing post-operatively without concerns. PLAN: NEURO: Pain control with BOARDINGHOUSE KEEPER Dilaudid and IV Tylenol; transition to elixir Oxycodone and Tylenol. CV: No acute events. PULM: Encourage frequent ambulation and IS use GI: Diet NPO diet (Hold Meds) : no problems with voiding; monitor UOP closely FEK: LR 100cc/hr until tolerating adequate po intake; Magnesium and Phosphorous replaced; continue monitoring and replace prn. ID: no indication of active infection HEME: Hbg 9.2; recheck of 11.9; will continue to monitor closely. ENDO: No active issues PROPHYLAXIS: Lovenox for DVT (Inpatient only); Protonix for gastric DISPO: Floor status, Full Code Plan for discharge later today or tomorrow based on progress. EVITA DENNIS 03/29/2017 * Faisal Zamora - 03/28/2017 9:02 PM EST General Surgery Post-op Note Lennie Urena is a 36 y.o. female s/p the following procedure: [id number] Procedure(s) (LRB): @LAPAROSCOPY, SURG/GASTRIC RESTRICTIVE PROC, LONGITUDINAL GASTRECTOMY (WRVU 20.38) (N/A) Surgeon(s) and Role: * Domenica Mahoney MD - Primary * Ladi Piper MD - Resident-Surgeon Celestino: 2 Hr 18 Min 41 Sec * No complications entered in OR log * S: Patient reports feeling well. Denies nausea. Reports mid abdominal pain, well controlled. No other complaints. Denies vomiting, fever, chills, chest pain, and SOB. O: Temp: [36.2 ??C (97.2 ??F)-38 ??C (100.4 ??F)] Heart Rate: [63-94] Resp: [11-26] BP: (115-134)/(59-74) SpO2: [96 %-100 %] Heart Rate from SPO2: [63 bpm-81 bpm] I/O last 3 completed shifts: In: 1269.4 [I.V.:1269.4] Out: - I/O this shift: In: 71.5 [I.V.:71.5] Out: - Physical Exam Gen: A&Ox3, NAD, lying comfortably in bed CV: RRR, no m/r/g Pulm: CTAB throughout Abd: Soft, non distended, tender to palpation in midline supraumbilical area. No guarding or rebound tenderness. Port sites clean, dry, intact Extr: WWP, moving all 4 extremities, no peripheral edema No results for input(s): WBC, HGB, PLATELET in the last 168 hours. No results for input(s): NA, K, CL, CO2 in the last 168 hours. No results for input(s): BUN, CREATININE in the last 168 hours. A/P Lennie Urena is a 36 y.o. female s/p laparoscopic sleeve gastrectomy. The patient is currently in stable condition and recovering well post- operatively. Continue current management. NEURO: Pain controlled w/ tylenol, dilaudid BOARDINGHOUSE KEEPER PULM: encourage IS CARDIAC: hemodynamically stable FEN/GI: replete lytes prn IVF: LR @ 100 mL/hr Diet: NPO diet (Hold Meds) RENAL: adequate UOP, continue to monitor HEME: stable, no issues ID: Perioperative antibiotics cefazolin PROPHYLAXIS: DVT prophylaxis: Lovenox daily GI prophylaxis: Protonix DISPO/Discharge Planning: stable for floor CODE STATUS: Full Code Faisal Zamora MD 03/28/2017 * Luz Maria Kwok RN - 03/28/2017 5:20 PM EST 1643- pt arrived in PACU from OR post lap sleeve gastrectomy. Attached to monitors, alarm parameters adjusted to pt and appropriate. Alarms audile. VSS. Pt sedated. Simple mask in place at 6 liters. lap sites across abdomen with band aides in place all c/d/i and soft to palpation. See PACU flowsheet for further assessment. 1800- BOARDINGHOUSE KEEPER button provided to pt. Patient Education about the BOARDINGHOUSE KEEPER provided to pt, pt verbalized understanding. Using BOARDINGHOUSE KEEPER approprietly. Family at bedside. 2015- pt meets phase 1 discharge criteria. Resting intermittently. States pain 3/10 in abdomen. VSS. Lap sites c/d/i and soft to palpation. Pt denies any nausea. See PACU flowsheet for further assessment. 2030- Report given to Vincent YEPEZ in PACU. Turned pt to inspect back- free from injury * José Miguel Lamas RN - 03/28/2017 3:10 PM EST Images from the original note were not included. Patient Name: Lennie Urena Patient Age: 36 y.o. Birthdate: 1980 Admit date: 03/28/2017 Attending Physician: Domenica Mahoney MD Skin: documented in this encounter H&P Notes * Domenica Mahoney MD - 03/28/2017 1:06 PM EST Please see clinic note dated 01/04/17 and 02/07/17 for further historical details, copied below. The patient's history and physical exam have been reviewed and completed. There has been no interval change from that of the pre- operative history and physical exam. All preoperative questions were answered. Plan to proceed with laparoscopic sleeve gastrectomy. Reason for consultation: Lennie is a 36 y.o. year-old female referred by Samreen Warner APRN for consultation for consideration of surgical treatment of obesity. ?? Her preferred procedure: Undecided ?? Prior bariatric surgery evaluations: None ?? History of present illness: She states that she has struggled with obesity for most of her life. The patient has tried multipleweight loss measures without sustainable success. Factors that she identifies as contributing to her obesity include: genetics, overconsumption and inactivity. She seeks bariatric surgery for health reasons. ?? Program start weight: 275 #/ BMI 52 Current weight/BMI: Wt & BMI By Encounter Date ? Clinical Support from 01/04/2017 in [facility] ?? Weight ?? (!) 125.2 kg (276 lb) 1 01/04/2017 1112 ?? BMI ?? 50.14 1 01/04/2017 1112 ? Other motivating factors for seeking surgery for bariatric surgery: Wants to feel healthier and have a better quality of life. Her father had obesity and had an CO and CVA, and she doesn't want this to happen to her. She would like to have kids in the future, and wants to be able to be present and active as a parent. ?? Her goals of surgery: No specific weight ?? She denies binge eating, night eating disorder, self-induced vomiting, laxative or diuretic use or excessive exercise to lose weight. ?? History of GERD: Denies, not on medications ?? Sleep: Reports adequate sleep. STOP-BANG score:1 ?? Stress: Reports no significant current stressors ?? Exercise: Does [employer] exercise videos as work. Excited that a [employer] just opened up next to her work, plans to start going when that occurs ?? Data reviewed: PCP notes, nutrition notes, psychological evaluation ?? Family plan: Would like to have children, but not in the next 18-24 months. Has Nexplanon, expires in 2019. ?? Functional status: Is ambulation limited most or all of the time? no Tolerance: she can walk a mile and climb a flight of stairs Karnofsky performance status scale: 80- normal activity with effort, some signs or symptoms of disease ?? ADLs: able to carry on without difficulty- independent ?? Use of assistive devices: Denies Dyspnea with routine activity: walking up inclines ?? Past medical history: Denies, other than morbid obesity ?? Past surgical history: None ?? Current Outpatient Prescriptions: ??? etonogestrel (NEXPLANON) 68 mg Implant, by Subdermal route., Disp: , Rfl: ?? No Known Allergies ?? Anesthesia history (per patient): denies untoward events ?? Lactose/ Food/ Wheat/ Latex allergy/sensitivity: denies ?? Diagnostic screenin. Psychological evaluation done by Sandy Berry MD no contraindication to bariatric surgery from a psychological perspective. ?? Family history: Father - CAD, CO, morbid obesity ?? Social??History Social History ?? Social History ??? Marital status: ? Spouse name: N/A ??? Number of children: N/A ??? Years of education: N/A ?? Occupational History ??? Not on file. ?? Social History Main Topics ??? Smoking status: Former Smoker ? Quit date: 01/04/2007 ??? Smokeless tobacco: Not on file ??? Alcohol use Not on file ??? Drug use: Not on file ??? Sexual activity: Not on file ?? Other Topics Concern ??? Not on file ?? Social History Narrative ??? No narrative on file Quit smoking 10 years ago. Etoh 3 per month. 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 ?? Feels that she has adequate support for surgery with her , friends and coworkers. ? Review of Systems (negative if left blank): Constitutional: [x ] fatigue EENT [ ] wears corrective lens [ ] vision or hearing problems Neurologic: [ ] paresthesias [ ] dizziness [ ] chronic headaches Cardiovascular: [ ] history of chest pain, squeezing, pressure [ ] history of CO [ ] previous PCI/ PTCA, cardiac surgery [ ] VTE [ ] syncope [ ] murmur [ ] palpitations [ ] treatment for hypertension or taking antihypertensive medication [ ] treatment for hyperlipidemia Respiratory: [ ] shortness of breath [ ] wheezing [ ] COPD [ ] symptoms of sleep apnea [ ] treatment for sleep apnea GI: [ ] GERD [ ] dysphagia [ ] early satiety [ ] abdominal pain [ ] hernia [ ] prior CT scan abdomen [ ] ED visit for abdominal pain [ ]nausea/vomiting [ ] blood in stool [ ]chronic diarrhea [ ] frequent constipation [] previous obesity surgery : [ ] incontinence [ ] hematuria [] history of renal calculi SHAPER SETTER: [ ] LMP: [ ] menorrhagia [ ] menopause Musculoskeletal [ ] myalgia/arthralgias: Extremities: [ ] Varicose veins [ ] telangiectasias [] edema Skin: [ ] skinfold rashes [ ] tattoos Endocrine: [ ] DM [ ] PCOS [ ] thyroid disease Heme/Lymph: [ ] excessive bruising [ ] lymphadenopathy [ ] transfusion history [ ] blood donor in past year [ ] iron deficiency history Allergic/ Immun: [ ] use of steroid/ immunosuppressant for chronic condition [ ] Latex, food or medication allergies: as per allergy list Psychiatric [ ] depression [] anxiety [] panic attacks [ ] history of suicide attempt [ ] symptoms of bipolar disorder [] addictions- gambling, excessive shopping, prolonged Internet use [ ] History of abuse [ ] psychiatric hospitalization [ ] rehab admission Other: [ ] smoker within 1 year of surgery [ ] current smoker [ ] anticoagulation ? Bariatric Surgery VTE Risk Assessment Score ?? Patients will be considered to be at high risk if they have one or more of the following: ? Previous VTE or BMI >/= 60 kg/m2 Or two or more of the following: ? 1 ? 1 Age > 50 BMI >/= 50 kg/m2 Male sex Recent tobacco use Obstructive sleep apnea Venous insufficiency/ varicose veins OCP or HRT within 30 days of surgery Total: 2 extended VTE prophylaxis is indicated post bariatric surgery discharge - may change if shechanges more weight before surgery Patients are advised to stop HRT and OCP/ DMPA 1 month prior to surgery and hold for 1 month postop, and use control during this time if appropriate. All patients who take coumadin/ anti-10Ainhibitors preoperatively are referred to the Thrombosis Clinic for recommendations. ?? Physical exam: Vital signs: There were no vitals filed for this visit. Wt & BMI By Encounter Date ? Clinical Support from 01/04/2017 in General Surgery at [place] ?? Weight ?? (!) 125.2 kg (276 lb) 1 01/04/2017 1112 ?? BMI ?? 50.14 1 01/04/2017 1112 ? Neuro: Non-focal Psych: Pleasant, conversant, normal affect, cognition and mood. Behavior:[ ] defensive [] hostile [] expressive [] quiet [] monopolizing [] argumentative [x] insightful [] insightless [ ] fidgety [x ] motivated [ ] apathetic [ ] preoccupied [ ] negativistic [ ] disruptive [x ] attentive Mood: x[ ] stable [ ] labile [ ] depressed [ ] happy [ ] anxious [ ] hypomanic [ ] intense [ ] angry [ ] worrisome [ ] flat [ ] detached [ ] fearful [ ] sad ?? ENT: neck subtle with normal ROM, no adenopathy or thyromegaly Lungs: CTA bilaterally without wheezing. Heart: RRR, no murmur appreciated. Abdomen: Obese, soft, non- tender Prior incisions: None Hernias: None Extremities: no lower extremity edema Skin: No areas of skin breakdown. Obesity distribution: gyneoid ?? Discussion of treatment of obesity and of the [facility] Bariatric Surgery [facility]: Ms.. Urena is aware that other treatments for obesity are available, ie, dietary, behavior modification, weight loss medications, exercise as well as surgical weight loss methods. The risks and benefits of bariatric surgery, including gastric bypass and sleeve gastrectomy are discussed at every Int roduction to the [facility] Bariat[facility] Surgery [facility] meeting and all Educational Seminars, and were again discussed individually today. ?? Assessment/ Plan: 36 y.o. year old female with Morbid obesity with ?? obesity-related subclinical risk factors including mild physical symptoms including dyspnea on moderate exertion, occasional aches and pains, fatigue, mild psychopathology, mild functional limitations/ mild impairment of well being. ? She has had failure to sustain weight loss by medical management and meets the criteria proposed bythe NIH Consensus Guidelines for surgical treatment of severe obesity and the AACE, TOS, ASMBS Clinical Practice Guidelines for the Perioperative Nutritional, Metabolic and Non-surgical Support of the Bariatric Surgery Patient 2013 Update. She is aware that there are non-surgical methods to achieveweight loss. ?? After review of her medical record, history and physical exam, I find her to be a good candidate for bariatric surgery. She is interested in undecided. ? She will be given a follow up appointment to further discuss the risks and benefits of bariatric surgery, and will be scheduled for the educational components of the bariatric surgery program. She has had an opportunity to have all her questions answered and is in agreement with the plan of care. She was encouraged to call with any questions or concerns. ? Pending: - Educational classes - Final meeting with surgeon to confirm procedure, and review risks/benefits - CBC and CMP within 3 months of surgery, per [facility] accredited bariatric center guidelines - Ongoing weight loss encouraged ?1:54 PM documented in this encounter Miscellaneous Notes * Initial Assessments - Evy Fritz RN - 03/30/2017 1:31 PM EST Office of Care Management Initial Assessment Evy Fritz RN reviewed record and discussed patient with Care Team. Source of Information: EDH review, rounds, patient interview Introduced self/reviewed role; services accepted. Reason for Hospitalization: Obesity No past medical history on file. Hospitalizations Within the Past 30 Days: None Anticipated Length Of Stay (If known): 2-3 days Current Decision-Making Capacity: Alert and oriented x 4 Advance Care Planning: None Current Coping/Education/Information Needs: Patient has had a little Nausea but is feeling better Current Functional Ability: Patient is independent with ambulation and transfer Functional Status Prior to Admission: Patient was independent prior to admission Home Environment: Lives with her has no issues with the home Social & Family Supports/Community Resources: will assist as needed Behavioral Health History: None Substance Use/Abuse: Other Pertinent/Service Specific Information: none Health/Prescription Coverage: Primary Insurance: [facility] Secondary Insurance: N/A Prescription Coverage: See above Preferred Pharmacy: [id number] [place], [place] - [address] [place] [address] Other: N/A Primary Care Provider: Samreen Warner APRN [phone] Patient/Caregiver Goals of Treatment: Patient plans to return home with home health services Potential Needs for Transition of Care: Rehab/SNF: N/A Home Health: N/A DME: N/A Dialysis: N/A Community Resources: N/A Transportation: family will provide transportation Other: N/A Anticipated Barriers to Discharge/Special Considerations: None Plan: Patient plans to return home with family when medically ready. A member of the Care Management team will continue to monitor progress, follow for continuity of care and assist with transition of care planning. Evy Fritz RN Pager: [phone] * Plan of Care - Katie Calderon RN - 03/30/2017 1:04 AM EST Problem: Patient Care Overview Goal: Plan of Care Review Outcome: Ongoing (Interventions Implemented as Appropriate) 03/29/172022 Coping/Psychosocial Plan Of Care Reviewed With patient OUTCOME EVALUATION NOTE: OUTCOME SUMMARY: Sophie had an ok night. She slept until around 0000 when she asked for oxycodone and tylenol. She became nauseous and spit up a small amount. Gave zofran IV. Will continue to monitor. Voiding adequateamounts. PLAN MOVING FORWARD: Advance diet as tolerated, monitor for nausea/vomiting INDIVIDUALIZED FALL PREVENTION INTERVENTIONS: Patient-specific fall risk factors per assessment: [current deficits]: Narcotics Assistance [level of assistance required for transfers and ambulation]: Independent Supervision [direct monitoring required during toileting and ADLs]: Independent Surveillance [continuous indirect monitoring]: Call ching within reach, purposeful hourly rounding Patient-specific fall prevention interventions for sensory deficits provided, if applicable: [X] Yes glasses on CPG GOAL OUTCOME EVALUATION: Goal: Fall Prevention-Safe Patient Handling Outcome: Ongoing (Interventions Implemented as Appropriate) 03/29/172022 Mota Fall Risk History of Falling 0 Secondary Diagnosis 15 Ambulatory Aids 0 Intravenous Therapy/Heparin/Saline Lock 20 Gait/Transferring 0 Mental Status 0 Score 35 OTHER Mota Fall Risk Med Restraint Interventions Safety Promotion/Fall Prevention activity supervised;fall prevention program maintained;muscle strengthening facilitated;nonskid shoes/slippers when out of bed Positioning Body Position independent Goal: Infection Control Outcome: Ongoing (Interventions Implemented as Appropriate) 03/29/172022 Safety Interventions Isolation Precautions standard precautions maintained Infection Prevention environmental surveillance performed;rest/sleep promoted Coping Strategies Supportive Measures verbalization of feelings encouraged * Op Note - Domenica Mahoney MD - 03/28/2017 4:31 PM EST [facility] Operative Note Patient Name: Lennie Urena : [id number] MR#: [id number] Case Date: 03/28/2017 Surgeon: Surgeon(s) and Role: * Domenica Mahoney MD - Primary * Ladi Piper MD - Resident-Surgeon Celestino Preoperative diagnosis: MORBID OBESITY Postoperative diagnosis: MORBID OBESITY Procedure(s) (LRB): @LAPAROSCOPY, SURG/GASTRIC RESTRICTIVE PROC, LONGITUDINAL GASTRECTOMY (WRVU 20.38) (N/A) Findings: Healthy appearing liver. Normal anatomy Anesthesia: General Estimated Blood Loss: 7 cc Specimens removed during surgery: Order Name Source Comment Collection Info Order Time SPECIMEN TO PATHOLOGY (SURGICAL OR DERM) OR27 MORBID OBESITY part of stomach No 03/28/2017 4:04 PM Time removed from patient: 4:03 PM Drains: None Surgical Closure: Primary Closure - closure of ALL tissue levels during the original surgery regardless of wires, wickes, drains, or other devices extruding through the incision Disposition: awakened from anesthesia, extubated and taken to the recovery room in a stable condition, having suffered no apparent untoward event. Condition: doing well without problems (Please see the Surgical Encounter Summary for any Implant and Specimen details pertinent to this patient.) HPI/Surgical Indications: HPI/Surgical Indications: Lennie Urena is a 36 y.o. female who was evaluated by our Bariatric Program and it was felt that she was best suited with a sleeve gastrectomy. After completing the program, informed consent was obtained. Description of Procedure: Under general anesthesia and endotracheal intubation, the patient was prepped and draped in the supine position. IV antibiotics were infused, and preoperative enoxaparin was given as well as SCDs placed. After team time out, the abdomen was entered using an Optiview technique approximately 18 cm below the xiphoid just slightly to the left of midline using a 11 mm port. There was no evidence of injury from peritonealentry. After adequate insufflation with CO2 to a pressure of 15 mmHg, a 45-degree scope was inserted. A 12-mm port placed approximately 18 cm slightly to the right of the midline. An additional 5-mm port was placed in the right upper quadrant and one approximately 18cm along the right costal margin through which a 5mm liver retractor was inserted to elevate the left lobe of the liver and this was fixed into position with a mechanical arm. Two additional ports were placed in the left upper quadrant. A point approximately 6 cm proximal to the pylorus along the greater curve was chosen to start our dissection. The short gastric vessels and epiploic vessels were taken down along the entire length of the greater curve up to the tip of the Fundus using a harmonic scalpel. Once entirely mobilizing the greater curve, an [place] stapler with a SeamGuard green load was inserted in the abdominal cavity; and the antrum was divided. A 38-Divehi bougie was placed by Anesthesia and hugged against the lesser curve. One additional green load with seamguard was used, followed bymultiple blue load firings with SeamGuard to hug against the bougie and tubularize the stomach in asleeve fashion. The staple line was fanned out slightly at the angle of His. Once the stomach was completely mobilized and divided free of the remaining lesser curve, it was left to the side of the field. Reinspection of the abdominal cavity revealed adequate hemostasis. There appeared to be no active bleeding, and reinspection of the bowel was normal. The 12-mm port was then extended slightly at the fascial level, and the stomach was then easily withdrawn through this incision. The fascia of the 12 mm port was closed using a Onesimo-Yanni to create a simple suture of 0 Vicryl. All ports were then removed under direct vision. The skin sites were all closed with a running subcuticular 4-0 Vicryl suture followed by Steri-Strips and Band-Aids. The patient returned to the Recovery Room in stable conditions. Sponge, instrument and needle counts were correct. I was the attending physician supervising the resident in the above care and I was present with theresident for the entire procedure. Infection Bundle used? N/A documented in this encounter Plan of Treatment Not on file documented as of this encounter Procedures Procedure Name Priority Date/Time Associated Diagnosis Comments HEMOGRAM Routine 03/30/2017 5:05 AM EST DIFFERENTIAL, AUTOMATED Routine 03/30/2017 5:05 AM EST CBC (WITH DIFF) Routine 03/30/2017 5:05 AM EST PHOSPHORUS Routine 03/30/2017 5:05 AM EST MAGNESIUM Routine 03/30/2017 5:05 AM EST BASIC METABOLIC PANEL Routine 03/30/2017 5:05 AM EST HEMOGRAM Routine 03/29/2017 7:45 AM EST HEMOGRAM Routine 03/29/2017 1:20 AM EST DIFFERENTIAL, AUTOMATED Routine 03/29/2017 1:20 AM EST CREATININE Routine 03/29/2017 1:20 AM EST CBC (WITH DIFF) Routine 03/29/2017 1:20 AM EST BUN Routine 03/29/2017 1:20 AM EST PHOSPHORUS Routine 03/29/2017 1:20 AM EST MAGNESIUM Routine 03/29/2017 1:20 AM EST GLUCOSE, FASTING Routine 03/29/2017 1:20 AM EST ELECTROLYTES PANEL Routine 03/29/2017 1: 20 AM EST SPECIMEN TO PATHOLOGY Routine 03/28/2017 4:04 PM EST SURGICAL PATHOLOGY REPORT Routine 03/28/2017 4:03 PM EST @LAPAROSCOPY, SURG/GASTRIC RESTRICTIVE PROC, LONGITUDINAL GASTRECTOMY (WRVU 20.38) Yes 03/28/2017 2:24 PM EST MORBID OBESITY IMPLANTABLE DEVICES SCAN 03/28/2017 12:00 AM EST documented in this encounter Results * (ABNORMAL) Differential, Automated (03/30/2017 5:05 AM EST) Neutrophil % 79.1 % [facility] Neutrophil Absolute 10.57(H) 1.70 - 6.10 x10(3)/mc L [facility] Lymph % 14.1 % [facility] Lymphocytes Abs 1.9 0.9 - 3.2 x10(3)/mc L [facility] Monocyte % 6.3 % [facility] Monocyte Abs 0.8 0.3 - 0.9 x10(3)/mc L [facility] Eos % 0.0 % [facility] Eosinophils Abs 0.0 0.0 - 0.4 x10(3)/ L [facility] Basophil % 0.1 % [facility] Baso Absolute 0.0 0.0 - 0.1 x10(3)/mc L [facility] Immature Gran % 0.40 % [facility] Comment: Immature granulocytes(IG's)percentage and absolute count will include metamyelocytes, myelocytes, and promyelocytes. Blood smears from CBCs yielding IG's will be scanned manually for concordance. If this scan disagrees with the automated IG or if promyelocytes are noted, a manual differential will be performed. Immature Gran Absolute 0.05(H) 0.00 - 0.04 x10(3)/mc L [facility] Blood specimen (specimen) 03/30/2017 5:05 AM EST 03/30/2017 5:28 AM EST Narrative Resulting Agency Comment Spec In Lab Saranya Calvillo MD HEMATOLOGY OR DERABLES Performing Organization Address City/[facility]/ZIP Co de Phone Number [facility] [place] [address] * (ABNORMAL) Hemogram (03/30/2017 5:05 AM EST) White Blood Cell 13.4(H) 4.0 - 9.5 x10(3)/ L [facility] Red Blood Cell 4.38 4.00 - 5.21 x10(6)/ L [facility] Hemoglobin 12.2 11.7 - 15.5 gm/dL [facility] Hematocrit 37.2 35.7 - 45.8 % [facility] Mean Cell Volume 84.9 82.6 - 94.[address] [facility] Mean Cell Hemoglobin 27.9 27.1 - 32.[address] [facility] Mean Cell Hemoglobin Concentration 32.8 31.7 - 35.0 gm/dL [facility] Platelet 236 145 - 357 x10(3)/[facility] RDW Standard Deviation 42.6 37.0 - 46.0 [facility] RDW coefficient of variation 13.8 11.5 - 14.1 % [facility] Mean Platelet Volume 12.3 7.6 - 12.[address] [facility] NRBC% auto 0.0 % [facility] NRBC Absolute 0.000 0.000 - 0.000 x10(3)/[facility] Blood specimen (specimen) 03/30/2017 5:05 AM EST 03/30/2017 5:28 AM EST Narrative Resulting Agency Comment Spec In Lab Saranya Calvillo MD HEMATOLOGY OR DERABLES [facility] [place] [address] * Phosphorus (03/30/2017 5:05 AM EST) Phosphorus 2.5 2.5 - 4.5 mg/dL [facility] Blood specimen (specimen) 03/30/2017 5:05 AM EST 03/30/2017 5:28 AM EST Narrative Resulting Agency Comment Spec In Lab Saranya Calvillo MD CHEMISTRY ORD ERABLES Performing Organization Address [facility]/ZIP Co de Phone Number [facility] [address] * Magnesium (03/30/2017 5:05 AM EST) [facility] Magnesium 0.88 0.69 - 1.07 mmol/L [facility] Comment:result rechecked-ks Blood specimen (specimen) 03/30/2017 5:05 AM EST 03/30/2017 5:28 AM EST Narrative Resulting Agency Comment Spec In Lab Saranya Calvillo MD CHEMISTRY ORD ERABLES Performing Organization Address City/[facility]/ZIP Co de Phone Number [facility] [place] [address] * Basic Metabolic Panel (non-fasting) (03/30/2017 5:05 AM EST) [facility] Glucose 96 65 - 199 mg/dL [facility] Comment:Diabetes: >=200 mg/d L plus symptoms Blood Urea Nitrogen 11 8 - 18 mg/dL [facility] Creatinine 0.70 0.70 - 1.20 mg/dL [facility] Sodium 140 135 - 145 mmol/L [facility] Potassium 4.1 3.5 - 5.0 mmol/L [facility] Comment: Please note: ??Patients with WBC >100,000 may have falsely elevated Potassium levels. ??For accurate Potassium quantification in these patients send serum separator tube (gold top) for subsequent determinations. ??Contact the Clinical Chemistry Laboratory if there are any questions. Chloride 104 98 - 107 mmol/L [facility] Carbon Dioxide 23 22 - 31 mmol/L [facility] Comment:result rechecked-ks Anion Gap 13 5 - 15 mmol/L [facility] Calcium 8.8 8.5 - 10.5 mg/dL [facility] Est Glomerular Filtration Rate >60 >=60 [facility] Comment: The reported eGFR should be multiplied by 1.2 for patients. The MDRD is not an appropriate measure of renal function for patients with body mass extremes or in patients with acute kidney failure. http://remocean/DHnkdep http://remocean/DHMCnkf Blood specimen (specimen) 03/30/2017 5:05 AM EST 03/30/2017 5:28 AM EST Narrative Resulting Agency Comment Spec In Lab Saranya Calvillo MD CHEMISTRY ORD ERABLES [facility] [place] [address] * (ABNORMAL) Hemogram (03/29/2017 7:45 AM EST) White Blood Cell 10.7(H) 4.0 - 9.5 x10(3)/mc L [facility] Red Blood Cell 4.26 4.00 - 5.21 x10(6)/mc L [facility] Hemoglobin 11.9 11.7 - 15.5 gm/dL [facility] Hematocrit 35.7 35.7 - 45.8 % [facility] Mean Cell Volume 83.8 82.6 - 94.[address] [facility] Mean Cell Hemoglobin 27.9 27.1 - 32.[address] [facility] Mean Cell Hemoglobin Concentration 33.3 31.7 - 35.0 gm/dL [facility] Platelet 235 145 - 357 x10(3)/mc L [facility] RDW Standard Deviation 41.6 37.0 - 46.[address] [facility] RDW coefficient of variation 13.6 11.5 - 14.1 % [facility] Mean Platelet Volume 12.0 7.6 - 12.[address] [facility] NRBC% auto 0.0 % [facility] NRBC Absolute 0.000 0.000 - 0.000 x10(3)/ L [facility] Blood specimen (specimen) 03/29/2017 7:45 AM EST 03/29/2017 7:52 AM EST Narrative Resulting Agency Comment Spec In Lab Domenica Mahoney MD HEMATOLOGY ORDERABL ES [facility] [place] [address] * (ABNORMAL) Differential, Automated (03/29/2017 1:20 AM EST) Neutrophil % 92.3 % [facility] Neutrophil Absolute 6.41(H) 1.70 - 6.10 x10(3)/ L [facility] Lymph % 5.9 % [facility] Lymphocytes Abs 0.4(L) 0.9 - 3.2 x10(3)/ L [facility] Monocyte % 1.7 % [facility] Monocyte Abs 0.1(L) 0.3 - 0.9 x10(3)/ L [facility] Eos % 0.0 % [facility] Eosinophils Abs 0.0 0.0 - 0.4 x10(3)/ L [facility] Basophil % 0.0 % [facility] Baso Absolute 0.0 0.0 - 0.1 x10(3)/ L [facility] Immature Gran % 0.10 % [facility] Comment: Immature granulocytes(IG's)percentage and absolute count will include metamyelocytes, myelocytes, and promyelocytes. Blood smears from CBCs yielding IG's will be scanned manually for concordance. If this scan disagrees with the automated IG or if promyelocytes are noted, a manual differential will be performed. Immature Gran Absolute 0.01 0.00 - 0.04 x10(3)/mc L [facility] Blood specimen (specimen) 03/29/2017 1:20 AM EST 03/29/2017 1:32 AM EST Narrative Resulting Agency Comment Spec In Lab Domenica Mahoney MD HEMATOLOGY ORDERABL ES [facility] [place] [address] * (ABNORMAL) Hemogram (03/29/2017 1:20 AM EST) White Blood Cell 7.0 4.0 - 9.5 x10(3)/[facility] Red Blood Cell 3.34(L) 4.00 - 5.21 x10(6)/[facility] LABORATORY Hemoglobin 9.2(L) 11.7 - 15.5 gm/dL [facility] Hematocrit 28.8(L) 35.7 - 45.8 % [facility] Mean Cell Volume 86.2 82.6 - 94.[address] [facility] Mean Cell Hemoglobin 27.5 27.1 - 32.[address] [facility] Mean Cell Hemoglobin Concentration 31.9 31.7 - 35.0 gm/dL [facility] Platelet 187 145 - 357 x10(3)/[facility] LABORATORY RDW Standard Deviation 41.5 37.0 - 46.0 [facility] LABORATORY RDW coefficient of variation 13.4 11.5 - 14.1 % [facility] Mean Platelet Volume 11.8 7.6 - 12.[address] [facility] NRBC% auto 0.0 % [facility]ORATORY NRBC Absolute 0.000 0.000 - 0.000 x10(3)/ L [facility] Blood specimen (specimen) 03/29/2017 1:20 AM EST 03/29/2017 1:32 AM EST Narrative Resulting Agency Comment Spec In Lab Domenica Mahoney MD HEMATOLOGY ORDERABL ES Performing Organization Address [facility] Phone Number [facility] [place] [address] * (ABNORMAL) Phosphorus (03/29/2017 1:20 AM EST) Phosphorus 1.9(L) 2.5 - 4.5 mg/dL [facility] Blood specimen (specimen) 03/29/2017 1:20 AM EST 03/29/2017 1:32 AM EST Narrative Resulting Agency Comment Spec In Lab Domenica Mahoney MD CHEMISTRY ORDERABLE S Performing Organization Address [facility] Phone Number [facility] [place] [address] * (ABNORMAL) Magnesium (03/29/2017 1:20 AM EST) Magnesium 0.52(L) 0.69 - 1.07 mmol/L [facility] Blood specimen (specimen) 03/29/2017 1:20 AM EST 03/29/2017 1:32 AM EST Narrative Resulting Agency Comment Spec In Lab Domencia Mahoney MD CHEMISTRY ORDERABLE S Performing Organization Address [facility] de Phone Number [facility] [address] * (ABNORMAL) Glucose, fasting (03/29/2017 1:20 AM EST) Glucose Fasting 116(H) 65 - 99 mg/dL [facility] Comment: ?Fasting* Glucose Interpretive Criteria Normal ?65-99 mg/dL Impaired Fasting glucose ?100-125 mg/dL Consistent with Diabetes Mellitus ? >or= 126 mg/dL *Fasting is defined as no caloric intake for at least 8 hours In the absence of unequivocal hyperglycemia a plasma glucose value of >or= 126 mg/dL should be repeated on a subsequent day. Diagnosis and Classification of Diabetes Mellitus, Position Statement from the [place] [employer]. ??Diabetes Care, Volume 33, Supplement 1, Mar 2009 Blood specimen (specimen) 03/29/2017 1:20 AM EST 03/29/2017 1:32 AM EST Narrative Resulting Agency Comment Spec In Lab Domenica Mahoney MD CHEMISTRY ORDERABLE S Performing Organization Address [facility] de Phone Number [facility] [place] [address] * (ABNORMAL) Creatinine (03/29/2017 1:20 AM EST) Creatinine 0.37(L) 0.70 - 1.20 mg/dL [facility] Est Glomerular Filtration Rate >60 >=60 [facility] Comment: The reported eGFR should be multiplied by 1.2 for patients. The MDRD is not an appropriate measure of renal function for patients with body mass extremes or in patients with acute kidney failure. http://[employer]/DHnkdep http://[employer]gr[employer]/DHMCnkf Blood specimen (specimen) 03/29/2017 1:20 AM EST 03/29/2017 1:32 AM EST Narrative Resulting Agency Comment Spec In Lab Domenica Mahoney MD CHEMISTRY ORDERABLE S Performing Organization Address [facility] Co de Phone Number [facility] [place] [address] * BUN (03/29/2017 1:20 AM EST) Blood Urea Nitrogen 8 8 - 18 mg/dL [facility] Blood specimen (specimen) 03/29/2017 1:20 AM EST 03/29/2017 1:32 AM EST Narrative Resulting Agency Comment Spec In Lab Domenica Mahoney MD CHEMISTRY ORDERABLE S Performing Organization Address City/[facility]/ZIP Co de Phone Number [facility] [place] [address] * (ABNORMAL) Electrolytes panel (03/29/2017 1:20 AM EST) Sodium 135 135 - 145 mmol/L [facility] Potassium 4.4 3.5 - 5.0 mmol/L [facility] Comment: Please note: ??Patients with WBC >100,000 may have falsely elevated Potassium levels. ??For accurate Potassium quantification in these patients send serum separator tube (gold top) for subsequent determinations. ??Contact the Clinical Chemistry Laboratory if there are any questions. Chloride 100 98 - 107 mmol/L [facility] Carbon Dioxide 15(L) 22 - 31 mmol/L [facility] Anion Gap 20(H) 5 - 15 mmol/L [facility] Blood specimen (specimen) 03/29/2017 1:20 AM EST 03/29/2017 1:32 AM EST Narrative Resulting Agency Comment Spec In Lab Domenica Mahoney MD CHEMISTRY ORDERABLE S Performing Organization Address [facility]/ZIP Co de Phone Number [facility] [place] [address] * Specimen to Pathology (surgical or derm) (03/28/2017 4:04 PM EST) AP Specimen 03/28/2017 4:04 PM EST 03/28/2017 4:[address] [facility] - 03/28/2017 4:04 PM EST Specimen requisition ordered. ??Separate Pathology report to follow Domenica Mahoney MD PATHOLOGY/CYTOLOGY ORDERABLES Performing Organization Address City/[facility]/ZIP Co de Phone Number [facility] [place] [address] * Surgical Pathology Report (03/28/2017 4:03 PM EST) Final Diagnosis [id number] ? Location: 4WST; 0414; A The signing pathologist has (i) examined the relevant preparation(s) for the specimen(s) and (ii) rendered or confirmed the diagnosis(es). . ?Surgical Pathology DIAGNOSIS Part of stomach: - ??Fundic gland polyps. Electronically signed by: ??Stanley Fofana MD Verified: ??04/02/2017 ?Pathologist Performed at: ??-[facility] [place] Dept. of [place]ology, [place], [place] CLINICAL INFORMATION Specimen Submitted: A - Part of stomach Clinical History: Morbid obesity Clinical Diagnosis: Same SPECIMEN PROCESSING A - ??Labeled/Fixativ e: Part of stomach, fresh. Quantity/Size: Single, 22.3 x 4.1 x 1.5 cm. Tissue Description: Intact partial gastrectomy. Serosa: Smooth, pink-zeng. Mucosa: Glistening, pink zeng with preservation of the normal rugal folds. There are several soft, mucosal pink-zeng polyps identified measuring up to 0.6 cm. Sections/Processi ng: (1-2) mucosa with polyps; (3) additional education courses sales representative section of mucosa. (R3) ??ejr 04/02/2017 9:[address] [facility] STOMACH STRUCTURE / Unknown 03/28/2017 4:03 PM EST 03/28/2017 4:03 PM EST Domenica Mahoney MD PATHOLOGY/CYTOLOGY ORDERABLES [facility] [place] [address] * SCAN DOC: IMPLANTABLE DEVICES (03/28/2017 12:00 AM EST) Narrative 03/28/2017 12:00 AM EST Ordered by an unspecified provider. Scanning Provider MEDIA MGR SCAN EXT O RDR/RSLT documented in this encounter Visit Diagnoses Not on filedocumented in this encounter Admitting Diagnoses Diagnosis Obesity Obesity, unspecified documented in this encounter Administered Medications Inactive Administered Medications - up to 3 most recent administrations Medication Order MAR Action Action Date Dose Rate Site acetaminophen (TYLENOL) tablet 650 mg 650 mg, Oral, EVERY 4 HOURS, First dose on Sun03/30/17 at 0800, Until Discontinued, Maximum dose of acetaminophen is 4000 mg from all sources in 24 hours. Crush tablet prior to administration., Routine Given 03/30/2017 8:45 AM EST 650 mg BUpivacaine (PF) (MARCAINE) 0.25 % (2.5 mg/mL) injection ONCE PRN, Starting on Sun03/28/17 at 1626, Until Sun03/30/17 at 1655, Intra-Operative (Intra-Procedure), Routine Given 03/28/2017 4:26 PM EST 30 mLs 19- Surgical Site diphenhydrAMINE (BENADRYL) injection 25 mg 25 mg, Intravenous, EVERY 6 HOURS PRN, Starting on Sun03/28/17 at 1653, Until Sun03/30/17 at 1655, Itching, Routine enoxaparin (LOVENOX) injection 40 mg 40 mg, Subcutaneous, 2 TIMES DAILY, First dose on Sun03/28/17 at 2100, Until Discontinued, Routine Given 03/30/2017 8:41 AM EST 40 mg Given 03/29/2017 8:19 PM EST 40 mg Given 03/29/2017 9:18 AM EST 40 mg lidocaine (XYLOCAINE) 10 mg/mL (1 %) injection 3 mg 3 mg (0.3 mL), Subcutaneous, ONCE PRN, 1 dose, Starting on Sun03/29/17 at 1741, Until Sun03/30/17 at 1655, for discomfort with PIV insertion, Recovery (Recovery-Hospital Unit), Routine miconazole (MICOTIN) 2 % powder Topical (Top), 2 TIMES DAILY, First dose on Sun03/28/17 at 2100, Until Discontinued, Please apply under patient's breasts BID Given 03/30/2017 8:55 AM EST Given 03/29/2017 9:18 AM EST naloxone (NARCAN) injection 0.2 mg 0.2 mg, Intravenous, EVERY 1 MIN PRN, Starting on Sun03/29/17 at 1741, Until Sun03/30/17 at 1655, Opioid Reversal, May repeat every 60 seconds to increase respiratory rate. DO NOT exceed 2 mg total dose. Per BOARDINGHOUSE KEEPER order., Recovery (Recovery-Hospital Unit), Routine ondansetron (ZOFRAN) injection 4 mg 4 mg, Intravenous, EVERY 8 HOURS PRN, Starting on Judith 03/29/17 at 1238, Until Sun03/30/17 at 1655, Nausea Given 03/30/2017 12:54 AM EST 4 mg oxyCODONE (ROXICODONE) 5 mg/5 mL solution 5-10 mg 5-10 mg, Oral, EVERY 4 HOURS PRN, Starting on Judith 03/29/17 at 1238, Until Sun03/30/17 at 1655, Pain, for pain 1-5 give 5mg; for pain 6-10 give 10mg, Routine Given 03/30/2017 2:10 PM EST 5 mg Given 03/30/2017 12:33 AM EST 5 mg Given 03/29/2017 5:45 PM EST 5 mg pantoprazole (PROTONIX) injection 40 mg 40 mg, Intravenous, DAILY, First dose on Sun03/28/17 at 1715, Until Discontinued, Reconstitute with 10 mL of normal saline to a concentration of 4 mg/mL and infuse slowly over 2 minutes. , Routine Given 03/30/2017 8:41 AM EST 40 mg Given 03/29/2017 9:18 AM EST 40 mg Given 03/28/2017 8:56 PM EST 40 mg prochlorperazine (COMPAZINE) injection 10 mg 10 mg, Intravenous, EVERY 6 HOURS PRN, Starting on Judith 03/29/17 at 1239, Until Sun03/30/17 at 1655, Nausea, Use only if no relief from Ondansetron., Routine sodium chloride 0.9 % flush 5 mL 5 mL, Intravenous, 2 TIMES DAILY, First dose on Judith 03/29/17 at 2100, Until Discontinued, Recovery (Recovery-Hospital Unit), Routine Given 03/30/2017 8:41 AM EST 5 mLs sodium chloride 0.9 % flush 5-20 mL 5-20 mL, Intravenous, EVERY 1 MIN PRN, Starting on Judith 03/29/17 at 1741, Until Sun03/30/17 at 1655, flush, Flush pertains to all indwelling lines. Flush per protocol found in the job aid using the link provided on this medication record., Recovery (Recovery-Hospital Unit), Routine documented in this encounter Active and Recently Administered Medications Times are shown in EST. Scheduled Medication Order 03/28/2017 03/29/2017 03/30/2017 acetaminophen (OFIRMEV) injection 1,000 mg (COMPLETED) 1,000 mg, Intravenous, at 400 mL/hr, Administer over 15 Minutes, EVERY 6 HOURS SCHEDULED, 4 doses, First dose on Sun03/28/17 at 1800, Last dose on Sun03/29/17 at 1200, Maximum dose of acetaminophen is 4000 mg from all sources in 24 hours., Routine, Is ketorolac (Toradol) IV contraindicated? Yes, Can this patient tolerate oral medications or suppositories? No 1804 (Given - Provider: Luz Maria Kwok RN) 0110 (Given - Provider: Brett Arnold RN)0606 (Given - Provider: Brett Arnold RN)1257 (Given - Provider: Eugenia Matson RN) acetaminophen (TYLENOL) 650 mg/20.3 mL oral liquid 650 mg (CANCELED) 650 mg, Oral, EVERY 4 HOURS, First dose on Judith 03/29/17 at 1300, Until Discontinued, Maximum dose of acetaminophen is 4,000 mg from all sources in 24 hours., Routine 1300 (Not Given - Provider: Eugenia Matson RN - Reason: Contraindicated - Comment: previously ordered IV dose given.)1745 (Given - Provider: Rowena Ojeda RN)2100 (Not Given - Provider: Katie Calderon RN - Reason: Contraindicated - Comment: given too close to last dose) 0033 (Given - Provider: Katie Calderon RN)0500 (Not Given - Provider: Katie Calderon RN - Reason: Patient/family refused) acetaminophen (TYLENOL) tablet 650 mg 650 mg, Oral, EVERY 4 HOURS, First dose on Sun03/30/17 at 0800, Until Discontinued, Maximum dose of acetaminophen is 4000 mg from all sources in 24 hours. Crush tablet prior to administration., Routine 0845 (Given - Provider: Rowena Ojeda RN - Comment: pt vomited up crushed pill)1132 (Not Given - Provider: Rowena Ojeda RN - Reason: Patient/family refused) ceFAZolin (ANCEF) 2g in dextrose 5% 100 mL (COMPLETED) 2 g, Intravenous, ONCE, 1 dose, On Sun03/28/17 at 1300, Administer over 30 Minutes, Indication for (Active or Suspected): Prophylaxis 1440 (Given - Provider: Rowena Whitehead) enoxaparin (LOVENOX) injection 40 mg (COMPLETED) 40 mg, Subcutaneous, ONCE, 1 dose, On Sun03/28/17 at 1300, Please give in preop, Routine 1300 (Given - Provider: Celena Escamilla RN) enoxaparin (LOVENOX) injection 40 mg 40 mg, Subcutaneous, 2 TIMES DAILY, First dose on Sun03/28/17 at 2100, Until Discontinued, Routine 2100 (Not Given - Provider: Brett Arnold RN - Reason: Contraindicated) 0918 (Given - Provider: Lisa Patton RN)2018 (Given - Provider: Katie Calderon RN) 0841 (Given - Provider: Rowena Ojeda RN) magnesium sulfate 2 g in sterile water 50 mL (COMPLETED) 2 g, Intravenous, ONCE, 1 dose, On Judith 03/29/17 at 0245, Administer over 120 Minutes 0340 (New Bag - Provider: Brett Arnold RN)0540 (Stopped - Provider: Brett Arnold RN) miconazole (MICOTIN) 2 % powder Topical (Top), 2 TIMES DAILY, First dose on Sun03/28/17 at 2100, Until Discontinued, Please apply under patient's breasts BID 2100 (Hold - Provider: Brett Arnold RN - Reason: Medication not available) 0918 (Given - Provider: Lisa Patton RN)2100 (Not Given - Provider: Katie Calderon RN - Reason: Patient/family refused) 0855 (Given - Provider: Rowena Ojeda RN) pantoprazole (PROTONIX) injection 40 mg 40 mg, Intravenous, DAILY, First dose on Sun03/28/17 at 1715, Until Discontinued, Reconstitute with 10 mL of normal saline to a concentration of 4 mg/mL and infuse slowly over 2 minutes. , Routine 2055 (Given - Provider: Brett Arnold RN) 0918 (Given - Provider: Lisa Patton, LUCHO) 0841 (Given - Provider: Rowena Ojeda, RN) sodium chloride 0.9 % flush 5 mL 5 mL, Intravenous, 2 TIMES DAILY, First dose on Judith 03/29/17 at 2100, Until Discontinued, Recovery (Recovery-Hospital Unit), Routine 2100 (Not Given - Provider: Katie Calderon RN - Reason: See comment - Comment: MIVF infusing) 0841 (Given - Provider: Rowena Ojeda, LUCHO) sodium phosphate 15 mMol in sodium chloride 0.9% 150 mL (COMPLETED) 15 mmol, Intravenous, ONCE, 1 dose, On Judith 03/29/17 at 0245, Administer over 4 Hours, Administer over 4-6 hours 0341 (New Bag - Provider: Brett Arnold RN)0741 (Stopped - Provider: Eugenia Matson RN) Continuous Medication Order 03/28/2017 03/29/2017 03/30/2017 HYDROmorphone (DILAUDID) 1 mg/mL BOARDINGHOUSE KEEPER 50 mL (CANCELED) Intravenous, BOARDINGHOUSE KEEPER ONLY, Starting on Sun03/28/17 at 1715, Until Judith 03/29/17 at 1240, Recovery (Recovery-Hospital Unit) 1830 (New Syringe/Cartridge - Provider: Luz Maria Kwok RN) lactated Ringers infusion 1,000 mL (CANCELED) 1,000 mL, at 100 mL/hr, Intravenous, CONTINUOUS, Starting on Sun03/28/17 at 1300, Until Sun03/28/17 at 2039, Day of Surgery (Day of Procedure) 1300 (New Bag - Provider: Celena Escamilla RN)1425 (New Bag - Provider: Rowena hWitehead)1500 (Anesthesia Volume Adjustment - Provider: Rowena Whitehead)1627 (Anesthesia Volume Adjustment - Provider: Margy Santana CRNA)1645 (Anesthesia Volume Adjustment - Provider: Margy Santana CRNA) lactated Ringers infusion 1,000 mL (CANCELED) 1,000 mL, at 100 mL/hr, Intravenous, CONTINUOUS, Starting on Sun03/28/17 at 1715, Until Sun03/30/17 at 0937, Recovery (Recovery-Hospital Unit) 1714 (New Bag - Provider: Luz Maria L Commo, RN) 0341 (New Bag - Provider: Brett Arnold RN)1410 (New Bag - Provider: Eugenia Matson RN) 1000 (Stopped - Provider: Rowena Ojeda RN) PRN Medication Order 03/28/2017 03/29/2017 03/30/2017 BUpivacaine (PF) (MARCAINE) 0.25 % (2.5 mg/mL) injection (CANCELED) ONCE PRN, Starting on Sun03/28/17 at 1626, Until Sun03/30/17 at 1655, Intra-Operative (Intra-Procedure), Routine 1626 (Given - Provider: Domenica Mahoney MD) diphenhydrAMINE (BENADRYL) injection 25 mg 25 mg, Intravenous, EVERY 6 HOURS PRN, Starting on Sun03/28/17 at 1653, Until Sun03/30/17 at 1655, Itching, Routine HYDROmorphone (DILAUDID) injection 0.2-0.4 mg (CANCELED) 0.2-0.4 mg, Intravenous, EVERY 5 MIN PRN, Starting on Sun03/28/17 at 1623, Until Sun03/28/17 at 2039, Pain, Give 0.2 mg every 5 minutes PRN for mild to moderate pain (1-5) Give 0.4 mg every 5 minutes PRN for moderate to severe pain (6-10). Hold for respiratory rate less than 10 per minute. Maximum dose 4 mg over one hour. If multiple pain medications are ordered, start with hydromorphone or morphine and use fentanyl for breakthrough pain., PACU Recovery, Routine 1700 (Given - Provider: Luz Maria Kwok RN)1747 (Given - Provider: Luz Maria Kwok RN) lidocaine (XYLOCAINE) 10 mg/mL (1 %) injection 3 mg 3 mg (0.3 mL), Subcutaneous, ONCE PRN, 1 dose, Starting on Judith 03/29/17 at 1741, Until Sun03/30/17 at 1655, for discomfort with PIV insertion, Recovery (Recovery-Hospital Unit), Routine naloxone (NARCAN) injection 0.2 mg 0.2 mg, Intravenous, EVERY 1 MIN PRN, Starting on Judith 03/29/17 at 1741, Until Sun03/30/17 at 1655, Opioid Reversal, May repeat every 60 seconds to increase respiratory rate. DO NOT exceed 2 mg total dose. Per BOARDINGHOUSE KEEPER order., Recovery (Recovery-Hospital Unit), Routine ondansetron (ZOFRAN) injection 4 mg (CANCELED) 4 mg, Intravenous, EVERY 30 MIN PRN, 2 doses, Starting on Sun03/28/17 at 1658, Until Judith 03/29/17 at 1240, Nausea, May repeat dose once in 30 minutes if no relief from previous dose. If multiple antiemetics are ordered, use ondansetron first, prochlorperazine second. Per BOARDINGHOUSE KEEPER order. , Recovery (Recovery-Hospital Unit) 0144 (Given - Provider: Brett Arnold RN) ondansetron (ZOFRAN) injection 4 mg 4 mg, Intravenous, EVERY 8 HOURS PRN, Starting on Judith 03/29/17 at 1238, Until Sun03/30/17 at 1655, Nausea 0054 (Given - Provider: Katie Calderon RN) oxyCODONE (ROXICODONE) 5 mg/5 mL solution 5-10 mg 5-10 mg, Oral, EVERY 4 HOURS PRN, Starting on Judith 03/29/17 at 1238, Until Sun03/30/17 at 1655, Pain, for pain 1-5 give 5mg; for pain 6-10 give 10mg, Routine 1257 (Given - Provider: Eugenia Matson RN)1745 (Given - Provider: Rowena Ojeda, LUCHO) 0033 (Given - Provider: Katie Calderon RN)1410 (Given - Provider: Rowena Ojeda, LUCHO) prochlorperazine (COMPAZINE) injection 10 mg 10 mg, Intravenous, EVERY 6 HOURS PRN, Starting on Judith 03/29/17 at 1239, Until Sun03/30/17 at 1655, Nausea, Use only if no relief from Ondansetron., Routine sodium chloride 0.9 % flush 5-20 mL 5-20 mL, Intravenous, EVERY 1 MIN PRN, Starting on Judith 03/29/17 at 1741, Until Sun03/30/17 at 1655, flush, Flush pertains to all indwelling lines. Flush per protocol found in the job aid using the link provided on this medication record., Recovery (Recovery-Hospital Unit), Routine documented in this encounter Care Teams Harness Installer Relationship Specialty Start Date End Date Samreen Warner APRN [address] [place] [address] PCP - General Family Medicine 09/14/16 07/22/23 documented as of this encounter
--- OUTSIDE RECORDS SUMMARY | 2024-01-08 17:57 | XMS_ITS | Encounter Summary ---
[place] [address] Care Team Providers Care Golf [employer] Head Former Name Role Phone Samreen Warner APRN Primary Care Provider [phone] Encounter Details Date Type Department Care Team ([facility] st Contact Info) Description 01/04/2017 Telephone [place] [id number] Terese Saba Social History Tobacco Use Types Packs/Day Years Used Date Smoking Tobacco: Former Cigarettes Q uit: 01/04/2007 Sex and Gender Information Value Date Recorded Sex Assigned at Not on file Gender Identity Not on file Sexual Orientation Not on file documented as of this encounter Miscellaneous Notes * Telephone Encounter - Terese Saba - 01/04/2017 3:41 PM EDT Spoke on the phone with this patient to schedule her SMA and fuv with Dr. Mahoney. documented in this encounter Plan of Treatment Not on file documented as of this encounter Visit Diagnoses Not on filedocumented in this encounter Care Teams Golf [employer] Head Former Relationship Specialty Start Date End Date Samreen Warner APRN [address] [place] [address] PCP - General Family Medicine 09/14/16 07/22/23 documented as of this encounter
--- OUTSIDE RECORDS SUMMARY | 2024-01-08 17:57 | XMS_ITS | Encounter Summary ---
[place] [address] Care Team Providers Care Shear Assembler Name Role Phone Samreen Warner APRN Primary Care Provider Encounter Details Date Type Department Care Team (Latest Contact Info) Description 02/07/2017 8:55 AM EST Laboratory Appointment Lab [address] [place] [address] Leukocytosis, unspecified type Social History Tobacco Use Types Packs/Day [...] Priority Date/Time Associated Diagnosis Comments HEMOGRAM Routine 02/07/2017 8:51 AM EST Leukocytosis, unspecified type DIFFERENTIAL, AUTOMATED Routine 02/07/2017 8:51 AM EST Leukocytosis, unspecified type CBC (WITH DIFF) Routine 02/07/2017 8:51 AM EST Leukocytosis, unspecified type documented in this encounter Results * (ABNORMAL) Differential, Automated (02/07/2017 8:51 AM EST) Neutrophil % 64.3 % [facility] Neutrophil Absolute 9.09(H) 1.70 - 6.10 x10(3)/mc L [facility] Lymph % 27.8 % [facility] Lymphocytes Abs 3.9(H) 0.9 - 3.2 x10(3)/[facility] Monocyte % 6.1 % [facility] Monocyte Abs 0.9 0.3 - 0.9 x10(3)/[facility] Eos % 1.1 % [facility] Eosinophils Abs 0.2 0.0 - 0.4 x10(3)/[facility] Basophil % 0.4 % [facility] Baso Absolute 0.0 0.0 - 0.1 x10(3)/[facility] Immature Gran % 0.30 % [facility] Comment: Immature granulocytes(IG's)percentage and absolute count will include metamyelocytes, myelocytes, and promyelocytes. Blood smears from CBCs yielding IG's will be scanned manually for concordance. If this scan disagrees with the automated IG or if promyelocytes are noted, a manual differential will be performed. Immature Gran Absolute 0.04 0.00 - 0.04 x10(3)/[facility] Blood specimen (specimen) 02/07/2017 8:51 AM EST 02/07/2017 9:15 AM EST Narrative Resulting Agency Comment Spec In Lab Domenica Mahoney MD HEMATOLOGY ORDERABL ES [facility] [place] [address] * (ABNORMAL) Hemogram (02/07/2017 8:51 AM EST) White Blood Cell 14.1(H) 4.0 - 9.5 x10(3)/[facility] Red Blood Cell 4.63 4.00 - 5.21 x10(6)/[facility] Hemoglobin 12.6 11.7 - 15.5 gm/dL [facility] Hematocrit 38.8 35.7 - 45.8 % [facility] Mean Cell Volume 83.8 82.6 - 94.4 fL [facility] Mean Cell Hemoglobin 27.2 27.1 - 32.0 pg [facility] Mean Cell Hemoglobin Concentration 32.5 31.7 - 35.0 gm/dL [facility] Platelet 326 145 - 357 x10(3)/mc L [facility] RDW Standard Deviation 39.1 37.0 - 46.0 fL [facility] RDW coefficient of variation 12.9 11.5 - 14.1 % [facility] Mean Platelet Volume 11.1 7.6 - 12.9 fL [facility] NRBC% auto 0.0 % [facility] NRBC Absolute 0.000 0.000 - 0.000 x10(3)/mc L [facility] Blood specimen (specimen) 02/07/2017 8:51 AM EST 02/07/2017 9:15 AM EST Narrative Resulting Agency Comment Spec In Lab Domenica Mahoney MD HEMATOLOGY ORDERABL ES Performing Organization Address City/State/[facility] Co de Phone Number [facility] [place] [address] documented in this encounter Visit Diagnoses Diagnosis Leukocytosis, unspecified type documented in this encounter Care Teams Shear Assembler Relationship Specialty Start Date End Date Samreen Warner, CUSHION [employer]SEMBLER [address] [place] [address] PCP - General Family Medicine 09/14/16 07/22/23 documented as of this encounter
--- OUTSIDE RECORDS SUMMARY | 2024-01-08 17:57 | XMS_ITS | Encounter Summary ---
Author Organization [facility] Address [facility] [place] [address] Care Team Providers Care Employee Benefits Administrator Name Role Phone Samreen Warner APRN Primary [...] Expiration Date Visits Re quested Visits Authorized [id number] 1 1 Encounter Details Date Type Department Care Team (Latest Contact Info) Description 03/28/2017 12:10 PM EST - 03/30/2017 2:50 PM [facility] Hospital Encounter [address] [place] [address] Domenica Mahoney MD [facility] [place] [address] Discharge Disposition: Home Social History Tobacco Use [...] Weight 117.1 kg (258 lb 1.6 oz) 03/28/ 018 12:36 PM EST Height 154.9 cm [...] changed to oral pain medications and the CREATIVE LEAD was discontinued on POD# 1. She [...] Data: Recent Labs 01/05/18 0505 01/04/18 0745 01/04/18 0120 WBC 13.4* 10.7* 7.0 HGB 12.2 [...] mouth twice a week for 48 doses. [id number] Units Quantity: 24 capsule Refills: 1 IRON [...] LD; Domenica Mahoney MD [facility] [phone] 07/18/2017 9:00 AM Alyssia Reinoso LD; Kim Garza APRN [facility] [phone] Instructions Given to Patient at Discharge: BARIATRIC SURGERY DISCHARGE INFORMATION BARIATRIC SUPPORT TEAM CONTACT NUMBERS (Mon-Fri 8am - 5pm): General Surgery and Bariatric Surgery [phone] Bariatric Surgeons: Grupo. Judith Mahoney and Declan [phone] English Composition Instructor: [phone] Dietitians: [phone] Outside of regular business hours, including weekends and holidays: Ask for General Surgery resident therapeutic recreation director [phone] FOR EMERGENCIES: CALL 911 (trouble breathing, chest [...] weeks at the General Surgery Outpatient Clinic (Drying Machine Operator Package Yarns 4L, [facility]). Future Appointments Date Time Provider Department Center 04/19/2017 11:00 AM Domenica Mahoney MD Le[facility] 07/18/2017 9:00 AM Kim Garza [facility]N [facility]: ?? You [...] EVITA Dennis 03/30/2017 Primary Care Physician: Samreen Warner APRN [address] / [facility] [id number] documented in this encounter Discharge Instructions * Discharge Instructions* April Garvey PA - 03/30/2017 12:47 PM EST Instructions Given to Patient at Discharge: BARIATRIC SURGERY DISCHARGE INFORMATION BARIATRIC SUPPORT TEAM CONTACT NUMBERS ([facility]-Fri 8am - 5pm): General Surgery and Bariatric Surgery [phone] Bariatric Surgeons: Judith Mcclain and Declan [phone] English Composition Instructor: [phone] Dietitians: [phone] Outside of regular business hours, including weekends and holidays: Ask for General Surgery resident therapeutic recreation director [phone] FOR EMERGENCIES: CALL 911 (trouble breathing, chest [...] weeks at the General Surgery Outpatient Clinic (Drying Machine Operator [employer]arns 4L, [facility]). Future Appointments Date Time Provider Department Center [...] by boyfriend after picking up prescriptions at [facility] pharmacy. * April Garvey PA - 03/30/2017 [...] 98 % SpO2: [95 %-99 %] 03/29 700 - 03/30 07 In: 2006 [I.V.:2006] Out: 1100 [Urine:1100] Physical [...] without concerns. PLAN: NEURO: Pain control with CREATIVE LEAD Dilaudid and IV Tylenol; transition to elixir [...] 36 y.o. female s/p the following procedure: [id number] Procedure(s) (LRB): @LAPAROSCOPY, SURG/GASTRIC RESTRICTIVE PROC, LONGITUDINAL [...] management. NEURO: Pain controlled w/ tylenol, dilaudid CREATIVE LEAD PULM: encourage IS CARDIAC: hemodynamically stable FEN/GI: [...] See PACU flowsheet for further assessment. 1800- CREATIVE LEAD button provided to pt. Patient Education about the CREATIVE LEAD provided to pt, pt verbalized understanding. Using CREATIVE LEAD approprietly. Family at bedside. 2014- pt meets phase 1 discharge criteria. Resting [...] Support from 01/04/2017 in [facility] ?? Weight ?? (!) 125.2 kg (276 lb) 1 01/04/2017 1112 ?? BMI ?? 50.14 1 01/04/2017 1112 ? Other motivating factors for seeking surgery for bariatric surgery: Wants to feel healthier and have a better quality of life. 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 Excited that a [employer] just opened up next to her work, plans to start going when that occurs ?? Data reviewed: PCP notes, nutrition notes, psychological evaluation ?? Family plan: Would like to have children, but not in the next 18-24 months. Has Nexplanon, expires in 2020. ?? Functional status: Is ambulation limited most [...] perspective. ?? Family history: Father - CAD, IA, morbid obesity ?? Social??History Social History ?? [...] per month. 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 ?? Feels that she has adequate [...] pain, squeezing, pressure [ ] history of IA [ ] previous PCI/ PTCA, cardiac surgery [...] ] hematuria [] history of renal calculi C[facility]IER OFFICE: [ ] LMP: [ ] menorrhagia [ [...] Support from 01/04/2017 in [facility] ?? Weight ?? (!) 125.2 kg (276 [...] of treatment of obesity and of the [facility] Bariatric Surgery Program: Ms.. Urena is aware that other treatments for obesity are available, ie, dietary, behavior modification, weight loss medications, exercise as well as surgical weight loss methods. The risks and benefits of bariatric surgery, including gastric bypass and sleeve gastrectomy are discussed at every Int roduction to the [facility] Bariatric Surgery Program meeting and all Educational [...] CMP within 3 months of surgery, per MBSAQ accredited bariatric center guidelines - Ongoing weight [...] Specific Information: none Health/Prescription Coverage: Primary Insurance: [employer] [place] Secondary Insurance: N/A Prescription Coverage: See above Preferred Pharmacy: [id number], [place] - [address] [facility] Other: N/A Primary Care Provider: Samreen Warner APRN [phone] Patient/Caregiver Goals of Treatment: Patient plans to [...] of care planning. Evy Fritz RN Pager: [phone] * Plan of Care - Katie Calderon [...] Mahoney MD - 03/28/2017 4:31 PM EST [facility] Operative Note Patient Name: Lennie Urena : [id number] MR#: [id number] Case Date: 03/28/2017 Surgeon: Surgeon(s) and Role: [...] Once entirely mobilizing the greater curve, an [place] stapler with a SeamGuard green load was inserted in the abdominal cavity; and the antrum was divided. A 38-Cymraes bougie was placed by Anesthesia and hugged [...] 5:05 AM EST) Neutrophil % 79.1 % [facility] Neutrophil Absolute 10.57(H) 1.70 - 6.10 x10(3)/mc L [facility] Lymph % 14.1 % [facility] Lymphocytes Abs 1.9 0.9 - 3.2 x10(3)/ L [facility] Monocyte % 6.3 % [facility] Monocyte Abs 0.8 0.3 - 0.9 x10(3)/[facility] Eos % 0.0 % [facility] Eosinophils Abs 0.0 0.0 - 0.4 x10(3)/[facility] Basophil % 0.1 % [facility] Baso Absolute 0.0 0.0 - [...] HEMATOLOGY OR DERABLES [facility] [place] [address] * (ABNORMAL) Hemogram (03/30/2017 5:05 AM EST) [...] HOSPITAL LABORATORY Platelet 236 145 - 357 x10(3)/[facility] RDW Standard Deviation 42.6 37.0 - 46.0 [facility]ATORY RDW coefficient of variation 13.8 11.5 - 14.1 % [facility] Mean Platelet Volume 12.3 7.6 - 12.[address] [facility] NRBC% auto 0.0 % [facility] NRBC Absolute 0.000 0.000 - 0.000 x10(3)/[facility]ORY Blood specimen (specimen) 03/30/2017 5:05 AM EST 03/30/2017 5:28 AM EST Narrative Resulting Agency Comment Spec In Lab Saranya Calvillo MD HEMATOLOGY OR DERABLES [facility] [place] [address] * Phosphorus (03/30/2017 5:05 AM EST) Phosphorus 2.5 2.5 - 4.5 mg/dL [facility] Blood specimen (specimen) 03/30/2017 5:05 AM EST 03/30/2017 5:28 AM EST Narrative Resulting Agency Comment Spec In Lab Saranya Calvillo MD CHEMISTRY ORD ERABLES Performing Organization Address [facility] de Phone Number [facility] [place] [address] * Magnesium (03/30/2017 5:05 AM EST) Magnesium 0.88 0.69 - 1.07 mmol/L [facility] Comment:result rechecked-ks Blood specimen (specimen) 03/30/2017 5:05 AM EST 03/30/2017 5:28 AM EST Narrative Resulting Agency Comment Spec In Lab Saranya Calvillo MD CHEMISTRY ORD ERABLES Performing Organization Address [facility] de Phone Number [facility] [place] [address] * Basic Metabolic Panel (non-fasting) (03/30/2017 5:05 AM EST) Glucose 96 65 - 199 mg/dL ST [...] LABORATORY Est Glomerular Filtration Rate >60 >=60 [facility] Comment: The reported eGFR should be multiplied by 1.2 for patients. The MDRD is not an appropriate measure of renal function for patients with body mass extremes or in patients with acute kidney failure. http://[employer]/DHnkdep http://[employer]ual[employer]/DHMCnkf Blood specimen (specimen) 03/30/2017 5:05 AM EST 03/30/2017 5:28 AM EST Narrative Resulting Agency Comment Spec In Lab Saranya Calvillo MD CHEMISTRY ORD ERABLES [facility] [place] [address] * (ABNORMAL) Hemogram (03/29/2017 7:45 AM EST) [facility] NRBC% auto 0.0 % [facility] NRBC Absolute 0.000 0.000 - 0.000 x10(3)/ L [facility] Blood specimen (specimen) 03/29/2017 7:45 AM EST 03/29/2017 7:52 AM EST Narrative Resulting Agency Comment Spec In Lab Domenica Mahoney MD HEMATOLOGY ORDERABL ES [facility] [place] [address] * (ABNORMAL) Differential, Automated (03/29/2017 1:20 AM EST) Neutrophil % 92.3 % [facility] Neutrophil Absolute 6.41(H) 1.70 - 6.10 x10(3)/ L [facility] Lymph % 5.9 % [facility] Lymphocytes Abs 0.4(L) 0.9 - 3.2 x10(3)/ L [facility] Monocyte % 1.7 % [facility] Monocyte Abs 0.1(L) 0.3 - 0.9 x10(3)/[facility] Eos % 0.0 % [facility] Eosinophils Abs 0.0 0.0 - 0.4 x10(3)/[facility] Basophil % 0.0 % [facility] Baso Absolute 0.0 0.0 - [...] Immature Gran Absolute 0.01 0.00 - 0.04 x10(3)/[facility]OR[facility]ORY Blood specimen (specimen) 03/29/2017 1:20 AM EST 03/29/2017 1:32 AM EST Narrative Resulting Agency Comment Spec In Lab Domenica Mahoney MD HEMATOLOGY ORDERABL ES [facility] [place] [address] * (ABNORMAL) Hemogram (03/29/2017 1:20 AM EST) White Blood Cell 7.0 4.0 - 9.5 x10(3)/[facility] LABORATORY Red Blood Cell 3.34(L) 4.00 - 5.21 x10(6)/[facility]ORY Hemoglobin 9.2(L) 11.7 - [...] HOSPITAL LABORATORY Platelet 187 145 - 357 x10(3)/[facility] RDW Standard Deviation 41.5 37.0 - 46.0 [facility]ORATORY RDW coefficient of variation 13.4 11.5 - 14.1 % [facility] Mean Platelet Volume 11.8 7.6 - 12.[address] [facility] NRBC% auto 0.0 % [facility] NRBC Absolute 0.000 0.000 - 0.000 x10(3)/[facility] Blood specimen (specimen) 03/29/2017 1:20 AM EST 03/29/2017 1:32 AM EST Narrative Resulting Agency Comment Spec In Lab Domenica Mahoney MD HEMATOLOGY ORDERABL ES Performing Organization Address [facility] de Phone Number [facility] [place] [address] * (ABNORMAL) Phosphorus (03/29/2017 1:20 AM EST) Phosphorus 1.9(L) 2.5 - 4.5 mg/dL [facility] Blood specimen (specimen) 03/29/2017 1:20 AM EST 03/29/2017 1:32 AM EST Narrative Resulting Agency Comment Spec In Lab Domenica Mahoney MD CHEMISTRY ORDERABLE S Performing Organization Address [facility] de Phone Number [facility] [place] [address] * (ABNORMAL) Magnesium (03/29/2017 1:20 AM EST) Magnesium 0.52(L) 0.69 - 1.07 mmol/L [facility] Blood specimen (specimen) 03/29/2017 1:20 AM EST 03/29/2017 1:32 AM EST Narrative Resulting Agency Comment Spec In Lab Domenica Mahoney MD CHEMISTRY ORDERABLE S Performing Organization Address [facility] de Phone Number [facility] [place] [address] * (ABNORMAL) Glucose, fasting (03/29/2017 1:20 AM [...] of Diabetes Mellitus, Position Statement from the [place] [employer]. ??Diabetes Care, Volume 33, Supplement 1, Mar 2009 Blood specimen (specimen) 03/29/2017 1:20 AM EST 03/29/2017 1:32 AM EST Narrative Resulting Agency Comment Spec In Lab Domenica Mahoney MD CHEMISTRY ORDERABLE S Performing Organization Address [facility] de Phone Number [facility] [place] [address] * (ABNORMAL) Creatinine (03/29/2017 1:20 AM EST) Creatinine 0.37(L) 0.70 - 1.20 mg/dL [facility] Est Glomerular Filtration Rate >60 >=60 [facility] Comment: The reported eGFR should be multiplied by 1.2 for patients. The MDRD is not an appropriate measure of renal function for patients with body mass extremes or in patients with acute kidney failure. http://[employer]/DHnkdep http://[employer]/DHMCnkf Blood specimen (specimen) 03/29/2017 1:20 AM EST 03/29/2017 1:32 AM EST Narrative Resulting Agency Comment Spec In Lab Domenica Mahoney MD CHEMISTRY ORDERABLE S Performing Organization Address [facility] Co de Phone Number [facility] [place] [address] * BUN (03/29/2017 1:20 AM EST) Blood Urea Nitrogen 8 8 - 18 mg/dL [facility] Blood specimen (specimen) 03/29/2017 1:20 AM EST 03/29/2017 1:32 AM EST Narrative Resulting Agency Comment Spec In Lab Domenica Mahoney MD CHEMISTRY ORDERABLE S Performing Organization Address [facility] Co de Phone Number [facility] [place] [address] * (ABNORMAL) Electrolytes panel (03/29/2017 1:20 AM [...] MD CHEMISTRY ORDERABLE S Performing Organization Address [facility] Co de Phone Number [facility] [place] [address] * Specimen to Pathology (surgical or derm) (03/28/2017 4:04 PM EST) AP Specimen 03/28/2017 4:04 PM EST 03/28/2017 4:[address] [facility] - 03/28/2017 4:04 PM EST Specimen requisition ordered. ??Separate Pathology report to follow Domenica Mahoney MD PATHOLOGY/CYTOLOGY ORDERABLES Performing Organization Address [facility]/ZIP Co de Phone Number [facility] [place] [address] * Surgical Pathology Report (03/28/2017 4:03 PM EST) Final Diagnosis [id number] ? Location: 4WST; 0414; A The signing pathologist has (i) examined the relevant preparation(s) for the specimen(s) and (ii) rendered or confirmed the diagnosis(es). . ?Surgical Pathology DIAGNOSIS Part of stomach: - ??Fundic gland polyps. Electronically signed by: ??Stanley Fofana MD Verified: ??04/02/2017 ?Pathologist Performed at: ??-[facility] Dept. of Pathology, [place], [place] CLINICAL INFORMATION Specimen Submitted: A - [...] ng: (1-2) mucosa with polyps; (3) additional advertising representative section of mucosa. (R3) ??ejr 04/02/2017 9:[address] [facility] STOMACH STRUCTURE / Unknown 03/28/2017 4:03 PM EST 03/28/2017 4:03 PM EST Domenica Mahoney MD PATHOLOGY/CYTOLOGY ORDERABLES [facility] [place] [address] * SCAN DOC: IMPLANTABLE DEVICES (03/28/2017 12:00 AM EST) Narrative 03/28/2017 12:00 AM EST Ordered by an unspecified provider. Scanning Provider MEDIA MGR SCAN EXT O RDR/RSLT documented in this encounter Visit Diagnoses Diagnosis Obesity Obesity, unspecified documented in this encounter Admitting Diagnoses Diagnosis Obesity Obesity, unspecified documented in this encounter Administered Medications Inactive Administered Medications - up to 3 most recent administrations Medication Order MAR Action Action Date Dose Rate Site acetaminophen (OFIRMEV) injection 1,000 mg 1,000 mg, Intravenous, at 400 mL/hr, Administer over 15 Minutes, EVERY 6 HOURS SCHEDULED, 4 doses, First dose on Sun03/28/17 at 1800, Last dose on Sun03/29/17 at 1200, Maximum dose of acetaminophen is 4000 mg from all sources in 24 hours., Routine, Is ketorolac (Toradol) IV contraindicated? Yes, Can this patient tolerate oral medications or suppositories? No Given 03/29/2017 12:57 PM EST 1,000 mg 400 mL/hr Given 03/29/2017 6:06 AM EST 1,000 mg 400 mL/hr Given 03/29/2017 1:10 AM EST 1,000 mg 400 mL/hr acetaminophen (TYLENOL) 650 mg/20.3 mL oral liquid 650 mg 650 mg, Oral, EVERY 4 HOURS, First dose on Sun03/29/17 at 1300, Until Discontinued, Maximum dose of acetaminophen is 4,000 mg from all sources in 24 hours., Routine Given 03/30/2017 12:33 AM EST 650 mg Given 03/29/2017 5:45 PM EST 650 mg acetaminophen (TYLENOL) tablet 650 mg 650 mg, Oral, EVERY 4 HOURS, First dose on Sun03/30/17 at 0800, Until Discontinued, Maximum dose of acetaminophen is 4000 mg from all sources in 24 hours. Crush tablet prior to administration., Routine Given 03/30/2017 8:45 AM EST 650 mg diphenhydrAMINE (BENADRYL) injection 25 mg 25 mg, Intravenous, EVERY 6 HOURS PRN, Starting on Sun03/28/17 at 1653, Until Sun03/30/17 at 1655, Itching, Routine enoxaparin (LOVENOX) injection 40 mg 40 mg, Subcutaneous, ONCE, 1 dose, On Sun03/28/17 at 1300, Please give in preop, Routine Given 03/28/2017 1:0 0 PM EST 40 mg enoxaparin (LOVENOX) injection 40 mg 40 mg, Subcutaneous, 2 TIMES DAILY, First dose on Sun03/28/17 at 2100, Until Discontinued, Routine Given 03/30/2017 8:41 AM EST 40 mg Given 03/29/2017 8:19 PM EST 40 mg Given 03/29/2017 9:18 AM EST 40 mg HYDROmorphone (DILAUDID) 1 mg/mL CREATIVE LEAD 50 mL Intravenous, CREATIVE LEAD ONLY, Starting on Sun03/28/17 at 1715, Until Judith 03/29/17 at 1240, Recovery (Recovery-Hospital Unit) New Syringe/Cartridge 03/28/2017 6:30 PM EST 50 mg HYDROmorphone (DILAUDID) injection 0.2-0.4 mg 0.2-0.4 mg, Intravenous, EVERY 5 MIN PRN, Starting on Sun03/28/17 at 1623, Until Sun03/28/17 at 2038, Pain, Give 0.2 mg every 5 minutes PRN for mild to moderate pain (1-5) Give 0.4 mg every 5 minutes PRN for moderate to severe pain (6-10). Hold for respiratory rate less than 10 per minute. Maximum dose 4 mg over one hour. If multiple pain medications are ordered, start with hydromorphone or morphine and use fentanyl for breakthrough pain., PACU Recovery, Routine Given 03/28/2017 5:47 PM EST 0.2 mg Given 03/28/2017 5:00 PM EST 0.2 mg lactated Ringers infusion 1,000 mL 1,000 mL, at 100 mL/hr, Intravenous, CONTINUOUS, Starting on Sun03/28/17 at 1300, Until Sun03/28/17 at 2039, Day of Surgery (Day of Procedure) New Bag 03/28/2017 2:25 PM EST New Bag 03/28/2017 1:00 PM EST 1,000 mLs 100 mL/hr lactated Ringers infusion 1,000 mL 1,000 mL, at 100 mL/hr, Intravenous, CONTINUOUS, Starting on Sun03/28/17 at 1715, Until Sun03/30/17 at 0937, Recovery (Recovery-Hospital Unit) New Bag 03/29/2017 2:10 PM EST 1,000 mLs 100 mL/hr New Bag 03/29/2017 3:41 AM EST 1,000 mLs 100 mL/hr New Bag 03/28/2017 5:14 PM EST 1,000 mLs 100 mL/hr lidocaine (XYLOCAINE) 10 mg/mL (1 %) injection 3 mg 3 mg (0.3 mL), Subcutaneous, ONCE PRN, 1 dose, Starting on Judith 03/29/17 at 1741, Until Sun03/30/17 at 1655, for discomfort with PIV insertion, Recovery (Recovery-Hospital Unit), Routine magnesium sulfate 2 g in sterile water 50 mL 2 g, Intravenous, ONCE, 1 dose, On Judith 03/29/17 at 0245, Administer over 120 Minutes New Bag 03/29/2017 3:40 AM EST 2 g 25 mL/hr miconazole (MICOTIN) 2 % powder Topical (Top), [...] NOT exceed 2 mg total dose. Per CREATIVE LEAD order., Recovery (Recovery-Hospital Unit), Routine ondansetron (ZOFRAN) injection 4 mg 4 mg, Intravenous, EVERY 30 MIN PRN, 2 doses, Starting on Sun03/28/17 at 1658, Until Judith 03/29/17 at 1240, Nausea, May repeat dose once in 30 minutes if no relief from previous dose. If multiple antiemetics are ordered, use ondansetron first, prochlorperazine second. Per CREATIVE LEAD order. , Recovery (Recovery-Hospital Unit) Given 03/29/2017 1:44 AM EST 4 mg ondansetron (ZOFRAN) injection 4 mg 4 [...] this medication record., Recovery (Recovery-Hospital Unit), Routine sodium phosphate 15 mMol in sodium chloride 0.9% 150 mL 15 mmol, Intravenous, ONCE, 1 dose, On Judith 03/29/17 at 0245, Administer over 4 Hours, Administer over 4-6 hours New Bag 03/29/2017 3:41 AM EST 15 mmol 37.5 mL/hr documented in this encounter Active and Recently [...] Kwok RN) 0110 (Given - Provider: Brett Arnold, LUCHO)0606 (Given - Provider: Brett Arnold, LUCHO)1257 (Given - Provider: Eugenia Matson RN) acetaminophen (TYLENOL) 650 mg/20.3 mL oral liquid 650 mg (CANCELED) 650 mg, Oral, EVERY 4 HOURS, First dose on Sun03/29/17 at 1300, Until Discontinued, Maximum dose of [...] preop, Routine 1300 (Given - Provider: Celena Escamilla, LUCHO) enoxaparin (LOVENOX) injection 40 mg 40 mg, Subcutaneous, 2 TIMES DAILY, First dose on Sun03/28/17 at 2100, Until Discontinued, Routine 2100 (Not Given - Provider: Brett Arnold RN - Reason: Contraindicated) 09 (Given - Provider: Lisa Patton, LUCHO)2018 (Given - Provider: Katie Calderon RN) 0841 (Given - Provider: Rowena Ojeda, LUCHO) magnesium sulfate 2 g in sterile water [...] Arnold RN - Reason: Medication not available) 917 (Given - Provider: Lisa Patton RN)2099 (Not Given - Provider: Katie Calderon RN - Reason: Patient/family refused) 0855 (Given - Provider: Rowena Ojeda, LUCHO) pantoprazole (PROTONIX) injection 40 mg 40 mg, Intravenous, DAILY, First dose on Sun03/28/17 at 1715, Until Discontinued, Reconstitute with 10 mL of normal saline to a concentration of 4 mg/mL and infuse slowly over 2 minutes. , Routine 2055 (Given - Provider: Brett Arnold RN) 0918 (Given - Provider: Lisa Patton, LUCHO) 0841 (Given - Provider: Rowena Ojeda, LUCHO) sodium chloride 0.9 % flush 5 mL 5 mL, Intravenous, 2 TIMES DAILY, First dose on Judith 03/29/17 at 2100, Until Discontinued, Recovery (Recovery-Hospital Unit), Routine 2099 (Not Given - Provider: Katie Calderon RN - Reason: See comment - Comment: MIVF infusing) 0841 (Given - Provider: Rowena Ojeda, RN) sodium phosphate 15 mMol in sodium chloride 0.9% 150 mL (COMPLETED) 15 mmol, Intravenous, ONCE, 1 dose, On Judith 03/29/17 at 0245, Administer over 4 Hours, Administer over 4-6 hours 0341 (New Bag - Provider: Brett Arnold, RN)0741 (Stopped - Provider: Eugenia Matson, RN) Continuous Medication Order 03/28/2017 03/29/2017 03/30/2017 HYDROmorphone (DILAUDID) 1 mg/mL CREATIVE LEAD 50 mL (CANCELED) Intravenous, CREATIVE LEAD ONLY, Starting on Sun03/28/17 at 1715, Until [...] Escamilla RN)1425 (New Bag - Provider: Rowena Whitehead)1500 (Anesthesia Volume Adjustment - Provider: Rowena Whitehead)1627 (Anesthesia Volume Adjustment - Provider: Margy Santana CRNA)1645 (Anesthesia Volume Adjustment - Provider: Margy Santana CRNA) lactated Ringers infusion 1,000 mL (CANCELED) 1,000 mL, at 100 mL/hr, Intravenous, CONTINUOUS, Starting on Sun03/28/17 at 1715, Until Sun03/30/17 at 0937, Recovery (Recovery-Hospital Unit) 1714 (New Bag - Provider: Luz Maria Kwok, LUCHO) 0341 (New Bag - Provider: Brett Arnold, RN)1410 (New Bag - Provider: Eugenia Matson, LUCHO) 1000 (Stopped - Provider: Rowena Ojeda, LUCHO) PRN Medication Order 03/28/2017 03/29/2017 03/30/2017 BUpivacaine [...] Routine 1700 (Given - Provider: Luz Maria Kwok, LUCHO)1747 (Given - Provider: Luz Maria Kwok, LUCHO) lidocaine (XYLOCAINE) 10 mg/mL (1 %) injection [...] NOT exceed 2 mg total dose. Per CREATIVE LEAD order., Recovery (Recovery-Hospital Unit), Routine ondansetron (ZOFRAN) injection 4 mg (CANCELED) 4 mg, Intravenous, EVERY 30 MIN PRN, 2 doses, Starting on Sun03/28/17 at 1658, Until Judith 03/29/17 at 1240, Nausea, May repeat dose once in 30 minutes if no relief from previous dose. If multiple antiemetics are ordered, use ondansetron first, prochlorperazine second. Per CREATIVE LEAD order. , Recovery (Recovery-Hospital Unit) 0144 (Given - Provider: Brett Arnold, LUCHO) ondansetron (ZOFRAN) injection 4 mg 4 mg, Intravenous, EVERY 8 HOURS PRN, Starting on Judith 03/29/17 at 1238, Until Sun03/30/17 at 1655, Nausea 0054 (Given - Provider: Katie Calderon, LUCHO) oxyCODONE (ROXICODONE) 5 mg/5 mL solution 5-10 mg 5-10 mg, Oral, EVERY 4 HOURS PRN, Starting on Judith 03/29/17 at 1238, Until Sun03/30/17 at 1655, Pain, for pain 1-5 give 5mg; for pain 6-10 give 10mg, Routine 1257 (Given - Provider: Eugenia Matson RN)1745 (Given - Provider: Rowena Ojeda, LUCHO) 0033 (Given - Provider: Katie Calderon, LCUHO)1410 (Given - Provider: Rowena Ojeda, LUCHO) prochlorperazine [...] Routine documented in this encounter Care Teams Employee Benefits Administrator Relationship Specialty Start Date End Date Samreen Warner, LUCIANO [address] [place] [address] PCP - General Family Medicine 09/14/16 07/22/23 documented as of this encounter
--- OUTSIDE RECORDS SUMMARY | 2024-01-08 17:57 | XMS_ITS | Encounter Summary ---
Author Organization [facility] Address [place] [address] Care Team Providers Care Flight Communications Operator Name Role Phone Samreen Warner APRN Primary Care Provider Reason for Visit * Consultation (Routine) - Specialty Diagnoses / Procedures Referred By Priscila stahl Referred To Contact General Surgery Diagnoses BMI 52 Procedures Eval and Treat Samreen Warner APRN [address] [place] [address] Domenica Mahoney MD [facility] [place] [address] Referral ID Status Reason Start Date Expiration Date V isits Requested Visits Authorized [id number] Consult, Test & Treat 01/04/2017 01/04/2018 1 1 Encounter Details Date Type Department Care Team (Late st Contact Info) Description 01/04/2017 1:00 PM EDT Office [place] [address] Domenica Mahoney MD [facility] [place] [address] Morbid obesity with BMI of 50.0-59.9, adult Social History Tobacco Use Types Packs/Day Years Used Date Smoking Tobacco: Former Cigarettes Q uit: 01/04/2007 Sex and Gender Information Value Date Recorded Sex Assigned at Not on file Gender Identity Not on file Sexual Orientation Not on file documented as of this encounter Progress Notes * Domenica Mahoney MD - 01/04/2017 1:00 PM EDT Reason for consultation: Lennie is a 36 y.o. year-old female referred by Samreen Warner APRN for consultation for consideration of surgical treatment of obesity. Her preferred procedure: Undecided Prior bariatric surgery evaluations: None History of present illness: She states that she has struggled with obesity for most of her life. The patient has tried multipleweight loss measures without sustainable success. Factors that she identifies as contributing to her obesity include: genetics, overconsumption and inactivity. She seeks bariatric surgery for health reasons. Program start weight: 275 #/ BMI 52 Current weight/BMI: Wt & BMI By Encounter Date Clinical Support from 01/04/2017 in General Surgery at [place] Weight (!) 125.2 kg (276 lb) 1 01/04/2017 1112 BMI 50.14 1 01/04/2017 1112 Other motivating factors for seeking surgery for bariatric surgery: Wants to feel healthier and have a better quality of life. Her father had obesity and had an MD and CVA, and she doesn't want this to happen to her. She would like to have kids in the future, and wants to be able to be present and active as a parent. Her goals of surgery: No specific weight She denies binge eating, night eating disorder, self-induced vomiting, laxative or diuretic use or excessive exercise to lose weight. History of GERD: Denies, not on medications Sleep: Reports adequate sleep. 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 Excited that a [employer] just opened up next to her work, plans to start going when that occurs Data reviewed: PCP notes, nutrition notes, psychological evaluation Family plan: Would like to have children, but not in the next 18-24 months. Has Nexplanon, expires in 2019. Functional status: Is ambulation limited most or all of the time? no Tolerance: she can walk a mile and climb a flight of stairs Karnofsky performance status scale: 80- normal activity with effort, some signs or symptoms of disease ADLs: able to carry on without difficulty- independent Use of assistive devices: Denies Dyspnea with routine activity: walking up inclines Past medical history: Denies, other than morbid obesity Past surgical history: None Current Outpatient Prescriptions: ??? etonogestrel (NEXPLANON) 68 mg Implant, by Subdermal route., Disp: , Rfl: No Known Allergies Anesthesia history (per patient): denies untoward events Lactose/ Food/ Wheat/ Latex allergy/sensitivity: denies Diagnostic screenin. Psychological evaluation done by Sandy Berry MD no contraindication to bariatric surgery from a psychological perspective. Family history: Father - CAD, MD, morbid obesity Social History Social History ??? Marital status: Spouse name: N/A ??? Number of children: N/A ??? Years of education: N/A Occupational History ??? Not on file. Social History Main Topics ??? Smoking status: Former Smoker Quit date: 01/04/2007 ??? Smokeless tobacco: Not on file ??? Alcohol use Not on file ??? Drug use: Not on file ??? Sexual activity: Not on file Other Topics Concern ??? Not on file Social History Narrative ??? No narrative on file Quit smoking 10 years ago. Etoh 3 per month. 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 Feels that she has adequate support for surgery with her , friends and coworkers. Review of Systems (negative if left blank): Constitutional: [x ] fatigue EENT [ ] wears corrective lens [ ] vision or hearing problems Neurologic: [ ] paresthesias [ ] dizziness [ ] chronic headaches Cardiovascular: [ ] history of chest pain, squeezing, pressure [ ] history of MD [ ] previous PCI/ PTCA, cardiac surgery [...] ] hematuria [] history of renal calculi WIRE BENDER: [ ] LMP: [ ] menorrhagia [ [...] [ ] current smoker [ ] anticoagulation Bariatric Surgery VTE Risk Assessment Score Patients will be considered to be at high risk if they have one or more of the following: Previous VTE or BMI >/= 60 kg/m2 Or two or more of the followin 1 Age > 50 BMI >/= 50 kg/m2 Male sex Recent tobacco use Obstructive sleep apnea Venous insufficiency/ varicose veins OCP or HRT within 30 days of surgery Total: 2 extended VTE prophylaxis is indicated post bariatric surgery discharge - may change if she changes more weight before surgery Patients are advised to stop HRT and OCP/ DMPA 1 month prior to surgery and hold for 1 month postop, and use control during this time if appropriate. All patients who take coumadin/ anti-10Ainhibitors preoperatively are referred to the Thrombosis Clinic for recommendations. Physical exam: Vital signs: There were no vitals filed for this visit. Wt & BMI By Encounter Date Clinical Support from 01/04/2017 in General Surgery at [place] Weight (!) 125.2 kg (276 lb) 1 01/04/2017 1112 BMI 50.14 1 01/04/2017 1112 Neuro: Non-focal Psych: Pleasant, conversant, normal affect, [...] detached [ ] fearful [ ] sad ENT: neck subtle with normal ROM, no adenopathy or thyromegaly Lungs: CTA bilaterally without wheezing. Heart: RRR, no murmur appreciated. Abdomen: Obese, soft, non- tender Prior incisions: None Hernias: None Extremities: no lower extremity edema Skin: No areas of skin breakdown. Obesity distribution: gyneoid Discussion of treatment of obesity and of the [facility] Bariatric Surgery Program: Ms.. Urena is aware that other treatments for obesity are available, ie, dietary, behavior modification, weight loss medications, exercise as well as surgical weight loss methods. The risks and benefits of bariatric surgery, including gastric bypass and sleeve gastrectomy are discussed at every Int roduction to the [facility] Bariatric Surgery Program meeting and all Educational Seminars, and were again discussed individually today. Assessment/ Plan: 36 y.o. year old female with Morbid obesity with obesity-related subclinical risk factors including mild physical symptoms including dyspnea on moderate exertion, occasional aches and pains, fatigue, mild psychopathology, mild functional limitations/ mild impairment of well being. She has had failure to sustain weight loss by medical management and meets the criteria proposed bythe NIH Consensus Guidelines for surgical treatment of severe obesity and the AACE, TOS, ASMBS Clinical Practice Guidelines for the Perioperative Nutritional, Metabolic and Non-surgical Support of the Bariatric Surgery Patient 2013 Update. She is aware that there are non-surgical methods to achieveweight loss. After review of her medical record, history and physical exam, I find her to be a good candidate for bariatric surgery. She is interested in undecided. She will be given a follow up appointment to further discuss the risks and benefits of bariatric surgery, and will be scheduled for the educational components of the bariatric surgery program. She has had an opportunity to have all her questions answered and is in agreement with the plan of care. She was encouraged to call with any questions or concerns. Pending: - Educational classes - Final meeting with surgeon to confirm procedure, and review risks/benefits - CBC and CMP within 3 months of surgery, per [facility] accredited bariatric center guidelines - Ongoing weight loss encouraged documented in this encounter Plan of Treatment Not on file documented as of this encounter Procedures Procedure Name Priority Date/Time Associated Diagnosis Comments PTH Routine 01/04/2017 2:03 PM EDT Morbid obesity with BMI of 50.0-59.9, adult HEMOGRAM Routine 01/04/2017 2:03 PM EDT Morbid obesity with BMI of 50.0-59.9, adult DIFFERENTIAL, AUTOMATED Routine 01/04/2017 2:03 PM EDT Morbid obesity with BMI of 50.0-59.9, adult VITAMIN B1, WHOLE BLOOD Routine 01/04/2017 2:03 PM EDT Morbid obesity with BMI of 50.0-59.9, adult IRON AND TIBC Routine 01/04/2017 2:03 PM EDT Morbid obesity with BMI of 50.0-59.9, adult VITAMIN D, 25-HYDROXY Routine 01/04/2017 2:03 PM EDT Morbid obesity with BMI of 50.0-59.9, adult CBC (WITH DIFF) Routine 01/04/2017 2:03 PM EDT Morbid obesity with BMI of 50.0-59.9, adult URIC ACID Routine 01/04/2017 2:03 PM EDT Morbid obesity with BMI of 50.0-59.9, adult HEMOGLOBIN A1C Routine 01/04/2017 2:03 PM EDT Morbid obesity with BMI of 50.0-59.9, adult FOLATE, SERUM Routine 01/04/2017 2:03 PM EDT Morbid obesity with BMI of 50.0-59.9, adult FERRITIN Routine 01/04/2017 2:03 PM EDT Morbid obesity with BMI of 50.0-59.9, adult VITAMIN B12 Routine 01/04/2017 2:03 PM EDT Morbid obesity with BMI of 50.0-59.9, adult COMPREHENSIVE METABOLIC PANEL Routine 01/04/2017 2:03 PM EDT Morbid obesity with BMI of 50.0-59.9, adult documented in this encounter Results * (ABNORMAL) Differential, Automated (01/04/2017 2:03 PM EDT) Neutrophil % 67.6 % [facility] Neutrophil Absolute 10.03(H) 1.70 - 6.10 x10(3)/mc L [facility] Lymph % 25.0 % [facility] Lymphocytes Abs 3.7(H) 0.9 - 3.2 x10(3)/[facility] Monocyte % 5.9 % [facility] Monocyte Abs 0.9 0.3 - 0.9 x10(3)/[facility] Eos % 0.7 % [facility] Eosinophils Abs 0.1 0.0 - 0.4 x10(3)/[facility] Basophil % 0.4 % [facility] Baso Absolute 0.1 0.0 - 0.1 x10(3)/[facility] Immature Gran % 0.40 % [facility] Comment: Immature granulocytes(IG's)percentage and absolute count will include metamyelocytes, myelocytes, and promyelocytes. Blood smears from CBCs yielding IG's will be scanned manually for concordance. If this scan disagrees with the automated IG or if promyelocytes are noted, a manual differential will be performed. Immature Gran Absolute 0.06(H) 0.00 - 0.04 x10(3)/ L [facility] Blood specimen (specimen) 01/04/2017 2:03 PM EDT 01/04/2017 2:05 PM EDT Narrative Resulting Agency Comment Spec In Lab Domenica Mahoney MD HEMATOLOGY ORDERABL ES [facility] [place] [address] * (ABNORMAL) Hemogram (01/04/2017 2:03 PM EDT) White Blood Cell 14.9(H) 4.0 - 9.5 x10(3)/ L [facility] Red Blood Cell 4.51 4.00 - 5.21 x10(6)/ L [facility] Hemoglobin 12.5 11.7 - 15.5 gm/dL [facility] Hematocrit 37.1 35.7 - 45.8 % [facility] Mean Cell Volume 82.3(L) 82.6 - 94.4 fL [facility] Mean Cell Hemoglobin 27.7 27.1 - 32.0 pg [facility] Mean Cell Hemoglobin Concentration 33.7 31.7 - 35.0 gm/dL [facility] Platelet 301 145 - 357 x10(3)/[facility] RDW Standard Deviation 39.6 37.0 - 46.0 [facility] RDW coefficient of variation 13.2 11.5 - 14.1 % [facility] Mean Platelet Volume 10.6 7.6 - 12.9 fL [facility] NRBC% auto 0.0 % [facility] NRBC Absolute 0.000 0.000 - 0.000 x10(3)/[facility] Blood specimen (specimen) 01/04/2017 2:03 PM EDT 01/04/2017 2:05 PM EDT Narrative Resulting Agency Comment Spec In Lab Domenica Mahoney MD HEMATOLOGY ORDERABL ES [facility] [place] [address] * Uric acid (01/04/2017 2:03 PM EDT) Uric Acid 4.4 2.5 - 6.5 mg/dL [facility] Blood specimen (specimen) 01/04/2017 2:03 PM EDT 01/04/2017 2:05 PM EDT Narrative Resulting Agency Comment Spec In Lab Domenica Mahoney MD CHEMISTRY ORDERABLE S Performing Organization Address [facility] Co de Phone Number [facility] [place] [address] * Folate, serum (01/04/2017 2:03 PM EDT) Folate 7.9 4.8 - 24.2 ng/mL [facility] Blood specimen (specimen) 01/04/2017 2:03 PM EDT 01/04/2017 2:05 PM EDT Narrative Resulting Agency Comment Spec In Lab Domenica Mahoney MD CHEMISTRY ORDERABLE S Performing Organization Address [facility]/ZIP Co de Phone Number [facility] [place] [address] * Vitamin B12 (01/04/2017 2:03 PM EDT) Vitamin B12 256 207 - 974 pg/mL [facility] Blood specimen (specimen) 01/04/2017 2:03 PM EDT 01/04/2017 2:05 PM EDT Narrative Resulting Agency Comment Spec In Lab Domenica Mahoney MD CHEMISTRY ORDERABLE S Performing Organization Address City/[facility]/ZIP Co de Phone Number [facility] [place] [address] * Vitamin B1, whole blood (01/04/2017 2:03 PM EDT) Vit B1 Lvl Wb (JULY) 165 70 - 180 nmol/L [facility] Comment: ADDITIONAL INFORMATION This test was developed and its performance characteristics determined by [facility] in a manner consistent with CLIA requirements. This test has not been cleared or approved by the U.S. Food and Drug Administration. Test Performed by: [facility] - [facility] [address] [place] [address] Blood specimen (specimen) 01/04/2017 2:03 PM EDT 01/04/2017 2:14 PM EDT Narrative Resulting Agency Comment Spec In Lab Domenica Mahoney MD LAB SEND OUT ORDERA BLES Performing Organization Address City/[facility]/ZIP Co de Phone Number [facility] [place] [address] * (ABNORMAL) Vitamin D, 25-Hydroxy (01/04/2017 2:03 PM EDT) Vitamin D Total 25 OH 10(L) 30 - 100 ng/mL [facility] Comment: Deficient <10 ng/mL Insufficient 10 to 29 ng/mL Sufficient 30 to 100 ng/mL Potential Intoxication >100 ng/mL According to the US National Osteoporosis Foundation, Vitamin D concentrations >30 ng/mL are sufficient to protect bone health. ??The National Kidney Foundation has similarly stated that patients with Vitamin D concentrations <30ng/mL should be considered to be insufficient or deficient. http://[employer].TeamSupport/nkf-guidelines http://[employer].TeamSupport/nejm-VitD The IDS iSYS Vitamin D Immunoassay detects both 25-OH Vitamin D2 and 25-OH Vitamin D3, but only a total Vitamin D concentration is reported. Blood specimen (specimen) 01/04/2017 2:03 PM EDT 01/05/2017 7:10 AM EDT Narrative Resulting Agency Comment Spec In Lab Domenica Mahoney MD CHEMISTRY ORDERABLE S Performing Organization Address [facility]/ZIP Co de Phone Number [facility] [place] [address] * PTH (01/04/2017 2:03 PM EDT) Parathyroid Hormone 49 15 - 65 pg/mL [facility] Blood specimen (specimen) 01/04/2017 2:03 PM EDT 01/04/2017 2:05 PM EDT Narrative Resulting Agency Comment Spec In Lab Domenica Mahoney MD CHEMISTRY ORDERABLE S [facility] [place] [place] [address] * Ferritin (01/04/2017 2:03 PM EDT) [facility] Ferritin 107 15 - 150 ng/mL [facility] Comment: Pediatric reference ranges not verified at [facility], interpret with caution. Reference ranges for females greater than 50 years of age approach values for men, i.e., 30-400 ng/mL. Blood specimen (specimen) 01/04/2017 2:03 PM EDT 01/04/2017 2:05 PM EDT Narrative Resulting Agency Comment Spec In Lab Domenica Mahoney MD CHEMISTRY ORDERABLE S Performing Organization Address [facility]/ZIP Co de Phone Number [facility] [place] [address] * (ABNORMAL) Iron and TIBC (01/04/2017 2:03 PM EDT) [facility] Iron 29(L) 30 - 150 mcg/dL [facility] TIBC 355 250 - 450 mcg/dL [facility] Iron Saturation 8(L) 20 - 50 % [facility] Blood specimen (specimen) 01/04/2017 2:03 PM EDT 01/04/2017 2:05 PM EDT Narrative Resulting Agency Comment Spec In Lab Domenica Mahoney MD CHEMISTRY ORDERABLE S Performing Organization Address City/[facility]/ZIP Co de Phone Number [facility] [place] [address] * Hemoglobin A1c (01/04/2017 2:03 PM EDT) [facility] Hemoglobin A1c 5.2 4.3 - 5.6 % [facility] Comment: Reference Range: 4.3 - 5.6% 5.7 - 6.4% - Increased Risk of Developing Diabetes Mellitus >=6.5% - Consistent with diagnosis of Diabetes Mellitus In the absence of hyperglycemia (i.e. plasma glucose > 200 mg/dL) or classic symptoms of hyperglycemia a repeat measurement of HbA1c should be performed on a separate sample to confirm the diagnosis. Diagnosis and Classification of Diabetes Mellitus, Diabetes Care 2013; 36: Suppl. 1, Z27-27 Estimated Average Glucose 103 mg/dL [facility] Comment: eAG equivalents for HbA1c percentages: HbA1c(%) ?eAG(mg/dL) 6.0 ?126 6.5 ?140 7.0 ?154 7.5 ?169 8.0 ?183 8.5 ?197 9.0 ?212 9.5 ?226 10.0 ? 240 Limitations: The eAG calculation has not been validated on women, individuals below 18 years old and above 70 years old, and individuals with hemoglobinopathies. Additional resources are available on the ADA website. Brennen BARRAGAN, Amara J, Yennifer R, et al. ??Translating the A1C assay into estimated average glucose values. ??Diabetes Care 2008:31(8):7654-2520. Blood specimen (specimen) 01/04/2017 2:03 PM EDT 01/04/2017 2:06 PM EDT Narrative Resulting Agency Comment Spec In Lab Domenica Mahoney MD CHEMISTRY ORDERABLE S Performing Organization Address City/State/[facility] Co de Phone Number [facility] [place] [address] * (ABNORMAL) Comprehensive metabolic panel (non-fasting) (01/04/2017 2:03 PM EDT) Glucose 82 65 - 199 mg/dL [facility] Comment:Diabetes: >=200 mg/d L plus symptoms Blood Urea Nitrogen 10 8 - 18 mg/dL [facility] Creatinine 0.58(L) 0.70 - 1.20 mg/dL [facility] Comment: Please note that the pediatric reference intervals supplied above were not validated at [facility]. Results from pediatric patients should be interpreted in conjunction to the patient's age, height and muscle mass. Sodium 139 135 - 145 mmol/L [facility] Potassium 3.8 3.5 - 5.0 mmol/L [facility] Comment: Please note: ??Patients with WBC >100,000 may have falsely elevated Potassium levels. ??For accurate Potassium quantification in these patients send serum separator tube (gold top) for subsequent determinations. ??Contact the Clinical Chemistry Laboratory if there are any questions. Chloride 101 98 - 107 mmol/L [facility] Carbon Dioxide 24 22 - 31 mmol/L [facility] Anion Gap 14 5 - 15 mmol/L [facility] Calcium 9.6 8.5 - 10.5 mg/dL [facility] Protein, Total 7.6 6.1 - 8.0 gm/dL [facility] Albumin 4.1 3.2 - 5.2 gm/dL [facility] Aspartate Aminotransferase 13 0 - 30 unit/L [facility] Alanine Aminotransferase 8 0 - 30 unit/L [facility] Alkaline Phosphatase 68 40 - 104 unit/L [facility] Bilirubin, Total 0.3 0.2 - 1.3 mg/dL [facility] Est Glomerular Filtration Rate >60 >=60 [facility] Comment: This estimated GFR (eGFR) value was calculated using the MDRD equation which has been validated on patients between the ages of 18 and 70. The MDRD should not be used to assess kidney function in patients < 18 years of age or in patients with extremes of body mass, or in patients with acute kidney failure. This value should be multiplied by 1.2 for patients. For further information please copy and paste the following links into your internet browser. [email or web address] [email or web address] Blood specimen (specimen) 01/04/2017 2:03 PM EDT 01/04/2017 2:05 PM EDT Narrative Resulting Agency Comment Spec In Lab Domenica Mahoney MD CHEMISTRY ORDERABLE S [facility] [place] [address] documented in this encounter Visit Diagnoses Diagnosis Morbid obesity with BMI of 50.0-59.9, adult Morbid obesity documented in this encounter Care Teams Flight Communications Operator Relationship Specialty Start Date End Date Samreen Warner, LUCIANO [address] [place] [address] PCP - General Family Medicine 09/14/16 07/22/23 documented as of this encounter
--- OUTSIDE RECORDS SUMMARY | 2024-01-08 17:57 | XMS_ITS | Encounter Summary ---
Author Organization [facility] [place] [address] Care Team Providers Care Heel Coverer Name Role Phone Samreen Warner APRN Primary Care Provider [phone] Reason for Visit * Reason Comments Follow-up Encounter Details Date Type Department Care Team ([facility] Contact Info) Description 02/07/2017 11:40 AM EST Office [place] [address] Domenica Mahoney MD [facility] [place] [address] Morbid obesity with BMI of 50.0-59.9, adult Social History Tobacco Use Types Packs/Day Years Used Date Smoking Tobacco: Former Cigarettes Q uit: 01/04/2007 Smokeless Tobacco: Never Sex and Gender Information Value Date Recorded Sex Assigned at Not on file Gender Identity Not on file Sexual Orientation Not on file documented as of this encounter Progress Notes * Domenica Mahoney MD - 02/07/2017 11:40 AM EST Lennie Urena is a 36 y.o. female who is returns in follow up regarding bariatric surgery. She has been through our Bariatric Surgery Program and has been found eligable for obesity surgery based on NIH criteria. She was previously seen by me on 01/04/17. Since our last meeting, she has attended her first group education class. She had her labs drawn, notable for a WBC of 14. She denies any dysuria, fevers, or other concerning findings, and is likely due to obesity. Recommended to start vitamin D for low levels. Desired procedure: Laparoscopic sleeve gastrectomy Program start weight: 275#/BMI 52 Current weight/BMI: Wt & BMI By Encounter Date Office Visit from 02/07/2017 in General Surgery at [facility] Clinical Support from 01/04/2017 in General Surgery at [facility] Weight (!) 126 kg (277 lb 12.8 oz) 1 02/07/2017 0905 (!) 125.2 kg (276 lb) 1 01/04/2017 1112 BMI 52.48 1 02/07/2017 0905 50.14 1 01/04/2017 1112 Gallbladder status: Intact Extended DVT prophylaxis: Indicated Discussion of treatment of obesity and of the [facility] Bariatric Surgery Program: Lennie Urena is aware that other treatments for obesity are available, ie, dietary, behavior modification, weight loss medications, exercise as well as surgical weight loss methods. The risks andbenefits of bariatric surgery, including gastric bypass and sleeve gastrectomy are discussed at every Introduction to the [facility] Bariatric Surgery Program meeting and all Educational Seminars, and wereagain discussed individually today. Assessment/Plan: Lennie Hitchcock is a 36 y.o.. with morbid obesity with co- morbidities who is a good candidate for laparoscopic sleeve gastrectomy. The patient is motivated and a well-educated about the risks, benefits and alternatives to surgery. We discussed the procedures of laparoscopic sleeve gastrectomy and laparoscopic honorio en y gastric bypass. The patient would like to proceed with a laparoscopic sleeve gastrectomy. We discussed the benefits of surgery as well as the small but real risks including but not limited to need for open surgery, bleeding, infection, staple line leak, DVT and pulmonary embolis, stricture, postoperative reflux and . We discussed the possibility of poor weight loss and the need to make sustained dietary changes in order for the surgery to be successful. She understands the need for life long follow up with the bariatric surgery program. She understands the importance of the preoperative diet in terms of safety and ability to perform the procedure. Consent was signed today. All questions were answered and the patient desires to proceed. Pending: - Preop class - Ongoing weight loss encouraged - Given a surgery date All of this 20 minute visit was spent in [id number] counseling and/or coordination of care as detailed in note above. documented in this encounter Plan of Treatment Not on file documented as of this encounter Visit Diagnoses Diagnosis Morbid obesity with BMI of 50.0-59.9, adult Morbid obesity documented in this encounter Care Teams Heel Coverer Relationship Specialty Start Date End Date Samreen Warner, GOURMET COFFEE ATTENDANT [address] [place] [facility] [address] PCP - General Family Medicine 09/14/16 07/22/23 documented as of this encounter
--- OUTSIDE RECORDS SUMMARY | 2024-01-08 17:57 | XMS_ITS | Encounter Summary ---
Author Organization [facility] [place] [address] Care Team Providers Care Watchguard Name Role Phone Samreen Warner APRN Primary [...] Expiration Date Visits Re quested Visits Authorized [id number] 1 1 Encounter Details Date Type Department Care Team (Late st Contact Info) Description 03/28/2017 2:25 PM EST Anesthesia Event Main [place] [id number] Bjorn Kimble MD [facility] [place] [address] Anesthesia Record Procedure Summary Procedure Name Responsible Anesthesiologist Anesthesia Start Time Anesthesia Stop Time @LAPAROSCOPY, SURG/GASTRIC RESTRICTIVE PROC, LONGITUDINAL GASTRECTOMY (WRVU 20.38) (Abdomen) Bjorn Kimble MD 03/28/17 1425 03/28/17 1651 Events Date Time Event Comment 03/28/2017 1332 1425 AN Verify 1425 Start 1425 An Start Data 1432 An Induction 1437 An Intubation 1444 IV Start 1445 Anesthesia Ready 1456 Procedure Start 1502 Quick Note Insufflation 1546 Quick Note #[id number] Bougie pa ssed under direct visualization 1604 Quick Note Bougie removed 1633 Procedure Stop 1637 Extubation/LMA Out 1642 an stop data 1651 Recovery or ICU Handoff Ana ent care was transferred to the destination unit staff after review of the patient's medical history, current anesthetic/surgical status and plan, according to the Provider Handoff Checklist. 1651 Stop Meds Name Total Midazolam 2 mg fentaNYL 200 mcg IV Lidocaine 50 mg Propofol 170 mg Rocuronium 80 mg PHENYLephrine 240 mcg Ondansetron 8 mg Dexamethasone 4 mg ceFAZolin (ANCEF) 2g in dextrose 5% 100 mL 2 g Propofol INF 333.74 mg PHENYLephrine INF 1,010 mcg Dexmedetomidine 16 mcg Ketorolac 30 mg lactated Ringers infusion 1,000 mL 700 m L Lactated Ringers 500 mL * Agents Name O2 Air N2O Sevoflurane (et) * Blood No blood administrations on file. Lines, Drains, and Airways Type Details Placement Removal (RETIRED) Peripheral IV Line - Single Lumen 03/28/17; 1246; median cubital vein (antecubital fossa), left; 20 gauge; Radha Gannon RN; intradermal injection, distraction; 03/30/17; 1406 03/28/17 1246 by Celena Escamilla RN 03/30/17 1406 by Rowena Ojeda, LUCHO ETT Mask Ventilation: Ea sy (1); ETT Type: Cuffed; ETT Size: 7 mm; Mac Blade: 3; Notes: Asleep, Pre-O2, Stylette; Attempts: 1; Laryngoscopy Grade: 1; ETT Placement Verified By: Auscultation, Capnometry, Visual; Secured at Teeth: 21 cm; Inserted by: ANNE Solomon; Removal Date: 03/28/17; Removal Time: 163603/28/17 143 by Rowena Whitehead 03/28/17 163 by Margy Santana CRNA NG/OG Tube 03/28/17; 1440; orogastric; 16 Fr; mouth; LCWS; 03/28/17 (removed before receiving); 204603/28/17 1440 by Rowena Whitehead 03/28/17 2047 by Brett Arnold, LUCHO (RETIRED) Peripheral IV Line - Single Lumen 03/28/17; 1444; metacarpal vein (top of hand), left; [id number] catheter system; 18 gauge; D Ventura, SRNA; 03/30/17; 1406 03/28/17 1444 by Rowena Whitehead 03/30/17 1406 by Rowena Ojeda RN Incision 03/28/17; 1456; abdo men; laparoscopic punctures (specify); trocars (x6); 11/21/21 (LDA cleanup utility RA#[id number]); 1715 (LDA cleanup utility RA#[id number]) 03/28/17 1456 by José Miguel Lamas RN 11/21/21 1715 by Kennedi Santiago documented [...] OR Notes * Anesthesia Postprocedure Evaluation - Bjorn Kimble MD - 03/28/2017 4:58 PM EST [facility] Department of Anesthesiology Post-procedure Note Patient: Lennie Urena Procedure Summary Date Anesthesia Start Anesthesia Stop Room / Location 03/28/17 1425 1651 [facility] OR 27 / [facility] MAIN OR Procedure Diagnosis Surgeon Responsible Provider @LAPAROSCOPY, SURG/GASTRIC RESTRICTIVE PROC, LONGITUDINAL GASTRECTOMY (WRVU 20.38) (N/A Abdomen) (MORBID OBESITY) Domenica Mahoney MD Mancuso, Aaron J, MD All Anesthesia Providers: Anesthesiologist: Bjorn Kimble MD CATERING SALES MANAGER: Margy Santana CRNA Student Nurse Pace Analyst: Rowena Whitehead Most Recent Vitals: 03/28/17 1643 BP: 115/63 Pulse: 66 Resp: 26 Temp: 36.2 ??C (97.2 ??F) SpO2: 100% Pain 0 (03/28/17 1643) Patient Location: PACU/NYP Level of Consciousness: Awake and Alert Pain Management: Satisfactory Analgesia PONV: None Cardiovascular Status: At Baseline and Hemodynamically Stable Respiratory Status: Stable Respiratory Status and Supplemental O2 (NC or FM) Postoperative Fluid Status: Intravascular EUvolemia Possible Anesthetic Complications: NONE apparent at time of evaluation Final Primary Anesthesia Type: General (The anesthetic type performed was the same as planned.) Comments: Pt doing well post-op. No complaints. Anticipate quick wean of O2. BJORN KIMBLE MD * Anesthesia Preprocedure Evaluation - Bjorn Kimble MD - 03/27/2017 3:51 PM EST Pre-Anesthesia Evaluation for: Lennie Urena a 36 y.o. female. Procedure(s): @LAPAROSCOPY, SURG/GASTRIC RESTRICTIVE PROC, LONGITUDINAL GASTRECTOMY (WRVU 20.38) ENDOSCOPY, UPPER GI, DIAGNOSTIC, WITH OR WITHOUT SPECIMENS Patient Active Problem List Diagnosis ??? Preoperative Class IV obesity BMI 50, sleeve gastrectomy planned 03/28/17 Bariatric Surgery Program - Attended Introduction to the [facility] [place] seminar, a comprehensive two hour meeting that provides a program overview, education on bariatric surgeries offered at [facility], risks and benefits, as well as patient expectations and follow up: 08/25/16 [facility] BSP Educational seminars viewed: 12/05/16 Grades on post-testin x 1; 100 x 2 The [facility] Educational Handbook is provided at preoperative visit #1. - Pre-operative programmatic evaluations required: PCP evaluation and letter of support to proceed with surgery, labwork and psychological evaluation - Bariatric Surgery Program evaluations: HELGA and on 01/04/17 - Weight history: 277.8# on 07/06/16; 273.6# on 09/14/16; 271.5# on 11/10/16 - Gallbladder status: - Insurer specific requirements: 3 consecutive months dietary counseling - [facility] Team meeting discussion: n/a Patient insight into causes of obesity: Onset of obesity at age 22. Attributes weight gain to inactivity, over consumption and emotional eating. ??? Vitamin D deficiency ??? Low vitamin B12 level - 256 in November 2016 ??? Iron deficiency No past medical history on file. No past surgical history on file. Social History Substance Use Topics ??? Smoking status: Former Smoker Quit date: 01/04/2007 ??? Smokeless tobacco: Never Used ??? Alcohol use Not on file History Drug Use Not on file No Known Allergies Medications: MAR and/or home medications have been reviewed. Physical Exam: There were no vitals filed for this visit. There is no height or weight on file to calculate BMI. Airway Assessment: Mallampati: II TM distance: >3 FB Neck ROM: full Cardiovascular Assessment: cardiovascular exam normal Pulmonary Assessment: pulmonary exam normal Dental Assessment: - normal exam Misc Assessment: IV access: Peripheral line Anesthesia Plan: ASA 2 general, with a(n) intravenous induction 36 yo F with morbid obesity for lap sleeve gastrectomy. Plan: GETA, standard monitors. Risks, benefits, and alternatives discussed with patient including but not limited to dental, airway, lip injury, vascular injury, nerve injury, thrombosis, eye injury, blindness, adverse drug reactions, heart attack, stroke, intraoperative demise among others. All questions answered to patients sat isfaction. Region - Other Informed Consent: Anesthetic plan and risks discussed with patient. Use of blood products discussed with patient who consented to blood products. Plan discussed with CATERING SALES MANAGER. PAT Staff Note documented in this encounter Plan of Treatment Not on file documented as of this encounter Visit Diagnoses Not on filedocumented in this encounter Administered Medications Inactive Administered Medications - up to 3 most recent administrations Medication Order MAR Action Action Date Dose Rate Site ceFAZolin (ANCEF) 2g in dextrose 5% 100 mL 2 g, Intravenous, ONCE, 1 dose, On Sun03/28/17 at 1300, Administer over 30 Minutes, Indication for (Active or Suspected): Prophylaxis Given 03/28/2017 2:40 PM EST 2 g dexamethasone (DECADRON) injection PRN, Starting on Sun03/28/17 at 1445, Until Sun03/28/17 at 1651, Anesthesia Intra-op, Routine Given 03/28/2017 2:45 PM EST 4 mg dexmedetomidine (PRECEDEX) injection PRN, Starting on Sun03/28/17 at 1613, Until Sun03/28/17 at 1651, Anesthesia Intra-op, Routine Given 03/28/2017 4:25 PM EST 4 mcg Given 03/28/2017 4:23 PM EST 4 mcg Given 03/28/2017 4:16 PM EST 4 mcg fentaNYL 50 mcg/mL multi-dose injection PRN, Starting on Sun03/28/17 at 1430, Until Sun03/28/17 at 1651, Pain, Anesthesia Intra-op, Routine Given 03/28/2017 4:23 PM EST 50 mcg Given 03/28/2017 3:45 PM EST 50 mcg Given 03/28/2017 2:30 PM EST 100 mcg ketorolac (TORADOL) injection PRN, Starting on Sun03/28/17 at 1625, Until Sun03/28/17 at 1651, Pain, Anesthesia Intra-op, Routine Given 03/28/2017 4:25 PM EST 30 mg lactated Ringers infusion 1,000 mL 1,000 mL, at 100 mL/hr, Intravenous, CONTINUOUS, Starting on Sun03/28/17 at 1300, Until Sun03/28/17 at 2039, Day of Surgery (Day of Procedure) New Bag 03/28/2017 2:25 PM EST New Bag 03/28/2017 1:00 PM EST 1,000 mLs 100 mL/hr lactated Ringers infusion CONTINUOUS PRN, Starting on Sun03/28/17 at 1444, Until Sun03/28/17 at 1651, Anesthesia Intra-op New Bag 03/28/2017 2:44 PM EST lidocaine (PF) (XYLOCAINE) 100 mg/5 mL (2 %) injection PRN, Starting on Sun03/28/17 at 1432, Until Sun03/28/17 at 1651, Anesthesia Intra-op, Routine Given 03/28/2017 2:32 PM EST 50 mg midazolam (PF) (VERSED) 1 mg/mL multi-dose injection PRN, Starting on Sun03/28/17 at 1425, Until Sun03/28/17 at 1651, Sleep, Anesthesia Intra-op, Routine Given 03/28/2017 2:25 PM EST 2 mg ondansetron (ZOFRAN) injection PRN, Starting on Sun03/28/17 at 1615, Until Sun03/28/17 at 1651, Nausea, Anesthesia Intra-op, Routine Given 03/28/2017 4:15 PM EST 8 mg PHENYLephrine (YANCY-SYNEPHRINE) 20 mg in sodium chloride 250 mL (standard ADULT & Pedi greater than 20kg) infusion CONTINUOUS PRN, Starting on Sun03/28/17 at 1522, Until Sun03/28/17 at 1651, Anesthesia Intra-op, Routine Rate/Dose Change 03/28/2017 4:10 PM EST 10 mcg/min 7.5 mL/hr New Bag 03/28/2017 3:22 PM EST 20 mcg/min 15 mL/hr PHENYLephrine in NS (PF) (YANCY-SYNEPHRINE) 0.8 mg/10 mL (80 mcg/mL) multi-dose injection Syrg PRN, Starting on Sun03/28/17 at 1505, Until Sun03/28/17 at 1651, Anesthesia Intra-op, Routine Given 03/28/2017 3:14 PM EST 160 mcg Given 03/28/2017 3:05 PM EST 80 mcg propofol (DIPRIVAN) 10 mg/mL bolus injection (Anesthesia) PRN, Starting on Sun03/28/17 at 1432, Until Sun03/28/17 at 1651, Anesthesia Intra-op Given 03/28/2017 3:42 PM EST 20 mg Given 03/28/2017 2:32 PM EST 150 mg propofol (DIPRIVAN) infusion CONTINUOUS PRN, Starting on Sun03/28/17 at 1440, Until Sun03/28/17 at 1651, Anesthesia Intra-op, Routine New Bag 03/28/2017 2:40 PM EST 30 mcg/kg/min 21.1 mL/hr rocuronium (ZEMURON) multi-dose injection PRN, Starting on Sun03/28/17 at 1434, Until Sun03/28/17 at 1651, Anesthesia Intra-op, Routine Given 03/28/2017 3:38 PM EST 20 mg Given 03/28/2017 2:34 PM EST 60 mg documented in this encounter Care Teams Watchguard Relationship Specialty Start Date End Date Samreen Warner, LUCIANO [address] [place] [address] PCP - General Family Medicine 09/14/16 07/22/23 documented as of this encounter
--- OUTSIDE RECORDS SUMMARY | 2024-01-08 17:57 | XMS_ITS | Encounter Summary ---
[place] [address] Care Team Providers Care Thrill Performer Name Role Phone Samreen Warner EQUIPMENT ANALYST Primary Care Provider [phone] Encounter Details Date Type Department Care Team (Late st Contact Info) Description 12/05/2016 Telephone [place] [phone] Terese Saba Social History Tobacco Use Types Packs/Day Years Used Date Smoking Tobacco: Never Assessed Sex and Gender Information Value Date Recorded Sex Assigned at Not on file Gender Identity Not on file Sexual Orientation Not on file documented as of this encounter Miscellaneous Notes * Telephone Encounter - Terese Saba - 12/06/2016 8:16 AM EDT Ms. Urena called me back and we discussed what additional information is needed. She is going to have her PCP's office fax me her Annual Exam and I am going to mail her another copy of the Dr. Manriquez Quiz for her to bring to her first appointment. * Telephone Encounter - Terese Saba - 12/05/2016 9:50 AM EDT LMOM for Ms. Urena to let her know that I got her packet of information and asked her to give me acall back to discuss it. documented in this encounter Plan of Treatment Not on file documented as of this encounter Visit Diagnoses Not on filedocumented in this encounter Care Teams Thrill Performer Relationship Specialty Start Date End Date Samreen Warner, LUCIANO [address] [place] [address] PCP - General Family Medicine 09/14/16 07/22/23 documented as of this encounter
--- OUTSIDE RECORDS SUMMARY | 2024-01-08 17:57 | XMS_ITS | Encounter Summary ---
Author Organization [facility]ly [facility] [place] [address] Care Team Providers Care Beer Cooler Name Role Phone NikkiSamreen brandon LUCIANO Primary Care Provider Reason for Visit * Reason Comments Morbid Obesity Bariatric Surgery Pr ogram preoperative class Encounter Details Date Type Department Care Team (Late st Contact Info) Description 02/07/2017 9:30 AM EST Office Visit [place] [address] Kim Gazra, LUCIANO [facility] [place] [address] Shannan Cisse, MAURICE Vitamin D deficiency; Vitamin B12 deficiency; Morbid obesity with BMI of 50.0-59.9, adult; Encounter for pre-bariatric surgery counseling and education Social History Tobacco Use Types Packs/Day Years Used Date Smoking Tobacco: Former Cigarettes Q uit: 01/04/2007 Smokeless Tobacco: Never Sex and Gender Information Value Date Recorded Sex Assigned at Not on file Gender Identity Not on file Sexual Orientation Not on file documented as of this encounter Last Filed Vital Signs Vital Sign Reading Time Taken Comments Blood Pressure 134/71 02/07/2017 9:05 AM EST Pulse 75 02/07/2017 9:05 AM EST Temperature 36.7 ??C (98.1 ??F) 02/07/2017 9:05 AM ES T Respiratory Rate 14 02/07/2017 9:05 AM EST Oxygen Saturation 99% 02/07/2017 9:05 AM EST Inhaled Oxygen Concentration - - Weight 126 kg (277 lb 12.8 oz) 02/07/2017 9:05 A M EST Height 158 cm (5' 2.21) 02/07/2017 9:05 AM EST Body Mass Index 50.48 02/07/2017 9:05 AM EST documented in this encounter Patient Instructions * Patient Instructions* Kim Garza T - 02/07/2017 9:30 AM EST BARIATRIC SURGERY PROGRAM SECOND VISIT Contact information: [facility] Admin coordinator Jorge: [phone] or [phone] Dietitians: [phone] Surgeons/ nurse practitioners: [phone] or [phone] Nurse line: [phone] Recommendations start vitamin D 50,000 units twice a WEEK for 6 months 1. Ongoing weight loss is encouraged. Your surgery date and pre-operative class will be scheduled today Call Mana Gonzalez tomorrow at to schedule. Your surgery date may change if insurance approval is delayed Prepare for the Pre-op Class by doing the followin. Review the program handbook and come to class with a list of questions. 2. Watch the educational videos including Psychological Implications of bariatric surgery on the [facility] website under Bariatric Surgery ([email or web address]) 3. Come prepared to the class to discuss meal planning. 4. Bring your supplements 5. Come with tips and suggestions that my be helpful to others. Questions for your doctor, specialist or pharmacist: 2. Ask your doctor about medication suggestions if you currently take medications that are largerthan the size of a tylenol. Large pills need to be crushed (if permitted by the drug block trimmer) or taken in liquid form for TWO WEEKS after surgery. Diabetic oral medication often does not need jordan taken after surgery) ?? If you take antinflammatory medications or steroid medicationsfor arthritis or asthma, please check with your doctor. These medications will likely need to be held 1 week prior to and at least a few weeks after surgery. For women who take control or hormone medications and men who take hormone medications: thesemedications must be stopped 1 month before and after surgery. Use alternative forms of control. Nutrition and Activity apps- Baritastic, My Fitness Pal, Lose It, My Plate [facility] facebook page: [email or web address] documented in this encounter Progress Notes * Kim Garza - 02/07/2017 9:30 AM EST Reason for visit: Lennie Barrios a 36 y.o. year-old female who presents for the purpose of groupshared medical appointment for bariatric surgery education. History of present illness: see evaluations by bariatric surgery dietitian and surgeon, Lennie has been cleared by to proceed with bariatric surgery. She is tracking her intake via under armor and exercising for 20 minutes daily. She has started vitamin B12 and iron, isuncertain of iron type. PROBLEM LIST BASED ON REVIEW OF AVAILABLE INFORMATION: Vitamin D deficiency, low B12 level, iron deficiency. control implanon Recent testing: - Labwork ordered by Dr. Mahoney: low B12, severe vitamin D deficiency (10), iron deficiency- Rx provided for vitamin D Her medication and allergy lists were updated. No Known Allergies Medications 02/10/17 1050 Medication Sig Taking? CYANOCOBALAMIN, VITAMIN B-12, (VITAMIN B-12 ORAL) Take 500 mcg by mouth daily. Yes FERROUS SULFATE, DRIED (IRON, DRIED, ORAL) Take 1 tablet by mouth daily. Yes MULTIVITAMIN/IRON/FOLIC ACID (COMPLETE MULTIVITAMIN-MINERAL ORAL) Take 1 tablet by mouth daily. Yes CALCIUM CITRATE/VITAMIN D2 (CALCIUM CITRATE WITH D ORAL) Take by mouth daily. Yes etonogestrel (NEXPLANON) 68 mg Implant by Subdermal route. Yes ergocalciferol (ERGOCALCIFEROL) 50,000 unit Capsule Take 1 capsule by mouth twice a week for 48 doses. Plans for post-operative support after discharge: , Mom, friends and her cat Hopscotch Vital signs: BP 134/71 (BP Location (NBP): Right arm, Patient Position: Sitting, BP Cuff Sizes: Thigh (40-55 cm)) Pulse 75 Temp 36.7 ??C (98.1 ??F) (Oral) Resp 14 Ht 158 cm (5' 2.21) Wt (!) 126 kg (277 lb 12.8 oz) SpO2 99% BMI 50.48 kg/m2 Discussion of bariatric surgeries performed at [facility], risks and benefits, and the [facility] Bariatric Surgery Program requirements: The risks of immediate and alf complications as well as the benefits of gastric bypass and sleeve gastrectomy surgeries, as outlined extensively in the Bariatric Surgery Program Handbook, whichis a >100 page document, were reviewed. She is aware that all bariatric surgeries are elective procedures. The decision for bariatric procedure is made by the surgeon with input from the patient.. The mechanism by which gastric bypass and sleeve gastrectomy lead to weight loss was reviewed. The concept that bariatric surgery is a tool for weight loss and not a cure for obesity was again emphasized. The need for commitment to annual greenhouse manager lifestyle changes, with healthy diet and regular physicalactivity was stressed to achieve and sustain alf weight loss. Benefits of bariatric surgery discussed: ?? estimated loss of 50% - 70% of excess body weight with gastric bypass and sleeve gastrectomy, generally less weight loss after sleeve gastrectomy. Patients rarely achieve ideal body weight, especially patients with BMIs >50. ?? improvement or resolution of weight related comorbidities such as obesity- related hypertension, sleep apnea, NAFLD/ ROMANO, esophageal reflux, restrictive lung disease and hyperlipidemia when anticipated weight loss is achieved. ?? Type 2 diabetes improvement occurs in the majority of patients shortly after gastric bypass, often prior to discharge from the hospital, prior to any weight loss. Patients with >10 year historyof diagnosis of type 2 diabetes often will need to remain on insulin alf. There is less improvement to type 2 diabetes after sleeve gastrectomy as compared with gastric bypass. ?? patients also generally feel better, with improvement in self-esteem and activity levels. Potential but rare risks of gastric bypass and sleeve gastrectomy discussed: ?? inability to perform the operation ?? <0.01%. ?? bleeding and splenic injury with the need for blood transfusion ?? heart and lung complications, including prolonged mechanical ventilation and possible tracheostomy, very rare ?? wound infection and seroma, rare in laparoscopic patients ?? DVT with fatal pulmonary emboli. Prophylactic measures used including Enoxaparin, sequential compression devices and early ambulation. Some patients are discharged on extended Enoxaparin therapy who meet scoring criteria ?? rhabdomyolysis ?? nutritional deficiencies, including protein-calorie malnutrition, vitamins B12, B1, D, folate, iron deficiency and anemia. ?? gallstones, significantly decreased by prophylactic treatment with Ursodiol for 6 months post-operatively. ?? peripheral neuropathy related to chronic poor nutrition or B vitamin deficiencies ?? transient telogen effluvium ?? patients weighing >350 pounds with increased risks related to radiology equipment weight limits, which may necessitate return to OR for evaluation Risks specific to gastric bypass discussed: ?? anastomotic leakage with the development of peritonitis and abscess, potentially leading to sepsis, renal failure and . ?? anastomotic stricture ?? Lifetime risk of anastomotic ulcer, increased with NSAID use, tobacco and regular alcohol use ?? lifetime risk of small bowel obstruction ?? lifetime risk of internal and trocar site hernias, rare ?? potential risk for renal calculi, increased with chronic poor hydration and prior history of renal calculi Risks specific to laparoscopic sleeve gastrectomy discussed: ?? leak at the staple line with the development of peritonitis and abscess, potentially leading to sepsis, renal failure and . The rate of leak after sleeve at [facility] is 0%. ?? stricture of gastric remnant with need for dilatation ?? prolonged nausea and vomiting early post surgery ?? Worsening or development of GERD ?? Potential revision to gastric bypass due to severe GERD ?? generally less weight loss than gastric bypass, particularly associated with higher calorie intake and sedentary lifestyle Potential secondary effects of bariatric surgeries discussed: ?? weight regain/ poor weight loss influenced by eating behaviors and lack of a regular exercise program. Drinking high calorie liquids, frequent snacking or ingestion of large amounts of soft foods will cause weight gain . ?? dumping syndrome associated with gastric bypass ?? Lactose intolerance associated with gastric bypass ?? sagging skin in any area, such as the face, torso and extremities following weight loss. Body contouring surgery may not be a covered benefit by the individual's insurer, and is associated with scarring, risk of infection etc. Patients are advised that if unable to accept the possibility of skinredundancy following weight loss, then they should not proceed with bariatric surgery. Bariatric surgery is done for health reasons, not to improve physical appearance. ?? transfer of addictions or symptom substitution behavior. When food is no longer available to secure a sense of comfort and/or relieve stress, some may turn to alcohol or illicit substances, while others may turn to excessive shopping, gambling or other indiscretions. ?? Worsening of psychiatric illness Lennie was advised that bariatric surgery would likely be ineffective for those who: ?? receive a great deal of satisfaction from eating ?? have active eating disorders including binge eating disorder and bulimia ?? are in the midst of serious personal or unstable psychiatric problems Other information discussed: For females of child-bearing age: avoidance of for at least 12-24 months post-operatively. The risks of and complications with maternal obesity and risks to fetus with maternal rapid weight loss and malnutrition and vitamin and mineral deficiencies discussed, Use of effective contraception as per CDC guidelines advised. Bariatric Surgery Follow up for LIFE: ?? 3 weeks, 4, 8, 12,18 and 24 months, yearly thereafter. More frequent follow up done as clinically indicated. Labwork: done at all routine visits except 1 month post op Post-operative support group meetings: held on the first Sunday of every month. All patients are encouraged to attend. Vitamin and mineral supplementation for LIFE: ?? B12 500 mcg sublingual daily, calcium citrate 500-600 mg with vitamin D 400- 500 mg BID, multivitamins with minerals and iron twice a day. Iron in the form of ferrous fumarate or carbonyl iron is taken with vitamin C once a day for menstruating females or those with iron deficiency or anemia. She appeared to have a good understanding of the information presented at today's meeting, and seems to have reasonable and realistic expectations of bariatric surgery. She previously signed an agreement stating that She is willing to comply with instructions, lifetime vitamin and mineral supplements and programmatic follow up. She was encouraged to call with any questions or concerns. Data reviewed: - Visit #2 questionnaire - [facility] quiz completed by Lennie Information reviewed at today's [facility]: 1. [facility] Bariatric Surgery Program Educational Handbook, bariatric surgery patient agreement and risks and benefits of gastric bypass and sleeve gastrectomy reviewed in detail. Prescriptions/ recommendations provided: as per AVS: vitamin D 50,000 units twice a week Pending/ other: - Ongoing weight loss encouraged OR date: 03/28/17. [facility] Dr Mahoney Preop class recommendations (based on review of allergy andmedication lists and problem/ PSH list, if available and note by surgeon): +PPI, + Jasvir, VTE 1 Time spent in counseling: Individual planning and coordination of care: 5 minutes Group counselin minutes Questions regarding [facility] Bariatric Surgery Program patients: please call [phone]. * Shannan Cisse - 02/07/2017 9:30 AM EST BARIATRIC SURGERY PROGRAM NUTRITION EDUCATION 2nd Pre-Operative Visit Shared Medical Appointment Lennie Urena attended a 2 hour shared medical appointment today for her second pre-operative visit with the Bariatric Surgery Program dietitian and nurse practitioner. Ms. Urena is a morbidly obese female who has been referred for nutrition evaluation and diet instruction in anticipation of bariatric surgery. Previous conservative attempts at weight loss through dieting have been unsuccessful over the annual greenhouse manager. Advised patient that bariatric surgery is a weight loss tool not a solution; and ultimately weight loss will be achieved through proper eating and exercise habits. She was given suggestions for how to incorporate dietary and lifestyle changes into her daily schedule. Patient was given a copy of theprogram handbook at the initial appointment which includes specific information on all nutritional recommendations and guidelines. Pt instructed on importance of following the Pre-operative Surgical Diet. Failure to do so may result in poor pre-surgical weight loss and may result in surgery not being performed. She was also given contact information for further nutritional questions. Ms. Urena showed good understanding of the concepts discussed. Nutrition Topics Covered at Today's Appointment: ?? Pre-operative Surgical Diet ?? Purpose of diet ?? Appropriate foods ?? Protein goals ?? Carbohydrate goals ?? Calorie goals ?? Keeping a food log ?? Hydration and Appropriate Beverages ?? Post-Operative Diets (Stages I-IV) ?? Importance of following diet stages ?? Appropriate foods ?? Sample Menus ?? Vitamin/Mineral Supplementation ?? Common Food Intolerances ?? Dumping Syndrome ?? Sugar Alcohols ?? Physical Activity The appointment consisted of 60 minutes of group education and counseling. documented in this encounter Plan of Treatment Not on file documented as of this encounter Visit Diagnoses Diagnosis Vitamin D deficiency Unspecified vitamin D deficiency Vitamin B12 deficiency Other B-complex deficiencies Morbid obesity with BMI of 50.0-59.9, adult Morbid obesity Encounter for pre-bariatric surgery counseling and education documented in this encounter Care Teams Beer Cooler Relationship Specialty Start Date End Date Samreen Warner, LUCIANO [address] [place] [address] PCP - General Family Medicine 09/14/16 07/22/23 documented as of this encounter
--- OUTSIDE RECORDS SUMMARY | 2024-01-08 17:57 | XMS_ITS | Encounter Summary ---
[place] [address] Care Team Providers Care Sparker And Patcher Name Role Phone Samreen Warner APRN Primary Care Provider [phone] Encounter Details Date Type Department Care Team (Late st Contact Info) Description 02/09/2017 Telephone [place] [id number] Terese Saba Social History Tobacco Use Types Packs/Day Years Used Date Smoking Tobacco: Former Cigarettes Q uit: 01/04/2007 Smokeless Tobacco: Never Sex and Gender Information Value Date Recorded Sex Assigned at Not on file Gender Identity Not on file Sexual Orientation Not on file documented as of this encounter Miscellaneous Notes * Telephone Encounter - Terese Saba - 02/09/2017 3:00 PM EST LMOM for Ms. Urena to let her know that I got her [place] paperwork. I told her that it was completedand returned to her national account representative per her instructions. I also mailed her a copy. documented in this encounter Plan of Treatment Not on file documented as of this encounter Visit Diagnoses Not on filedocumented in this encounter Care Teams Sparker And Patcher Relationship Specialty Start Date End Date Samreen Warner APRN [address] [place] [address] PCP - General Family Medicine 09/14/16 07/22/23 documented as of this encounter
[2024-01-08 19:43] LABS: ESR 14 mm/hr (0-20)
[2024-01-10 15:58] LABS: ANA Interpretation Negative (Negative)
== END 2024-01-08 17:54 | disposition home or self-care (01) ==
LOC: NCHCN 17:53
PROVIDERS: Visit Provider Nurse Practitioner Family
DX: G89.29 Other chronic pain (principal)
CPT/HCPCS: 85652; 86038

== ENCOUNTER 2024-01-21 11:58 | Outpatient (CLI) | payer BC, SELFPAY ==
[2024-01-21 12:10] VITALS: BP 126/79; PULSE 90; RESP 18; TEMP 37.1; O2SAT 98
--- NOTE | 2024-01-21 12:30 | PDOC.PAIN ---
Date of service: 01/21/24 Time of Service: 12:55 Pain Managment Procedure Note Procedure Note Procedure Note: Ultrasound guidedTrigger Point Injection ? Location:right sternocleidomastoid muscle ? Pre-procedure Diagnosis:? 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 Post-procedure Diagnosis:? The same as above ? Sedation: none? Estimated blood loss: zero ? Surgeon:? Zane Nguyen MD ? Procedure Detail:?? The procedure and potential risks were explained to the patient and informed written consent was obtained. Time out was performed in procedure room with nursing staff confirming the patient's identity, procedure to be performed, allergies, and any blood thinning or anti-platelet medications. Sterile gloves were used, a face mask was worn, and new single dose vials of all medications were used with the top being swabbed with alcohol and given time to dry prior to withdrawal of medication.? Trigger points were palpated and confirmed to reproduce the patient?s pain symptoms.? Pre-injection ultrasound scanning of the area of interest was performed using Linear transducer, identifying relevant anatomy, landmarks, and neurovascular structures allowing for optimal needle path. The site was then prepared in the usual sterile fashion, using thorough Chlorhexadine preparation of the skin and sterile draping. The same ultrasound transducer was then passed into the sterile field using sterile probe cover and sterile ultrasound gel. Using high-frequency ultrasound probe with sterile cover target (right sternocleidomastoid muscle) was identified.? A 25-gauge 1.5 inch needle was advanced to the target.? following negative aspiration, 8 cc of 2% lidocaine was injected.? ? The patient tolerated the procedure well. Pain: Pre-procedure 10 post-procedure is 610 Plan:? Follow up prn. Will consider either referring to [facility] pain clinic for consideration for Botox injection for cervical dystonia if she gets temporary relief or consider medial branch blocks C3,4 and 5 and possible RF.
[2024-01-21 12:32] VITALS: O2SAT 99
[2024-01-21 12:40] VITALS: O2SAT 99
[2024-01-21] MEDS: Nerve Block Tray 1 EACH MC (12:47)
[2024-01-21] MEDS: Lidocaine 2% Pres-Free 5 ML VIAL IJ (12:47)
== END 2024-01-21 11:59 | disposition home or self-care (01) ==
LOC: PC 11:59
PROVIDERS: Visit Provider Anesthesiology Pain Medicine
DX: G24.9 Dystonia, unspecified
CPT/HCPCS: 00123; 20552

== ENCOUNTER 2024-02-19 09:19 | Outpatient (CLI) | payer BC, SELFPAY ==
--- NOTE | 2024-02-19 06:00 | DI.RAD_ITS ---
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 CONTRAST MATERIAL: Refer to procedure report. COMPARISON: No exams were available for comparison FINDINGS: Fluoroscopy was provided for Dr. Nguyen during the performance of a right cervical facet joint inje ction. Please refer to the procedure report for complete details. Ka,r=2.34 mGy IMPRESSION: RADIATION DOSE DELIVERED: 0.0 0.0 0
--- NOTE | 2024-02-19 07:53 | PDOC.PAIN_ITS ---
Date of service: 02/19/24 Time of Service: 08:16 Pain Managment Procedure Note Procedure Note Procedure Note: Cervical Facet Joint Injection of Steroid ? Location: Right Facet Joints ? Levels: C3-4, C4-5 ? Pre-procedure Diagnosis: M47.812 Spondylosis without myelopathy or radiculopathy, cervical region ? Post-procedure Diagnosis:? The same as above ? Sedation:? None ? Estimated blood loss:? less than 2 cc ? Surgeon: Zane Nguyen MD COMMENT: PRE PROCEDURE PAIN SCORE: 5/10. Decision was made to proceed with intra-articular facet injections for the possibility of not having to do medial branch blocks and radiofrequency ablation if patient get long lasting relief (> 3 months). ? Procedure Detail:? The procedure and potential risks were explained to the patient and informed written consent was obtained. The patient was escorted to the procedure room and placed in the left lateral decubitus position. Pillows were utilized for proper positioning and comfort.? Time out was performed in the procedure room with nursing staff confirming the patient's identity, procedure to be performed, allergies, and any blood thinning or anti- platelet medications.? Sterile technique was maintained throughout the procedur e.? The patient's cervical area was prepped with chlorhexidine and draped in a sterile fashion. A lateral fluoroscopic view was obtained, with visualization of the facet joint.? A 25gauge, Quincke needle was gently advanced through the facet capsule.? Needle placement was confirmed with fluoroscopy in AP,? and lateral views by injecting 0.25cc of contrast.? 10 mg of depomedrol and 0.25ml of 0.5% bupivacaine was injected into the capsule at C3-4,C4-5 right.? The patient tolerated the procedure well and was transported to recovery area for observation and discharge instructions. Permanent images saved and recorded. PAIN: PRE-PROCEDURE 08/02 POST-PROCEDURE 07/03 Plan:? Follow up prn in office or for [facility]B #2. COMMENT: Before the patient left patient had greater than 20% pain relief.? Will use this as both diagnostic and potentially therapeutic.? With short-term relief from the level that it was not long-lasting then we will proceed with radiofrequency ablation
[2024-02-19 07:54] VITALS: O2SAT 99
[2024-02-19 08:00] VITALS: O2SAT 99
[2024-02-19] MEDS: Omnipaque 240 MG/ML 50 ML BTL IJ (08:14)
[2024-02-19] MEDS: Bupivacaine 0.5% Pres-Free 10 ML VIAL IJ (08:15)
[2024-02-19] MEDS: methylPREDNISolone ACETATE 80 MG/ML VIAL IJ (08:15)
[2024-02-19] MEDS: Nerve Block Tray 1 EACH MC (08:16)
== END 2024-02-19 09:20 | disposition home or self-care (01) ==
PROVIDERS: Visit Provider Anesthesiology Pain Medicine
DX: M47.812 Spondylosis without myelopathy or radiculopathy, cervical region (principal)
CPT/HCPCS: 00123; 64490; 64491; 72040; J0665; J1010; Q9967

== ENCOUNTER 2024-04-07 14:19 | Outpatient (CLI) | payer BC, SELFPAY ==
--- NOTE | 2024-04-07 06:00 | DI.RAD_ITS ---
Exam(s) XR PAIN CLINIC CERVICAL SP 2V EXAM: XR PAIN CLINIC CERVICAL SP 2V CLINICAL HISTORY: DX: Cervical Spondylosis TECHNIQUE: 2D and realtime digital imaging was performed. CONTRAST MATERIAL: Refer to procedure report. COMPARISON: No exams were available for comparison FINDINGS: Fluoroscopy was provided for Dr. Nguyen during the performance of a cervical facet joint injection. Please refer to the procedure report for complete details. Ka,r=3.75 mGy IMPRESSION: RADIATION DOSE DELIVERED: 0.0 0.0 0
[2024-04-07 14:23] VITALS: BP 137/81; PULSE 68; RESP 20; TEMP 36.7; O2SAT 99
[2024-04-07 14:44] VITALS: O2SAT 99
[2024-04-07 14:50] VITALS: O2SAT 100
--- NOTE | 2024-04-07 14:57 | PDOC.PAIN ---
Date of service: 04/07/24 Time of Service: 15:03 Pain Managment Procedure Note Procedure Note Procedure Note: Cervical Facet Joint Injection of Steroid ? Location: Left Facet Joints ? Levels: C3-4, C4-5 ? Pre-procedure Diagnosis: M47.812 Spondylosis without myelopathy or radiculopathy, cervical region ? Post-procedure Diagnosis:? The same as above ? Sedation:? None ? Estimated blood loss:? less than 2 cc ? Surgeon: Zane Nguyen MD COMMENT: Patient had excellent relief from right sided facet injections at she 3 4 and C4-5 with on 02/19/2024. PRE PROCEDURE PAIN SCORE: 5/10. Decision was made to proceed with intra-articular facet injections for the possibility of not having to do medial branch blocks and radiofrequency ablation if patient get long lasting relief (> 3 months). ? Procedure Detail:? The procedure and potential risks were explained to the patient and informed written consent was obtained. The patient was escorted to the procedure room and placed in the right lateral decubitus position. Pillows were utilized for proper positioning and comfort.? Time out was performed in the procedure room with nursing staff confirming the patient's identity, procedure to be performed, allergies, and any blood thinning or anti-platelet medications.? Sterile technique was maintained throughout the procedure.? The patient's cervical area was prepped with chlorhexidine and draped in a sterile fashion. A lateral fluoroscopic view was obtained, with visualization of the facet joint.? A 25gauge, Quincke needle was gently advanced through the facet capsule.? Needle placement was confirmed with fluoroscopy in AP,? and lateral views by injecting 0.25cc of contrast.? 20 mg of depomedrol and 0.25ml of 0.5% bupivacaine was injected into the capsule at C3-4, C4-5 left .? The patient tolerated the procedure well and was transported to recovery area for observation and discharge instructions. Permanent images saved and recorded. PAIN: PRE-PROCEDURE 10 POST-PROCEDURE 10 Plan:? Follow up prn in office or for [facility] #2. COMMENT: Before the patient left patient had greater than 20% pain relief.? Will use this as both diagnostic and potentially therapeutic.? With short-term relief from the level that it was not long-lasting then we will proceed with radiofrequency ablation
[2024-04-07] MEDS: Bupivacaine 0.5% Pres-Free 10 ML VIAL IJ (15:03)
[2024-04-07] MEDS: methylPREDNISolone ACETATE 80 MG/ML VIAL IJ (15:03)
[2024-04-07] MEDS: Omnipaque 240 MG/ML 50 ML BTL IJ (15:03)
[2024-04-07] MEDS: Nerve Block Tray 1 EACH MC (15:04)
== END 2024-04-07 14:20 | disposition home or self-care (01) ==
LOC: PC 14:20
PROVIDERS: PCP Nurse Practitioner Family; Visit Provider Anesthesiology Pain Medicine
DX: M47.812 Spondylosis without myelopathy or radiculopathy, cervical region (principal)
CPT/HCPCS: 00123; 64490; 64491; 72040; J0665; J1010; Q9967